=== PATIENT | female | born 1960 | race African-American/Black ===

== ENCOUNTER 2016-03-08 08:25 | Emergency (ER) | payer OTHER ==
[2016-03-08 09:23] VITALS: BP 126/85
--- NOTE | 2016-03-08 09:56 | ED ---
Throat Pain/Nasal Congestion - HPI Summary HPI Summary: Patient arrives with a 1 day history of swelling over the L upper and lower eye lid. She denies copious discharge, but awoke with some watering over the R eye. She states is is slightly red and is achy. She is able to open her lids fully. Denies visual changes, blurry vision, double vision. Denies transient vision loss. Denies floaters or flashing lights. Denies any temperature changes over the eye or STREET. Denies photophobia. Denies family or personal history of glaucoma. Patient is allergic to sulfa but denies recent exposure. Denies scalp tenderness. Denies recent illness or sick contacts. - History of Current Complaint Chief Complaint: EDEyeProblem Hx Obtained From: Patient Onset/Duration: Sudden Onset Severity: Mild - Epiglottits Risk Factors Epiglottis Risk Factors: Negative - Allergies/Home Medications Allergies/Adverse Reactions: Allergies Allergy/AdvReac Type Severity Reaction Status Date / Time Sulfa Drugs Allergy Mild Hives Verified 03/08/16 08:28 PMH/Surg Hx/FS Hx/Imm Hx Previously Healthy: Yes Endocrine/Hematology History: Reports: Hx Anticoagulant Therapy - She took one baby aspirin today., Hx Diabetes - Type 2 Denies: Hx Thyroid Disease Cardiovascular History: Reports: Hx Hypertension Denies: Hx Angina, Hx Pacemaker/ICD Respiratory History: Reports: Hx Asthma Denies: Hx Chronic Obstructive Pulmonary Disease (COPD), Hx Lung Cancer, Hx Pneumonia, Hx Pulmonary Embolism GI History: Denies: Hx Gall Bladder Disease, Hx Gastroesophageal Reflux Disease, Hx Gastrointestinal Bleed, Hx Ulcer, Hx Urosepsis History: Reports: Hx Kidney Stones Denies: Hx Renal Disease Musculoskeletal History: Reports: Hx Arthritis - Bilat knees, shoulders, Hx Tendonitis - L Wrist Sensory History: Denies: Hx Hearing Aid Comment Only: Hx Contacts or Glasses - USUALLY WEARS GLASSES Opthamlomology History: Comment Only: Hx Contacts or Glasses - USUALLY WEARS GLASSES Neurological History: Reports: Hx Migraine Denies: Hx Dementia, Hx Seizures, Hx Transient Ischemic Attacks (TIA) Psychiatric History: Denies: Hx Anxiety, Hx Depression, Hx Schizophrenia, Hx Bipolar Disorder - Cancer History Hx Chemotherapy: No Hx Radiation Therapy: No - Surgical History Surgery Procedure, Year, and Place: 1991 [facility] 2004 [facility]OMY [facility] BILATERAL CARPAL TUNNEL Hx Anesthesia Reactions: No Infectious Disease History: No Infectious Disease History: Denies: Traveled Outside the [place] in Last 30 Days - Family History Known Family History: Positive: Cardiac Disease, Hypertension, Diabetes Family History: NON-CONTRIBUTORY - Social History Alcohol Use: None Hx Substance Use: No Substance Use Type: Reports: None Hx Tobacco Use: Yes Smoking Status (MU): Former Smoker Type: Cigarettes Amount Used/How Often: LESS THEN 1PPD Length of Time of Smoking/Using Tobacco: 1.5 YRS Have You Smoked in the Last Year: No Review of Systems Constitutional: Negative Positive: Drainage - slight, Other - mild swelling over upper and lower eye lid ENT: Negative Cardiovascular: Negative Respiratory: Negative Musculoskeletal: Negative Positive: Other - edematous over R eye Psychological: Normal All Other Systems Reviewed And Are Negative: Yes Physical Exam Triage Information Reviewed: Yes Vital Signs On Initial Exam: Initial Vitals Temp Pulse Resp BP Pulse Ox 96.6 F 95 16 154/84 98 03/08/16 08:28 03/08/16 08:28 03/08/16 08:28 03/08/16 08:28 03/08/16 08:28 Appearance: Positive: Well-Appearing, No Pain Distress, Well-Nourished Skin: Positive: Warm Head/Face: Positive: Normal Head/Face Inspection, Other - DENIES temporal artery tenderness or TSREET Eyes: Positive: Normal, EOMI, CATRACHITA, Conjunctiva Inflammed - slightly erytehmatous, Discharge - slight watery discharge ENT: Positive: Normal ENT inspection, Pharynx normal Neck: Positive: Supple, Nontender, No Lymphadenopathy Respiratory/Lung Sounds: Positive: Clear to Auscultation, Breath Sounds Present Cardiovascular: Positive: Normal Musculoskeletal: Positive: Normal, Strength/ROM Intact Neurological: Positive: Normal, Sensory/Motor Intact, Facial Symmetry, Speech Normal Psychiatric: Positive: Normal AVPU Assessment: Alert - [place] Coma Scale Coma Scale Total: 15 Procedures - Eye Procedure Alcaine Drops Administered: Yes - ji lamp - no FB visualized Diagnostics - Vital Signs Vital Signs Temp Pulse Resp BP Pulse Ox 03/08/16 09:22 97.7 F 85 16 126/85 03/08/16 08:47 98.7 F 96 20 148/87 97 03/08/16 08:28 96.6 F 95 16 154/84 98 - Laboratory Lab Statement: Any lab studies that have been ordered have been reviewed, and results considered in the medical decision making process. EENT Course/Dx - Course Course Of Treatment: Visual acuity performed. Patient did not wear her glasses today. Tetracaine drops applied with dye - Patients eye visualized under ji lamp. No FB visualized. D/t swelling, slight erythematous conjunctiva and slight watery drainage from R eye - antibiotic drops prescribed to pt rx. Also 30 day supply Claritin DM. This is possibly allergic in origin. AACG less likely out based on EOMI, CATRACHITA. Tonometry not performed. Temporal arteritis effectively R/O based on no tenderness over artery or complaint of STREET. Patient encouraged to follow up with Optho for further testing if symptoms persist. Patient agrees with plan. Assessment/Plan: Follow up with optho. Antiobiotic drops given. Claritin Rx given. - Differential Diagnoses Differential Diagnoses: Conjunctivitis, Corneal Abrasion, Pain of Unknown Etiology - Diagnoses Provider Diagnoses: Eye pain Is Visit Related: No Discharge - Discharge Plan Condition: Stable Disposition: HOME Prescriptions: Loratadine & Pseudoephedrine [Claritin-D 24 Hour 10-240 mg] 1 tab PO DAILY #30 tab Polymyx/Trimethoprim OPTH* [Polytrim OPHTH*] 1 drop RIGHT EYE Q3H #1 btl Patient Education Materials: Conjunctivitis (ED) Referrals: Alana Jones MD [Primary Care Provider] - Additional Instructions: Follow up with Ophthalmology this week. If you develop worsening pain in the eye or visual changes, please come back to emergency room or call your table attendant.
== END 2016-03-08 09:22 | disposition home or self-care (01) ==
LOC: ED 08:25
DX: H57.11 Ocular pain, right eye (principal); Z88.2 Allergy status to sulfonamides; Z79.82 Long term (current) use of aspirin; E11.9 Type 2 diabetes mellitus without complications; I10 Essential (primary) hypertension
CPT/HCPCS: 99281

== ENCOUNTER 2016-03-14 20:46 | Emergency (ER) | payer OTHER ==
[2016-03-14 20:53] VITALS: BP 143/87
[2016-03-14] MEDS ORDERED: Tobramycin 0.3% OPHTH.SOL* 5 ML BOT (regular eye drops) BOTH EYES ONE (21:50)
--- NOTE | 2016-03-14 22:11 | UC ---
Eye Complaint HPI - HPI Summary HPI Summary: ONE WEEK OF BILATERAL EYE PAIN AND DISCHARGE. SEEN ONE WEEK AGO GIVEN POLYMXIN/ TRIMETHOPRIM DROPS FOR RIGHT EYE REDNESS. DOES NOT SEEM TO BE HELPING, NOW SPREADING TO BOTH EYES. NO CHANGES IN VISION, NO TRAUMA. NO PAIN WITH EYE MOVEMENT JUST IRRITATION AND DISCHARGE. NO FEVER, NO COLD SYMPTOMS. - History of Current Complaint Chief Complaint: EDEyeProblem Stated Complaint: BURNING AND PAIN IN BOTH EYES Time Seen by Provider: 03/14/16 20:59 Hx Obtained From: Patient, Family/Top Cutter Hx Last Menstrual Period: hysterectomy Onset/Duration: Gradual Onset, Lasting Weeks, Still Present, Worse Since - LAST THREE DAYS Severity Initially: Mild Severity Currently: Mild Pain Intensity: 8 Location of Injury: Conjunctiva Character: Dull Associated Signs And Symptoms: Positive: Drainage (Clear), Drainage (Purulent). Negative: Photophobia, Vision Impairment Bilateral, Vision Impairment Right, Vision Impairment Left, Fever, Swelling Related History: Similar Episode - ONE WEEK AGO - Risk Factors Penetrating Injury Risk Factor: Negative Globe Rupture Risk Factors: Negative Acute Glaucoma Risk Factors: Diabetes - Allergies/Home Medications Allergies/Adverse Reactions: Allergies Allergy/AdvReac Type Severity Reaction Status Date / Time Sulfa Drugs Allergy Mild Hives Verified 03/08/16 08:28 PMH/Surg Hx/FS Hx/Imm Hx Previously Healthy: Yes Endocrine History Of: Reports: Diabetes - Type 2, Dyslipidemia Denies: Thyroid Disease, Hyperthyroidism, Hypothyroidism Cardiovascular History Of: Reports: Hypertension Denies: Cardiac Disorders, Pacemaker/ICD, Atrial Fibrillation, Bleeding Disorders Respiratory History Of: Reports: Asthma Denies: COPD, Bronchitis, Pneumonia, Pulmonary Embolism GI/ History Of: Reports: Gastroesophageal Reflux, Kidney Stones Denies: Ulcer, Gastrointestinal Bleed, Gall Bladder Disease, Diverticulitis, Renal Disease, Urosepsis Neurological History Of: Reports: Migraine Denies: TIA, CVA, Dementia, Seizures Psychological History Of: Denies: Anxiety, Depression, Bipolar Disorder, Schizophrenia, Post Traumatic Stress Disorder Cancer History Of: Denies: Lung Cancer, Colorectal Cancer, Breast Cancer, Prostate Cancer, Cervical Cancer Other History Of: Anticoagulant Therapy - She took one baby aspirin today. Negative For: HIV, Hepatitis B, Hepatitis C - Surgical History Surgical History: Yes Surgery Procedure, Year, and Place: 1991 [facility] 2004 [facility] BILATERAL CARPAL TUNNEL - Family History Known Family History: Positive: Cardiac Disease, Hypertension, Diabetes Family History: NON-CONTRIBUTORY - Social History Occupation: Disabled Lives: With Family Alcohol Use: None Substance Use Type: None Smoking Status (MU): Former Smoker Type: Cigarettes Amount Used/How Often: LESS THEN 1PPD Length of Time of Smoking/Using Tobacco: 1.5 YRS Have You Smoked in the Last Year: No When Did the Patient Quit Smoking/Using Tobacco: 40 yrs ago - Immunization History Most Recent Influenza Vaccination: 10/2014 Most Recent Tetanus Shot: up to date Most Recent Pneumonia Vaccination: never had this Review of Systems Constitutional: Negative Skin: Negative Eyes: Drainage, Eye Redness ENT: Negative Respiratory: Negative Cardiovascular: Negative Gastrointestinal: Negative Genitourinary: Negative Motor: Negative Neurovascular: Negative Musculoskeletal: Negative Neurological: Negative Psychological: Negative All Other Systems Reviewed And Are Negative: Yes Physical Exam Triage Information Reviewed: Yes Appearance: Well-Appearing, No Pain Distress, Well-Nourished Vital Signs: Initial Vital Signs Temp 97.5 F 03/14/16 20:49 Pulse 103 03/14/16 20:49 Resp 16 03/14/16 20:49 BP 143/87 03/14/16 20:49 Pulse Ox 97 03/14/16 20:49 Vital Signs Reviewed: Yes Eyes: Positive: Conjunctiva Inflamed, Discharge ENT Exam: Normal ENT: Positive: Normal ENT inspection, Hearing grossly normal, Pharynx normal, TMs normal Dental Exam: Normal Neck exam: Normal Neck: Positive: Supple, Nontender, No Lymphadenopathy Respiratory Exam: Normal Respiratory: Positive: Chest non-tender, Lungs clear, Normal breath sounds, No respiratory distress, No accessory muscle use Cardiovascular Exam: Normal Cardiovascular: Positive: RRR, No Murmur, Pulses Normal Abdominal Exam: Normal Abdomen Description: Positive: Nontender, No Organomegaly Musculoskeletal Exam: Normal Musculoskeletal: Positive: Strength Intact, ROM Intact, No Edema Neurological Exam: Normal Psychological Exam: Normal Psychological: Positive: Normal Response To Family Skin Exam: Normal Eye Complaint Course/Dx - Differential Dx/Diagnosis Differential Diagnosis/HQI/PQRI: Conjunctivitis Provider Diagnoses: CONJUNCTIVITIS BILATERAL Discharge - Discharge Plan Condition: Stable Disposition: HOME Prescriptions: Tobramycin 0.3% OPHTH.YSABEL* 1 drop BOTH EYES Q4H #1 btl Patient Education Materials: Conjunctivitis (ED) Referrals: Alana Jones MD [Primary Care Provider] - Darron Calhoun MD [Medical Doctor] -
== END 2016-03-14 22:18 | disposition home or self-care (01) ==
LOC: ED 20:46
DX: H10.9 Unspecified conjunctivitis (principal); H57.13 Ocular pain, bilateral; Z87.891 Personal history of nicotine dependence
CPT/HCPCS: 99282; A9270-GY

== ENCOUNTER 2016-04-12 10:59 | Emergency (ER) | payer OTHER ==
[2016-04-12 11:17] VITALS: BP 137/89
--- NOTE | 2016-04-12 11:48 | UC ---
Respiratory Complaint HPI - HPI Summary HPI Summary: ONE WEEK OF COUGH, CHEST CONGESTION. NO FEVER - History of Current Complaint Chief Complaint: UCRespiratory Stated Complaint: COUGH, AND CHEST CONGESTION Time Seen by Provider: 04/12/16 11:24 Hx Obtained From: Patient Hx Last Menstrual Period: hysterectomy Onset/Duration: Gradual Onset, Lasting Weeks, Still Present Timing: Intermittent Episodes Severity Initially: Mild Severity Currently: Mild Character: Cough: Nonproductive Associated Signs And Symptoms: Positive: Wheezing, URI, Nasal Congestion. Negative: Fever, Calf Pain, Calf Swelling, Hoarseness, Sinus Discomfort - Risk Factors Pulmonary Embolism Risk Factors: Negative Cardiac Risk Factors: Negative Pseudomonas Risk Factors: Negative Tuberculosis Risk Factors: Negative - Allergies/Home Medications Allergies/Adverse Reactions: Allergies Allergy/AdvReac Type Severity Reaction Status Date / Time Sulfa Drugs Allergy Mild Hives Verified 03/08/16 08:28 PMH/Surg Hx/FS Hx/Imm Hx Previously Healthy: Yes Endocrine History Of: Reports: Diabetes - Type 2, Dyslipidemia Denies: Thyroid Disease, Hyperthyroidism, Hypothyroidism Cardiovascular History Of: Reports: Hypertension Denies: Cardiac Disorders, Pacemaker/ICD, Atrial Fibrillation, Bleeding Disorders Respiratory History Of: Reports: Asthma Denies: COPD, Bronchitis, Pneumonia, Pulmonary Embolism GI/ History Of: Reports: Gastroesophageal Reflux, Kidney Stones Denies: Ulcer, Gastrointestinal Bleed, Gall Bladder Disease, Diverticulitis, Renal Disease, Urosepsis Neurological History Of: Reports: Migraine Denies: TIA, CVA, Dementia, Seizures Psychological History Of: Denies: Anxiety, Depression, Bipolar Disorder, Schizophrenia, Post Traumatic Stress Disorder Cancer History Of: Denies: Lung Cancer, Colorectal Cancer, Breast Cancer, Prostate Cancer, Cervical Cancer Other History Of: Anticoagulant Therapy - She took one baby aspirin today. Negative For: HIV, Hepatitis B, Hepatitis C - Surgical History Surgical History: Yes Surgery Procedure, Year, and Place: 1991 [facility] 2004 [facility]OM[facility] BILATERAL CARPAL TUNNEL - Family History Known Family History: Positive: Cardiac Disease, Hypertension, Diabetes Family History: NON-CONTRIBUTORY - Social History Occupation: Unemployed Lives: With Family Alcohol Use: None Substance Use Type: None Smoking Status (MU): Former Smoker Type: Cigarettes Amount Used/How Often: LESS THEN 1PPD Length of Time of Smoking/Using Tobacco: 1.5 YRS Have You Smoked in the Last Year: No When Did the Patient Quit Smoking/Using Tobacco: 40 yrs ago - Immunization History Most Recent Influenza Vaccination: 10/2014 Most Recent Tetanus Shot: up to date Most Recent Pneumonia Vaccination: never had this Review of Systems Constitutional: Negative Skin: Negative Eyes: Negative ENT: Negative Respiratory: Cough Cardiovascular: Negative Gastrointestinal: Negative Genitourinary: Negative Motor: Negative Neurovascular: Negative Musculoskeletal: Negative Neurological: Negative Psychological: Negative All Other Systems Reviewed And Are Negative: Yes Physical Exam Triage Information Reviewed: Yes Appearance: Well-Appearing, No Pain Distress, Well-Nourished Vital Signs: Initial Vital Signs Temp 96.4 F 04/12/16 11:15 Pulse 84 04/12/16 11:15 Resp 18 04/12/16 11:15 BP 137/89 04/12/16 11:15 Pulse Ox 99 04/12/16 11:15 Vital Signs Reviewed: Yes Eye Exam: Normal Eyes: Positive: Conjunctiva Clear ENT Exam: Normal ENT: Positive: Normal ENT inspection, Hearing grossly normal, Pharynx normal, TMs normal Dental Exam: Normal Neck exam: Normal Neck: Positive: Supple, Nontender Respiratory Exam: Other - COUGH Respiratory: Positive: Chest non-tender, Lungs clear, Normal breath sounds, No respiratory distress, No accessory muscle use. Negative: Respiratory distress, Decreased breath sounds Cardiovascular Exam: Normal Cardiovascular: Positive: RRR, No Murmur, Pulses Normal, Brisk Capillary Refill Abdominal Exam: Normal Abdomen Description: Positive: Nontender, No Organomegaly Musculoskeletal Exam: Normal Musculoskeletal: Positive: Strength Intact, ROM Intact Neurological Exam: Normal Psychological Exam: Normal Psychological: Positive: Normal Response To Family Skin Exam: Normal UC Diagnostic Evaluation - Laboratory O2 Sat by Pulse Oximetry: 99 Respiratory Course/Dx - Differential Dx/Diagnosis Differential Diagnosis/HQI/PQRI: Sinusitis Provider Diagnoses: UPPER RESPIRATORY INFECTION Discharge - Discharge Plan Condition: Stable Disposition: HOME Prescriptions: Benzonatate CAP* [Tessalon CAP*] 100 mg PO TID PRN #15 cap PRN Reason: Cough Patient Education Materials: Upper Respiratory Infection (ED) Referrals: Alana Jones MD [Primary Care Provider] -
== END 2016-04-12 11:51 | disposition home or self-care (01) ==
LOC: UCEAST 10:59
DX: J06.9 Acute upper respiratory infection, unspecified (principal); Z88.2 Allergy status to sulfonamides; Z79.82 Long term (current) use of aspirin; Z87.891 Personal history of nicotine dependence
CPT/HCPCS: 99212; G0463

== ENCOUNTER 2016-05-10 13:12 | Emergency (ER) | payer OTHER ==
[2016-05-10 13:16] VITALS: BP 158/83
[2016-05-10] MEDS ORDERED: Cyclobenzaprine TAB* 10 MG PO ONE (14:33)
[2016-05-10] MEDS ORDERED: Ketorolac INJ* 60 MG/2 ML VIAL IM ONE (14:33)
--- NOTE | 2016-05-10 14:36 | ED ---
Upper Extremity Pain - HPI Summary HPI Summary: 56F presents with left side neck and shoulder pain since this morning. She denies any injury. She denies any weakness, numbness or tingling. The pain is not midline on her neck. She has used ibuprofen without relief. She denies any chest pain or shortness of breath. She is right handed. - History of Current Complaint Chief Complaint: EDNeckComplaint Stated Complaint: LT ARM/NECK PAIN Time Seen by Provider: 05/10/16 14:19 Hx Last Menstrual Period: hysterectomy - Allergies/Home Medications Allergies/Adverse Reactions: Allergies Allergy/AdvReac Type Severity Reaction Status Date / Time Sulfa Drugs Allergy Mild Hives Verified 05/10/16 13:12 PMH/Surg Hx/FS Hx/Imm Hx Endocrine/Hematology History: Reports: Hx Anticoagulant Therapy - She took one baby aspirin today., Hx Diabetes - Type 2 Denies: Hx Thyroid Disease Cardiovascular History: Reports: Hx Hypertension Denies: Hx Angina, Hx Pacemaker/ICD Respiratory History: Reports: Hx Asthma Denies: Hx Chronic Obstructive Pulmonary Disease (COPD), Hx Lung Cancer, Hx Pneumonia, Hx Pulmonary Embolism GI History: Denies: Hx Gall Bladder Disease, Hx Gastroesophageal Reflux Disease, Hx Gastrointestinal Bleed, Hx Ulcer, Hx Urosepsis History: Reports: Hx Kidney Stones Denies: Hx Renal Disease Musculoskeletal History: Reports: Hx Arthritis - Bilat knees, shoulders, Hx Tendonitis - L Wrist Sensory History: Denies: Hx Hearing Aid Comment Only: Hx Contacts or Glasses - USUALLY WEARS GLASSES Opthamlomology History: Comment Only: Hx Contacts or Glasses - USUALLY WEARS GLASSES Neurological History: Reports: Hx Migraine Denies: Hx Dementia, Hx Seizures, Hx Transient Ischemic Attacks (TIA) Psychiatric History: Denies: Hx Anxiety, Hx Depression, Hx Schizophrenia, Hx Bipolar Disorder - Cancer History Hx Chemotherapy: No Hx Radiation Therapy: No - Surgical History Surgery Procedure, Year, and Place: 1991 [facility] 2004 [facility] BILATERAL CARPAL TUNNEL Hx Anesthesia Reactions: No Infectious Disease History: No Infectious Disease History: Denies: Traveled Outside the [place] in Last 30 Days - Family History Known Family History: Positive: Cardiac Disease, Hypertension, Diabetes Family History: NON-CONTRIBUTORY - Social History Alcohol Use: None Hx Substance Use: No Substance Use Type: Reports: None Hx Tobacco Use: Yes Smoking Status (MU): Former Smoker Type: Cigarettes Amount Used/How Often: LESS THEN 1PPD Length of Time of Smoking/Using Tobacco: 1.5 YRS Have You Smoked in the Last Year: No Review of Systems Negative: Fever Negative: Chest Pain Negative: Shortness Of Breath Positive: Myalgia - left shoulder and neck pain All Other Systems Reviewed And Are Negative: Yes Physical Exam Triage Information Reviewed: Yes Vital Signs On Initial Exam: Initial Vitals Temp Pulse Resp BP Pulse Ox 96.7 F 84 16 158/83 99 05/10/16 13:13 05/10/16 13:13 05/10/16 13:13 05/10/16 13:13 05/10/16 13:13 Vital Signs Reviewed: Yes Appearance: Positive: Well-Appearing Skin: Positive: Warm, Dry Head/Face: Positive: Normal Head/Face Inspection Eyes: Positive: Normal, Conjunctiva Clear Respiratory/Lung Sounds: Positive: Clear to Auscultation, Breath Sounds Present Cardiovascular: Positive: Normal, RRR Musculoskeletal: Positive: Strength/ROM Intact - of left shoulder and neck, Other - neg arm drop, good pulses, no midline tenderness of neck, palpable muscle spasms of trapezius that is tender to palpation, sensation grossly intact Diagnostics - Vital Signs Vital Signs Temp Pulse Resp BP Pulse Ox 05/10/16 13:13 96.7 F 84 16 158/83 99 - Laboratory Lab Statement: Any lab studies that have been ordered have been reviewed, and results considered in the medical decision making process. Course/Dx - Course Course Of Treatment: 56F presents with left shoulder pain today. Denies any injury. no numbness or tingling. on exam tender over trapezius. do not suspect cardiac related due to palpable muscle spasms felt. will treat with flexeril. patient understands and agrees with plan - Diagnoses Differential Diagnosis/HQI/PQRI: Positive: Fracture (Closed), Strain, Sprain Provider Diagnoses: Left shoulder pain Discharge - Discharge Plan Condition: Good Disposition: HOME Prescriptions: Cyclobenzaprine TAB* [Flexeril 10 MG TAB*] 10 mg PO TID PRN #9 tab PRN Reason: Pain Referrals: Alana Jones MD [Primary Care Provider] - Additional Instructions: Take muscle relaxer three times a day for 3 days Take Tylenol and ibuprofen every 6 hours as needed for pain heat area and massage Do range of motion activities for shoulder Follow up with primary care physician if no improvement Return to ED if develop weakness, numbness or tingling or any new or worsening symptoms
== END 2016-05-10 15:03 | disposition home or self-care (01) ==
LOC: ED 13:12
DX: M25.512 Pain in left shoulder (principal); M54.2 Cervicalgia
CPT/HCPCS: 96372; 99281; A9270-GY; J1885

== ENCOUNTER 2016-05-17 12:28 | Emergency (ER) | payer OTHER ==
--- NOTE | 2016-05-17 16:44 | RAD ---
HISTORY: Abdominal pain, lack of bowel movements COMPARISONS: None relevant VIEWS: Frontal views of the abdomen. FINDINGS: BOWEL: There is a nonobstructive bowel gas pattern. There is a moderate amount of stool within the colon. CALCULI: There are no abnormal calculi. BONES AND SOFT TISSUES: Degenerative changes are noted OTHER FINDINGS: The lung bases are clear. There is no subphrenic gas. IMPRESSION: NONOBSTRUCTIVE BOWEL GAS PATTERN. MODERATE AMOUNT OF STOOL THROUGHOUT THE COLON.
[2016-05-17] MEDS ORDERED: Polyethylene Glycol 3350* 17 GM PACKET PO PRN (17:00)
[2016-05-17] MEDS ORDERED: Polyethylene Glycol 3350 BTL* 238 GM BTL PO ONE (17:05)
--- NOTE | 2016-05-17 17:12 | ED ---
Complex/Multi-Sys Presentation - HPI Summary HPI Summary: Patient presents with three days of constipation. She has taken metamucil without relief. She denies vomiting, fever, or diarrhea. She has been eating and drinking. She mild diffuse abdominal discomfort. She has not spoken with her PCP regarding this issue. - History Of Current Complaint Chief Complaint: EDAbdPain Time Seen by Provider: 05/17/16 16:25 Hx Obtained From: Patient Onset/Duration: Gradual Onset Timing: Constant Severity Currently: Moderate Severity Initially: Mild Character: Pressure Associated Signs And Symptoms: Positive: Abdominal Pain - mild diffuse. Negative: Nausea, Vomiting, Diarrhea, Melena, Decreased Oral Intake, Fever - Allergies/Home Medications Allergies/Adverse Reactions: Allergies Allergy/AdvReac Type Severity Reaction Status Date / Time Sulfa Drugs Allergy Mild Hives Verified 05/10/16 13:12 PMH/Surg Hx/FS Hx/Imm Hx Endocrine/Hematology History: Reports: Hx Anticoagulant Therapy - She took one baby aspirin today., Hx Diabetes - Type 2 Denies: Hx Thyroid Disease Cardiovascular History: Reports: Hx Hypertension Denies: Hx Angina, Hx Pacemaker/ICD Respiratory History: Reports: Hx Asthma Denies: Hx Chronic Obstructive Pulmonary Disease (COPD), Hx Lung Cancer, Hx Pneumonia, Hx Pulmonary Embolism GI History: Denies: Hx Gall Bladder Disease, Hx Gastroesophageal Reflux Disease, Hx Gastrointestinal Bleed, Hx Ulcer, Hx Urosepsis History: Reports: Hx Kidney Stones Denies: Hx Renal Disease Musculoskeletal History: Reports: Hx Arthritis - Bilat knees, shoulders, Hx Tendonitis - L Wrist Sensory History: Denies: Hx Hearing Aid Comment Only: Hx Contacts or Glasses - USUALLY WEARS GLASSES Opthamlomology History: Comment Only: Hx Contacts or Glasses - USUALLY WEARS GLASSES Neurological History: Reports: Hx Migraine Denies: Hx Dementia, Hx Seizures, Hx Transient Ischemic Attacks (TIA) Psychiatric History: Denies: Hx Anxiety, Hx Depression, Hx Schizophrenia, Hx Bipolar Disorder - Cancer History Hx Chemotherapy: No Hx Radiation Therapy: No - Surgical History Surgery Procedure, Year, and Place: 1991 [facility] 2004 [facility]OMY [facility] BILATERAL CARPAL TUNNEL Hx Anesthesia Reactions: No Infectious Disease History: No Infectious Disease History: Denies: Traveled Outside the [place] in Last 30 Days - Family History Known Family History: Positive: Cardiac Disease, Hypertension, Diabetes Family History: NON-CONTRIBUTORY - Social History Occupation: Unemployed Lives: With Family Alcohol Use: None Hx Substance Use: No Substance Use Type: Reports: None Hx Tobacco Use: Yes Smoking Status (MU): Former Smoker Type: Cigarettes Amount Used/How Often: LESS THEN 1PPD Length of Time of Smoking/Using Tobacco: 1.5 YRS Have You Smoked in the Last Year: No Review of Systems Negative: Fever, Chills Negative: Chest Pain Negative: Shortness Of Breath Positive: Abdominal Pain - mild diffuse. Negative: Vomiting, Diarrhea, Nausea Positive: no symptoms reported Negative: Headache, Weakness All Other Systems Reviewed And Are Negative: Yes Physical Exam Triage Information Reviewed: Yes Vital Signs On Initial Exam: Initial Vitals Temp Pulse Resp BP Pulse Ox 97.3 F 81 18 147/79 100 05/17/16 12:50 05/17/16 12:50 05/17/16 12:50 05/17/16 12:50 05/17/16 12:50 Vital Signs Reviewed: Yes Appearance: Positive: Well-Appearing, No Pain Distress, Obese Skin: Positive: Warm, Skin Color Reflects Adequate Perfusion, Dry, Soft Head/Face: Positive: Normal Head/Face Inspection Eyes: Positive: EOMI, CATRACHITA, Conjunctiva Clear ENT: Positive: Hearing grossly normal Neck: Positive: Supple, Nontender Respiratory/Lung Sounds: Positive: Clear to Auscultation, Breath Sounds Present Cardiovascular: Positive: RRR Abdomen Description: Positive: Soft. Negative: Nontender - mild diffuse discomfort with palpation, CVA Tenderness (R), CVA Tenderness (L), Distended, Guarding, Hepatomegaly, McBurney's Point Tenderness, Pulsatile Mass, Splenomegaly Bowel Sounds: Positive: Present Musculoskeletal: Positive: Strength/ROM Intact. Negative: Edema Left, Edema Right Neurological: Positive: Sensory/Motor Intact, Alert, Oriented to Person Place, Time, NV Bundle Intact Distally, Normal Gait Psychiatric: Positive: Affect/Mood Appropriate AVPU Assessment: Alert Diagnostics - Vital Signs Vital Signs Temp Pulse Resp BP Pulse Ox 05/17/16 15:30 97.5 F 77 18 131/80 99 05/17/16 13:50 98.7 F 78 18 127/75 98 05/17/16 12:50 97.3 F 81 18 147/79 100 - Laboratory Lab Statement: Any lab studies that have been ordered have been reviewed, and results considered in the medical decision making process. - Radiology No standard instances Xray Interpretation: Positive (See Comments) - moderate amount of stool without obstructive pattern Radiology Interpretation Completed By: Radiologist Complex Multi-Symp Course/Dx - Diagnoses Differential Diagnoses/HQI/PQRI: Sepsis, Urinary Tract Infection, Other Provider Diagnoses: Constipation Discharge - Discharge Plan Condition: Stable Disposition: HOME Patient Education Materials: Constipation (ED) Referrals: Alana Jones MD [Primary Care Provider] - Additional Instructions: Please use the medication provided at home and make sure to drink extra fluids. If your symptoms persist follow-up with your PCP in 1-2 days. If symptoms worsen , return to the emergency department.
[2016-05-17 17:39] LABS: Urine Bilirubin Negative (Negative); Urine Glucose Negative (Negative); Urine Nitrite Negative (Negative)
[2016-05-17 18:27] VITALS: BP 139/76
== END 2016-05-17 18:26 | disposition home or self-care (01) ==
LOC: ED 12:28
DX: K59.00 Constipation, unspecified (principal); R10.9 Unspecified abdominal pain; Z87.891 Personal history of nicotine dependence
CPT/HCPCS: 74020; 81003; 99282

== ENCOUNTER 2016-06-08 13:27 | Emergency (ER) | payer OTHER ==
[2016-06-08] MEDS: NS 0.9% 1000 ML* 2,000 ML IV ONE (14:19)
[2016-06-08 14:31] LABS: Hematocrit 39 % (35-47); Hemoglobin 12.8 g/dl (12.0-16.0); Mean Corpuscular HGB Conc 33 g/dl (31-36); Mean Corpuscular Hemoglobin 29 pg (27-31); Mean Corpuscular Volume 88 fL (80-97); Mean Platelet Volume 8 um3 (7.4-10.4); Red Blood Count 4.41 10^6/ul (4.0-5.4); Red Cell Distribution Width 14 % (10.5-15); White Blood Count 6.4 10^3/ul (3.5-10.8)
[2016-06-08 15:01] LABS: Albumin 4.1 g/dL (3.2-5.2); BUN/Creatinine Ratio 17.4 (8-20); C Reactive Protein 14.5 mg/L (< 5.00); Calcium 9.6 mg/dL (8.6-10.3); EGFR African American 113.2 (>60); Globulin 3.1 g/dL (2-4); Potassium 3.9 mmol/L (3.5-5.0); Total Bilirubin 0.3 mg/dL (0.2-1.0); Total Protein 7.2 g/dL (6.4-8.9)
[2016-06-08 15:13] LABS: TSH (Thyroid Stimulating Horm) 2.93 mcIU/mL (0.34-5.60)
[2016-06-08 16:16] LABS: Urine Bilirubin Negative (Negative); Urine Glucose Negative (Negative); Urine Nitrite Negative (Negative)
[2016-06-08] MEDS ORDERED: Acetaminophen TAB* 325 MG PO ONE (17:04)
[2016-06-08 17:39] VITALS: BP 145/89
--- NOTE | 2016-06-08 17:45 | RAD ---
INDICATION: Headache COMPARISON: Similar CT of the brain dated July 13, 2015 TECHNIQUE: Contiguous axial sections of the brain were obtained from the skull base to the vertex without contrast. FINDINGS: The ventricles, cisterns and sulci are within normal limits. The juarez-white matter differentiation is adequately maintained and there is no sulcal effacement. No significant focal abnormality or mass effect is present. There is no evidence for intracranial hemorrhage. Stable coarse calcification is noted at the falx cerebra I similar in appearance to the previous CT examination. This could possibly represent a calcified meningioma. No significant focal osseous abnormality is present. Incidental note is made of hyperostosis frontalis interna. The visualized portion of the paranasal sinuses and mastoid air cells appear clear. IMPRESSION: No acute intracranial abnormality with chronic findings unchanged since the July 13, 2015 CT of the brain.
--- NOTE | 2016-06-08 18:09 | ED ---
Cesilia Andino Claudia, scribed for Joe Daniels MD on 06/08/16 at 1405 . HPI Diabetic - HPI Summary HPI Summary: 56 year old female presents to the ED with hypergylcemia. Pt notes that she took her blood sugar this am before breakfast with nml reading. Pt then had some breakfast and about 2 hours later she began having bilateral blurred vision and STREET. Pt then took her blood sugar again with a reading of 384. Pt notes that this is an abnormal read for her so she decided to call her PCP whom recommended she come to the ED. Pt notes that these are similar Sx to when she has had hypergylcemia a year ago. Pt denies any fever, chills, nausea, abd pain. Pt denies any recent cold, runny nose, cough. Pt also denies any calf swelling or taking any water pills, as well as any change in her diet, exercise or medication dosage. - History Of Current Complaint Chief Complaint: EDGeneral Time Seen by Provider: 06/08/16 13:54 Hx Obtained From: Patient Onset/Duration: Sudden Onset, Lasting Hours Timing: Constant - Allergies/Home Medications Allergies/Adverse Reactions: Allergies Allergy/AdvReac Type Severity Reaction Status Date / Time Sulfa Drugs Allergy Mild Hives Verified 05/10/16 13:12 PMH/Surg Hx/FS Hx/Imm Hx Previously Healthy: Yes Endocrine/Hematology History: Reports: Hx Anticoagulant Therapy - She took one baby aspirin today., Hx Diabetes - Type 2 Denies: Hx Thyroid Disease Cardiovascular History: Reports: Hx Hypertension Denies: Hx Angina, Hx Pacemaker/ICD Respiratory History: Reports: Hx Asthma Denies: Hx Chronic Obstructive Pulmonary Disease (COPD), Hx Lung Cancer, Hx Pneumonia, Hx Pulmonary Embolism GI History: Denies: Hx Gall Bladder Disease, Hx Gastroesophageal Reflux Disease, Hx Gastrointestinal Bleed, Hx Ulcer, Hx Urosepsis History: Reports: Hx Kidney Stones Denies: Hx Renal Disease Musculoskeletal History: Reports: Hx Arthritis - Bilat knees, shoulders, Hx Tendonitis - L Wrist Sensory History: Comment Only: Hx Contacts or Glasses - USUALLY WEARS GLASSES Opthamlomology History: Comment Only: Hx Contacts or Glasses - USUALLY WEARS GLASSES Neurological History: Reports: Hx Migraine Denies: Hx Dementia, Hx Seizures, Hx Transient Ischemic Attacks (TIA) Psychiatric History: Denies: Hx Anxiety, Hx Depression, Hx Schizophrenia, Hx Bipolar Disorder - Cancer History Hx Chemotherapy: No Hx Radiation Therapy: No - Surgical History Surgery Procedure, Year, and Place: 1991 [facility] 2004 [facility]CTOMY [facility] BILATERAL CARPAL TUNNEL Hx Anesthesia Reactions: No Infectious Disease History: Denies: Traveled Outside the [place] in Last 30 Days - Family History Known Family History: Positive: Cardiac Disease, Hypertension, Diabetes Family History: NON-CONTRIBUTORY - Social History Occupation: Unemployed Lives: With Family Alcohol Use: None Hx Substance Use: No Substance Use Type: Reports: None Hx Tobacco Use: Yes Smoking Status (MU): Former Smoker Type: Cigarettes Amount Used/How Often: LESS THEN 1PPD Length of Time of Smoking/Using Tobacco: 1.5 YRS Have You Smoked in the Last Year: No Review of Systems Constitutional: Negative Negative: Fever, Chills Positive: Blurred Vision ENT: Negative Cardiovascular: Negative Respiratory: Negative Gastrointestinal: Negative Negative: Abdominal Pain, Vomiting, Diarrhea, Nausea Genitourinary: Negative Musculoskeletal: Negative Skin: Negative Positive: Headache Psychological: Normal All Other Systems Reviewed And Are Negative: Yes Physical Exam Triage Information Reviewed: Yes Vital Signs On Initial Exam: Initial Vitals Temp Pulse Resp BP Pulse Ox 97.6 F 82 16 160/91 100 06/08/16 13:29 06/08/16 13:29 06/08/16 13:29 06/08/16 13:29 06/08/16 13:29 Vital Signs Reviewed: Yes Appearance: Positive: Well-Appearing, No Pain Distress Skin: Positive: Warm, Skin Color Reflects Adequate Perfusion, Dry Head/Face: Positive: Normal Head/Face Inspection Eyes: Positive: EOMI, CATRACHITA ENT: Positive: Normal ENT inspection Neck: Positive: Supple, Nontender Respiratory/Lung Sounds: Positive: Clear to Auscultation, Breath Sounds Present Cardiovascular: Positive: RRR Abdomen Description: Positive: Nontender, Soft Musculoskeletal: Positive: Normal, Strength/ROM Intact Neurological: Positive: Normal, Sensory/Motor Intact, Alert, Oriented to Person Place, Time Psychiatric: Positive: Affect/Mood Appropriate Diagnostics - Vital Signs Vital Signs Temp Pulse Resp BP Pulse Ox 06/08/16 13:29 97.6 F 82 16 160/91 100 - Laboratory Lab Results: Lab Results 06/08/16 06/08/16 06/08/16 Range/Units 14:15 14:15 14:15 WBC 6.4 (3.5-10.8) 10^3/ul RBC 4.41 (4.0-5.4) 10^6/ul Hgb 12.8 (12.0-16.0) g/dl Hct 39 (35-47) % MCV 88 (80-97) fL MCH 29 (27-31) pg MCHC 33 (31-36) g/dl RDW 14 (10.5-15) % Plt Count 260 (150-450) 10^3/ul MPV 8 (7.4-10.4) um3 Neut % (Auto) 48.3 (38-83) % Lymph % (Auto) 40.0 (25-47) % [place] % (Auto) 9.7 H (1-9) % Eos % (Auto) 1.1 (0-6) % Baso % (Auto) 0.9 (0-2) % Absolute Neuts (auto) 3.1 (1.5-7.7) 10^3/ul Absolute Lymphs (auto) 2.6 (1.0-4.8) 10^3/ul Absolute Monos (auto) 0.6 (0-0.8) 10^3/ul Absolute Eos (auto) 0.1 (0-0.6) 10^3/ul Absolute Basos (auto) 0.1 (0-0.2) 10^3/ul Absolute Nucleated RBC 0.01 10^3/ul Nucleated RBC % 0.1 INR (Anticoag Therapy) 0.96 (0.89-1.11) APTT 32.8 (26.0-36.3) seconds Sodium 139 (133-145) mmol/L Potassium 3.9 (3.5-5.0) mmol/L Chloride 104 (101-111) mmol/L Carbon Dioxide 29 (22-32) mmol/L Anion Gap 6 (2-11) mmol/L BUN 12 (6-24) mg/dL Creatinine 0.69 (0.51-0.95) mg/dL Est GFR ( Amer) 113.2 (>60) Est GFR (Non-Af Amer) 88.0 (>60) BUN/Creatinine Ratio 17.4 (8-20) Glucose 105 H (70-100) mg/dL Lactic Acid (0.5-2.0) mmol/L Calcium 9.6 (8.6-10.3) mg/dL Total Bilirubin 0.30 (0.2-1.0) mg/dL AST 40 H (13-39) U/L ALT 72 H (7-52) U/L Alkaline Phosphatase 140 H (34-104) U/L Troponin I 0.00 (<0.04) ng/mL C-Reactive Protein 14.50 H (< 5.00) mg/L Total Protein 7.2 (6.4-8.9) g/dL Albumin 4.1 (3.2-5.2) g/dL Globulin 3.1 (2-4) g/dL Albumin/Globulin Ratio 1.3 (1-3) Lipase 54 (11.0-82.0) U/L TSH 2.93 (0.34-5.60) mcIU/mL Urine Color Urine Appearance Urine pH (5-9) Ur Specific [place] (1.010-1.030) Urine Protein (Negative) Urine Ketones (Negative) Urine Blood (Negative) Urine Nitrate (Negative) Urine Bilirubin (Negative) Urine Urobilinogen (Negative) Ur Leukocyte Esterase (Negative) Urine Glucose (Negative) 06/08/16 06/08/16 Range/Units 14:15 16:02 WBC (3.5-10.8) 10^3/ul RBC (4.0-5.4) 10^6/ul Hgb (12.0-16.0) g/dl Hct (35-47) % MCV (80-97) fL MCH (27-31) pg MCHC (31-36) g/dl RDW (10.5-15) % Plt Count (150-450) 10^3/ul MPV (7.4-10.4) um3 Neut % (Auto) (38-83) % Lymph % (Auto) (25-47) % [place] % (Auto) (1-9) % Eos % (Auto) (0-6) % Baso % (Auto) (0-2) % Absolute Neuts (auto) (1.5-7.7) 10^3/ul Absolute Lymphs (auto) (1.0-4.8) 10^3/ul Absolute Monos (auto) (0-0.8) 10^3/ul Absolute Eos (auto) (0-0.6) 10^3/ul Absolute Basos (auto) (0-0.2) 10^3/ul Absolute Nucleated RBC 10^3/ul Nucleated RBC % INR (Anticoag Therapy) (0.89-1.11) APTT (26.0-36.3) seconds Sodium (133-145) mmol/L Potassium (3.5-5.0) mmol/L Chloride (101-111) mmol/L Carbon Dioxide (22-32) mmol/L Anion Gap (2-11) mmol/L BUN (6-24) mg/dL Creatinine (0.51-0.95) mg/dL Est GFR ( Amer) (>60) Est GFR (Non-Af Amer) (>60) BUN/Creatinine Ratio (8-20) Glucose (70-100) mg/dL Lactic Acid 2.0 (0.5-2.0) mmol/L Calcium (8.6-10.3) mg/dL Total Bilirubin (0.2-1.0) mg/dL AST (13-39) U/L ALT (7-52) U/L Alkaline Phosphatase (34-104) U/L Troponin I (<0.04) ng/mL C-Reactive Protein (< 5.00) mg/L Total Protein (6.4-8.9) g/dL Albumin (3.2-5.2) g/dL Globulin (2-4) g/dL Albumin/Globulin Ratio (1-3) Lipase (11.0-82.0) U/L TSH (0.34-5.60) mcIU/mL Urine Color Colorless Urine Appearance Clear Urine pH 7.0 (5-9) Ur Specific [place] 1.004 L (1.010-1.030) Urine Protein Negative (Negative) Urine Ketones Negative (Negative) Urine Blood Negative (Negative) Urine Nitrate Negative (Negative) Urine Bilirubin Negative (Negative) Urine Urobilinogen Negative (Negative) Ur Leukocyte Esterase Negative (Negative) Urine Glucose Negative (Negative) Result Diagrams: 06/08/16 14:15 06/08/16 14:15 Lab Statement: Any lab studies that have been ordered have been reviewed, and results considered in the medical decision making process. - CT BRAIN CT CT Interpretation: No Acute Changes - No acute intracranial abnormality with chronic findings unchanged since the July 13, 2015 CT of the brain. CT Interpretation Completed By: Radiologist Re-Evaluation - Re-Evaluation 1 Re-Evaluation Time: 18:05 Change: Improved - PT IS IMPROVED AND IS READY TO BE D/C HOME Comment: Pt lab results and Brain CT are discussed with the pt. She is agreeable with the plan to be d/c home. Diabetic Course/Dx - Course Course Of Treatment: NO CRITICAL CARE TIME Assessment/Plan: IMPROVED IN ED ANFTER IVF AND TYLENOL. DISCUSSED RESULTS WITH PATIENT/FAMILY. DISCHARGE HOME STABLE. - Diagnoses Provider Diagnoses: Headache, Diabetes Discharge - Discharge Plan Condition: Stable Disposition: HOME Prescriptions: Ibuprofen TAB* [Motrin TAB* 600 MG] 600 mg PO Q6H PRN #30 tab PRN Reason: pain Patient Education Materials: General Headache (ED), Type 2 Diabetes in Adults ( ED) Referrals: Alana Jones MD [Primary Care Provider] - Additional Instructions: FOLLOW UP WITH YOUR DOCTOR. TAKE ACETAMINOPHEN OR IBUPROFEN NEEDED FOR YOUR HEADACHE. RETURN TO THE EMERGENCY DEPARTMENT FOR ANY WORSENING OF YOUR CONDITION OR QUESTIONS OR CONCERNS. The documentation as recorded by the Cesilia simpson Claudia accurately reflects the service I personally performed and the decisions made by me, Joe Daniels MD.
== END 2016-06-08 18:36 | disposition home or self-care (01) ==
LOC: ED 13:27
DX: R73.9 Hyperglycemia, unspecified (principal); E11.9 Type 2 diabetes mellitus without complications; R51 Headache; Z79.01 Long term (current) use of anticoagulants; I10 Essential (primary) hypertension; Z87.891 Personal history of nicotine dependence
CPT/HCPCS: 36415; 70450; 80053; 81003; 83605; 83690; 84443; 84484; 85025; 85610; 85730; 86140; 96360; 96361; 99284; A9270-GY

== ENCOUNTER 2016-06-28 12:41 | Emergency (ER) | payer OTHER ==
--- NOTE | 2016-06-28 16:49 | ED ---
Throat Pain/Nasal Congestion - HPI Summary HPI Summary: Patient presents with a complaint of "seeing spots" this morning, that have now resolved. She denies vision changes, STREET, fever, drainage, eye pain or nausea. - History of Current Complaint Chief Complaint: EDGeneral Time Seen by Provider: 06/28/16 15:10 Hx Obtained From: Patient Onset/Duration: Gradual Onset Severity: Mild Associated Signs And Symptoms: Positive: Negative Cough: None - Allergies/Home Medications Allergies/Adverse Reactions: Allergies Allergy/AdvReac Type Severity Reaction Status Date / Time Sulfa Drugs Allergy Mild Hives Verified 05/10/16 13:12 PMH/Surg Hx/FS Hx/Imm Hx Endocrine/Hematology History: Reports: Hx Anticoagulant Therapy - She took one baby aspirin today., Hx Diabetes - Type 2 Denies: Hx Thyroid Disease Cardiovascular History: Reports: Hx Hypertension Denies: Hx Angina, Hx Pacemaker/ICD Respiratory History: Reports: Hx Asthma Denies: Hx Chronic Obstructive Pulmonary Disease (COPD), Hx Lung Cancer, Hx Pneumonia, Hx Pulmonary Embolism GI History: Denies: Hx Gall Bladder Disease, Hx Gastroesophageal Reflux Disease, Hx Gastrointestinal Bleed, Hx Ulcer, Hx Urosepsis History: Reports: Hx Kidney Stones Denies: Hx Renal Disease Musculoskeletal History: Reports: Hx Arthritis - Bilat knees, shoulders, Hx Tendonitis - L Wrist Sensory History: Comment Only: Hx Contacts or Glasses - USUALLY WEARS GLASSES Opthamlomology History: Comment Only: Hx Contacts or Glasses - USUALLY WEARS GLASSES Neurological History: Reports: Hx Migraine Denies: Hx Dementia, Hx Seizures, Hx Transient Ischemic Attacks (TIA) Psychiatric History: Denies: Hx Anxiety, Hx Depression, Hx Schizophrenia, Hx Bipolar Disorder - Cancer History Hx Chemotherapy: No Hx Radiation Therapy: No - Surgical History Surgery Procedure, Year, and Place: 1991 [facility] 2004 [facility] BILATERAL CARPAL TUNNEL Hx Anesthesia Reactions: No Infectious Disease History: No Infectious Disease History: Denies: Traveled Outside the [place] in Last 30 Days - Family History Known Family History: Positive: Cardiac Disease, Hypertension, Diabetes Family History: NON-CONTRIBUTORY - Social History Occupation: Unemployed Lives: With Family Alcohol Use: None Hx Substance Use: No Substance Use Type: Reports: None Hx Tobacco Use: Yes Smoking Status (MU): Former Smoker Type: Cigarettes Amount Used/How Often: LESS THEN 1PPD Length of Time of Smoking/Using Tobacco: 1.5 YRS Have You Smoked in the Last Year: No Review of Systems Negative: Fever, Chills Negative: Photophobia, Blurred Vision, Diplopia, Drainage, Erythema Negative: Sore Throat, Ear Ache, Nasal Discharge Negative: Chest Pain Negative: Shortness Of Breath Negative: Nausea Negative: Bruising Negative: Headache, Weakness, Paresthesia, Numbness, Syncope All Other Systems Reviewed And Are Negative: Yes Physical Exam Triage Information Reviewed: Yes Vital Signs On Initial Exam: Initial Vitals Temp Pulse Resp BP Pulse Ox 97.5 F 73 20 153/89 99 06/28/16 12:44 06/28/16 12:44 06/28/16 12:44 06/28/16 12:44 06/28/16 12:44 Vital Signs Reviewed: Yes Appearance: Positive: Well-Appearing, No Pain Distress, Well-Nourished Skin: Positive: Warm, Skin Color Reflects Adequate Perfusion, Dry, Soft Head/Face: Positive: Normal Head/Face Inspection Eyes: Positive: EOMI, CATRACHITA, Conjunctiva Clear. Negative: Discharge ENT: Positive: Hearing grossly normal, Pharynx normal Neck: Positive: Supple, Nontender, No Lymphadenopathy Respiratory/Lung Sounds: Positive: Breath Sounds Present Cardiovascular: Positive: RRR Musculoskeletal: Negative: Edema Left, Edema Right Neurological: Positive: Sensory/Motor Intact, Alert, Oriented to Person Place, Time, CN Intact II-III, NV Bundle Intact Distally Psychiatric: Positive: Affect/Mood Appropriate AVPU Assessment: Alert Procedures - Eye Procedure Alcaine Drops Administered: Yes Diagnostics - Vital Signs Vital Signs Temp Pulse Resp BP Pulse Ox 06/28/16 15:17 140/89 06/28/16 14:50 97.4 F 71 16 137/88 98 06/28/16 12:46 97.9 F 77 20 153/89 98 06/28/16 12:44 97.5 F 73 20 153/89 99 - Laboratory Lab Statement: Any lab studies that have been ordered have been reviewed, and results considered in the medical decision making process. EENT Course/Dx - Differential Diagnoses Differential Diagnoses: Abrasion, Corneal Abrasion, Periorbital/Orbital Cellulitis, Retinal Artery Occlusion, Uveitis - Diagnoses Provider Diagnoses: Floaters in visual field Discharge - Discharge Plan Condition: Stable Disposition: HOME Patient Education Materials: Visual Floaters (ED) Referrals: Alana Jones MD [Primary Care Provider] - Additional Instructions: Please follow-up with your primary care provider. Return to the emergency department if symptoms worsen.
[2016-06-28 16:57] VITALS: BP 158/88
== END 2016-06-28 16:56 | disposition home or self-care (01) ==
LOC: ED 12:41
DX: H43.399 Other vitreous opacities, unspecified eye (principal)
CPT/HCPCS: 99282

== ENCOUNTER 2016-07-15 18:48 | Emergency (ER) | payer OTHER ==
[2016-07-15] MEDS ORDERED: NS 0.9% 1000 ML* 2,000 ML IV ONE (19:36)
[2016-07-15 19:45] LABS: Urine Bilirubin Negative (Negative); Urine Glucose Negative (Negative); Urine Nitrite Negative (Negative)
[2016-07-15] MEDS ORDERED: Ketorolac INJ* 30 MG/ML 1 ML VIAL IV PUSH ONE (20:02)
--- NOTE | 2016-07-15 20:50 | ED ---
Abdominal Pain/Female - HPI Summary HPI Summary: 56F presents with LLQ pain for 2 days. She has history of kidney stones. She states has occasionally flank pain. She denies any dysuria, hemautria but admits to frequency and urgency. She denies any n/v/d/c or fever. She states this pain feels most like when she has had UTI in past. She has never had history of diverticulitis. She has had her gallbladder removed. She has not taken anything for her pain. She states the pain is sharp in nature. - History of Current Complaint Chief Complaint: EDAbdPain Stated Complaint: LEFT SIDE ABD PAIN Time Seen by Provider: 07/15/16 19:35 Hx Last Menstrual Period: hysterectomy Pain Intensity: 8 Allergies/Adverse Reactions: Allergies Allergy/AdvReac Type Severity Reaction Status Date / Time Sulfa Drugs Allergy Mild Hives Verified 05/10/16 13:12 PMH/Surg Hx/FS Hx/Imm Hx Endocrine/Hematology History: Reports: Hx Anticoagulant Therapy - She took one baby aspirin today., Hx Diabetes - Type 2 Denies: Hx Thyroid Disease Cardiovascular History: Reports: Hx Hypertension Denies: Hx Angina, Hx Pacemaker/ICD Respiratory History: Reports: Hx Asthma Denies: Hx Chronic Obstructive Pulmonary Disease (COPD), Hx Lung Cancer, Hx Pneumonia, Hx Pulmonary Embolism GI History: Denies: Hx Gall Bladder Disease, Hx Gastroesophageal Reflux Disease, Hx Gastrointestinal Bleed, Hx Ulcer, Hx Urosepsis History: Reports: Hx Kidney Stones Denies: Hx Renal Disease Musculoskeletal History: Reports: Hx Arthritis - Bilat knees, shoulders, Hx Tendonitis - L Wrist Sensory History: Comment Only: Hx Contacts or Glasses - USUALLY WEARS GLASSES Opthamlomology History: Comment Only: Hx Contacts or Glasses - USUALLY WEARS GLASSES Neurological History: Reports: Hx Migraine Denies: Hx Dementia, Hx Seizures, Hx Transient Ischemic Attacks (TIA) Psychiatric History: Denies: Hx Anxiety, Hx Depression, Hx Schizophrenia, Hx Bipolar Disorder - Cancer History Hx Chemotherapy: No Hx Radiation Therapy: No - Surgical History Surgery Procedure, Year, and Place: 1991 [facility] 2004 [facility]OMY [facility] BILATERAL CARPAL TUNNEL Hx Anesthesia Reactions: No Infectious Disease History: No Infectious Disease History: Denies: Traveled Outside the [place] in Last 30 Days - Family History Known Family History: Positive: Cardiac Disease, Hypertension, Diabetes Family History: NON-CONTRIBUTORY - Social History Alcohol Use: None Hx Substance Use: No Substance Use Type: Reports: None Hx Tobacco Use: Yes Smoking Status (MU): Former Smoker Type: Cigarettes Amount Used/How Often: LESS THEN 1PPD Length of Time of Smoking/Using Tobacco: 1.5 YRS Have You Smoked in the Last Year: No Review of Systems Negative: Fever Negative: Chest Pain Negative: Shortness Of Breath Positive: Abdominal Pain - LLQ, Nausea. Negative: Vomiting, Diarrhea All Other Systems Reviewed And Are Negative: Yes Physical Exam Triage Information Reviewed: Yes Vital Signs On Initial Exam: Initial Vitals Temp Pulse Resp BP Pulse Ox 97.1 F 76 16 155/82 97 07/15/16 18:51 07/15/16 18:51 07/15/16 18:51 07/15/16 18:51 07/15/16 18:51 Vital Signs Reviewed: Yes Appearance: Positive: Well-Appearing Skin: Positive: Warm, Dry Head/Face: Positive: Normal Head/Face Inspection Eyes: Positive: Normal, Conjunctiva Clear ENT: Positive: Normal ENT inspection, Pharynx normal, TMs normal Respiratory/Lung Sounds: Positive: Clear to Auscultation, Breath Sounds Present Cardiovascular: Positive: Normal, RRR Abdomen Description: Positive: Soft, Other: - mild tenderness in LLQ. Negative : CVA Tenderness (L) Bowel Sounds: Positive: Present Diagnostics - Vital Signs Vital Signs Temp Pulse Resp BP Pulse Ox 07/15/16 18:51 97.1 F 76 16 155/82 97 - Laboratory Lab Results: Lab Results 07/15/16 Range/Units 19:33 Urine Color Straw Urine Appearance Clear Urine pH 6.0 (5-9) Ur Specific [place] 1.003 L (1.010-1.030) Urine Protein Negative (Negative) Urine Ketones Negative (Negative) Urine Blood Negative (Negative) Urine Nitrate Negative (Negative) Urine Bilirubin Negative (Negative) Urine Urobilinogen Negative (Negative) Ur Leukocyte Esterase Negative (Negative) Urine Glucose Negative (Negative) Result Diagrams: 07/15/16 20:45 07/15/16 20:45 Lab Statement: Any lab studies that have been ordered have been reviewed, and results considered in the medical decision making process. - CT abd CT Interpretation: No Acute Changes - FINDINGS: VISUALIZED LUNG BASES: The visualized lung bases are grossly clear. There is no pleural effusion. ABDOMEN AND PELVIS: Evaluation of the solid organs and vasculature is limited without intravenous contrast. The liver, spleen, pancreas and adrenal glands are grossly normal in appearance. The gallbladder is surgically absent with surgical material in the gallbladder fossa. The kidneys are normal in appearance without focal mass, calcification or signs of hydronephrosis. There is a stable cyst in the lower pole the left kidney. Evaluation of the gastrointestinal tract is limited without oral contrast. The small and large bowel are not distended.The patient's normal appendix is identified in the right lower quadrant with gas in the lumen (axial image 49). There is no gross retroperitoneal or mesenteric lymphadenopathy. The pelvic viscera is normal in appearance. The abdominal aorta and iliac arteries are normal in course and diameter. Degenerative changes include multilevel loss of intervertebral disc height involving the lower thoracic and lumbar spine.There are no sinister bone lesions. IMPRESSION: Chronic, degenerative and iatrogenic findings as described in body the report without noncontrast CT apparent acute abnormality. CT Interpretation Completed By: Radiologist Abdominal Pain Fem Course/Dx - Course Course Of Treatment: 56F w/ PMH of kidney stone presents with LLQ pain with occasionally flank pain. denies any dysuria or hematuria. denies any n/v/d or fever. on exam neg CVA tenderness. mild tenderness in LLQ. will get CT to make sure no kidney stone. labs normal. explained do not have cause for pain and patient states has no ovaries so did not do transvaginal u/s. patient understands and agrees with plan - Diagnoses Differential Diagnosis: Positive: Diverticulitis, Renal Colic, Urinary Tract Infection Provider Diagnoses: Abdominal pain Discharge - Discharge Plan Condition: Good Disposition: HOME Patient Education Materials: Abdominal Pain (ED) Referrals: Alana Jones MD [Primary Care Provider] - Additional Instructions: Your pain is not caused by any surgical emergency Drink small amounts of fluid as tolerated When able to eat follow BRAT diet: Bananas, rice, applesauce, toast Take ibuprofen or Tylenol for pain as needed every 6 hours Follow up with primary within 5 days Return to ED if develop any new or worsening symptoms
--- NOTE | 2016-07-15 20:55 | RAD ---
CLINICAL HISTORY: Left flank and left lower quadrant pain. Relevant surgical history includes hysterectomy and cholecystectomy. COMPARISON: Most recent CT of the abdomen and pelvis is dated March 12, 2015 TECHNIQUE: Noncontrast CT examination of the abdomen and pelvis from the lung bases through the initial tuberosities. FINDINGS: VISUALIZED LUNG BASES: The visualized lung bases are grossly clear. There is no pleural effusion. ABDOMEN AND PELVIS: Evaluation of the solid organs and vasculature is limited without intravenous contrast. The liver, spleen, pancreas and adrenal glands are grossly normal in appearance. The gallbladder is surgically absent with surgical material in the gallbladder fossa. The kidneys are normal in appearance without focal mass, calcification or signs of hydronephrosis. There is a stable cyst in the lower pole the left kidney. Evaluation of the gastrointestinal tract is limited without oral contrast. The small and large bowel are not distended.The patient's normal appendix is identified in the right lower quadrant with gas in the lumen (axial image 49). There is no gross retroperitoneal or mesenteric lymphadenopathy. The pelvic viscera is normal in appearance. The abdominal aorta and iliac arteries are normal in course and diameter. Degenerative changes include multilevel loss of intervertebral disc height involving the lower thoracic and lumbar spine.There are no sinister bone lesions. IMPRESSION: Chronic, degenerative and iatrogenic findings as described in body the report without noncontrast CT apparent acute abnormality.
[2016-07-15 21:02] LABS: Hematocrit 37 % (35-47); Hemoglobin 11.8 g/dl (12.0-16.0); Mean Corpuscular HGB Conc 32 g/dl (31-36); Mean Corpuscular Hemoglobin 28 pg (27-31); Mean Corpuscular Volume 88 fL (80-97); Mean Platelet Volume 8 um3 (7.4-10.4); Red Blood Count 4.19 10^6/ul (4.0-5.4); Red Cell Distribution Width 14 % (10.5-15); White Blood Count 8.2 10^3/ul (3.5-10.8)
[2016-07-15 21:04] LABS: Add Diff/Slide Review? Slide Review Added; Comments Flag Yes
[2016-07-15 21:20] LABS: ALT 50 U/L (7-52); Albumin 3.9 g/dL (3.2-5.2); Alkaline Phosphatase 120 U/L (34-104); BUN/Creatinine Ratio 9.9 (8-20); Blood Urea Nitrogen 11 mg/dL (6-24); CO2 Carbon Dioxide 27 mmol/L (22-32); Calcium 9.2 mg/dL (8.6-10.3); Chloride 104 mmol/L (101-111); EGFR African American 65.4 (>60); EGFR Non-African American 50.8 (>60); Globulin 3.1 g/dL (2-4); Glucose 118 mg/dL (70-100); Lipase 75 U/L (11.0-82.0); Sodium 139 mmol/L (133-145)
[2016-07-15] MEDS ORDERED: oxyCODONE/Acetamin 5/325 MG* TAB PO ONE (21:24)
[2016-07-15 21:57] VITALS: BP 133/68
== END 2016-07-15 21:58 | disposition home or self-care (01) ==
LOC: ED 18:48
DX: R10.32 Left lower quadrant pain (principal); Z87.891 Personal history of nicotine dependence; I10 Essential (primary) hypertension; Z88.2 Allergy status to sulfonamides; E11.9 Type 2 diabetes mellitus without complications; Z79.82 Long term (current) use of aspirin; Z87.442 Personal history of urinary calculi
CPT/HCPCS: 36415; 74176; 80053; 81003; 83690; 85025; 86141; 99282; A9270-GY

== ENCOUNTER 2016-07-21 17:50 | Emergency (ER) | payer OTHER ==
[2016-07-21 17:59] VITALS: BP 147/82
[2016-07-21] MEDS ORDERED: Ketorolac INJ* 60 MG/2 ML VIAL IM ONE (20:44)
--- NOTE | 2016-07-21 21:04 | ED ---
shruthi Andino Timothy, scribed for Jarrell Ferguson MD on 07/21/16 at 2046 . Back Pain - HPI Summary HPI Summary: Mandy Baum is a 56 yo female presenting to [facility] with 10/10 low back pain for the past week, radiating down her legs bilaterally. she has taken one baby ASA today, and has self-medicated with muscle relaxanats and tramadol without any relief. Her MHx includes HTN, migraine, asthma, cholecystectomy, kidney stones, arthritis, DM II, claustrophobia, tobacco use. - History of Current Complaint Chief Complaint: EDBackInjuryPain Stated Complaint: BACK PAIN Time Seen by Provider: 07/21/16 20:41 Hx Obtained From: Patient Hx Last Menstrual Period: hysterectomy Onset/Duration: Gradual Onset, Lasting Days, Still Present Onset/Duration: Started Days Ago Timing: Constant Back Pain Location: Is Discrete @ - low back Severity Initially: Moderate Severity Currently: Moderate Pain Intensity: 10 Pain Scale Used: 0-10 Numeric - Allergies/Home Medications Allergies/Adverse Reactions: Allergies Allergy/AdvReac Type Severity Reaction Status Date / Time Sulfa Drugs Allergy Mild Hives Verified 05/10/16 13:12 PMH/Surg Hx/FS Hx/Imm Hx Endocrine/Hematology History: Reports: Hx Anticoagulant Therapy - She took one baby aspirin today., Hx Diabetes - Type 2 Denies: Hx Thyroid Disease Cardiovascular History: Reports: Hx Hypertension Denies: Hx Angina, Hx Pacemaker/ICD Respiratory History: Reports: Hx Asthma Denies: Hx Chronic Obstructive Pulmonary Disease (COPD), Hx Lung Cancer, Hx Pneumonia, Hx Pulmonary Embolism GI History: Denies: Hx Gall Bladder Disease, Hx Gastroesophageal Reflux Disease, Hx Gastrointestinal Bleed, Hx Ulcer, Hx Urosepsis History: Reports: Hx Kidney Stones Denies: Hx Renal Disease Musculoskeletal History: Reports: Hx Arthritis - Bilat knees, shoulders, Hx Tendonitis - L Wrist Sensory History: Comment Only: Hx Contacts or Glasses - USUALLY WEARS GLASSES Opthamlomology History: Comment Only: Hx Contacts or Glasses - USUALLY WEARS GLASSES Neurological History: Reports: Hx Migraine Denies: Hx Dementia, Hx Seizures, Hx Transient Ischemic Attacks (TIA) Psychiatric History: Denies: Hx Anxiety, Hx Depression, Hx Schizophrenia, Hx Bipolar Disorder - Cancer History Hx Chemotherapy: No Hx Radiation Therapy: No - Surgical History Surgery Procedure, Year, and Place: 1991 [facility] 2004 [facility]STERECTOMY [facility] BILATERAL CARPAL TUNNEL Hx Anesthesia Reactions: No Infectious Disease History: Denies: Traveled Outside the [place] in Last 30 Days - Family History Known Family History: Positive: Cardiac Disease, Hypertension, Diabetes Family History: NON-CONTRIBUTORY - Social History Alcohol Use: None Hx Substance Use: No Substance Use Type: Reports: None Hx Tobacco Use: Yes Smoking Status (MU): Former Smoker Type: Cigarettes Amount Used/How Often: LESS THEN 1PPD Length of Time of Smoking/Using Tobacco: 1.5 YRS Have You Smoked in the Last Year: No Review of Systems Constitutional: Negative Eyes: Negative ENT: Negative Cardiovascular: Negative Respiratory: Negative Gastrointestinal: Negative Genitourinary: Negative Musculoskeletal: Other - low back pain radiating to legs bilaterally Skin: Negative Neurological: Negative Psychological: Normal All Other Systems Reviewed And Are Negative: Yes Physical Exam Triage Information Reviewed: Yes Vital Signs On Initial Exam: Initial Vitals Temp Pulse Resp BP Pulse Ox 98.5 F 73 18 147/82 99 07/21/16 17:56 07/21/16 17:56 07/21/16 17:56 07/21/16 17:56 07/21/16 17:56 Vital Signs Reviewed: Yes Appearance: Positive: Well-Appearing - mild discomfort Skin: Positive: Warm Head/Face: Positive: Normal Head/Face Inspection Eyes: Positive: [place] Neck: Positive: Supple Respiratory/Lung Sounds: Positive: Breath Sounds Present Cardiovascular: Positive: RRR Abdomen Description: Positive: Nontender, Soft Musculoskeletal: Positive: Other - mild paralumbar muscle spasm Neurological: Positive: Alert, Oriented to Person Place, Time Psychiatric: Positive: Affect/Mood Appropriate Diagnostics - Vital Signs Vital Signs Temp Pulse Resp BP Pulse Ox 07/21/16 17:56 98.5 F 73 18 147/82 99 - Laboratory Lab Statement: Any lab studies that have been ordered have been reviewed, and results considered in the medical decision making process. Re-Evaluation - Re-Evaluation First Eval Change: Improved Back Pain Course/Dx - Course Assessment/Plan: Mandy Baum is a 56 yo female presenting to [facility] with 10/10 low back pain radiaitng through her legs bilaterally for the past week. In the ED course she received toradol for pain management. After clinical examination and review of her lab studies, she will be discharged home with back pain with appropriate instructions. - Diagnoses Provider Diagnoses: Back pain Discharge - Discharge Plan Condition: Improved Disposition: HOME Patient Education Materials: Back Pain (ED) Referrals: Alana Jones MD [Primary Care Provider] - 2 Days Additional Instructions: Please follow up with your primary care physician regarding your visit to the emergency department today. Return to the emergency department with any new or recurring symptoms. The documentation as recorded by the shruthi simpson Timothy accurately reflects the service I personally performed and the decisions made by , Jarrell Ferguson MD.
== END 2016-07-21 22:17 | disposition home or self-care (01) ==
LOC: ED 17:50
DX: M54.5 Low back pain (principal); Z87.891 Personal history of nicotine dependence
CPT/HCPCS: 96372; 99281; J1885

== ENCOUNTER 2016-08-17 09:56 | Emergency (ER) | payer OTHER ==
[2016-08-17] MEDS ORDERED: HYDROcodone/ACETAMIN 5-325 MG* 1 TAB PO ONE (10:49)
--- NOTE | 2016-08-17 12:10 | RAD ---
INDICATION: Right foot injury. TECHNIQUE: 3 views of the right foot were obtained. FINDINGS: The bones are in normal alignment. No fracture is seen. Joint spaces appear maintained. IMPRESSION: NO EVIDENCE FOR FRACTURE.
--- NOTE | 2016-08-17 12:11 | RAD ---
INDICATION: Posterior left shoulder pain after a fall down the stairs COMPARISON: Similar radiograph dated January 24, 2015 TECHNIQUE: 4 views of the left shoulder were obtained. FINDINGS: Similar to the previous radiograph there is a small marginal osteophyte along the medial inferior margin of the left humerus. There is abrupt flattening along the superior lateral margin of the left humeral head. The bones are otherwise adequately corticated and properly aligned. IMPRESSION: DEGENERATIVE CHANGES DESCRIBED ABOVE WITH FLATTENING OF THE SUPERIOR LATERAL MARGIN OF THE HUMERAL HEAD. PLEASE CORRELATE TO HISTORY OF LEFT SHOULDER DISLOCATIONS. If the patient's symptoms persist, follow-up imaging is recommended.
[2016-08-17 13:18] VITALS: BP 134/81
--- NOTE | 2016-08-17 15:12 | ED ---
Radha Andino Thomas, scribed for Naif Hong MD on 08/17/16 at 1040 . Complex/Multi-Sys Presentation - HPI Summary HPI Summary: The pt is a 56 y/o F presenting to the ED s/p fall. She c/o L posterior shoulder pain and R foot pain. During the fall, her R foot slipped from under her and she fell 5 steps, landing on her shoulder. The pt rates the pain 10/10. She denies LOC. - History Of Current Complaint Chief Complaint: EDGeneral Time Seen by Provider: 08/17/16 10:30 Hx Obtained From: Patient Onset/Duration: Sudden Onset - s/p fall down 5 stairs, Still Present Timing: Constant Associated Signs And Symptoms: Positive: Other - NEG: LOC - Allergies/Home Medications Allergies/Adverse Reactions: Allergies Allergy/AdvReac Type Severity Reaction Status Date / Time Sulfa Drugs Allergy Mild Hives Verified 08/17/16 10:20 PMH/Surg Hx/FS Hx/Imm Hx Previously Healthy: No Endocrine/Hematology History: Reports: Hx Anticoagulant Therapy - She took one baby aspirin today., Hx Diabetes - Type 2 Denies: Hx Thyroid Disease Cardiovascular History: Reports: Hx Hypertension Denies: Hx Angina, Hx Pacemaker/ICD Respiratory History: Reports: Hx Asthma Denies: Hx Chronic Obstructive Pulmonary Disease (COPD), Hx Lung Cancer, Hx Pneumonia, Hx Pulmonary Embolism GI History: Denies: Hx Gall Bladder Disease, Hx Gastroesophageal Reflux Disease, Hx Gastrointestinal Bleed, Hx Ulcer, Hx Urosepsis History: Reports: Hx Kidney Stones Denies: Hx Renal Disease Musculoskeletal History: Reports: Hx Arthritis - Bilat knees, shoulders, Hx Tendonitis - L Wrist Sensory History: Comment Only: Hx Contacts or Glasses - USUALLY WEARS GLASSES Opthamlomology History: Comment Only: Hx Contacts or Glasses - USUALLY WEARS GLASSES Neurological History: Reports: Hx Migraine Denies: Hx Dementia, Hx Seizures, Hx Transient Ischemic Attacks (TIA) Psychiatric History: Denies: Hx Anxiety, Hx Depression, Hx Schizophrenia, Hx Bipolar Disorder - Cancer History Hx Chemotherapy: No Hx Radiation Therapy: No - Surgical History Surgery Procedure, Year, and Place: [facility] 2004 [facility]ERECTOMY [facility] BILATERAL CARPAL TUNNEL Hx Anesthesia Reactions: No Infectious Disease History: No Infectious Disease History: Denies: Traveled Outside the [place] in Last 30 Days - Family History Known Family History: Positive: Cardiac Disease, Hypertension, Diabetes Family History: NON-CONTRIBUTORY - Social History Alcohol Use: None Hx Substance Use: No Substance Use Type: Reports: None Hx Tobacco Use: Yes Smoking Status (MU): Former Smoker Type: Cigarettes Amount Used/How Often: LESS THEN 1PPD Length of Time of Smoking/Using Tobacco: 1.5 YRS Have You Smoked in the Last Year: No Review of Systems Constitutional: Negative Eyes: Negative ENT: Negative Cardiovascular: Negative Respiratory: Negative Gastrointestinal: Negative Genitourinary: Negative Positive: Other - POS: R posterior shoulder pain, L ankle pain Skin: Negative Neurological: Negative, Other - NEG: LOC Psychological: Normal All Other Systems Reviewed And Are Negative: Yes Physical Exam Triage Information Reviewed: Yes Vital Signs On Initial Exam: Initial Vitals Temp Pulse Resp BP Pulse Ox 97.1 F 76 20 138/81 97 08/17/16 09:59 08/17/16 09:59 08/17/16 09:59 08/17/16 09:59 08/17/16 09:59 Vital Signs Reviewed: Yes Appearance: Positive: Well-Appearing, No Pain Distress Skin: Positive: Warm, Skin Color Reflects Adequate Perfusion, Dry Head/Face: Positive: Normal Head/Face Inspection Eyes: Positive: Normal ENT: Positive: Normal ENT inspection Respiratory/Lung Sounds: Positive: Clear to Auscultation, Breath Sounds Present Cardiovascular: Positive: RRR Abdomen Description: Positive: Nontender, Soft Bowel Sounds: Positive: Present Musculoskeletal: Positive: Other - POS: tender to L posterior shoulder, dorsum of R foot Neurological: Positive: Normal, Sensory/Motor Intact, Alert, Oriented to Person Place, Time, CN Intact II-III Psychiatric: Positive: Normal, Affect/Mood Appropriate - [place] Coma Scale Coma Scale Total: 15 Diagnostics - Vital Signs Vital Signs Temp Pulse Resp BP Pulse Ox 08/17/16 10:01 97.1 F 78 20 138/81 97 08/17/16 09:59 97.1 F 76 20 138/81 97 - Laboratory Lab Statement: Any lab studies that have been ordered have been reviewed, and results considered in the medical decision making process. - Radiology XR Shoulder Xray Interpretation: No Acute Changes Radiology Interpretation Completed By: Radiologist - DEGENERATIVE CHANGES DESCRIBED ABOVE WITH FLATTENING OF THE SUPERIOR LATERAL MARGIN OF THE HUMERAL HEAD. PLEASE CORRELATE TO HISTORY OF LEFT SHOULDER DISLOCATIONS. XR Foot Xray Interpretation: No Acute Changes - No evidence for fracture Radiology Interpretation Completed By: Radiologist Re-Evaluation - Re-Evaluation First Eval Re-Evaluation Time: 13:00 Complex Multi-Symp Course/Dx Course Of Treatment: Ms. Baum had a mechanical fall on the stairs and presented C/O left posterior shoulder pain and right foot pain. She had some mild tenderness but no swelling or deformity and x-rays were normal. She will be treated symptomatically. - Diagnoses Provider Diagnoses: Shoulder contusion, Foot contusion Discharge - Discharge Plan Condition: Stable Disposition: HOME Prescriptions: HYDROcodone/ACETAMIN 5-325 MG* [[place] 5-325 TAB*] 1 tab PO Q6H PRN #20 tab MDD 4 PRN Reason: Pain Patient Education Materials: Foot Contusion (ED) Referrals: Alana oJnes MD [Primary Care Provider] - 3 Days The documentation as recorded by the Radha simpson Thomas accurately reflects the service I personally performed and the decisions made by , Naif Hong MD.
== END 2016-08-17 13:39 | disposition home or self-care (01) ==
LOC: ED 09:56
DX: S40.012A Contusion of left shoulder, initial encounter (principal); S90.31XA Contusion of right foot, initial encounter; W10.9XXA Fall (on) (from) unspecified stairs and steps, initial encounter; Y92.9 Unspecified place or not applicable; I10 Essential (primary) hypertension; Z88.2 Allergy status to sulfonamides; Z87.891 Personal history of nicotine dependence
CPT/HCPCS: 99284

== ENCOUNTER 2016-09-06 12:11 | Emergency (ER) | payer OTHER ==
[2016-09-06 14:42] VITALS: BP 133/81
--- NOTE | 2016-09-06 14:59 | UC ---
Sary Andino Alfonso, scribed for Marilyn Koenig MD on 09/06/16 at 1459 . Lower Extremity/Ankle HPI - HPI Summary HPI Summary: This patient is a 56 year old F presenting to [facility] with a chief complaint of left foot pain since yesterday. Pt reports the skin is tight at a blister/ scab at her left foot which has not drained or bled. Pt first noted blister on Tuesday. Is not sure how it occurred. Her pain is not worsening and described as an ache. Pt rates the pain 8/10 in severity. Symptoms aggravated by putting on shoes and walking, and alleviated by nothing. Sx not alleviated by ibuprofen and acetaminophen at 0730 today. No direct trauma. Pt denies toe pain, ankle pain. Pt denies recent injury or trauma. Pt denies fevers, chills, rash. Pt is a diabetic. Denies tobacco use disorder, ETOH use, and substance use. Pt is unemployed. PMHx of IDDM, HTN, and asthma. PSHx of hysterectomy. . Patients medication and allergies reviewed this visit. - History of Current Complaint Chief Complaint: UCLowerExtremity Stated Complaint: TOE INJURY Time Seen by Provider: 09/06/16 14:49 Hx Obtained From: Patient Hx Last Menstrual Period: hysterectomy Onset/Duration: Sudden Onset, Lasting Days - Yesterday, Still Present Severity Initially: Moderate Severity Currently: Moderate Pain Intensity: 8 Pain Scale Used: 0-10 Numeric Aggravating Factor(s): Other - Putting on shoes, walking Alleviating Factor(s): Nothing - Allergies/Home Medications Allergies/Adverse Reactions: Allergies Allergy/AdvReac Type Severity Reaction Status Date / Time Sulfa Drugs Allergy Mild Hives Verified 08/17/16 10:20 PMH/Surg Hx/FS Hx/Imm Hx Previously Healthy: Yes Endocrine History: Diabetes Cardiovascular History: Hypertension Respiratory History: Asthma Other History Of: Anticoagulant Therapy - She took one baby aspirin today. Negative For: HIV, Hepatitis B, Hepatitis C - Surgical History Surgical History: Yes Surgery Procedure, Year, and Place: 1991 [facility] 2004 HYSTERECTOMY [facility] BILATERAL CARPAL TUNNEL - Family History Known Family History: Positive: Cardiac Disease, Hypertension, Diabetes - Social History Occupation: Unemployed Lives: With Family Alcohol Use: None Substance Use Type: None Smoking Status (MU): Former Smoker Type: Cigarettes Amount Used/How Often: LESS THEN 1PPD Length of Time of Smoking/Using Tobacco: 1.5 YRS Have You Smoked in the Last Year: No When Did the Patient Quit Smoking/Using Tobacco: 40 yrs ago - Immunization History Most Recent Influenza Vaccination: 10/2014 Most Recent Tetanus Shot: up to date Most Recent Pneumonia Vaccination: never had this Review of Systems Constitutional: Negative Skin: Other - Positive the skin is tight at a blister/scab at her left foot which has not drained or bled. Eyes: Negative ENT: Negative Respiratory: Negative Cardiovascular: Negative Gastrointestinal: Negative Genitourinary: Negative Motor: Negative Neurovascular: Negative Musculoskeletal: Other: - Positive left foot pain; negative toe pain Neurological: Negative Psychological: Negative All Other Systems Reviewed And Are Negative: Yes Physical Exam Triage Information Reviewed: Yes Appearance: Well-Appearing, No Pain Distress, Well-Nourished Vital Signs: Initial Vital Signs Temp 97.6 F 09/06/16 12:32 Pulse 82 09/06/16 12:32 Resp 20 09/06/16 12:32 BP 132/84 09/06/16 12:32 Pulse Ox 99 09/06/16 12:32 Vital Signs Reviewed: Yes Eyes: Positive: Conjunctiva Clear ENT: Positive: Hearing grossly normal Dental Exam: Normal Neck exam: Normal Respiratory Exam: Normal Respiratory: Positive: Normal breath sounds, No respiratory distress, No accessory muscle use Cardiovascular Exam: Normal Cardiovascular: Positive: Other: - 2+ DP, PT CBT <2 sec Musculoskeletal: Positive: Other: - + SLE + flex/ext knee, ankle, great toe no crepitus tarsals, metatarsals No MCP joint pain Neurological: Positive: Other: - + sensation throughout foot Psychological Exam: Normal Skin: Positive: Other - Pt with scab dorsum of left foot - along middle metatarsal surrounding erythema, warmth no fluctuance no drainage no induration Lower Extremity Course/Dx - Course Course Of Treatment: 56 year old F presents to the [facility] with a CC of left foot pain since yesterday. Pt reports the skin is tight at a blister/scab at her left foot which has not drained or bled. Her pain is not worsening and described as an ache. Pt denies toe pain. PMHx of IDDM and asthma. Pt has crutches at home - declines set today. elevate. warm soaks. doxy. pcp recheck. return precautions discussed. Patient will be discharged with follow up from PCP. Pt is agreeable with this plan. - Differential Dx/Diagnosis Provider Diagnoses: cellulitis with scab left foot Discharge - Discharge Plan Condition: Stable Disposition: HOME Prescriptions: DOXYcycline CAP(*) [DOXYcycline 100MG CAP(*)] 100 mg PO BID #20 cap Patient Education Materials: Cellulitis (ED) Referrals: Alana Jones MD [Primary Care Provider] - Additional Instructions: - Keep area clean and dry - elevate your foot to help with swelling and pain - Okay to alternate ibuprofen (advil, motrin) and tylenol every 3hours for pain. Take with food. do NOT Take for more than 4-5 days. - Take antibiotics as prescribed until gone - do not wear shoe - recommended you wear sock only - use crutches until you can walk normally without a limp - contact your doctor to schedule a follow-up appointment this week. Contact your doctor or return with questions or concerns - if you develop increased reddness, red streaking, odor, pus or any other concerns- contact your doctor or return The documentation as recorded by the Sary simpson Alfonso accurately reflects the service I personally performed and the decisions made by me, Marilyn Koenig MD.
== END 2016-09-06 15:14 | disposition home or self-care (01) ==
LOC: UCEAST 12:11
DX: L03.116 Cellulitis of left lower limb (principal); E11.9 Type 2 diabetes mellitus without complications; I10 Essential (primary) hypertension; J45.909 Unspecified asthma, uncomplicated; Z79.82 Long term (current) use of aspirin
CPT/HCPCS: 99212; G0463

== ENCOUNTER 2016-09-27 10:12 | Emergency (ER) | payer OTHER ==
[2016-09-27 10:23] VITALS: BP 148/86
[2016-09-27] MEDS ORDERED: Ketorolac INJ* 60 MG/2 ML VIAL IM ONE (11:28)
--- NOTE | 2016-09-27 11:34 | UC ---
Upper Extremity HPI - HPI Summary HPI Summary: 56 y/o female w/ PMHX of DM, HTN, dyslipedimia presents to the urgent care c/o Rt shoulder pain since 09/25/2016 while she was at the [place]. Pt do not recall any injury or heavy lifting. Pain started mild, but now is 9/10 w/ movement and 6/10 at rest w/o any radiation. Pt states Hx of arthritis. Pt denies numbness and tingling over the upper extremities,fever, SOB, chest pain, N/V/D, abdominal pain. Pt has not other complains - History of Current Complaint Chief Complaint: UCUpperExtremity Stated Complaint: ARM INJURY Time Seen by Provider: 09/27/16 11:20 Hx Obtained From: Patient Hx Last Menstrual Period: hysterectomy Onset/Duration: Gradual Onset, Lasting Days, Still Present Severity Initially: Mild Severity Currently: Severe Pain Intensity: 9 Pain Scale Used: 0-10 Numeric Location Of Pain: Is Discrete @ - RT shoulder Character: Sharp, Stiffness Aggravating Factor(s): Movement, Lifting, Extension Alleviating Factor(s): Rest Associated Signs And Symptoms: Positive: Swelling. Negative: Redness, Fever, Weakness, Numbness/Tingling - Risk Factors Non-Orthopedic Risk Factor: Negative DVT Risk Factors: Negative Septic Arthritis Risk Factor: Negative - Allergies/Home Medications Allergies/Adverse Reactions: Allergies Allergy/AdvReac Type Severity Reaction Status Date / Time Sulfa Drugs Allergy Mild Hives Verified 08/17/16 10:20 PMH/Surg Hx/FS Hx/Imm Hx Previously Healthy: Yes Endocrine History: Diabetes, Dyslipidemia Cardiovascular History: Hypertension Other History Of: Anticoagulant Therapy - She took one baby aspirin today. Negative For: HIV, Hepatitis B, Hepatitis C - Surgical History Surgical History: Yes Surgery Procedure, Year, and Place: 1991 [facility] 2004 [facility]OMY [facility] BILATERAL CARPAL TUNNEL - Family History Known Family History: Positive: Cardiac Disease, Hypertension, Diabetes Family History: NON-CONTRIBUTORY - Social History Occupation: Employed Full-time Lives: With Family Alcohol Use: None Substance Use Type: None Smoking Status (MU): Former Smoker Type: Cigarettes Amount Used/How Often: LESS THEN 1PPD Length of Time of Smoking/Using Tobacco: 1.5 YRS Have You Smoked in the Last Year: No When Did the Patient Quit Smoking/Using Tobacco: 40 yrs ago - Immunization History Most Recent Influenza Vaccination: 10/2014 Most Recent Tetanus Shot: up to date Most Recent Pneumonia Vaccination: never had this Review of Systems Constitutional: Negative Skin: Negative Eyes: Negative ENT: Negative Respiratory: Negative Cardiovascular: Negative Gastrointestinal: Negative Genitourinary: Negative Motor: Negative Neurovascular: Negative Musculoskeletal: Other: - RT shoulder pain Neurological: Negative Psychological: Negative All Other Systems Reviewed And Are Negative: Yes Physical Exam Triage Information Reviewed: Yes Appearance: Well-Appearing, No Pain Distress, Well-Nourished, Obese Vital Signs: Initial Vital Signs Temp 96.9 F 09/27/16 10:19 Pulse 74 09/27/16 10:19 Resp 18 09/27/16 10:19 BP 148/86 09/27/16 10:19 Pulse Ox 100 09/27/16 10:19 Vital Signs Reviewed: Yes Eye Exam: Normal Eyes: Positive: Conjunctiva Clear - PERRLA, EOMI, fundi grossly normal ENT Exam: Normal ENT: Positive: Normal ENT inspection, Hearing grossly normal, Pharynx normal, TMs normal Dental Exam: Normal Neck exam: Normal Neck: Positive: Supple, Nontender, No Lymphadenopathy Respiratory Exam: Normal Respiratory: Positive: Chest non-tender, Lungs clear, Normal breath sounds, No respiratory distress Cardiovascular Exam: Normal Cardiovascular: Positive: RRR, No Murmur, Pulses Normal, Brisk Capillary Refill Abdominal Exam: Normal Abdomen Description: Positive: Nontender, No Organomegaly, Soft. Negative: CVA Tenderness (R), CVA Tenderness (L) Bowel Sounds: Positive: Present Musculoskeletal: Positive: ROM Limited @ - RT shoulder w/ limited ROM due to pain, tenderness over the acromoclavicular joint and glomerohumeral joint, no swelling or erythema observed. Positive sensation, pulses intact and brisk capillary refill. Reflexes WNL. Neurological Exam: Normal Psychological Exam: Normal Skin Exam: Normal Upper Extremity Course/Dx - Course Course Of Treatment: 56 y/o female w/ PMHX of DM, HTN, dyslipedimia presents to the urgent care c/o Rt shoulder pain since 09/25/2016 while she was at the [facility] [place]. Pt do not recall any injury or heavy lifting. Pain started mild, but now is 9/10 w/ movement and 6/10 at rest w/o any radiation. Pt states Hx of arthritis. Pt denies numbness and tingling over the upper extremities,fever, SOB, chest pain, N/V/D, abdominal pain. Hx obtained. Rt shoulder X-ray ordered. Impression: No fracture or joint abnormality. Pt given a Toradol IM inj to alleviate pain. Pt tolerated well IM inj given by nurse. Pain decrease to 4/10. Pt' shoulder immobilzed with a shoulder sling , Advise RICE and Rx Naproxen aftr meal to alleviate symptoms and advised to f/u w/ her PCP in 1 week if symptoms do not improve. Pt w/ PMHX of HTN. BP elevated today, advised to decrease [place] in her diet and f/u with PCP for further management. Pt understood and agreed. - Differential Dx/Diagnosis Differential Diagnosis/HQI/PQRI: Arthritis, Contusion, Strain, Sprain, Other Provider Diagnoses: 1-Acute RT shoulder pain. 2- Uncontrolled HTN Discharge - Discharge Plan Condition: Stable Disposition: HOME Prescriptions: Naproxen TAB* [Naprosyn 250 mg TAB*] 500 mg PO Q8H PRN #21 tab PRN Reason: Pain Patient Education Materials: Adhesive Capsulitis (ED), Low Sodium Diet (ED) Referrals: Alana Jones MD [Primary Care Provider] - 1 Week Additional Instructions: Please the medication as instructed after meals to alleviate pain and swelling. Keep shoulder immobilized w/ shoulder sling and apply ice and rest. If symptoms do not improve or worsen please f/u with your PCP in 1 week for further evaluation and treatment. Your BP today is elevated, decrease salt in your diet and f/u with your PCP for furhter management.
--- NOTE | 2016-09-27 11:59 | RAD ---
Indication: Right shoulder pain. 4 views of the right shoulder demonstrates no fracture. No other bone or joint abnormality is identified. IMPRESSION: No fracture of the right shoulder is identified.
== END 2016-09-27 12:17 | disposition home or self-care (01) ==
LOC: UCEAST 10:12
DX: M25.511 Pain in right shoulder (principal); I10 Essential (primary) hypertension; E11.9 Type 2 diabetes mellitus without complications; E78.5 Hyperlipidemia, unspecified; E66.9 Obesity, unspecified; Z79.82 Long term (current) use of aspirin; Z90.49 Acquired absence of other specified parts of digestive tract; Z90.710 Acquired absence of both cervix and uterus; Z88.2 Allergy status to sulfonamides; Z87.891 Personal history of nicotine dependence
CPT/HCPCS: 99213; G0463; J1885

== ENCOUNTER 2016-10-27 18:26 | Emergency (ER) | payer OTHER ==
[2016-10-27] MEDS ORDERED: traMADol TAB* 50 MG PO ONE (19:29)
[2016-10-27] MEDS ORDERED: Acetaminophen TAB* 325 MG PO ONE (19:29)
--- NOTE | 2016-10-27 19:30 | ED ---
Lower Extremity - HPI Summary HPI Summary: 56 female presents to ED with complaints of right foot pain that began around 3pm today after waking up from her nap. Patient states the pain is sharp and achey that radiates up into her knee at times. Denies known injury or trauma. 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 Tried taking ibuprofen 800mg at 3:30p without relief. Denies calf pain, recent travel , prolonged bed rest and use of cigarettes. Patient denies erythema, swelling or bruising. No rash. Is able to bear weight and walk, however it is painful. PMHx significant for diabetes and HTN. Denies shortness of breath, difficulty breathing, fever/chills, numbness/tingling and chest pain. does have some pain chronically, in past with same foot. - History of Current Complaint Chief Complaint: EDExtremityLower Stated Complaint: RT FOOT PAIN Time Seen by Provider: 10/27/16 18:40 Hx Obtained From: Patient Hx Last Menstrual Period: hysterectomy Mechanism Of Injury: Unknown Onset/Duration: Hours Severity Initially: Moderate Severity Currently: Moderate Pain Intensity: 9 Pain Scale Used: 0-10 Numeric Timing: Constant Location: Is Discrete @ - right anterior foot and lateral ankle Character Of Pain: Sharp, Aching Associated Signs And Symptoms: Positive: Negative, Swelling - some mild, chronic. Negative: Redness, Bruising Aggravating Factor(s): Standing, Ambulation Alleviating Factor(s): Rest, Nothing Able to Bear Weight: Yes - Allergies/Home Medications Allergies/Adverse Reactions: Allergies Allergy/AdvReac Type Severity Reaction Status Date / Time Sulfa Drugs Allergy Mild Hives Verified 09/28/16 12:37 PMH/Surg Hx/FS Hx/Imm Hx Endocrine/Hematology History: Reports: Hx Anticoagulant Therapy - She took one baby aspirin today., Hx Diabetes - Type 2 Denies: Hx Thyroid Disease Cardiovascular History: Reports: Hx Hypertension Denies: Hx Angina, Hx Pacemaker/ICD Respiratory History: Reports: Hx Asthma Denies: Hx Chronic Obstructive Pulmonary Disease (COPD), Hx Lung Cancer, Hx Pneumonia, Hx Pulmonary Embolism GI History: Denies: Hx Gall Bladder Disease, Hx Gastroesophageal Reflux Disease, Hx Gastrointestinal Bleed, Hx Ulcer, Hx Urosepsis History: Reports: Hx Kidney Stones Denies: Hx Renal Disease Musculoskeletal History: Reports: Hx Arthritis - Bilat knees, shoulders, Hx Tendonitis - L Wrist Sensory History: Denies: Hx Hearing Aid Comment Only: Hx Contacts or Glasses - USUALLY WEARS GLASSES Opthamlomology History: Comment Only: Hx Contacts or Glasses - USUALLY WEARS GLASSES Neurological History: Reports: Hx Migraine Denies: Hx Dementia, Hx Seizures, Hx Transient Ischemic Attacks (TIA) Psychiatric History: Denies: Hx Anxiety, Hx Depression, Hx Panic Disorder, Hx Schizophrenia, Hx Bipolar Disorder - Cancer History Hx Chemotherapy: No Hx Radiation Therapy: No - Surgical History Surgery Procedure, Year, and Place: 1991 [facility] 2004 [facility]CTOMY [facility] BILATERAL CARPAL TUNNEL Hx Anesthesia Reactions: No - Immunization History Immunizations Up to Date: Yes Infectious Disease History: No Infectious Disease History: Denies: Traveled Outside the [place] in Last 30 Days - Family History Known Family History: Positive: Cardiac Disease, Hypertension, Diabetes Family History: NON-CONTRIBUTORY - Social History Alcohol Use: None Hx Substance Use: No Substance Use Type: Reports: None Hx Tobacco Use: Yes Smoking Status (MU): Former Smoker Type: Cigarettes Amount Used/How Often: LESS THEN 1PPD Length of Time of Smoking/Using Tobacco: 1.5 YRS Have You Smoked in the Last Year: No Review of Systems Constitutional: Negative Cardiovascular: Negative Respiratory: Negative Gastrointestinal: Negative Positive: Arthralgia, Myalgia, Edema - right foot Skin: Negative Neurological: Negative Psychological: Normal All Other Systems Reviewed And Are Negative: Yes Physical Exam Triage Information Reviewed: Yes Vital Signs On Initial Exam: Initial Vitals Temp Pulse Resp BP Pulse Ox 97.5 F 79 20 154/76 98 10/27/16 18:28 10/27/16 18:28 10/27/16 18:28 10/27/16 18:28 10/27/16 18:28 Vital Signs Reviewed: Yes Appearance: Positive: Well-Appearing, No Pain Distress - laying comfortably in stretcher, Well-Nourished Skin: Positive: Warm, Skin Color Reflects Adequate Perfusion, Dry. Negative: Cold, Numb, Cyanosis @, Pale, Erythema @ Head/Face: Positive: Normal Head/Face Inspection Eyes: Positive: Conjunctiva Clear ENT: Positive: Hearing grossly normal Neck: Positive: Supple, Nontender Respiratory/Lung Sounds: Positive: Clear to Auscultation, Breath Sounds Present. Negative: Rales, Rhonchi, Wheezes Cardiovascular: Positive: Normal, RRR, Pulses are Symmetrical in both Upper and Lower Extremities - 2+ pedal b/l, Leg Edema Left, Leg Edema Right - appears to have minimal chronic LE edema. Negative: Murmur, Rub Bowel Sounds: Positive: Present Musculoskeletal: Positive: Strength/ROM Intact, Pain @ - on palpation of anterior right foot and lateral malleoulous area, no crepitus, step off, ecchymosis or obvious deformity noted, Edema Right - minimal soft tissue swelling noted. Negative: Limited @, Interruption @, Abnormal @, Hetal Sign Left, Hetal Sign Right Neurological: Positive: Normal, Sensory/Motor Intact - sensation intact, Alert, Oriented to Person Place, Time, CN Intact II-III, Reflexes Intact, NV Bundle Intact Distally, Normal Gait - some favoring of left LE Psychiatric: Positive: Affect/Mood Appropriate Diagnostics - Vital Signs Vital Signs Temp Pulse Resp BP Pulse Ox 10/27/16 19:14 97.6 F 72 18 149/92 98 10/27/16 18:28 97.5 F 79 20 154/76 98 - Laboratory Lab Statement: Any lab studies that have been ordered have been reviewed, and results considered in the medical decision making process. - Radiology r foot Xray Interpretation: Positive (See Comments) - Negative for fracture, radiographic stigmata of stress reaction, or articular malalignment. Minimal osteophytosis and mild joint space narrowing at the first metatarsal phalangeal joint. Os peroneum accessory ossicle noted. Mild nonfocal soft tissue edema. Radiology Interpretation Completed By: Radiologist Re-Evaluation - Re-Evaluation First Eval Re-Evaluation Time: 20:30 Change: Improved - patient felt better after medicaiton administered Lower Extremity Course/Dx - Course Course Of Treatment: x-ray obtained and showed some degenerative osteoarthritis changes. Given tylenol and tramadol for pain. Appears to be suffering from possible arthritis. No concern for infection, gout, injury or DVT at this time due to PE findings, and HPI. Aware of worsening signs and symptoms. Had relief after pain management. Follow up with PCP. No concern for any emergent etiology at this time. - Diagnoses Differential Diagnosis/HQI/PQRI: Positive: Arthritis, Contusion, Dislocation, Fracture (Closed), Sprain, Strain, Tendonitis Provider Diagnoses: Right foot pain, Arthritis Discharge - Discharge Plan Condition: Improved Disposition: HOME Patient Education Materials: Arthralgia (ED) Additional Instructions: Take prescribed medication for pain as needed. Do not drive on this medication. Take ibuprofen or tylenol in between. Rest, elevate and ice foot. If you develop worsening signs and symptoms as discussed (redness, swelling, increased pain, new pain or numbness) please seek medical attention promptly. Follow up with primary care provider.
--- NOTE | 2016-10-27 19:34 | RAD ---
Indication: Lateral RIGHT foot pain today without known injury. Comparison: September 30, 2016 MRI. September 21, 2016 radiographs. Technique: AP, lateral, and oblique views RIGHT foot. REPORT: Negative for fracture, radiographic stigmata of stress reaction, or articular malalignment. Minimal osteophytosis and mild joint space narrowing at the first metatarsal phalangeal joint. Os peroneum accessory ossicle noted. Mild nonfocal soft tissue edema. Report: Mild nonfocal soft tissue swelling. Mild first metatarsal phalangeal joint osteoarthritis.
[2016-10-27 21:06] VITALS: BP 143/84
== END 2016-10-27 21:05 | disposition home or self-care (01) ==
LOC: ED 18:26
DX: M79.671 Pain in right foot (principal); Z79.01 Long term (current) use of anticoagulants; Z86.79 Personal history of other diseases of the circulatory system; Z87.891 Personal history of nicotine dependence
CPT/HCPCS: 99282; A9270-GY

== ENCOUNTER 2016-11-10 20:07 | Emergency (ER) | payer OTHER ==
[2016-11-10] MEDS ORDERED: Ondansetron INJ* 2 MG/ML VIAL IV ONE (23:49)
[2016-11-10] MEDS ORDERED: Ketorolac INJ* 30 MG/ML 1 ML VIAL IV ONE (23:49)
[2016-11-10] MEDS ORDERED: NS 0.9% 1000 ML* 1,000 ML IV ONE (23:49)
[2016-11-10] MEDS ORDERED: HYDROmorphone INJ* 1 MG/ML CARPUJECT SYRINGE IV ONE (23:49)
[2016-11-11] MEDS ORDERED: HYDROmorphone INJ* 1 MG/ML CARPUJECT SYRINGE IM ONE (00:47)
[2016-11-11] MEDS ORDERED: Ketorolac INJ* 60 MG/2 ML VIAL IM ONE (00:48)
[2016-11-11 01:29] LABS: Hematocrit 38 % (35-47); Hemoglobin 12.5 g/dl (12.0-16.0); Mean Corpuscular HGB Conc 33 g/dl (31-36); Mean Corpuscular Hemoglobin 29 pg (27-31); Mean Corpuscular Volume 88 fL (80-97); Mean Platelet Volume 8 um3 (7.4-10.4); Red Blood Count 4.36 10^6/ul (4.0-5.4); Red Cell Distribution Width 14 % (10.5-15); White Blood Count 7.6 10^3/ul (3.5-10.8)
[2016-11-11 01:39] LABS: Urine Bacteria Absent (Absent)
[2016-11-11 01:40] LABS: Albumin 4.1 g/dL (3.2-5.2); BUN/Creatinine Ratio 20.3 (8-20); C Reactive Protein 12.28 mg/L (< 5.00); Calcium 9.5 mg/dL (8.6-10.3); EGFR African American 104.4 (>60); EGFR Non-African American 81.2 (>60); Globulin 3.2 g/dL (2-4); Potassium 4.3 mmol/L (3.5-5.0); Total Bilirubin 0.4 mg/dL (0.2-1.0); Total Protein 7.3 g/dL (6.4-8.9)
[2016-11-11 01:41] LABS: Urine Bilirubin Negative (Negative); Urine Glucose Negative (Negative); Urine Nitrite Negative (Negative)
[2016-11-11] MEDS ORDERED: oxyCODONE/Acetamin 5/325 MG* TAB PO ONE (04:37)
[2016-11-11 04:45] VITALS: BP 133/83
--- NOTE | 2016-11-11 07:54 | ED ---
Danay Andino Rebecca, scribed for Pritesh Lala MD on 11/10/16 at 2350 . Back Pain - HPI Summary HPI Summary: Pt is a 56 y/o F who presents to ED c/o R flank pain. Pain began this afternoon at 1700 while sitting and is currently severe, ranked 10/10. 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 States that she cannot get comfortable with the pain. Sx aggravated by deep breaths and walking, alleviated by nothing. Denies CP, SOB, vomiting. Prior similar episode years ago which was similar to when she experienced kidney stones. - History of Current Complaint Chief Complaint: EDFlankPain Stated Complaint: RT SIDE PAIN Time Seen by Provider: 11/10/16 23:40 Hx Obtained From: Patient Hx Last Menstrual Period: hysterectomy Onset/Duration: Lasting Hours, Still Present Onset/Duration: Still Present Back Pain Location: Is Discrete @ - R flank Severity Currently: Severe Pain Intensity: 10 Pain Scale Used: 0-10 Numeric Character: Sharp Aggravating Symptom(s): Walking Alleviating Symptom(s): Nothing Associated Signs And Symptoms: Positive: Flank Pain - Right Related History: Similar Episode Dx As - Kidney stones - Allergies/Home Medications Allergies/Adverse Reactions: Allergies Allergy/AdvReac Type Severity Reaction Status Date / Time Sulfa Drugs Allergy Mild Hives Verified 09/28/16 12:37 PMH/Surg Hx/FS Hx/Imm Hx Endocrine/Hematology History: Reports: Hx Anticoagulant Therapy - She took one baby aspirin today., Hx Diabetes - Type 2 Denies: Hx Thyroid Disease Cardiovascular History: Reports: Hx Hypertension Denies: Hx Angina, Hx Pacemaker/ICD Respiratory History: Reports: Hx Asthma Denies: Hx Chronic Obstructive Pulmonary Disease (COPD), Hx Lung Cancer, Hx Pneumonia, Hx Pulmonary Embolism GI History: Denies: Hx Gall Bladder Disease, Hx Gastroesophageal Reflux Disease, Hx Gastrointestinal Bleed, Hx Ulcer, Hx Urosepsis History: Reports: Hx Kidney Stones Denies: Hx Renal Disease Musculoskeletal History: Reports: Hx Arthritis - Bilat knees, shoulders, Hx Tendonitis - L Wrist Sensory History: Denies: Hx Hearing Aid Comment Only: Hx Contacts or Glasses - USUALLY WEARS GLASSES Opthamlomology History: Comment Only: Hx Contacts or Glasses - USUALLY WEARS GLASSES Neurological History: Reports: Hx Migraine Denies: Hx Dementia, Hx Seizures, Hx Transient Ischemic Attacks (TIA) Psychiatric History: Denies: Hx Anxiety, Hx Depression, Hx Panic Disorder, Hx Schizophrenia, Hx Bipolar Disorder - Cancer History Hx Chemotherapy: No Hx Radiation Therapy: No - Surgical History Surgery Procedure, Year, and Place: 1991 GB [facility] 2004 HYSTERECTOMY [facility] BILATERAL CARPAL TUNNEL Hx Anesthesia Reactions: No Infectious Disease History: No Infectious Disease History: Denies: Traveled Outside the [place] in Last 30 Days - Family History Known Family History: Positive: Cardiac Disease, Hypertension, Diabetes - Social History Alcohol Use: None Hx Substance Use: No Substance Use Type: Reports: None Hx Tobacco Use: Yes Smoking Status (MU): Former Smoker Type: Cigarettes Amount Used/How Often: LESS THEN 1PPD Length of Time of Smoking/Using Tobacco: 1.5 YRS Have You Smoked in the Last Year: No Review of Systems Negative: Chest Pain Negative: Shortness Of Breath Negative: Vomiting Negative: Arthralgia - R flank pain All Other Systems Reviewed And Are Negative: Yes Physical Exam - Summary Physical Exam Summary: The patient is well-nourished in no acute distress and in no acute pain. The skin is warm and dry and skin color reflects adequate perfusion. She has no rashes present. HEENT: The head is normocephalic and atraumatic. The pupils are equal and reactive. The conjunctivae are clear and without drainage. Nares are patent and without drainage. Mouth reveals moist mucous membranes and the throat is without erythema and exudate. The external ears are intact. The ear canals are patent and without drainage. The tympanic membranes are intact. Respiratory: Chest is non-tender. Lungs are clear to auscultation and breath sounds are symmetrical and equal. Cardiovascular: Hear is regular rate and rhythm. There is no murmur or rub auscultated. There is no peripheral edema and pulses are symmetrical and equal. Abdomen: The abdomen is soft and non-tender. There are normal bowel sounds heard in all four quadrants and there is no organomegaly palpated. Musculoskeletal: There is right CVA tenderness. Extremities are non-tender with full range of motion. There is good capillary refill. There is no peripheral edema or calf tenderness elicited. Neurological: Patient is alert and oriented to person, place and time. Psychiatric: The patient has an appropriate affect and does not exhibit any anxiety or depression. Triage Information Reviewed: Yes Vital Signs On Initial Exam: Initial Vitals Temp Pulse Resp BP Pulse Ox 98.1 F 95 20 130/82 98 11/10/16 20:35 11/10/16 20:35 11/10/16 20:35 11/10/16 20:35 11/10/16 20:35 Vital Signs Reviewed: Yes Diagnostics - Vital Signs Vital Signs Temp Pulse Resp BP Pulse Ox 11/10/16 22:18 97.4 F 85 28 140/85 100 11/10/16 20:35 98.1 F 95 20 130/82 98 - Laboratory Lab Results: Lab Results 11/10/16 11/11/16 11/11/16 Range/Units 23:54 00:30 00:30 WBC 7.6 (3.5-10.8) 10^3/ul RBC 4.36 (4.0-5.4) 10^6/ul Hgb 12.5 (12.0-16.0) g/dl Hct 38 (35-47) % MCV 88 (80-97) fL MCH 29 (27-31) pg MCHC 33 (31-36) g/dl RDW 14 (10.5-15) % Plt Count 321 (150-450) 10^3/ul MPV 8 (7.4-10.4) um3 Neut % (Auto) 54.0 (38-83) % Lymph % (Auto) 36.6 (25-47) % [place] % (Auto) 7.5 (1-9) % Eos % (Auto) 1.2 (0-6) % Baso % (Auto) 0.7 (0-2) % Absolute Neuts (auto) 4.1 (1.5-7.7) 10^3/ul Absolute Lymphs (auto) 2.8 (1.0-4.8) 10^3/ul Absolute Monos (auto) 0.6 (0-0.8) 10^3/ul Absolute Eos (auto) 0.1 (0-0.6) 10^3/ul Absolute Basos (auto) 0.1 (0-0.2) 10^3/ul Absolute Nucleated RBC 0.02 10^3/ul Nucleated RBC % 0.3 Sodium 138 (133-145) mmol/L Potassium 4.3 (3.5-5.0) mmol/L Chloride 104 (101-111) mmol/L Carbon Dioxide 28 (22-32) mmol/L Anion Gap 6 (2-11) mmol/L BUN 15 (6-24) mg/dL Creatinine 0.74 (0.51-0.95) mg/dL Est GFR ( Amer) 104.4 (>60) Est GFR (Non-Af Amer) 81.2 (>60) BUN/Creatinine Ratio 20.3 H (8-20) Glucose 127 H (70-100) mg/dL Lactic Acid (0.5-2.0) mmol/L Calcium 9.5 (8.6-10.3) mg/dL Total Bilirubin 0.40 (0.2-1.0) mg/dL AST 26 (13-39) U/L ALT 42 (7-52) U/L Alkaline Phosphatase 123 H (34-104) U/L C-Reactive Protein 12.28 H (< 5.00) mg/L Total Protein 7.3 (6.4-8.9) g/dL Albumin 4.1 (3.2-5.2) g/dL Globulin 3.2 (2-4) g/dL Albumin/Globulin Ratio 1.3 (1-3) Lipase 47 (11.0-82.0) U/L Urine Color Straw Urine Appearance Cloudy Urine pH 5.0 (5-9) Ur Specific [place] 1.020 (1.010-1.030) Urine Protein 1+(30 mg/dl) H (Negative) Urine Ketones Negative (Negative) Urine Blood Negative (Negative) Urine Nitrate Negative (Negative) Urine Bilirubin Negative (Negative) Urine Urobilinogen Negative (Negative) Ur Leukocyte Esterase Negative (Negative) Urine WBC (Auto) Absent (Absent) Urine RBC (Auto) Absent (Absent) Urine Bacteria Absent (Absent) Urine Glucose Negative (Negative) Urine Ascorbic Acid Not Reportable 11/11/16 Range/Units 00:30 WBC (3.5-10.8) 10^3/ul RBC (4.0-5.4) 10^6/ul Hgb (12.0-16.0) g/dl Hct (35-47) % MCV (80-97) fL MCH (27-31) pg MCHC (31-36) g/dl RDW (10.5-15) % Plt Count (150-450) 10^3/ul MPV (7.4-10.4) um3 Neut % (Auto) (38-83) % Lymph % (Auto) (25-47) % [place] % (Auto) (1-9) % Eos % (Auto) (0-6) % Baso % (Auto) (0-2) % Absolute Neuts (auto) (1.5-7.7) 10^3/ul Absolute Lymphs (auto) (1.0-4.8) 10^3/ul Absolute Monos (auto) (0-0.8) 10^3/ul Absolute Eos (auto) (0-0.6) 10^3/ul Absolute Basos (auto) (0-0.2) 10^3/ul Absolute Nucleated RBC 10^3/ul Nucleated RBC % Sodium (133-145) mmol/L Potassium (3.5-5.0) mmol/L Chloride (101-111) mmol/L Carbon Dioxide (22-32) mmol/L Anion Gap (2-11) mmol/L BUN (6-24) mg/dL Creatinine (0.51-0.95) mg/dL Est GFR ( Amer) (>60) Est GFR (Non-Af Amer) (>60) BUN/Creatinine Ratio (8-20) Glucose (70-100) mg/dL Lactic Acid 1.5 (0.5-2.0) mmol/L Calcium (8.6-10.3) mg/dL Total Bilirubin (0.2-1.0) mg/dL AST (13-39) U/L ALT (7-52) U/L Alkaline Phosphatase (34-104) U/L C-Reactive Protein (< 5.00) mg/L Total Protein (6.4-8.9) g/dL Albumin (3.2-5.2) g/dL Globulin (2-4) g/dL Albumin/Globulin Ratio (1-3) Lipase (11.0-82.0) U/L Urine Color Urine Appearance Urine pH (5-9) Ur Specific [place] (1.010-1.030) Urine Protein (Negative) Urine Ketones (Negative) Urine Blood (Negative) Urine Nitrate (Negative) Urine Bilirubin (Negative) Urine Urobilinogen (Negative) Ur Leukocyte Esterase (Negative) Urine WBC (Auto) (Absent) Urine RBC (Auto) (Absent) Urine Bacteria (Absent) Urine Glucose (Negative) Urine Ascorbic Acid Result Diagrams: 11/11/16 00:30 11/11/16 00:30 Lab Statement: Any lab studies that have been ordered have been reviewed, and results considered in the medical decision making process. - CT CT Abd/Pel CT Interpretation: Positive (See Comments) - Hepatomegaly and steatosis. No nephrolithiasis or hydronephrosis. Small hiatal hernia. ED physician reviewed radiology report and agrees. CT Interpretation Completed By: Radiologist Re-Evaluation - Re-Evaluation First Eval Re-Evaluation Time: 04:38 Change: Improved Comment: Pain is almost completely resolved. Discussed CT results and D/C plan. Back Pain Course/Dx - Course Assessment/Plan: Pt is a 56 y/o F who presents to ED c/o R flank pain. Pain began this afternoon at 1700 while sitting and is currently severe, ranked 10/ 10. 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 States that she cannot get comfortable with the pain. Sx aggravated by deep breaths and walking, alleviated by nothing. Denies CP, SOB, vomiting. Prior similar episode years ago which was similar to when she experienced kidney stones. CT Abd/Pel reveals hepatomegaly and steatosis with no nephrolithiasis or hydronephrosis and a small hiatal hernia. In the ED course , pt received Dilaudid, Zofran, Percocet 5/325, Toradol and fluids which improved sx. She will be D/C to home with Dx of R flank pain and a follow up with her PCP. She understands and agrees. Elevated BP noted and advised to f/u. - Diagnoses Differential Diagnosis/HQI/PQRI: Positive: Herniated Disc, Renal Colic, Strain, Sprain, Other - uti Provider Diagnoses: Right flank pain Discharge - Discharge Plan Condition: Stable Disposition: HOME Prescriptions: oxyCODONE/Acetamin 5/325 MG* [Percocet 5/325 TAB*] 1 tab PO Q6H PRN #20 tab MDD 4 PRN Reason: pain Patient Education Materials: Flank Pain (ED) Referrals: Alana Jones MD [Primary Care Provider] - 3 Days The documentation as recorded by the Danay simpson Rebecca accurately reflects the service I personally performed and the decisions made by me, Pritesh Lala MD.
--- NOTE | 2016-11-11 08:07 | RAD ---
INDICATION: Right flank pain COMPARISON: CT July 15, 2016; CT January 21, 2014 TECHNIQUE: Noncontrast axial source images were acquired from the level hemidiaphragms to the symphysis pubis as part of CT imaging for renal stone. Lung bases: The lung bases are clear. Liver: The liver is enlarged with findings of hepatic steatosis. Noncontrast imaging shows no evidence of a hepatic mass or ductal dilatation. Gallbladder: Cholecystectomy. Spleen: The spleen is normal in size. The noncontrast CT appearance is normal. Pancreas: Noncontrast imaging shows no pancreatic mass or ductal dilitation. Adrenal glands: No masses are identified. Kidneys/Bladder: There is no evidence of nephrolithiasis or CT evidence of hydronephrosis. Noncontrast imaging shows no evidence of a renal mass. There is a tiny calcific density in the left kidney but this may be arterial as it is unchanged relative to preceding examinations to include the 2014 examination. There is a probable small cyst in the inferior pole left kidney, unchanged. The bladder is unremarkable.. Adenopathy: There is no evidence of intraperitoneal or retroperitoneal adenopathy. Evaluation is limited without oral contrast. Fluid collections: There are no free or localized fluid collections. Vessels: The aorta and iliac vessels are normal in caliber. There are no significant atherosclerotic changes. The IVC appears normal Pelvic organs: There may be a partial hysterectomy. This is stated in the surgical history. GI tract: Evaluation of the bowel is limited without oral contrast. The stomach, small bowel, and lower GI tract appear grossly normal. There are no obstructive findings. The appendix is visualized and appears normal. Soft tissues: No soft tissue abnormalities of the extraperitoneal abdomen or pelvis are identified. Osseous structures: There are no acute osseous findings. IMPRESSION: NO CT EVIDENCE OF UROLITHIASIS. HEPATOMEGALY WITH HEPATIC STEATOSIS. NORMAL APPENDIX. CHOLECYSTECTOMY.
== END 2016-11-11 05:01 | disposition home or self-care (01) ==
LOC: ED 20:07
DX: R10.84 Generalized abdominal pain (principal); Z87.891 Personal history of nicotine dependence
CPT/HCPCS: 36415; 74176; 80053; 81003; 81015; 83605; 83690; 85025; 86140; 96372; 96374; 96375; 99283; A9270-GY; J1170; J1885; J2405

== ENCOUNTER 2016-11-22 06:55 | Day surgery (SDC) | payer OTHER ==
--- NOTE | 2016-11-18 16:44 | HP ---
Amended report to enter cosigning doctor. PREOPERATIVE HISTORY AND PHYSICAL: DATE OF ADMISSION: 11/22/16 PROVIDER: Andrew Galeas MD* (dictated by RONN Seals). CHIEF COMPLAINT: Right ankle pain. HISTORY OF PRESENT ILLNESS: Mandy is a 56-year-old female who has been followed by Dr. Galeas for chronic right lateral and dorsal ankle pain. She has had recurrent ankle sprains to the right ankle previously. She has had pain consistently along the SPN nerve and now has a positive Tinel's in this area. 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 She has failed conservative treatment with immobilization and splinting. She is interested in surgical intervention for correction of the problem at this point. PAST MEDICAL HISTORY: 1. Hypertension. 2. Type 2 diabetes. 3. Osteoarthritis. PAST SURGICAL HISTORY: 1. Cholecystectomy. 2. Hysterectomy. 3. Bilateral carpal tunnel release. 4. Bilateral ulnar nerve decompression. She reports no complications with anesthesia with those procedures. CURRENT MEDICATIONS: 1. Cyclobenzaprine 10 mg 1 p.o. t.i.d. p.r.n. spasm. 2. Naproxen 500 mg 1 p.o. b.i.d. p.r.n. pain. 3. Metoprolol succinate 50 mg 1 p.o. b.i.d. 4. Amlodipine besylate 10 mg 1 p.o. daily. 5. Metformin 1000 mg p.o. b.i.d. 6. Insulin 15 units daily. ALLERGIES: SULFA. SOCIAL HISTORY: The patient is unemployed. She lives with her . She denies tobacco use. She denies alcoholic beverages. She does not exercise regularly. REVIEW OF SYSTEMS: Constitutional: Negative for recent hospitalizations, fevers, chills, night sweats, or weight loss. Head: Negative for headache, lightheadedness, or balance problems. Cardiovascular: Negative for chest or arm pain with exertion, history of heart attack, heart murmur, heart palpitations. Positive for high blood pressure. Negative for embolism or deep vein thrombosis. Respiratory: Negative for chronic cough, shortness of breath with exertion, asthma, or COPD. Gastrointestinal: Negative for heartburn, nausea, vomiting, diarrhea, constipation, or GERD. Genitourinary: Positive for recent flank pain, which was thought to be kidney stones in the emergency room. No urinary tract infections, burning with urination, or urinary frequency. Musculoskeletal: Negative for chronic back pain or recent fractures. Skin: Negative for rashes, lesions, lumps, or sores. Neurologic: Negative for seizure, stroke, epilepsy, depression, or anxiety. Endocrine: Positive for diabetes. Negative for thyroid problems. Hematology: Negative for easy bleeding, bruising, or anemia. PHYSICAL EXAMINATION GENERAL: She is a well-developed, well-nourished female, in no acute distress at rest. She is alert and oriented x3. She has somewhat of a flat affect, appropriate mood. VITAL SIGNS: The patient is 5 feet 6 inches, 220 pounds. Blood pressure 122/70 , temperature 97.2, and pulse of 80. HEENT: Normocephalic, atraumatic. Hearing and vision grossly intact. Her oropharynx is clear. NECK: Trachea is midline. RESPIRATORY: Lungs are clear to auscultation bilaterally. No wheezes, rales, or rhonchi. CARDIOVASCULAR: Regular rate and rhythm. No murmurs, rubs, or gallops. Normal S1 and S2. ABDOMEN: Soft, nondistended, nontender. Normal bowel sounds. EXTREMITIES: Exam of the right lower extremity, skin is intact without abrasions or open wounds. There is no edema, ecchymosis, or gross deformities. She has a positive Tinel's along the SPN beginning at exit site. She has pain with passive dorsiflexion and inversion of the ankle. Her sensation to light touch is intact. She has a normal vascular exam. IMPRESSION: Right ankle superficial peroneal nerve entrapment. PLAN: The patient is to undergo right ankle decompression of the superficial peroneal nerve by Dr. Galeas on 11/22/16. The risks, benefits, and postoperative course were discussed with the patient at length and she would like to proceed. All of her questions were answered to her full satisfaction. She is understanding to call if she develops problems or concerns. RONN SEALS [id number]/[facility] #: [id number] BIN
[~2016-11-22 06:55] MED LIST: Buffered Lidocaine 0.9% SYRIN* 5 ML/SYR SYRINGE INTRADERM ONE
[2016-11-22] MEDS ORDERED: ceFAZolin 2 GM PREMIX (*) 50 ML IVPB ONE (07:23)
[2016-11-22] MEDS ORDERED: Buffered Lidocaine 0.9% SYRIN* 5 ML/SYR SYRINGE ONE (07:30)
[2016-11-22] MEDS ORDERED: Bupivacaine 0.5% SDV PF* 30 ML VIAL ONE (07:37)
[2016-11-22] MEDS ORDERED: Lidocaine 2% PF* 10 ML AMP ONE (07:37)
[2016-11-22] MEDS ORDERED: Midazolam* 1 MG/ML 2 ML VIAL (2 MG) ONE (08:18)
[2016-11-22] MEDS ORDERED: Mivacurium Chloride* 20 MG/10 ML VIAL IV ONE (08:57)
[2016-11-22] MEDS ORDERED: Famotidine IV* 10 MG/ML 2 ML (20 mg) ONE (08:57)
[2016-11-22] MEDS ORDERED: Propofol* 10 MG/ML 20 ML BTL IV PUSH ONE (08:57)
[2016-11-22] MEDS ORDERED: Dexamethasone IV* 4 MG/ML 1 ML (4 MG) ONE (08:57)
[2016-11-22] MEDS ORDERED: fentaNYL* 50 MCG/ML 2 ML VIAL (100 MCG VIAL) ONE ×2 (09:16→09:29)
[2016-11-22] MEDS ORDERED: HYDROmorphone INJ* 1 MG/ML CARPUJECT SYRINGE ONE (09:19)
[2016-11-22] MEDS ORDERED: HYDROmorphone INJ* 1 MG/ML CARPUJECT SYRINGE IV PRN (09:25)
[2016-11-22] MEDS ORDERED: Levalbuterol 0.63MG/3ML NEB* UNIT OF USE INH PRN (09:25)
[2016-11-22] MEDS ORDERED: HYDROcodone/ACETAMIN 5-325 MG* 1 TAB PO PRN (09:25)
[2016-11-22] MEDS ORDERED: fentaNYL* 50 MCG/ML 2 ML VIAL (100 MCG VIAL) IV PRN (09:25)
[2016-11-22] MEDS ORDERED: PROCHLORPERAZINE INJ 5 MG/ML 2 ML VIAL IV PRN (09:25)
[2016-11-22] MEDS ORDERED: DiMENhydriNATE IV* 50 MG/ML VIAL IV PUSH PRN (09:25)
[2016-11-22] MEDS ORDERED: Acetaminophen TAB* 325 MG PO PRN (09:25)
[2016-11-22] MEDS ORDERED: Labetalol IV* 5 MG/ML 20 ML VIAL ONE (09:28)
[2016-11-22 12:06] VITALS: BP 124/78
--- NOTE | 2016-11-23 03:19 | OP ---
DATE OF OPERATION: 11/22/16 - [facility] DATE OF : 60 SURGEON: Andrew Galeas MD. ANESTHESIOLOGIST: Dr. Bryant ANESTHESIA: General PRE-OP DIAGNOSIS: Traction neuroma, right superficial peroneal nerve. POST-OP DIAGNOSIS: Traction neuroma, right superficial peroneal nerve. OPERATIVE PROCEDURE: Decompression right superficial peroneal nerve and burial of 1 branch. DESCRIPTION OF PROCEDURE: The patient was taken to the operating room where a longitudinal incision was made a handbreadth above the tip of the fibula, exactly where the superficial peroneal nerve exits the crural fascia. We opened the crural fascia approximately 5 to 6 cm. There seemed to be some thickening in the nerve at this level. A small, perhaps maybe 25% diameter branch posteriorly was trapped in some fatty tissue at this level and appeared to be thickened. This portion of the nerve was transected. We ligated it with a 3-0 Ethibond, which we then buried posterior to the peroneals with a Judd needle. The remaining portion of the SPN nerve, which was the largest portion, was dissected, distally appeared to be intact and healthy and was now unencumbered. We irrigated the soft tissue, closing with Vicryl and some nylon and a compression dressing plaster splint. [id number]/[facility] #: [id number] [facility]
== END 2016-11-22 12:44 | disposition home or self-care (01) ==
LOC: OR 06:55
PROVIDERS: ATTEND Orthopaedic Surgery
DX: G57.31 Lesion of lateral popliteal nerve, right lower limb (principal); I10 Essential (primary) hypertension; E11.9 Type 2 diabetes mellitus without complications; Z79.4 Long term (current) use of insulin; M19.90 Unspecified osteoarthritis, unspecified site; Z88.2 Allergy status to sulfonamides; E66.01 Morbid (severe) obesity due to excess calories; Z68.37 Body mass index [BMI] 37.0-37.9, adult
CPT/HCPCS: J0690; J1100; J1170; J2001; J2250; J2704; J3010

== ENCOUNTER 2016-11-27 11:43 | Emergency (ER) | payer OTHER ==
[2016-11-27 16:33] VITALS: BP 138/75
[2016-11-27] MEDS ORDERED: oxyCODONE/Acetamin 5/325 MG* TAB PO ONE (18:00)
[2016-11-27 19:04] LABS: Hematocrit 42 % (35-47); Hemoglobin 13.8 g/dl (12.0-16.0); Mean Corpuscular HGB Conc 33 g/dl (31-36); Mean Corpuscular Hemoglobin 29 pg (27-31); Mean Corpuscular Volume 87 fL (80-97); Mean Platelet Volume 7 um3 (7.4-10.4); Red Blood Count 4.77 10^6/ul (4.0-5.4); Red Cell Distribution Width 14 % (10.5-15); White Blood Count 13.6 10^3/ul (3.5-10.8)
[2016-11-27 19:19] LABS: Albumin 4.5 g/dL (3.2-5.2); EGFR African American 102.8 (>60); EGFR Non-African American 79.9 (>60); Globulin 3.6 g/dL (2-4); Potassium 3.8 mmol/L (3.5-5.0); Total Bilirubin 0.5 mg/dL (0.2-1.0); Total Protein 8.1 g/dL (6.4-8.9)
--- NOTE | 2016-11-27 19:44 | RAD ---
HISTORY: Shortness of breath, status post right leg surgery COMPARISONS: None relevant TECHNIQUE: Multiple transverse and longitudinal ultrasound images were obtained of the right lower extremity from the level of the common femoral vein inferiorly through to the infrapopliteal veins using grayscale, color Doppler, and spectral Doppler imaging with and without compression and with augmentation. Comparison images were obtained of the contralateral common femoral vein. FINDINGS: VEINS: The venous system of the right lower extremity is compressible throughout its course, with normal flow on color Doppler imaging and normal response to augmentation on spectral Doppler imaging. SOFT TISSUES: Unremarkable. OTHER FINDINGS: None. IMPRESSION: NO RIGHT LOWER EXTREMITY DEEP VEIN THROMBOSIS
--- NOTE | 2016-11-28 00:22 | ED ---
Lower Extremity - HPI Summary HPI Summary: 56 y/o female s/p nerve resection Tuesday by Dr. melgar presents with increased pain over lateral R foot under surgical cast. No fever, chills, feels like heart may have been racing, called office, placed on gabapentin 100mg QHS, no relief. patient states pain is a burning sensation that goes from ankle up to calf, + calf pain. can move toes well, remains non-weight bearing. - History of Current Complaint Chief Complaint: EDExtremityLower Stated Complaint: DIZZY/RT LEG PAIN Time Seen by Provider: 11/27/16 17:47 Hx Obtained From: Patient, Family/Court Stenographer - Hx Last Menstrual Period: hysterectomy Onset of Pain: Days Onset/Duration: Days Severity Initially: Moderate Severity Currently: Severe Pain Intensity: 10 Pain Scale Used: 0-10 Numeric Location: Is Discrete @ - right lateral ankle/ calf Character Of Pain: Sharp, Aching Associated Signs And Symptoms: Positive: Weakness, Dizziness Aggravating Factor(s): Standing, Ambulation Alleviating Factor(s): Rest Able to Bear Weight: No - Allergies/Home Medications Allergies/Adverse Reactions: Allergies Allergy/AdvReac Type Severity Reaction Status Date / Time Sulfa Drugs Allergy Mild Hives Verified 11/22/16 07:14 PMH/Surg Hx/FS Hx/Imm Hx Previously Healthy: No Endocrine/Hematology History: Reports: Hx Anticoagulant Therapy - She took one baby aspirin today., Hx Diabetes - Type 2 Denies: Hx Thyroid Disease Cardiovascular History: Reports: Hx Hypertension - controlled with meds Denies: Hx Angina, Hx Pacemaker/ICD Respiratory History: Reports: Hx Asthma - on meds Denies: Hx Chronic Obstructive Pulmonary Disease (COPD), Hx Lung Cancer, Hx Pneumonia, Hx Pulmonary Embolism GI History: Reports: Hx Gastroesophageal Reflux Disease Denies: Hx Gall Bladder Disease, Hx Gastrointestinal Bleed, Hx Ulcer, Hx Urosepsis History: Reports: Hx Kidney Stones Denies: Hx Renal Disease Musculoskeletal History: Reports: Hx Arthritis - Bilat knees, shoulders, Hx Tendonitis - L Wrist Sensory History: Reports: Hx Contacts or Glasses - glasses Denies: Hx Hearing Aid Opthamlomology History: Reports: Hx Contacts or Glasses - glasses Neurological History: Reports: Hx Migraine Denies: Hx Dementia, Hx Seizures, Hx Transient Ischemic Attacks (TIA) Psychiatric History: Reports: Hx Anxiety - prn Denies: Hx Depression, Hx Panic Disorder, Hx Schizophrenia, Hx Bipolar Disorder - Cancer History Hx Chemotherapy: No Hx Radiation Therapy: No - Surgical History Surgery Procedure, Year, and Place: 1991 [facility] 2004 [facility]OMY [facility] BILATERAL CARPAL TUNNEL Hx Anesthesia Reactions: No Infectious Disease History: Yes Infectious Disease History: Denies: Traveled Outside the [place] in Last 30 Days - Family History Known Family History: Positive: Cardiac Disease, Hypertension, Diabetes Family History: NON-CONTRIBUTORY - Social History Alcohol Use: None Hx Substance Use: No Substance Use Type: Reports: None Hx Tobacco Use: Yes Smoking Status (MU): Former Smoker Type: Cigarettes Amount Used/How Often: LESS THEN 1PPD, only smoked 1/2 year Length of Time of Smoking/Using Tobacco: 1.5 YRS Have You Smoked in the Last Year: No Review of Systems Positive: Fatigue Positive: Arthralgia, Myalgia, Decreased ROM All Other Systems Reviewed And Are Negative: Yes Physical Exam Triage Information Reviewed: Yes Vital Signs On Initial Exam: Initial Vitals Temp Pulse Resp BP Pulse Ox 97.3 F 86 17 138/79 97 11/27/16 11:54 11/27/16 11:54 11/27/16 11:54 11/27/16 11:54 11/27/16 11:54 Vital Signs Reviewed: Yes Appearance: Positive: Well-Appearing, No Pain Distress - at rest, Well-Nourished Skin: Positive: Warm, Skin Color Reflects Adequate Perfusion, Other - cast removed from R leg, incision c/d/i, PT 1+, DP 2+., no edema, no redness. - homans sign. skin intact. Head/Face: Positive: Normal Head/Face Inspection Neck: Positive: Supple, Nontender, No Lymphadenopathy Respiratory/Lung Sounds: Positive: Clear to Auscultation, Breath Sounds Present Cardiovascular: Positive: Normal, RRR, Pulses are Symmetrical in both Upper and Lower Extremities, S1, S2. Negative: Murmur, Rub, Tachycardia, Leg Edema Left, Leg Edema Right Musculoskeletal: Positive: Other. Negative: Hetal Sign Left, Hetal Sign Right - no strength testing of R ankle due to recent surgery, full PROM of R ankle. full ROM R toes, knee without pain Neurological: Positive: Normal, Sensory/Motor Intact, Alert, Oriented to Person Place, Time, CN Intact II-III Psychiatric: Positive: Normal AVPU Assessment: Alert - [place] Coma Scale Coma Scale Total: 15 Diagnostics - Vital Signs Vital Signs Temp Pulse Resp BP Pulse Ox 11/27/16 18:24 16 11/27/16 16:05 98.2 F 88 16 138/75 98 11/27/16 13:50 98.1 F 81 20 136/73 96 11/27/16 11:54 97.3 F 86 17 138/79 97 - Laboratory Lab Results: Lab Results 11/27/16 11/27/16 11/27/16 Range/Units 18:55 18:55 18:55 WBC 13.6 H (3.5-10.8) 10^3/ul RBC 4.77 (4.0-5.4) 10^6/ul Hgb 13.8 (12.0-16.0) g/dl Hct 42 (35-47) % MCV 87 (80-97) fL MCH 29 (27-31) pg MCHC 33 (31-36) g/dl RDW 14 (10.5-15) % Plt Count 343 (150-450) 10^3/ul MPV 7 L (7.4-10.4) um3 Neut % (Auto) 75.5 (38-83) % Lymph % (Auto) 18.1 L (25-47) % [place] % (Auto) 5.5 (1-9) % Eos % (Auto) 0.5 (0-6) % Baso % (Auto) 0.4 (0-2) % Absolute Neuts (auto) 10.2 H (1.5-7.7) 10^3/ul Absolute Lymphs (auto) 2.5 (1.0-4.8) 10^3/ul Absolute Monos (auto) 0.7 (0-0.8) 10^3/ul Absolute Eos (auto) 0.1 (0-0.6) 10^3/ul Absolute Basos (auto) 0.1 (0-0.2) 10^3/ul Absolute Nucleated RBC 0.01 10^3/ul Nucleated RBC % 0.1 D-Dimer, Quantitative < 200 (Less Than 230) ng/mL Sodium 138 (133-145) mmol/L Potassium 3.8 (3.5-5.0) mmol/L Chloride 102 (101-111) mmol/L Carbon Dioxide 29 (22-32) mmol/L Anion Gap 7 (2-11) mmol/L BUN 12 (6-24) mg/dL Creatinine 0.75 (0.51-0.95) mg/dL Est GFR ( Amer) 102.8 (>60) Est GFR (Non-Af Amer) 79.9 (>60) BUN/Creatinine Ratio 16.0 (8-20) Glucose 97 (70-100) mg/dL Calcium 10.0 (8.6-10.3) mg/dL Total Bilirubin 0.50 (0.2-1.0) mg/dL AST 21 (13-39) U/L ALT 34 (7-52) U/L Alkaline Phosphatase 124 H (34-104) U/L CK-MB (CK-2) 1.0 (0.6-6.3) ng/mL Troponin I 0.00 (<0.04) ng/mL Total Protein 8.1 (6.4-8.9) g/dL Albumin 4.5 (3.2-5.2) g/dL Globulin 3.6 (2-4) g/dL Albumin/Globulin Ratio 1.3 (1-3) Result Diagrams: 11/27/16 18:55 11/27/16 18:55 Lab Statement: Any lab studies that have been ordered have been reviewed, and results considered in the medical decision making process. Lower Extremity Course/Dx - Course Course Of Treatment: DVT workup -d dimer, US negative for DVT, blood work WNL, increase lucia to 200mg QHS, pain controlled in house with percocet adequately, EKG WNL. follow up with Dr Melgar, new splint placed, patient denies symptoms currently - Diagnoses Differential Diagnosis/HQI/PQRI: Positive: Bursitis, Cellulitis, Gout, Infection , Strain Provider Diagnoses: Neuropathy Discharge - Discharge Plan Condition: Stable Disposition: HOME Referrals: Alana Jones MD [Primary Care Provider] -
== END 2016-11-27 20:45 | disposition home or self-care (01) ==
LOC: ED 11:43
DX: G62.9 Polyneuropathy, unspecified (principal); I10 Essential (primary) hypertension; J45.909 Unspecified asthma, uncomplicated; K21.9 Gastro-esophageal reflux disease without esophagitis; F41.9 Anxiety disorder, unspecified; F17.210 Nicotine dependence, cigarettes, uncomplicated
CPT/HCPCS: 36415; 80053; 82553; 84484; 85025; 85379; 93005; 99282; A9270-GY

== ENCOUNTER 2016-12-09 15:37 | Emergency (ER) | payer OTHER ==
[2016-12-09 16:06] VITALS: BP 125/82
--- NOTE | 2016-12-09 19:45 | UC ---
Sary Andino Alfonso, scribed for Alana Ivy DO on 12/09/16 at 1721 . Ear Complaint HPI - HPI Summary HPI Summary: This patient is a 56 year old F presenting to [facility] with a chief complaint of bilateral ear pain since 3 days ago. The patient rates the sharp pain 7/10 in severity. Symptoms aggravated by supine. Symptoms alleviated by upright. Patient reports sore throat, nonproductive coughing ( worse at night) interfering. Patient denies fever, chills, sinus congestion, SOB, N/V, abdominal pain, rash, headache, urinary symptoms, and myalgia. Medications reviewed this visit. She reports seasonal allergies. She reports h/o adult ear infections, last episode last year. - History of Current Complaint Chief Complaint: UCGeneralIllness Stated Complaint: EARS THROAT Time Seen by Provider: 12/09/16 17:10 Hx Obtained From: Patient Hx Last Menstrual Period: hysterectomy Onset/Duration: Gradual Onset, Lasting Days - 3, Still Present Severity Currently: Moderate Pain Intensity: 7 Pain Scale Used: 0-10 Numeric Aggravating Factors: Nothing Alleviating Factors: Nothing Associated Signs/Symptoms: Positive: URI Symptoms Related History: Seasonal Allergies - Allergies/Home Medications Allergies/Adverse Reactions: Allergies Allergy/AdvReac Type Severity Reaction Status Date / Time Sulfa Drugs Allergy Mild Hives Verified 12/09/16 16:06 PMH/Surg Hx/FS Hx/Imm Hx Endocrine History: Diabetes Cardiovascular History: Hypertension Other History Of: Anticoagulant Therapy - She took one baby aspirin today. Negative For: HIV, Hepatitis B, Hepatitis C - Surgical History Surgical History: Yes Surgery Procedure, Year, and Place: [place] [facility] [place] [facility] BILATERAL CARPAL TUNNEL - Family History Known Family History: Positive: Cardiac Disease, Hypertension, Diabetes - Social History Alcohol Use: None Substance Use Type: None Smoking Status (MU): Former Smoker Type: Cigarettes Amount Used/How Often: LESS THEN 1PPD, only smoked 1/2 year Length of Time of Smoking/Using Tobacco: 1.5 YRS Have You Smoked in the Last Year: No When Did the Patient Quit Smoking/Using Tobacco: 40 yrs ago - Immunization History Most Recent Influenza Vaccination: 10/2014 Most Recent Tetanus Shot: up to date Most Recent Pneumonia Vaccination: never had this Review of Systems ENT: Sore Throat, Ear Ache Respiratory: Cough Neurological: Other - insomnia All Other Systems Reviewed And Are Negative: Yes Physical Exam Triage Information Reviewed: Yes Appearance: Well-Appearing, No Pain Distress, Obese Vital Signs: Initial Vital Signs Temp 97.9 F 12/09/16 16:02 Pulse 95 12/09/16 16:02 Resp 18 12/09/16 16:02 BP 125/82 12/09/16 16:02 Pulse Ox 99 12/09/16 16:02 Vital Signs Reviewed: Yes Eyes: Positive: Conjunctiva Clear. Negative: Discharge ENT: Positive: Hearing grossly normal, Pharyngeal erythema, TM bulging, TM dull , TM red, Other: - Red bulging TM bilaterally worse at left.. Negative: Tonsillar swelling, Tonsillar exudate, Trismus, Muffled/hoarse voice Neck: Positive: Supple, Nontender Respiratory: Positive: Chest non-tender, Lungs clear, Normal breath sounds, No respiratory distress Cardiovascular: Positive: RRR, No Murmur Abdomen Description: Positive: Nontender, Soft Bowel Sounds: Positive: Present Musculoskeletal Exam: Normal Neurological Exam: Normal Neurological: Positive: Alert Psychological Exam: Normal Psychological: Positive: Age Appropriate Behavior Skin Exam: Normal Skin: Positive: Other - Normal, Warm, Dry, Normal color Ear Complaint Course/Dx - Course Course Of Treatment: This patient is a 56 year old F presenting to [facility] with a chief complaint of bilateral ear pain since 3 days ago. The patient rates the sharp pain 7/10 in severity. Symptoms aggravated by supine. Symptoms alleviated by upright. Patient reports sore throat, nonproductive coughing ( worse at night ) interfering. Patient denies fever, chills, sinus congestion, SOB, N/V, abdominal pain, rash, headache, urinary symptoms, and myalgia. Medications reviewed this visit. She reports seasonal allergies. She reports h/o adult ear infections, last episode last year. Patient will be discharged with follow up from Dr. Jones (PCP). The patient is agreeable with this plan. - Differential Dx/Diagnosis Differential Diagnosis/HQI/PQRI: Otitis Externa, Otitis Media, Pharyngitis, URI Provider Diagnoses: Sinusitis, otitis media. Discharge - Discharge Plan Condition: Stable Disposition: HOME Prescriptions: Amoxicillin/Clavulanate TAB* [Augmentin TAB 875*] 875 mg PO BID #20 tab guaiFENesin/CODIEN 100MG-10MG* [Robitussin AC 100Mg-10Mg*] 5 - 10 ml PO BEDTIME PRN #[id number] udc MDD 10ml PRN Reason: Cough Patient Education Materials: Sinusitis (ED), Otitis Media (ED), Allergies (ED) Referrals: Alana Jones MD [Primary Care Provider] - 3 Days Additional Instructions: TRY USING THE NETTI POT IN THE MORNINGS DISCUSSED. YOU MUST ALWAYS USE CLEAN WATER. REMEMBER, POSTURE IS AN IMPORTANT FACTOR IN SINUS DRAINAGE. MOVE YOUR NECK, BREATHE. COUGH-SUPPRESSANT & EXPECTORANT MEDICATION: You are to use a cough medication as needed for relief of symptoms. This medicine is a combination of an expectorant (to make the mucous thinner and more easily "coughed up") and a cough suppressant (to reduce the frequency of coughing). The cough-suppressant medicine is related to narcotics. You may experience mild nausea and sleepiness. Some patients who are very sensitive to narcotics may have stomach pain from this medicine. Taking the medicine with food reduces these side effects. Do not drive or work with machinery until you know how this medicine affects you. The expectorant should have no side effects. Iodine-containing expectorants (such as organidin) should not be taken by persons with active thyroid disease unless approved by your doctor. Call the doctor if you develop shortness of breath, hives, rash, itching, lightheadedness, or severe nausea and vomiting. EXPECTORANT MEDICATION: WE SENT IN A SCRIPT FOR MUCINEX SO THAT IT IS EASIER FOR YOU TO PICK THE RIGHT MED AT THE PHARMACY. HOWEVER, YOU CAN ALSO GO TO THE [employer] [facility]ORE AND BUY PLAIN GUAIFENESIN WITHOU BINDERS OR FILLERS. An expectorant medicine has been prescribed. This type of drug makes mucous thinner, helping the sinuses, nose, and bronchial tubes to remain free of pus and mucous. Expectorants make a cough less severe and more comfortable, and help infected sinuses drain. In general, antihistamines defeat the purpose of the expectorant by making mucous thicker. They should be avoided unless specifically recommended by your physician. ANTIBIOTICS ARE NOT CURRENTLY INDICATED FOR YOUR CONDITION. HOWEVER, IF YOUR SYMPTOMS WORSEN OR PERSIST FOR OVER THE NEXT 2-3 DAYS, YOU CAN TAKE THE FOLLOWING MEDICATION: AUGMENTIN: Augmentin is a mixture of amoxicillin and clavulanate. Amoxicillin is a member of the penicillin family. It covers the germs likely to cause ear, bronchial, and urinary infections better than plain penicillin. The addition of clavulanate allows it to cover staph infections of the skin, as well as resistant cases of ear and sinus infections. Your physician has chosen Augmentin for you because of the special nature of your situation. Augmentin is best taken with meals. Nausea after taking the medication is rare, but can occur. Diarrhea can occur, particularly in small children. Vaginal yeast infections, and oral thrush in infants are also common. Contact your physician if these problems occur. Allergy to penicillins is common. If you have had an allergic reaction to any drug of the penicillin family, you should never take any other penicillin. Notify your doctor at once if you develop hives, shortness of breath, swelling, or faintness. ANYTIME YOU TAKE AN ANTIBIOTIC, IT IS IMPORTANT TO REPLENISH THE BODY'S SUPPLY OF "GOOD BACTERIA." YOU CAN GET GOOD BACTERIA FROM HIGH QUALITY CULTURED FOODS SUCH LOCAL YOGURT, SOUR KRAUT, NIKKI SAFIA, NATURALLY FERMENTED PICKLES AND PROBIOTIC DRINKS. YOU CAN ALSO GET GOOD BACTERIA FROM A PROBIOTIC SUPPLEMENT. The documentation as recorded by the Sary simpson Alfonso accurately reflects the service I personally performed and the decisions made by me, Alana Ivy DO.
== END 2016-12-09 17:40 | disposition home or self-care (01) ==
LOC: UCEAST 15:37
DX: H66.90 Otitis media, unspecified, unspecified ear (principal); J32.9 Chronic sinusitis, unspecified; E11.9 Type 2 diabetes mellitus without complications; E66.9 Obesity, unspecified; I10 Essential (primary) hypertension; Z87.891 Personal history of nicotine dependence
CPT/HCPCS: 99212; G0463

== ENCOUNTER 2016-12-14 18:05 | Emergency (ER) | payer OTHER ==
[2016-12-14 18:16] VITALS: BP 125/77
[2016-12-14] MEDS ORDERED: Ibuprofen TAB* 800 MG PO ONE (21:07)
--- NOTE | 2016-12-14 21:35 | RAD ---
INDICATION: Right shoulder injury 2 weeks ago COMPARISON: Right shoulder September 27, 2016 TECHNIQUE: Routine frontal, Y and axial views were obtained. FINDINGS: There is mild a.c. and glenohumeral osteoarthritis. There is no acute bony change. The soft tissues are intact. IMPRESSION: MILD A.C. AND GLENOHUMERAL OSTEOARTHRITIS
--- NOTE | 2016-12-14 22:01 | ED ---
Upper Extremity Pain - HPI Summary HPI Summary: Pt here w/ Rt shoulder pain after injury 2 weeks ago. Was crawling up stairs as she had an ambulatory limiting nerve pathology in her foot and accidentally fell forward, hitting Rt shoulder into a metal pole in the wall. Had pain then and has had pain since - progressively worsening. Limited Rt shoulder ROM d/t pain. Denies numbness, tingling, weakness. Feels better propped up. Has also tried ice and norco w/o relief (NOTE: norco is for her foot pathology as mentioned above). Has not tried NSAID. No previous injury here and denies arthritis (chart indicates h/o shoulder arthritis), osteoporosis, smoking, recent steroids or anbx. Denies neck pain, back pain, other injuries as a result of injury. - History of Current Complaint Chief Complaint: EDExtremityUpper Stated Complaint: RT SHOULDER PAIN Time Seen by Provider: 12/14/16 20:32 Hx Obtained From: Patient Hx Last Menstrual Period: hysterectomy - Allergies/Home Medications Allergies/Adverse Reactions: Allergies Allergy/AdvReac Type Severity Reaction Status Date / Time Sulfa Drugs Allergy Mild Hives Verified 12/09/16 16:06 PMH/Surg Hx/FS Hx/Imm Hx Previously Healthy: Yes Endocrine/Hematology History: Reports: Hx Anticoagulant Therapy - She took one baby aspirin today., Hx Diabetes - Type 2 Denies: Hx Thyroid Disease Cardiovascular History: Reports: Hx Hypertension - controlled with meds Denies: Hx Angina, Hx Pacemaker/ICD Respiratory History: Reports: Hx Asthma - on meds Denies: Hx Chronic Obstructive Pulmonary Disease (COPD), Hx Lung Cancer, Hx Pneumonia, Hx Pulmonary Embolism GI History: Reports: Hx Gastroesophageal Reflux Disease Denies: Hx Gall Bladder Disease, Hx Gastrointestinal Bleed, Hx Ulcer, Hx Urosepsis History: Reports: Hx Kidney Stones Denies: Hx Renal Disease Musculoskeletal History: Reports: Hx Arthritis - Bilat knees, shoulders, Hx Tendonitis - L Wrist Sensory History: Reports: Hx Contacts or Glasses - glasses Denies: Hx Hearing Aid Opthamlomology History: Reports: Hx Contacts or Glasses - glasses Neurological History: Reports: Hx Migraine Denies: Hx Dementia, Hx Seizures, Hx Transient Ischemic Attacks (TIA) Psychiatric History: Reports: Hx Anxiety - prn Denies: Hx Depression, Hx Panic Disorder, Hx Schizophrenia, Hx Bipolar Disorder - Cancer History Hx Chemotherapy: No Hx Radiation Therapy: No - Surgical History Surgery Procedure, Year, and Place: 1991 [facility] 2004 [facility]STERECTOMY [facility] BILATERAL CARPAL TUNNEL Hx Anesthesia Reactions: No Infectious Disease History: No Infectious Disease History: Denies: Hx Clostridium Difficile, Hx Human Immunodeficiency Virus (HIV), Hx of Known/Suspected MRSA, Hx Shingles, Hx Tuberculosis, Hx Known/Suspected VRE, Hx Known/Suspected VRSA, History Other Infectious Disease, Traveled Outside the [place] in Last 30 Days - Family History Known Family History: Positive: Cardiac Disease, Hypertension, Diabetes - Social History Lives: With Family Alcohol Use: None Hx Substance Use: No Substance Use Type: Reports: None Hx Tobacco Use: Yes Smoking Status (MU): Former Smoker Type: Cigarettes Amount Used/How Often: LESS THEN 1PPD, only smoked 1/2 year Length of Time of Smoking/Using Tobacco: 1.5 YRS Have You Smoked in the Last Year: No Review of Systems Negative: Dental Pain Negative: Chest Pain Negative: Shortness Of Breath Negative: Vomiting, Nausea Positive: no symptoms reported Musculoskeletal: Other - see HPI Skin: Negative Neurological: Negative Psychological: Normal All Other Systems Reviewed And Are Negative: Yes Physical Exam Triage Information Reviewed: Yes Vital Signs On Initial Exam: Initial Vitals Temp Pulse Resp BP Pulse Ox 97.7 F 86 20 125/77 96 12/14/16 18:12 12/14/16 18:12 12/14/16 18:12 12/14/16 18:12 12/14/16 18:12 Vital Signs Reviewed: Yes Appearance: Positive: Well-Appearing, No Pain Distress - at rest - has pain w/ ROM which she doesn't truly attempt on her own for fear of pain, Well-Nourished Skin: Positive: Warm - no erythema, no ecchymosis, Dry Head/Face: Positive: Normal Head/Face Inspection Eyes: Positive: EOMI ENT: Positive: Hearing grossly normal Respiratory/Lung Sounds: Positive: Breath Sounds Present Cardiovascular: Positive: Pulses are Symmetrical in both Upper and Lower Extremities - no edema of UE's Musculoskeletal: Positive: Limited @ - Rt shoulder ROM limited with abduction and flexion - pt allows me to passively move shoulder and when she is able to relax, pain is not as bad, Pain @ - A/C joint, lateral deltoid and anterior pec region; scapula NTTP Neurological: Positive: Normal, Sensory/Motor Intact - sensory intact; motor limited as mentioned above; wrist, phalanges and elbow w/ adequate ROM, Alert, Oriented to Person Place, Time, CN Intact II-III Psychiatric: Positive: Normal - [place] Coma Scale Coma Scale Total: 15 Diagnostics - Vital Signs Vital Signs Temp Pulse Resp BP Pulse Ox 12/14/16 18:12 97.7 F 86 20 125/77 96 - Laboratory Lab Statement: Any lab studies that have been ordered have been reviewed, and results considered in the medical decision making process. Course/Dx - Diagnoses Provider Diagnoses: Strain of tendon of right rotator cuff Discharge - Discharge Plan Condition: Stable Disposition: HOME Patient Education Materials: Rotator Cuff Injury (ED) Referrals: Torri Gonzalez MD [Medical Doctor] - Additional Instructions: You appear to have a rotator cuff injury of your shoulder. Rest in sling, ice alternating with heat and gentle stretches daily to prevent adhesive capsulitis. Ibuprofen 600mg every 6 hours with food for pain - alternate with norco you have had home for leg pain. Follow-up with orthopedics this week. Call to schedule an appointment.
== END 2016-12-14 22:34 | disposition home or self-care (01) ==
LOC: ED 18:05
DX: S46.011A Strain of muscle(s) and tendon(s) of the rotator cuff of right shoulder, initial encounter (principal); Z79.01 Long term (current) use of anticoagulants; Z87.891 Personal history of nicotine dependence; E11.9 Type 2 diabetes mellitus without complications; W10.9XXA Fall (on) (from) unspecified stairs and steps, initial encounter; Y93.9 Activity, unspecified; Y92.9 Unspecified place or not applicable; Y99.9 Unspecified external cause status
CPT/HCPCS: 99282; A9270-GY

== ENCOUNTER 2017-01-30 14:12 | Emergency (ER) | payer OTHER ==
[2017-01-30 14:22] VITALS: BP 142/84
[2017-01-30] MEDS ORDERED: Ketorolac INJ* 60 MG/2 ML VIAL IM ONE (16:12)
--- NOTE | 2017-01-30 19:46 | ED ---
Upper Extremity Pain - HPI Summary HPI Summary: Patient presents to the ED with R shoulder pain which has been intermittent for over 1 year. She had an xray obtained 2 weeks ago with shows degenerative changes with no other significant findings. She states she has not been able to sleep d/t pain and she is unable to lift the shoulder. Pain is located anteriorly and posteriorly with radiation down the arm into the elbow. Denies numbness, tingling. Denies color or temperature changes. She has been otherwise healthy. No previous surgeries on the shoulder. - History of Current Complaint Chief Complaint: EDShoulderCrogeliovicCorey Stated Complaint: SHOULDER PAIN Time Seen by Provider: 01/30/17 15:53 Hx Obtained From: Patient Hx Last Menstrual Period: hysterectomy Mechanism Of Injury: Unknown Onset/Duration: Started Hours Ago Timing: Constant Severity Initially: Mild Severity Currently: Mild Character: Aching Aggravating Factor(s): Movement, Lifting, Flexion, Extension, Abduction, Adduction Alleviating Factor(s): Rest, Ice Associated Signs & Symptoms: Positive: Negative Related History: Dominant Hand Right - Risk Factors Non-Orthopedic Risk Factor: Negative Septic Arthritis Risk Factor: Negative Compartment Syndrome Risk Factors: Pain - Allergies/Home Medications Allergies/Adverse Reactions: Allergies Allergy/AdvReac Type Severity Reaction Status Date / Time Sulfa Drugs Allergy Mild Hives Verified 12/09/16 16:06 PMH/Surg Hx/FS Hx/Imm Hx Previously Healthy: Yes Endocrine/Hematology History: Reports: Hx Diabetes - Type 2 Denies: Hx Anticoagulant Therapy - She took one baby aspirin today., Hx Thyroid Disease Cardiovascular History: Reports: Hx Hypertension - controlled with meds Denies: Hx Angina, Hx Pacemaker/ICD Respiratory History: Reports: Hx Asthma - on meds Denies: Hx Chronic Obstructive Pulmonary Disease (COPD), Hx Lung Cancer, Hx Pneumonia, Hx Pulmonary Embolism GI History: Reports: Hx Gastroesophageal Reflux Disease Denies: Hx Gall Bladder Disease, Hx Gastrointestinal Bleed, Hx Ulcer, Hx Urosepsis History: Reports: Hx Kidney Stones Denies: Hx Renal Disease Musculoskeletal History: Reports: Hx Arthritis - Bilat knees, shoulders, Hx Tendonitis - L Wrist Sensory History: Reports: Hx Contacts or Glasses - glasses Denies: Hx Hearing Aid Opthamlomology History: Reports: Hx Contacts or Glasses - glasses Neurological History: Reports: Hx Migraine Denies: Hx Dementia, Hx Seizures, Hx Transient Ischemic Attacks (TIA) Psychiatric History: Reports: Hx Anxiety - prn Denies: Hx Depression, Hx Panic Disorder, Hx Schizophrenia, Hx Bipolar Disorder - Cancer History Hx Chemotherapy: No Hx Radiation Therapy: No - Surgical History Surgery Procedure, Year, and Place: 1991 [facility] 2004 [facility]ERECTOMY [facility] BILATERAL CARPAL TUNNEL Hx Anesthesia Reactions: No - Immunization History Hx Pertussis Vaccination: No Immunizations Up to Date: Unable to Obtain/Confirm Infectious Disease History: No Infectious Disease History: Denies: Hx Clostridium Difficile, Hx Human Immunodeficiency Virus (HIV), Hx of Known/Suspected MRSA, Hx Shingles, Hx Tuberculosis, Hx Known/Suspected VRE, Hx Known/Suspected VRSA, History Other Infectious Disease, Traveled Outside the [place] in Last 30 Days - Family History Known Family History: Positive: Cardiac Disease, Hypertension, Diabetes - Social History Occupation: Unemployed Lives: With Family Alcohol Use: None Hx Substance Use: No Substance Use Type: Reports: None Hx Tobacco Use: Yes Smoking Status (MU): Former Smoker Type: Cigarettes Amount Used/How Often: LESS THEN 1PPD, only smoked 1/2 year Length of Time of Smoking/Using Tobacco: 1.5 YRS Have You Smoked in the Last Year: No Review of Systems Constitutional: Negative Negative: Fever, Chills, Fatigue Eyes: Negative Cardiovascular: Negative Respiratory: Negative Genitourinary: Negative Positive: no symptoms reported, see HPI Positive: Myalgia Skin: Negative Neurological: Negative All Other Systems Reviewed And Are Negative: Yes Physical Exam Triage Information Reviewed: Yes Vital Signs On Initial Exam: Initial Vitals Temp Pulse Resp BP Pulse Ox 96.9 F 75 16 142/84 98 01/30/17 14:19 01/30/17 14:19 01/30/17 14:19 01/30/17 14:19 01/30/17 14:19 Vital Signs Reviewed: Yes Appearance: Positive: Well-Appearing, Well-Nourished Skin: Positive: Warm, Skin Color Reflects Adequate Perfusion Head/Face: Positive: Normal Head/Face Inspection Eyes: Positive: EOMI, CATRACHITA, Conjunctiva Clear Neck: Positive: Supple, No Lymphadenopathy Respiratory/Lung Sounds: Positive: Clear to Auscultation, Breath Sounds Present Cardiovascular: Positive: Normal, RRR, Pulses are Symmetrical in both Upper and Lower Extremities Musculoskeletal: Positive: Pain @ - right anterior and posterior shoulder with abduction. Neurological: Positive: Speech Normal Psychiatric: Positive: Normal - [place] Coma Scale Coma Scale Total: 15 Diagnostics - Vital Signs Vital Signs Temp Pulse Resp BP Pulse Ox 01/30/17 14:19 96.9 F 75 16 142/84 98 - Laboratory Lab Statement: Any lab studies that have been ordered have been reviewed, and results considered in the medical decision making process. Course/Dx - Course Course Of Treatment: Patient is evaluated for chronic shoulder pain. Denies injuring the shoulder. She denies overuse. Right anterior and posterior shoulder with abduction. Unable to sleep d/t pain. Abduction with pain and unable to perform neer test, lachmans. She is given prednisone and toradol. Treatment options explained to patient. Patient understands the plan, voices no concerns at this time and understands the return precatuions given to them if any symptoms become worse. They are OK for discharge at this time. VS stable on discharge. - Diagnoses Provider Diagnoses: Shoulder tendinitis Discharge - Discharge Plan Condition: Stable Disposition: HOME Prescriptions: Ketorolac TAB * [Toradol TAB *] 10 mg PO Q6H #16 tab predniSONE TAB* [Deltasone TAB*] 50 mg PO DAILY #5 tab MDD 1 Patient Education Materials: Tendinitis (ED) Referrals: Alana Jones MD [Primary Care Provider] - Additional Instructions: Please follow up with ortho as scheduled You have been prescribed Prednisone 50mg once daily for 5 days (take in the MORNING ONLY) Toradol 10mg four times daily for pain You may also take tylenol on the opposite schedule of toradol for maximum pain relief Shoulder sling if the shoulder begins to feel heavy or hurt However, you MUST continue shoulder exercises to prevent stiffness
== END 2017-01-30 16:34 | disposition home or self-care (01) ==
LOC: ED 14:12
DX: M75.91 Shoulder lesion, unspecified, right shoulder (principal); M25.511 Pain in right shoulder
CPT/HCPCS: 99282; J1885

== ENCOUNTER 2017-02-09 12:42 | Emergency (ER) | payer OTHER ==
[2017-02-09 13:13] VITALS: BP 154/73
--- NOTE | 2017-02-09 14:02 | UC ---
Ear Complaint HPI - HPI Summary HPI Summary: ONSET OF LEFT EAR PAIN AND TINNITIS LAST NIGHT. NO DRAINAGE. NO URI SX. NO FEVER. REPORTS SHE GETS EAR INFECTIONS A COUPLE OF TIMES A YEAR. FOLLOWS WITH DR. HYDE WITH ENT. - History of Current Complaint Chief Complaint: UCEar Stated Complaint: LEFT EAR PAIN Time Seen by Provider: 02/09/17 13:53 Hx Obtained From: Patient Hx Last Menstrual Period: hysterectomy Onset/Duration: Gradual Onset, Lasting Days, Still Present Severity Initially: Moderate Severity Currently: Moderate Pain Intensity: 8 Pain Scale Used: 0-10 Numeric Aggravating Factors: Nothing Alleviating Factors: Nothing Associated Signs/Symptoms: Negative: Discharge, Foreign Body Sensation, Trauma to Ear, Swelling @, URI Symptoms - Allergies/Home Medications Allergies/Adverse Reactions: Allergies Allergy/AdvReac Type Severity Reaction Status Date / Time Sulfa Drugs Allergy Mild Hives Verified 12/09/16 16:06 PMH/Surg Hx/FS Hx/Imm Hx Endocrine History: Diabetes Cardiovascular History: Hypertension Respiratory History: Asthma Other History Of: Negative For: HIV, Hepatitis B, Hepatitis C, Anticoagulant Therapy - She took one baby aspirin today. - Surgical History Surgical History: Yes Surgery Procedure, Year, and Place: 1991 [facility] 2004 [facility]CTOMY [facility] BILATERAL CARPAL TUNNEL - Family History Known Family History: Positive: Cardiac Disease, Hypertension, Diabetes - Social History Alcohol Use: None Substance Use Type: None Smoking Status (MU): Former Smoker Type: Cigarettes Amount Used/How Often: LESS THEN 1PPD, only smoked 1/2 year Length of Time of Smoking/Using Tobacco: 1.5 YRS Have You Smoked in the Last Year: No When Did the Patient Quit Smoking/Using Tobacco: 40 yrs ago - Immunization History Most Recent Influenza Vaccination: 10/2014 Most Recent Tetanus Shot: up to date Most Recent Pneumonia Vaccination: never had this Review of Systems Constitutional: Negative ENT: Ear Ache Respiratory: Negative Cardiovascular: Negative Gastrointestinal: Negative All Other Systems Reviewed And Are Negative: Yes Physical Exam Triage Information Reviewed: Yes Appearance: Well-Appearing, No Pain Distress, Well-Nourished Vital Signs: Initial Vital Signs Temp 97.4 F 02/09/17 13:08 Pulse 81 02/09/17 13:08 Resp 17 02/09/17 13:08 BP 154/73 02/09/17 13:08 Pulse Ox 98 02/09/17 13:08 Vital Signs Reviewed: Yes Eyes: Positive: Conjunctiva Clear ENT: Positive: Hearing grossly normal, Pharynx normal, TMs normal Dental Exam: Other - EDENTULOUS Neck: Positive: Supple, Nontender, No Lymphadenopathy Respiratory Exam: Normal Cardiovascular Exam: Normal Abdomen Description: Positive: Soft Musculoskeletal: Positive: No Edema Neurological: Positive: Alert Psychological: Positive: Age Appropriate Behavior Skin: Negative: rashes Ear Complaint Course/Dx - Course Course Of Treatment: NO OTITIS ON EXAM TODAY. GIVEN PT SX AND H/O RECURRENT EAR INFECTIONS WILL GIVE ABX EAR DROPS. IF NO IMPROVEMENT F/U WITH ENT. - Differential Dx/Diagnosis Provider Diagnoses: LEFT EAR PAIN, NOS Discharge - Discharge Plan Condition: Stable Disposition: HOME Prescriptions: Neomyc/Polym/HC 1% OTIC SUSP* [Cortisporin Otic Susp 1%*] 4 drop LEFT EAR TID # 1 btl Patient Education Materials: Earache (ED) Referrals: Bandar Hyde MD [Medical Doctor] - 3 Days Additional Instructions: EAR PAIN, NON-SPECIFIC There are many causes of ear pain in adults. Pain that's felt in the ear can actually be coming from somewhere nearby. This is called "referred pain." Problems in the teeth, throat, or jaw joint (TMJ) often cause ear pain. Sometimes the physical exam or medical history suggests a treatable cause. If not, we may wait for the pain to go away. New symptoms may offer a clue to the cause of the pain. Report any changes to your care provider. These are some conditions that can cause ear pain, but may not be obvious from physical examination: Eardrum injury Pressure changes (barotrauma) due to swimming or shock waves Mild trauma such as Q-tip injury or finger-picking the outer ear Mild outer ear infection (swimmer's ear) Low-grade or chronic middle ear infection Mastoiditis (infection in the bone behind the ear) TMJ syndrome or arthritis of the jaw Pressure from hard earwax Tooth infection Infected tonsil Sinus infection Nerve disease such as Benitez's Palsy Follow your care provider's treatment recommendations. Let the ear rest. Don't insert cotton swabs, dig at the ear with your finger, or force your ears to "pop." If you're not improving after a few days, or if new symptoms arise, see the doctor. Watch for: Decreased hearing Spreading pain or headache Drainage or bleeding from the ear Fever Weakness of the face muscles Other new symptoms FOLLOW-UP WITH ENT IF YOUR SYMPTOMS DO NOT IMPROVE OVER THE NEXT FEW DAYS.
--- NOTE | 2017-02-09 16:38 | UC ---
Progress - Progress Note Progress Note: [facility] CALLED AND ADVISED THAT PT REPORTS A CORTISPORIN OTIC ALLERGY THAT SHE DID NOT DISCLOSE TO US. HAVE CANCELED THIS RX AND SENT IN NEW ERX FOR CIPRO OTIC. - MONIQUE MCLEAN MD
== END 2017-02-09 14:38 | disposition home or self-care (01) ==
LOC: UCEAST 12:42
DX: H92.02 Otalgia, left ear (principal); E11.9 Type 2 diabetes mellitus without complications; I10 Essential (primary) hypertension; J45.909 Unspecified asthma, uncomplicated; Z87.891 Personal history of nicotine dependence; Z88.2 Allergy status to sulfonamides
CPT/HCPCS: 99211; G0463

== ENCOUNTER 2017-02-17 16:22 | Emergency (ER) | payer OTHER ==
--- OUTSIDE RECORDS SUMMARY | 2017-02-17 16:52 | XMS REPORT ---
:1960 External Reference #:[id number] Author Organization [facility] [employer] Address [address] [place] [address] Phone [phone] Care Team Providers Name Role Phone Alana Jones M.D. Primary Care Physician Unavailable Payers Type Date Identification Numbers Payment Provider Subscriber Commercial Policy Number: [id number] [employer] Medicaid Mandy Baum PayID: [id number] [place] [address] Problems Date Description Provider Status Onset: Essential hypertension Active Onset: Type 2 diabetes mellitus Active Onset: Hypercholesterolemia Active Onset: Arthritis Active Onset: 01/03/2015 Presbyopia Mandy Edwards O.D. Active Onset: 01/03/2015 Hypermetropia Mandy Edwards O.D. Active Onset: 01/03/2015 Regular astigmatism Mandy Edwards O.D. Active Onset: 03/11/2016 Internal hordeolum Mandy Edwards O.D. Active Onset: 03/16/2016 Epidemic hemorrhagic conjunctivitis Mandy Edwards O.D. 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 Work Status Full-Time Employment ETOH Use Denies alcohol use Smoking Patient has never smoked Recreational Drug Use Denies Drug Use Daily Caffeine Consumes on average 2 cups of regular coffee per day Allergies, Adverse Reactions, Alerts Date Description Reaction Status Severity Comments 01/03/2015 Sulfa Antibiotics active Medications Medication Date Status Form Strength Qnty SIG Indications Ordering Provider Omeprazole / Active Capsules DR 20mg Blegen, 0000 Alana Jeffery Hydrocodone-Aceta / Active Tablets 5-325mg [place], minophen 0000 [place]issett HEAD MACHINE FEEDER SM Motion / Active Tablets 25mg Unknown Sickness 0000 Metoprolol / Active Tablets 50mg Blegen, Tartrate 0000 Alana Jeffery Pravastatin / Active Tablets 10mg Blegen, Sodium 0000 Alana Jeffery Fluticasone / Active Suspension 50mcg/Act Blegen, Propionate 0000 Alana Jeffery Amlodipine / Active Tablets 10mg Blegen, Besylate 0000 Alana Jeffery Metformin HCL ER / Active Tablets ER 1000mg [place]-W (Osm) 0000 24HR atsonDenisse CREDIT CARD ANALYST-C Cyclobenzaprine / Active Tablets 5mg [place], HCL 0000 Fahad Jeffery Naproxen / Active Tablets 500mg Unknown 0000 Diazepam / Active Tablets 5mg Unknown 0000 Ciprodex / Active Suspension 0.3-0.1% Blegen, 0000 Alana Jeffery Albuterol Sulfate / Active Nebulizer (2.5mg/3M Unknown 0000 L) 0.083% Prednisone / Active Tablets 20mg Unknown 0000 Tramadol HCL / Active Tablets 50mg Unknown 0000 Guaiatussin ac / Active Syrup 100-10mg/ Blegen, 0000 5ML Alana Jeffery Robafen / Active Syrup 100mg/5ML Storm, 0000 Adrianowntpaul HEAD MACHINE FEEDER Qvar / Active Aerosol 80mcg/Act Blegen, 0000 Alana Jeffery Flunisolide / Active Solution 25mcg/Act [place], 0000 (0.025%) Nnamdi [place] Benzonatate / Active Capsules 100mg Blegen, 0000 Alana Jeffery Erythromycin 03/11/ Hx Ointment 5mg/GM 1Tube apply H00.024 Mandy Edwards, 02/02/ strip to O.D. 2017 right eyelids before bed for 1 week Levocetirizine / Hx Tablets 5mg Blegen, Dihydrochloride - Alana M.D. 2016 Montelukast / Hx Tablets 10mg Blegen, Sodium - Alana M.D. 2016 Losartan / Hx Tablets 25mg Blegen, Potassium - Alana M.D. 2017 Gabapentin / Hx Capsules 300mg Unknown - 2016 Onetouch / Hx Misc [place], Ultrasoft Lancets 0000 - Lissett [place] 2016 Chlorhexidine / Hx Solution 0.12% Unknown Gluconate 2016 Amoxicillin / Hx Tablets 875mg [place], - Fahad M.D. 2016 Ibuprofen / Hx Tablets 600mg [place], - Fahad M.D. 2016 Lantus Solostar / Hx Solution 100Unit/M [place]-W 0000 - Pen-Inject L atson, Denisse 2017 CREDIT CARD ANALYST-C Proair HFA Hx Aerosol 108(90Bas [place], 0000 - e) Lissett [place] 03/10/ mcg/Act 2017 Polymyxin B / Hx Solution 48442-1.1 Unknown Sulfate/Trimethop 0000 - Unit/ML-% rim Sulfate 2016 Cephalexin / Hx Capsules 500mg [place] 0000 - Lissett [place] 2016 Metoprolol / Hx Tablets ER 25mg Blegen, Succinate ER 0000 - 24HR Alana M.D. 2016 Metaxalone / Hx Tablets 800mg Blegen, 0000 - Alana M.D. 2016 Albuterol Sulfate Hx Nebulizer 1.25mg/3M Blegen, 0000 - L Alana M.D. 2016 Metformin HCL ER / Hx Tablets ER 750mg Blegen, 0000 - 24HR Alana M.D. 2016 Cyclobenzaprine / Hx Tablets 10mg Storm, HCL 0000 - Shawn[place] 03/10/ HEAD MACHINE FEEDER 2016 Alcohol Prep / Hx Pads 70% Blegen, 0000 - Alana M.D. 2016 Onetouch Ultra // Hx Strips Blegen, Blue 0000 - Alana M.D. 2016 Olopatadine HCL / Hx Solution 0.6% Blegen, 0000 - Alana M.D. 2016 Meloxicam / Hx Tablets 7.5mg [place], 0000 - Lissett HEAD MACHINE FEEDER 2016 Nitrofurantoin / Hx Capsules 100mg Unknown Monohydrate/Macro 0000 - crystals 2016 Phenazopyridine 00/ Hx Tablets 100mg Unknown HCL 0000 - 2016 Cefuroxime Axetil / Hx Tablets 500mg [place], 0000 - Lissett HEAD MACHINE FEEDER 2016 Ofloxacin / Hx Solution 0.3% [place] (Ophthalmic) 0000 - , 03/10/ Obed 2017 M.D. Oxycodone-Acetami / Hx Tablets 5-325mg Unknown nophen 0000 - 2016 Neomycin/Polymyxi / Hx Suspension 3.5-09519 Unknown n/Hydrocortisone 0000 - -1 (Otic) 2016 Epipen 2-Adriano / Hx Solution 0.3mg/0.3 Blegen, 0000 - Auto-Inject ML Alana M.D. 2016 Azithromycin 00/ Hx Tablets 250mg Storm, 0000 - Shawnti 02/02/ HEAD MACHINE FEEDER 2016 Ondansetron 00/ Hx Tablets 4mg Unknown 0000 - Dispers 2016 Polymyxin B / Hx Solution 67147-2.1 1unit 1 drop Mandy K. Sulfate/Trimethop 0000 - Unit/ML-% s right [place], rim Sulfate 02/02/ eye O.D. 2016 three times a day Results Description No Information Procedures Date CPT Code Description Status 01/29/2016 46283 Est Patient Comprehensive Exam Completed 01/03/2015 36427 Scanning Computerized Opthalmic Diagnostic Posterior Completed Seg Retina 01/03/2015 62612 Determination Of Refractive State Completed 01/03/2015 47075 Est Patient Comprehensive Exam Completed 12/27/2013 01489 Est Patient Comprehensive Exam Completed 07/24/2012 91583 New Patient Intermediate Exam Completed 12/01/2007 15446 Determination Of Refractive State Completed 12/01/2007 59612 Est Patient Comprehensive Exam Completed 08/18/2005 91097 Determination Of Refractive State Completed 08/18/2005 65803 New Patient Comprehensive Exam Completed 10/06/2004 42154 Patient No Show For Appt Completed Encounters Type Date Location Provider CPT E/M Dx Office Visit 03/23/2016 Darron Calhoun MD, Mandy Edwards O.D. 63382 B30.3 10:45a pc Office Visit 03/16/2016 Darron Calhoun MD, Mandy Edwards O.D. 91565 B30.3 10:15a pc Office Visit 03/11/2016 Darron Calhoun MD, Mandy Edwards O.D. 55499 H00.024 1:15p pc Office Visit 07/28/2012 Darron Calhoun MD, Donato Dupree O.D. 43558 372.30 10:15a pc Plan of Care 02/03/2017 - Mandy Edwards O.D.E11.9 Type 2 diabetes mellitus without complicationsComments:Smoking can increase the risk of developing or worsening any eye related disease, as well as affect your overall health. If you are a smoker, we strongly recommend that you quit.If you are not a smoker, we strongly recommend that you do not start. You have diabetes. I do not detect any changes in both of your retinas from diabetes at this time. Proper control of your diabetes is important for the health of your eyes. Changes in your eyes from diabetes can happen without symptoms, so it is important that you have your eyes examined.Follow up:1 year
--- OUTSIDE RECORDS SUMMARY | 2017-02-17 16:52 | XMS REPORT ---
:1960 External Reference #:[id number] Author Organization [facility] Address [address] [address] Phone [phone] Care Team Providers Name Role Phone Alana Jones MD Primary Care Physician Unavailable Payers Type Date Identification Numbers Payment Provider Subscriber Commercial Policy Number: [id number] Total Care/[facility] Mandy Gilliland PayID: [id number] [address] [address] [place] [address] Problems Date Description Provider Status Onset: 08/04/2015 Localized, primary osteoarthritis Torri Gonzalez M.D. Active Family History Date Family Member(s) Problem(s) Comments General Diabetes Father due to bone CA () Father due to GA () - age 54 yr Mother DM, CHF, hypertension ,thyroid disease , cateracts, hyperlipidema Number of Children 5 First Daughter age 18 yrs DM asthma , 1 son in car accident . all others alive and well Number of Siblings Siblings: many 14 siblings , 1 sister hypertension , #2 sister hypertension , 1 brother DM , #2 brother DM. 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 at bedtime as needed, may increase to 2 tabs at night if needed Knee Scooter Active G57.91 Andrew 017 Jose D Galeas M79.671 Oxycodone HCL 11/18/2016 Active Tablets 5mg 30tabs 1-2 tabs Andrew by melanie Galeas, every 4-6 M.D. hours as needed Cyclobenzaprine 11/07/2015 Active Tablets 10mg 60tabs one by M5 Andrew HCL mouth 4. Adal, three 31 M.D. times a day as needed spasm Naproxen 06/16/2015 Active Tablets 500mg 60tabs 1 tablet M1 Emily by mouth 7. Rosalina, [employer] with food 12 twice daily for pain Metoprolol Active Tablets ER 50mg 1 po bid Unknown Succinate 24HR Amlodipine Active Tablets 10mg 90tabs 1 po qd Unknown Besylate Naproxen 11/07/2015 - Hx Tablets 500mg 90tabs 1 by mouth M5 Andrew 10/14/2016 twice a 4. Adal, aramis as 31 M.D. needed Tramadol HCL 09/03/2015 - Hx Tablets 50mg 60tabs 1 tablet M2 Torri 10/28/2015 by mouth 5. Jose D Gonzalez every 6 56 hours as 2 needed pain Gabapentin 10/15/2014 - Hx Capsules 300mg 90caps take 1 Andrew 09/02/2015 capsule by melanie Galeas.DAmee every morning and take 1 capsules by mouth at bedtime -- maximum dose of 2 per day Diazepam 10/29/2013 - Hx Tablets 5mg 2tabs 1 tab 30 Andrew 10/14/2016 minutes Adal, before M.D. mri, may take a second tablet if needed Naproxen 04/25/2013 - Hx Tablets 500mg 40tabs 1 tablet Torri 03/18/2015 with suze Gonzalez M.D. po bid Romulus 04/18/2013 - Hx Tablets 5-325 30tabs 1-2 by Loren 10/14/2016 mg mouth Mario every 4 g, M.D. hours as needed Ibuprofen 01/05/2013 - Hx Tablets 600mg 120tabs tid with Loren 03/18/2015 food Mario manrique M.D. Romulus 11/20/2012 - Hx Tablets 5-325 60tabs take 1-2 Loren 03/06/2013 mg tab po Mario q4-6hours Jose D manrique prn pain Vital Signs Date Vital Result Comment 01/20/2017 Height 66 inches 5'6" Weight 220.00 lb Heart Rate 82 /min Respiratory Rate 15 /min Body Temperature 97.4 F Pain Level 8 BMI (Body Mass Index) 35.5 kg/m2 12/24/2016 Height 66 inches 5'6" Weight 220.00 lb BP Systolic 124 mmHg BP Diastolic 74 mmHg Respiratory Rate 16 /min Body Temperature 98.6 F Pain Level 0 BMI (Body Mass Index) 35.5 kg/m2 12/23/2016 Height 66 inches 5'6" Weight 220.00 lb Heart Rate 87 /min Respiratory Rate 16 /min Body Temperature 97.2 F Pain Level 8 BMI (Body Mass Index) 35.5 kg/m2 12/03/2016 Height 66 inches 5'6" Weight 220.00 lb Heart Rate 102 /min Respiratory Rate 14 /min Body Temperature 97.2 F Pain Level 7 BMI (Body Mass Index) 35.5 kg/m2 11/12/2016 Height 66 inches 5'6" Weight 220.00 lb BP Systolic 122 mmHg BP Diastolic 70 mmHg Respiratory Rate 20 /min Body Temperature 97.2 F Pain Level 7 BMI (Body Mass Index) 35.5 kg/m2 10/15/2016 Heart Rate 66 /min BP Systolic Sitting 125 mmHg BP Diastolic Sitting 95 mmHg Body Temperature 97.7 F Pain Level 7 09/21/2016 Height 65 inches 5'5" Weight 220.00 lb Respiratory Rate 18 /min Body Temperature 97.9 F Pain Level 7 BMI (Body Mass Index) 36.6 kg/m2 08/10/2016 Height 65 inches 5'5" Weight 220.00 lb BP Systolic 140 mmHg BP Diastolic 99 mmHg Body Temperature 98.9 F Pain Level 7 BMI (Body Mass Index) 36.6 kg/m2 11/07/2015 Height 65 inches 5'5" Weight 220.00 lb Pain Level 7 BMI (Body Mass Index) 36.6 kg/m2 09/19/2015 Height 65 inches 5'5" Weight 220.00 lb Pain Level 7 BMI (Body Mass Index) 36.6 kg/m2 09/03/2015 Height 65 inches 5'5" Weight 226.00 lb Pain Level 7 BMI (Body Mass Index) 37.6 kg/m2 08/04/2015 Height 65 inches 5'5" Weight 226.00 lb Heart Rate 73 /min BP Systolic 150 mmHg BP Diastolic 90 mmHg Pain Level 7 BMI (Body Mass Index) 37.6 kg/m2 06/16/2015 Height 65 inches 5'5" Weight 226.00 lb Heart Rate 71 /min BP Systolic 132 mmHg BP Diastolic 87 mmHg Pain Level 8 BMI (Body Mass Index) 37.6 kg/m2 04/16/2015 Height 65 inches 5'5" Weight 215.00 lb Pain Level 5 BMI (Body Mass Index) 35.8 kg/m2 03/19/2015 Height 65 inches 5'5" Weight 215.00 lb Heart Rate 65 /min BP Systolic Sitting 133 mmHg BP Diastolic Sitting 86 mmHg Respiratory Rate 16 /min Pain Level 8 BMI (Body Mass Index) 35.8 kg/m2 12/31/2014 Height 65 inches 5'5" Weight 218.00 lb Pain Level 2 BMI (Body Mass Index) 36.3 kg/m2 10/15/2014 Height 65 inches 5'5" Weight 218.00 lb Pain Level 8 BMI (Body Mass Index) 36.3 kg/m2 09/20/2014 Height 65 inches 5'5" Weight 218.00 lb Pain Level 8 every other day BMI (Body Mass Index) 36.3 kg/m2 08/30/2014 Height 65 inches 5'5" Weight 218.00 lb Heart Rate 71 /min BP Systolic 142 mmHg BP Diastolic 91 mmHg Respiratory Rate 18 /min Pain Level 8 BMI (Body Mass Index) 36.3 kg/m2 01/29/2014 Height 65 inches 5'5" Weight 218.00 lb Heart Rate 59 /min BP Systolic 129 mmHg BP Diastolic 88 mmHg BMI (Body Mass Index) 36.3 kg/m2 01/02/2014 Height 65 inches 5'5" Weight 218.00 lb Body Temperature 98.1 F BMI (Body Mass Index) 36.3 kg/m2 12/05/2013 Height 65 inches 5'5" Weight 218.00 lb Pain Level 9 BMI (Body Mass Index) 36.3 kg/m2 11/12/2013 Height 65 inches 5'5" Weight 218.00 lb Pain Level 9 BMI (Body Mass Index) 36.3 kg/m2 10/08/2013 Height 65 inches 5'5" Weight 218.00 lb Pain Level 9 BMI (Body Mass Index) 36.3 kg/m2 08/08/2013 Height 65 inches 5'5" Weight 218.00 lb Heart Rate 60 /min BMI (Body Mass Index) 36.3 kg/m2 07/20/2013 Height 65 inches 5'5" Weight 218.00 lb Heart Rate 59 /min BP Systolic 118 mmHg BP Diastolic 80 mmHg BMI (Body Mass Index) 36.3 kg/m2 06/12/2013 Height 65 inches 5'5" Weight 218.00 lb Heart Rate 68 /min BMI (Body Mass Index) 36.3 kg/m2 05/31/2013 Height 65 inches 5'5" Weight 218.00 lb Heart Rate 76 /min BMI (Body Mass Index) 36.3 kg/m2 05/15/2013 Height 65 inches 5'5" Heart Rate 59 /min BP Systolic 128 mmHg BP Diastolic 79 mmHg 04/25/2013 Height 65 inches 5'5" Weight 218.00 lb Heart Rate 72 /min BMI (Body Mass Index) 36.3 kg/m2 04/18/2013 Height 65 inches 5'5" Weight 210.00 lb Heart Rate 67 /min BP Systolic 135 mmHg BP Diastolic 88 mmHg BMI (Body Mass Index) 34.9 kg/m2 10/30/2008 Height 65 inches 5'5" Weight 231.00 lb Heart Rate 72 /min BP Systolic Sitting 130 mmHg BP Diastolic Sitting 90 mmHg BP Systolic Standing 132 mmHg BP Diastolic Standing 90 mmHg BP Systolic Lying Down 130 mmHg BP Diastolic Lying Down 92 mmHg Respiratory Rate 16 /min BMI (Body Mass Index) 38.4 kg/m2 Results Test Date Test Result H/L Range Note CKMB 11/27/2016 CKMB ng/mL 1.0 ng/mL 0.6-6.3 Laboratory test finding 11/27/2016 Troponin-I (TnI) 0.00 ng/mL <0.04 Comp Metabolic Panel 11/27/2016 Sodium 138 mmol/L 133-145 Potassium 3.8 mmol/L 3.5-5.0 Chloride 102 mmol/L 101-111 Co2 Carbon Dioxide 29 mmol/L 22-32 Anion Gap 7 mmol/L 2-11 Glucose 97 mg/dL 70-100 Blood Urea Nitrogen 12 mg/dL 6-24 Creatinine 0.75 mg/dL 0.51-0.95 BUN/Creatinine Ratio 16.0 8-20 Calcium 10.0 mg/dL 8.6-10.3 Total Protein 8.1 g/dL 6.4-8.9 Albumin 4.5 g/dL 3.2-5.2 Globulin 3.6 g/dL 2-4 Albumin/Globulin Ratio 1.3 1-3 Total Bilirubin 0.50 mg/dL 0.2-1.0 Alkaline Phosphatase 124 U/L High 34-104 Alt 34 U/L 7-52 Ast 21 U/L 13-39 Egfr Non- 79.9 >60 Egfr 102.8 >60 1 Laboratory test 11/27/2016 D Dimer Quantitative < 200 ng/mL Less Than 230 2 finding CBC Auto Diff 11/27/2016 White Blood Count 13.6 10^3/uL High 3.5-10.8 Red Blood Count 4.77 10^6/uL 4.0-5.4 Hemoglobin 13.8 g/dL 12.0-16.0 Hematocrit 42 % 35-47 Mean Corpuscular Volume 87 fL 80-97 Mean Corpuscular Hemoglobin 29 pg 27-31 Mean Corpuscular HGB Conc 33 g/dL 31-36 Red Cell Distribution Width 14 % 10.5-15 Platelet Count 343 10^3/uL 150-450 Mean Platelet Volume 7 um3 Low 7.4-10.4 Abs Neutrophils 10.2 10^3/uL High 1.5-7.7 Abs Lymphocytes 2.5 10^3/uL 1.0-4.8 Abs Monocytes 0.7 10^3/uL 0-0.8 Abs Eosinophils 0.1 10^3/uL 0-0.6 Abs Basophils 0.1 10^3/uL 0-0.2 Abs Nucleated RBC 0.01 10^3/uL Granulocyte % 75.5 % 38-83 Lymphocyte % 18.1 % Low 25-47 Monocyte % 5.5 % 1-9 Eosinophil % 0.5 % 0-6 Basophil % 0.4 % 0-2 Nucleated Red Blood Cells % 0.1 Laboratory test finding 11/22/2016 Point of Care 149 mg/dL High 70-100 3 Glucose Surgical Pathology 12/20/2013 S RUN DATE: <SEE NOTE> Surgical Pathology 08/18/2012 S RUN DATE: <SEE NOTE> 1 Because ethnic data is not always readily available, this report includes an eGFR for both -Americans and non- Americans. The National Kidney Disease Education Program (NKDEP) does not endorse the use of the MDRD equation for patients that are not between the ages of 18 and 70, are , have extremes of body size, muscle mass, or nutritional status, or are non- or non-. According to the National Kidney Foundation, irrespective of diagnosis, the stage of the disease is based on the level of kidney function: Stage Description GFR(mL/min/1.73 m(2)) 1 Kidney damage with normal or decreased GFR 90 2 Kidney damage with mild decrease in GFR 60-89 3 Moderate decrease in GFR 30-59 4 Severe decrease in GFR 15-29 5 Kidney failure <15 (or dialysis) 2 Please note: The following may produce a false positive D Dimer test: - Rheumatoid factor greater than 60 IU/ml - Plasma hemoglobin greater than 0.05 gm/dl - Bilirubin greater than 50 mg/dl - Lipids greater than 1000 mg/dl - FDP greater than 20 ug/ml 3 Consumer Advocate: [id number] RUN DATE: 12/24/13 [facility] LAB LIVE PAGE 1 RUN TIME: [address] [place] [address] Specimen Inquiry Name: TALATMANDY Cyndi : [address]: Loren Cadena Acct: [id number] Unit: [id number] AGE: 53 Location: [facility] Re12/20/13 SEX: F [place] [facility] [place]C: [id number] [place]: 12/20/13- SUBM DR: Loren Cadena MD REQ: [id number] RECD: 12/20/13 STATUS: SOUT _ ORDERED: LEVEL II FINAL DIAGNOSIS Intramuscular septum, right elbow: Fibroadipose and fibrovascular tissue with pronounced fibrosis and focal neovascularization. PRE-OPERATIVE DIAGNOSIS Lesion ulnar nerve right elbow GROSS DESCRIPTION The specimen is received in formalin labeled Mandy Gilliland, Inner Muscular Septum Right Elbow and consists of a 3.0 x 0.5 x 0.3 cm. portion of barone-white tissue. Submitted entirely, one cassette. Signed (signature on file) Jamel Guy MD 1347 END OF REPORT * ML=Testing performed at Main Lab DEPARTMENT OF PATHOLOGY, [facility] [employer] [place], [place] [address] Jamel Guy M.D. Director [facility] # [id number] 5 RUN DATE: 08/23/12 [facility] LAB LIVE PAGE 1 RUN TIME: 1317 [facility] [employer] [place], [place] [address] Specimen Inquiry Name: MANDY GILLILAND : [address]: Loren Cadena Acct: [id number] Unit: [id number] AGE: 52 Location: [facility] Re08/18/12 SEX: F Status[place] [facility] SPEC: [id number] [place]: 08/18/12- SUBM DR: Loren Cadena MD REQ: [id number] RECD: 08/18/12 STATUS: SOUT _ ORDERED: LEVEL III FINAL DIAGNOSIS Wrist, left, biopsy: Synovial cyst. PRE-OPERATIVE DIAGNOSIS Ganglion left wrist. GROSS DESCRIPTION The specimen is received in formalin labeled Mandy Gilliland, Ganglion Left Wrist, and consists of two fragments of tissue that in aggregate measure 1.0 x 1.2 x 0.5 cm. The specimen is submitted in its entirety for histologic examination in one cassette. Signed (signature on file) Jamel Guy MD 1316 END OF REPORT * ML=Testing performed at Main Lab DEPARTMENT OF PATHOLOGY, [address] [place] [address] Jamel Guy M.D. Director [facility] #[id number] Procedures Date CPT Code Description Status 12/03/2016 82706 Walking Cast Completed 11/22/2016 62204 Implant Nerve End Into Bone Or Muscle Completed 11/22/2016 79247 Excision Neuroma, Major Peripheral Nerve Completed 11/22/2016 88283 Excision Neuroma, Major Peripheral Nerve Completed 12/20/2013 25269 Neuroplasty &/Or Transposition; Ulnar Nerve At Completed Elbow 12/20/2013 84141 Neuroplasty &/Or Transposition; Ulnar Nerve At Completed Elbow 08/08/2013 76789 Xray Knee 3 Views Completed 05/04/2013 06954 Carpal Tunnel Release Completed 05/04/2013 00198 Carpal Tunnel Release Completed 05/04/2013 64150 Neuroplasty &/Or Transposition; Ulnar Nerve At Completed Elbow 05/04/2013 28164 Neuroplasty &/Or Transposition; Ulnar Nerve At Completed Elbow 11/30/2012 14498 Neuroplasty &/Or Transposition; Ulnar Nerve At Completed Elbow 11/30/2012 24190 Neuroplasty &/Or Transposition; Ulnar Nerve At Completed Elbow 11/30/2012 47529 Carpal Tunnel Release Completed 08/18/2012 57065 Excision Ganglion Wrist/ Dorsal Or Volar; Primary Completed 08/18/2012 74089 Excision Ganglion Wrist/ Dorsal Or Volar; Primary Completed 08/27/2011 27660 Rad Exam; Foot Comp Completed 08/04/2011 07520 Rad Exam; Foot Comp Completed 07/14/2011 23465 Rad Exam; Foot Comp Completed 02/27/2009 97701 ECHO Stress Test Incl Perf Contiuous ekg Monitoring Completed W/Phys Superv 12/23/2008 29371 ECHO Transthoracic, Real-Time 2D With Doppler And Color Completed Flow 10/30/2008 23599 EKG Tracing & Interpretation Completed 01/29/2007 73248 Stress ECHO Interpretation/Report Hospital Completed 01/29/2007 89179 Stress ECHO Interpretation/Report Hospital Completed 01/29/2007 41660 Treadmill Interp/Report Only Completed 01/29/2007 83895 Stress Test Supervsn W/Out I/R Completed 01/29/2007 43274 Stress Test Supervsn W/Out I/R Completed Encounters Type Date Location Provider CPT E/M Dx Office Visit 01/20/2017 [facility] Pete Ferrer, 60273 M75.41 1:15p Of Matt BECKWITH Office Visit 12/23/2016 [facility] Pete Ferrer, 42305 S43.421A 9:00a Of Matt BECKWITH Office Visit 10/15/2016 [facility] Andrew Galeas, 16222 G57.91 2:15p Of Matt Jeffery Office Visit 09/21/2016 [facility] Andrew Galeas, 12597 M79.671 11:30a Of Matt Jeffery G57.91 Office Visit 08/10/2016 9:30a [facility] Andrew Galeas, 52032 M54.31 Matt Jeffery M79.671 Office Visit 11/07/2015 2:40p [facility] Andrew Galeas, 66848 M54.31 C.MJulio Cesar Jeffery Office Visit 09/19/2015 3:00p [facility] Torri Gonzalez M.D. 76420 M17.12 [facility] M25.562 Office Visit 09/19/2015 3:20p [facility] Andrew Galeas, 81929 G57.91 C.MJulio Cesar Jeffery Office Visit 09/03/2015 11:30a [facility] Torri Gonzalez M.D. 23543 M25.562 [facility] M17.12 M25.462 Office Visit 08/04/2015 2:45p [facility] Torri Gonzalez M.D. 15021 M25.562 [facility] M17.12 M25.462 Office Visit 06/16/2015 10:30a [facility] Torri Gonzalez M.D. 60475 M17.12 [facility]. S83.412A Office Visit 04/16/2015 2:30p [facility] [place] [address] M75.02 [facility] Office Visit 03/19/2015 1:00p [facility] [place] [address] M75.02 [facility]. Office Visit 12/31/2014 4:10p [facility] Andrew Galeas 83908 G57.81 C.M.Francisco MAmeeD. Office Visit 10/15/2014 2:50p [facility] Andrew Galeas, 30714 355.79 C.M.AAmee M.D. Office Visit 09/20/2014 10:30a [facility] Andrew Galeas, 57898 719.47 C.M.A. M.D. Office Visit 08/30/2014 3:00p [facility] Andrew Galeas, 52146 825.25 C.M.Sari. MEmelia 715.17 Office Visit 12/05/2013 9:15a [facility] Loren Cadena, 87800 354.2 Of C.M.A. M.D. Office Visit 11/12/2013 9:00a [facility] Torri Gonzalez M.D. 23242 715.96 Of C.M.[facility]. Office Visit 10/08/2013 10:00a [facility] Torri Gonzalez M.D. 87137 715.96 Of C.M.A. 719.46 Office Visit 08/08/2013 2:30p [facility] Torri Gonzalez M.D. 49746 715.96 C.M.A. Office Visit 05/31/2013 11:15a [facility] Torri Gonzalez M.D. 41641 715.35 C.M.A. 715.96 Office Visit 04/25/2013 12:15p [facility] Torri Gonzalez M.D. 34719 715.35 C.M.A. 715.96 844.1 Office Visit 04/18/2013 10:45a [facility] Loren Cadena 26197 354.0 Of C.M.A. M.D. Office Visit 03/06/2013 10:30a [facility] PAGE Jose 01670 354.2 Of C.M.A. 354.0 727.43 Office Visit 10/18/2012 11:15a [facility] Loren Cadena 59515 354.2 Of C.M.A. M.D. Office Visit 07/19/2012 10:45a [facility] Loren Cadena 84935 727.43 Of C.M.A. M.D. Office Visit 12/27/2011 8:30a [facility] Loren Cadena, 77471 354.0 Of Matt Jeffery 354.2 727.43 727.04 Office Visit 08/27/2011 9:30a [facility] Andrew Galeas, 21608 727.09 Matt Jeffery Office Visit 08/04/2011 11:30a [facility] Andrew Galeas, 80574 719.47 Matt Jeffery 729.81 Office Visit 07/14/2011 1:30p [facility] Andrew Galeas, 52099 719.47 Matt Jeffery Office Visit 10/30/2008 10:20a [facility] S. 27268 786.50 Jose D Malcolm 401.1 278.00 794.31 Plan of Care Future Appointment(s):03/03/2017 1:30 pm - Pete Ferrer MD at [facility]02/24/2017 9:45 am - Andrew Galeas M.D. at [facility]01/20/2017 - Pete Ferrer, MDM75.41 Impingement syndrome of right shoulderFollow up:Follow up: 6 weeks
--- NOTE | 2017-02-17 19:02 | RAD ---
INDICATION: Right foot injury. TECHNIQUE: 3 views of the right foot were obtained. FINDINGS: There is diffuse soft tissue swelling. The bones are normal alignment. No fracture is seen. Joint spaces appear maintained. IMPRESSION: SOFT TISSUE SWELLING, NO FRACTURE IS SEEN. IF THE PATIENT'S SYMPTOMS PERSIST RECOMMEND FOLLOW-UP IMAGING.
[2017-02-17] MEDS ORDERED: Ketorolac INJ* 60 MG/2 ML VIAL IM ONE (19:21)
[2017-02-17 19:47] VITALS: BP 143/87
--- NOTE | 2017-02-17 23:51 | ED ---
Lower Extremity - HPI Summary HPI Summary: Patient presents to the ED with 2 days of worsening right foot pain after injury. She states she hit the foot on a piece of furniture. Denies any other complaints. Notes to slight swelling to the dorsum of the foot. Denies numbness, tingling. She has been taking ibuprofen without relief of pain. Patient is a diabetic, but denies neuropathy. - History of Current Complaint Chief Complaint: EDExtremityLower Stated Complaint: RT FOOT PAIN Time Seen by Provider: 02/17/17 17:59 Hx Obtained From: Patient Hx Last Menstrual Period: hysterectomy Mechanism Of Injury: Blunt Trauma Onset of Pain: Minutes Onset/Duration: Days Severity Initially: Moderate Severity Currently: Moderate Pain Intensity: 3 Pain Scale Used: 0-10 Numeric Timing: Constant Location: Is Discrete @ - right dorsum of the foot Associated Signs And Symptoms: Positive: Negative Aggravating Factor(s): Standing, Ambulation Alleviating Factor(s): Rest Able to Bear Weight: No - Risk Factors Gout Risk Factors: Negative DVT Risk Factors: Negative Septic Arthritis Risk Factor: Negative - Allergies/Home Medications Allergies/Adverse Reactions: Allergies Allergy/AdvReac Type Severity Reaction Status Date / Time Sulfa Drugs Allergy Mild Hives Verified 12/09/16 16:06 PMH/Surg Hx/FS Hx/Imm Hx Previously Healthy: Yes Endocrine/Hematology History: Reports: Hx Diabetes - Type 2 Denies: Hx Anticoagulant Therapy - She took one baby aspirin today., Hx Thyroid Disease Cardiovascular History: Reports: Hx Hypertension - controlled with meds Denies: Hx Angina, Hx Pacemaker/ICD Respiratory History: Reports: Hx Asthma - on meds Denies: Hx Chronic Obstructive Pulmonary Disease (COPD), Hx Lung Cancer, Hx Pneumonia, Hx Pulmonary Embolism GI History: Reports: Hx Gastroesophageal Reflux Disease Denies: Hx Gall Bladder Disease, Hx Gastrointestinal Bleed, Hx Ulcer, Hx Urosepsis History: Reports: Hx Kidney Stones Denies: Hx Renal Disease Musculoskeletal History: Reports: Hx Arthritis - Bilat knees, shoulders, Hx Tendonitis - L Wrist Sensory History: Reports: Hx Contacts or Glasses - glasses Denies: Hx Hearing Aid Opthamlomology History: Reports: Hx Contacts or Glasses - glasses Neurological History: Reports: Hx Migraine Denies: Hx Dementia, Hx Seizures, Hx Transient Ischemic Attacks (TIA) Psychiatric History: Reports: Hx Anxiety - prn Denies: Hx Depression, Hx Panic Disorder, Hx Schizophrenia, Hx Bipolar Disorder - Cancer History Hx Chemotherapy: No Hx Radiation Therapy: No - Surgical History Surgery Procedure, Year, and Place: 1991 [facility] 2004 [facility]OMY [facility] BILATERAL CARPAL TUNNEL Hx Anesthesia Reactions: No - Immunization History Date of Influenza Vaccine: Fall 2016 Infectious Disease History: No Infectious Disease History: Denies: Hx Clostridium Difficile, Hx Human Immunodeficiency Virus (HIV), Hx of Known/Suspected MRSA, Hx Shingles, Hx Tuberculosis, Hx Known/Suspected VRE, Hx Known/Suspected VRSA, History Other Infectious Disease, Traveled Outside the [place] in Last 30 Days - Family History Known Family History: Positive: Cardiac Disease, Hypertension, Diabetes - Social History Occupation: Unemployed Lives: With Family Alcohol Use: None Hx Substance Use: No Substance Use Type: Reports: None Hx Tobacco Use: Yes Smoking Status (MU): Former Smoker Type: Cigarettes Amount Used/How Often: LESS THEN 1PPD, only smoked 1/2 year Length of Time of Smoking/Using Tobacco: 1.5 YRS Have You Smoked in the Last Year: No Review of Systems Constitutional: Negative Negative: Fever, Chills, Fatigue ENT: Negative Cardiovascular: Negative Respiratory: Negative Positive: no symptoms reported, see HPI Positive: Arthralgia - left dorsum of the foot Neurological: Negative All Other Systems Reviewed And Are Negative: Yes Physical Exam Triage Information Reviewed: Yes Vital Signs On Initial Exam: Initial Vitals Temp Pulse Resp BP Pulse Ox 97.4 F 82 18 143/71 97 02/17/17 16:40 02/17/17 16:40 02/17/17 16:40 02/17/17 16:40 02/17/17 16:40 Vital Signs Reviewed: Yes Appearance: Positive: Well-Appearing, Well-Nourished Skin: Positive: Warm, Skin Color Reflects Adequate Perfusion, Other - swelling to the dorsum of the foot Head/Face: Positive: Normal Head/Face Inspection Eyes: Positive: EOMI, CATRACHITA, Conjunctiva Clear Neck: Positive: Supple, Nontender, No Lymphadenopathy Respiratory/Lung Sounds: Positive: Clear to Auscultation, Breath Sounds Present Cardiovascular: Positive: Normal, RRR, Pulses are Symmetrical in both Upper and Lower Extremities Musculoskeletal: Positive: Pain @ - dorsum of the R foot with mild amount of swelling Neurological: Positive: Speech Normal Psychiatric: Positive: Normal AVPU Assessment: Alert Diagnostics - Vital Signs Vital Signs Temp Pulse Resp BP Pulse Ox 02/17/17 19:46 97.6 F 71 18 143/87 98 02/17/17 16:40 97.4 F 82 18 143/71 97 - Laboratory Lab Statement: Any lab studies that have been ordered have been reviewed, and results considered in the medical decision making process. Lower Extremity Course/Dx - Course Course Of Treatment: Patient given toradol for pain. Ice pack given. Xray obtained which show: IMPRESSION: SOFT TISSUE SWELLING, NO FRACTURE IS SEEN. IF THE PATIENT'S SYMPTOMS PERSIST. RECOMMEND FOLLOW-UP IMAGING. Patient is encouraged ibuprofen and ice. She is OK with discharge. - Diagnoses Differential Diagnosis/HQI/PQRI: Positive: Contusion, Sprain, Strain Provider Diagnoses: Foot contusion Discharge - Discharge Plan Condition: Stable Disposition: HOME Patient Education Materials: Foot Contusion (ED) Referrals: Alana Jones MD [Primary Care Provider] - Additional Instructions: Ibuprofen 600mg three times daily ice Elevate Keep in george wrap x 3 days
== END 2017-02-17 19:46 | disposition home or self-care (01) ==
LOC: ED 16:22
DX: S90.32XA Contusion of left foot, initial encounter (principal); W22.8XXA Striking against or struck by other objects, initial encounter; Y93.9 Activity, unspecified; Z88.2 Allergy status to sulfonamides; Z87.891 Personal history of nicotine dependence
CPT/HCPCS: 96372; 99282; J1885

== ENCOUNTER 2017-02-22 16:53 | Emergency (ER) | payer OTHER ==
[2017-02-22 17:08] VITALS: BP 149/87
--- NOTE | 2017-02-22 19:46 | RAD ---
Indication: RIGHT shoulder pain anterosuperior for 3 months. Comparison: December 14, 2016 Technique: Internal rotation AP, external rotation Grashey, scapular Y, axillary views RIGHT shoulder Report: Normal acromioclavicular joint alignment. Mild acromioclavicular joint osteophytosis. Mild inferior subluxation of the humeral head relative to the glenoid similar to the prior exam. Mild glenohumeral joint osteophytosis. Negative for fracture. Negative for stigmata of calcific tendinopathy. IMPRESSION: Unchanged inferior subluxation of the humeral head relative to the glenoid; correlate for glenohumeral joint instability. 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
--- NOTE | 2017-02-22 20:42 | ED ---
Upper Extremity Pain - HPI Summary HPI Summary: 56F presents with right shoulder pain and numbness in her 4th and 5th today. She states that she has been using crutches to past couple weeks for leg injury so might have injured her rotator cuff. She states she started to develop numbness from elbow to 5th and 5th digit of right hand. She denies any new injury. She denies any previous injury to the area. She has not taken anything for pain. nothing makes it better or worst. she is right handed. She does not currently have a job. - History of Current Complaint Chief Complaint: EDExtremityUpper Stated Complaint: RT SIDE NUMBNESS Time Seen by Provider: 02/22/17 18:50 Hx Last Menstrual Period: hysterectomy - Allergies/Home Medications Allergies/Adverse Reactions: Allergies Allergy/AdvReac Type Severity Reaction Status Date / Time Sulfa Drugs Allergy Mild Hives Verified 12/09/16 16:06 PMH/Surg Hx/FS Hx/Imm Hx Endocrine/Hematology History: Reports: Hx Diabetes - Type 2 Denies: Hx Anticoagulant Therapy - She took one baby aspirin today., Hx Thyroid Disease Cardiovascular History: Reports: Hx Hypertension - controlled with meds Denies: Hx Angina, Hx Pacemaker/ICD Respiratory History: Reports: Hx Asthma - on meds Denies: Hx Chronic Obstructive Pulmonary Disease (COPD), Hx Lung Cancer, Hx Pneumonia, Hx Pulmonary Embolism GI History: Reports: Hx Gastroesophageal Reflux Disease Denies: Hx Gall Bladder Disease, Hx Gastrointestinal Bleed, Hx Ulcer, Hx Urosepsis History: Reports: Hx Kidney Stones Denies: Hx Renal Disease Musculoskeletal History: Reports: Hx Arthritis - Bilat knees, shoulders, Hx Tendonitis - L Wrist Sensory History: Reports: Hx Contacts or Glasses - glasses Denies: Hx Hearing Aid Opthamlomology History: Reports: Hx Contacts or Glasses - glasses Neurological History: Reports: Hx Migraine Denies: Hx Dementia, Hx Seizures, Hx Transient Ischemic Attacks (TIA) Psychiatric History: Reports: Hx Anxiety - prn Denies: Hx Depression, Hx Panic Disorder, Hx Schizophrenia, Hx Bipolar Disorder - Cancer History Hx Chemotherapy: No Hx Radiation Therapy: No - Surgical History Surgery Procedure, Year, and Place: 1991 [facility] 2004 [facility] BILATERAL CARPAL TUNNEL Hx Anesthesia Reactions: No - Immunization History Date of Influenza Vaccine: Fall 2016 Infectious Disease History: No Infectious Disease History: Denies: Hx Clostridium Difficile, Hx Human Immunodeficiency Virus (HIV), Hx of Known/Suspected MRSA, Hx Shingles, Hx Tuberculosis, Hx Known/Suspected VRE, Hx Known/Suspected VRSA, History Other Infectious Disease, Traveled Outside the [place] in Last 30 Days - Family History Known Family History: Positive: Cardiac Disease, Hypertension, Diabetes - Social History Alcohol Use: None Hx Substance Use: No Substance Use Type: Reports: None Hx Tobacco Use: Yes Smoking Status (MU): Former Smoker Type: Cigarettes Amount Used/How Often: LESS THEN 1PPD, only smoked 1/2 year Length of Time of Smoking/Using Tobacco: 1.5 YRS Have You Smoked in the Last Year: No Review of Systems Negative: Fever Negative: Chest Pain Negative: Shortness Of Breath Positive: Myalgia - right shoulder pain Positive: Numbness All Other Systems Reviewed And Are Negative: Yes Physical Exam Triage Information Reviewed: Yes Vital Signs On Initial Exam: Initial Vitals Temp Pulse Resp BP Pulse Ox 97.3 F 90 20 149/87 97 02/22/17 17:05 02/22/17 17:05 02/22/17 17:05 02/22/17 17:05 02/22/17 17:05 Vital Signs Reviewed: Yes Appearance: Positive: Well-Appearing Skin: Positive: Warm, Dry Head/Face: Positive: Normal Head/Face Inspection Eyes: Positive: Normal, Conjunctiva Clear Respiratory/Lung Sounds: Positive: Clear to Auscultation, Breath Sounds Present Cardiovascular: Positive: Normal, RRR Musculoskeletal: Positive: Strength/ROM Intact - right arm, Other - good pulses , capillary refill<2 secs, decreased sensation over 4th and 5th digit. pos hakwins, neg yearson Neurological: Positive: Normal Psychiatric: Positive: Normal - [place] Coma Scale Coma Scale Total: 15 Diagnostics - Vital Signs Vital Signs Temp Pulse Resp BP Pulse Ox 02/22/17 17:05 97.3 F 90 20 149/87 97 - Laboratory Lab Statement: Any lab studies that have been ordered have been reviewed, and results considered in the medical decision making process. Course/Dx - Course Course Of Treatment: 56F presents with right shoulder pain and numbness in her 4th and 5th today. She states that she has been using crutches to past couple weeks for leg injury so might have injured her rotator cuff. She states she started to develop numbness from elbow to 5th and 5th digit of right hand. She denies any new injury. She denies any previous injury to the area. She has not taken anything for pain. nothing makes it better or worst. on exam has tenderness over posterior right shoulder. 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 nontender neck. will have follow up with ortho as could be impingment at [place] and in shoulder of ulnar nerve. - Diagnoses Differential Diagnosis/HQI/PQRI: Positive: Strain, Sprain, Other - rotator cuff injury Provider Diagnoses: Right shoulder pain, Neuropathy Discharge - Discharge Plan Condition: Good Disposition: HOME Patient Education Materials: Shoulder Pain (ED) Referrals: Alana Jones MD [Primary Care Provider] - Taras Stark MD [Medical Doctor] - Additional Instructions: Take Tylenol for pain every 6 hours Apply ice, rest, elevate Follow up with ortho Return to ED if develop any new or worsening symptoms
== END 2017-02-22 21:04 | disposition home or self-care (01) ==
LOC: ED 16:53
DX: M25.511 Pain in right shoulder (principal); G62.9 Polyneuropathy, unspecified; Z87.891 Personal history of nicotine dependence
CPT/HCPCS: 99282

== ENCOUNTER 2017-03-24 14:21 | Emergency (ER) | payer OTHER ==
--- OUTSIDE RECORDS SUMMARY | 2017-03-24 14:34 | XMS REPORT ---
:1960 External Reference #:[id number] Author Organization [facility] Address [address] [address] Phone [phone] Care Team Providers Name Role Phone Aalna Jones MD Primary Care Physician Unavailable Payers Type Date Identification Numbers Payment Provider Subscriber Commercial Policy Number: [id number] [facility] Mandy Gilliland PayID: [id number] [address] [address] [place] [address] Problems Date Description Provider Status Onset: 08/04/2015 Localized, primary osteoarthritis Torri Gonzalez M.D. Active Family History Date Family Member(s) Problem(s) Comments General Diabetes Father due to bone CA () Father due to NC () - age 54 yr Mother DM, [...] Form Strength Qnty SIG Indications Ordering Provider Knee Scooter 11/23/2016 Active G57.91 Andrew Galeas M.D. M79.671 Cyclobenzaprine 11/07/2015 Active Tablets 10mg 60tabs one by M54.31 Andrew HCL mouth Adal, three M.D. times a day as needed spasm Metoprolol Active Tablets ER 50mg 1 po bid Unknown Succinate 24HR Amlodipine Active Tablets 10mg 90tabs 1 po qd Unknown Besylate Gabapentin 11/24/2016 - Hx Capsules 100mg 30caps 1 capsule Andrew 03/07/2017 by mouth Adal, every M.D. night at bedtime as needed, may increase to 2 tabs at night if needed Oxycodone HCL 11/18/2016 - Hx Tablets 5mg 30tabs 1-2 tabs Andrew 03/07/2017 by mouth Adal, every 4-6 M.D. hours as needed Naproxen 11/07/2015 - Hx Tablets 500mg 90tabs 1 by M54.31 Andrew 10/14/2016 melanie Galeas, twice a M.D. day as needed Tramadol HCL 09/03/2015 - Hx Tablets 50mg 60tabs 1 tablet M25.562 Torri 10/28/2015 by mouth Carlos, every 6 M.D. hours as needed pain Naproxen 06/16/2015 - Hx Tablets 500mg 60tabs 1 tablet M17.12 Emily 03/07/2017 by mouth Bordoni, with food ENGAGEMENT MGR twice daily for pain Gabapentin 10/15/2014 - Hx Capsules 300mg 90caps take 1 Andrew 09/02/2015 young Galeas, by mouth M.D. every morning and take 1 capsules by mouth at bedtime -- maximum dose of 2 per day Diazepam 10/29/2013 - Hx Tablets 5mg 2tabs 1 tab 30 Andrew 10/14/2016 minutes Adal, before M.D. mri, may take a second tablet if needed Naproxen 04/25/2013 - Hx Tablets 500mg 40tabs 1 tablet Torri 03/18/2015 with food Carlos, po bid M.D. [place] 04/18/2013 - Hx Tablets 5-325m 30tabs 1-2 by Loren 10/14/2016 g mouth Pankaj-Corky every 4 ng, M.D. hours as needed Ibuprofen 01/05/2013 - Hx Tablets 600mg 120tabs tid with Loren 03/18/2015 food Mackenzie candelaria M.D. [place] 11/20/2012 - Hx Tablets 5-325m 60tabs take 1-2 Loren 03/06/2013 g tab po Mackenzie q4-6hours Jose D candelaria prn pain Vital Signs Date Vital Result Comment 03/08/2017 Height 66 inches 5'6" Weight 222.00 lb Heart Rate 81 /min Respiratory Rate 18 /min Pain Level 6 BMI (Body Mass Index) 35.8 kg/m2 02/24/2017 Height 66 inches 5'6" Weight 220.00 lb BP Systolic 118 mmHg BP Diastolic 80 mmHg Respiratory Rate 14 /min Pain Level 0 BMI (Body Mass Index) 35.5 kg/m2 01/20/2017 Height 66 inches 5'6" Weight 220.00 [...] - FDP greater than 20 ug/ml 3 Leather Sponger: [id number] RUN DATE: 12/24/13 [facility] LAB LIVE PAGE 1 RUN TIME: [address] [place] [address] Specimen Inquiry Name: MANDY GILLILAND : [address]: Loren Cadena Acct: [id number] Unit: [id number] AGE: 53 Location: [facility] Re12/20/13 SEX: F [place] [facility] [place] [id number] [place]: 12/20/13- SUBM DR: Loren Cadena MD REQ: [id number] RECD: 12/20/13160 STATUS: SOUT _ ORDERED: LEVEL II FINAL [...] performed at Main Lab DEPARTMENT OF PATHOLOGY, [address] [place] [address] Jamel Guy M.D. Director [facility] # [id number] 5 RUN DATE: 08/23/12 [facility] LAB LIVE PAGE 1 RUN TIME: [address] [place] [id number] Specimen Inquiry Name: MANDY GILLILAND : [address]: Loren Cadena Acct: [id number] Unit: [id number] AGE: 52 Location: [facility] Re08/18/12 SEX: F [place] [facility] [place]C: [id number] [place]: 08/18/12- [facility] DR: Loren Cadena MD REQ: [id number] RECD: 08/18/12-1443 STATUS: SOUT _ ORDERED: LEVEL III FINAL [...] performed at Main Lab DEPARTMENT OF PATHOLOGY, [address] [place] [address] Jamel Guy M.D. Director [facility] Permit #[id number] Procedures Date CPT Code Description Status 12/03/2016 89056 Walking Cast Completed 11/22/2016 38354 Implant Nerve End Into Bone Or Muscle Completed 11/22/2016 71911 Excision Neuroma, Major Peripheral Nerve Completed 11/22/2016 77068 Excision Neuroma, Major Peripheral Nerve Completed 12/20/2013 58013 Neuroplasty &/Or Transposition; Ulnar Nerve At Completed Elbow 12/20/2013 02093 Neuroplasty &/Or Transposition; Ulnar Nerve At Completed Elbow 08/08/2013 49257 Xray Knee 3 Views Completed 05/04/2013 06638 Carpal Tunnel Release Completed 05/04/2013 19275 Carpal Tunnel Release Completed 05/04/2013 25420 Neuroplasty &/Or Transposition; Ulnar Nerve At Completed Elbow 05/04/2013 56693 Neuroplasty &/Or Transposition; Ulnar Nerve At Completed Elbow 11/30/2012 97463 Neuroplasty &/Or Transposition; Ulnar Nerve At Completed Elbow 11/30/2012 77476 Neuroplasty &/Or Transposition; Ulnar Nerve At Completed Elbow 11/30/2012 09806 Carpal Tunnel Release Completed 08/18/2012 12569 Excision Ganglion Wrist/ Dorsal Or Volar; Primary Completed 08/18/2012 57267 Excision Ganglion Wrist/ Dorsal Or Volar; Primary Completed 08/27/2011 21705 Rad Exam; Foot Comp Completed 08/04/2011 44581 Rad Exam; Foot Comp Completed 07/14/2011 35978 Rad Exam; Foot Comp Completed 02/27/2009 73142 ECHO Stress Test Incl Perf Contiuous ekg Monitoring Completed W/Phys Superv 12/23/2008 72642 ECHO Transthoracic, Real-Time 2D With Doppler And Color Completed Flow 10/30/2008 88214 EKG Tracing & Interpretation Completed 01/29/2007 10726 Stress ECHO Interpretation/Report Hospital Completed 01/29/2007 50130 Stress ECHO Interpretation/Report Hospital Completed 01/29/2007 73622 Treadmill Interp/Report Only Completed 01/29/2007 01351 Stress Test Supervsn W/Out I/R Completed 01/29/2007 60467 Stress Test Supervsn W/Out I/R Completed Encounters Type Date Location Provider CPT E/M Dx Office Visit 01/20/2017 [facility] [place], 77307 M75.41 1:15p Matt BECKWITH M75.51 Office Visit 12/23/2016 9:00a [facility] 24822 S43.421A Of Matt Ferrer MD Office Visit 10/15/2016 2:15p [facility] Andrew Galeas 72034 G57.91 Of Matt Jeffery Office Visit 09/21/2016 11:30a [facility] Galeas 67497 M79.671 Of Matt Jeffery G57.91 Office Visit 08/10/2016 9:30a [facility] 66236 M54.31 Matt Jeffery M79.671 Office Visit 11/07/2015 2:40p [facility]ale[facility] 95931 M54.31 Matt Jeffery Office Visit 09/19/2015 3:00p [facility] M.D. 44549 M17.12 Matt M25.562 Office Visit 09/19/2015 3:20p [facility] Gale[facility] 67282 G57.91 Matt Jeffery Office Visit 09/03/2015 11:30a [facility] Gonzalez M.D. 10878 M25.562 CFaith M17.12 M25.462 Office Visit 08/04/2015 2:45p [facility] Gonzalez M.D. 62013 M25.562 CFaith M17.12 M25.462 Office Visit 06/16/2015 10:30a [facility] Goznalez M.D. 27835 M17.12 [facility] S83.412A Office Visit 04/16/2015 2:30p [facility] [place] [address] M75.02 [facility] Office Visit 03/19/2015 1:00p [facility] [place] [address] M75.02 [facility] Office Visit 12/31/2014 4:10p [facility]ale[facility], 14022 G57.81 C.M.AAmee MAmeeD. Office Visit 10/15/2014 2:50p [facility]ale[facility], 22907 355.79 C.M.Francisco MAmeeDAmee Office Visit 09/20/2014 10:30a [facility] Gale[facility] 40574 719.47 C.MJulio Cesar MAmeeDAmee Office Visit 08/30/2014 3:00p [facility] Adal 17166 825.25 C.Sanjuanita Jeffery 715.17 Office Visit 12/05/2013 9:15a [facility] Loren Cadena 18862 354.2 Of C.Sanjuanita Jeffery Office Visit 11/12/2013 9:00a [facility] Gonzalez M.D. 96504 715.96 Of C.M.A. Office Visit 10/08/2013 10:00a [facility] Gonzalez M.D. 04986 715.96 Of C.M.AAmee 719.46 Office Visit 08/08/2013 2:30p [facility] Gonzalez M.D. 24698 715.96 C.M[facility]A. Office Visit 05/31/2013 11:15a [facility] Gonzalez M.D. 46803 715.35 C.M.AAmee 715.96 Office Visit 04/25/2013 12:15p [facility] Gonzalez M.D. 81381 715.35 C.M.AAmee 715.96 844.1 Office Visit 04/18/2013 10:45a [facility] Loren Cadena 88407 354.0 Of C.M.A. M.D. Office Visit 03/06/2013 10:30a [facility] Nevaeh VelásquezPAGE 28129 354.2 Of C.M.A. 354.0 727.43 Office Visit 10/18/2012 11:15a [facility] Loren Cadena 43457 354.2 Of [facility]. M.D. Office Visit 07/19/2012 10:45a [facility] Loren Cadena, 92096 727.43 Of C.[facility]. M.D. Office Visit 12/27/2011 8:30a [facility] Loren LiraRonnie, 61581 354.0 Of [facility]. M.D. 354.2 727.43 727.04 Office Visit 08/27/2011 9:30a [facility] Galeas 18559 727.09 C.M.A. M.D. Office Visit 08/04/2011 11:30a [facility]ale[facility], 35873 719.47 C.M.A. M.D. 729.81 Office Visit 07/14/2011 1:30p [facility], 55538 719.47 C.M.A. M.D. Office Visit 10/30/2008 10:20a [facility] S. 69997 786.50 Jose D Malcolm 401.1 278.00 794.31 Plan of Care Future Appointment(s):05/05/2017 10:30 am - Pete Ferrer MD at [facility]03/08/2017 - Pete Ferrer, MDS46.011D Strain of musc/tend the rotator cuff of right shoulder, subsFollow up:Follow up: 2 months prnM75.51 Bursitis of right shoulder
--- OUTSIDE RECORDS SUMMARY | 2017-03-24 14:34 | XMS REPORT ---
:1960 External Reference #:[id number] Author Organization [facility] [employer] Address [address] [address] Phone [phone] Care Team Providers Name Role Phone Alana Jones MD Primary Care Physician Unavailable Payers Type Date Identification Numbers Payment Provider Subscriber Commercial Policy Number: [id number] [facility] Mandy Gilliland PayID: [id number] [address] [address] [place] [address] Problems Date Description Provider Status Onset: 08/04/2015 Localized, primary osteoarthritis Torri Gonzalez M.D. Active Family History Date Family Member(s) Problem(s) Comments General Diabetes Father due to bone CA () Father due to OR () - age 54 yr Mother DM, [...] tablet M1 Emily by mouth 7. Rosalina, MEDICAL STAFF COORDINATOR with food 12 twice daily for pain [...] 03/18/2015 with suze Gonzalez M.D. po bid [place] 04/18/2013 - Hx Tablets 5-325 30tabs 1-2 by Loren 10/14/2016 mg mouth Mario every 4 g, M.D. hours as needed Ibuprofen 01/05/2013 - Hx Tablets 600mg 120tabs tid with Loren 03/18/2015 food Mario manrique M.D. [place] 11/20/2012 - Hx Tablets 5-325 60tabs take 1-2 Loren 03/06/2013 mg tab po Mario q4-6hours Jose D manrique prn pain Vital Signs Date Vital Result Comment 02/24/2017 Height 66 inches 5'6" Weight 220.00 [...] - FDP greater than 20 ug/ml 3 Mechanical Systems Designer: [id number] RUN DATE: 12/24/13 [facility] LAB LIVE PAGE 1 RUN TIME: [address] [place], [place] [address] Specimen Inquiry Name: MANDY GILLILAND : [address]: Loren Cadena Acct: [id number] Unit: [id number] AGE: 53 Location: [facility] Re12/20/13 SEX: F Status: REG SDC SPEC: [id number] [place]: 12/20/13- SUBM DR: Loren Cadena MD REQ: [id number] RECD: 12/20/13 STATUS: SOUT _ ORDERED: LEVEL II FINAL DIAGNOSIS Intramuscular septum, right elbow: Fibroadipose and fibrovascular tissue with pronounced fibrosis and focal neovascularization. PRE-OPERATIVE DIAGNOSIS Lesion ulnar nerve right elbow GROSS DESCRIPTION The specimen is received in formalin labeled Mandy HannaAmee Bautista, Inner Muscular Septum Right Elbow and consists of a 3.0 x 0.5 x 0.3 cm. portion of barone-white tissue. Submitted entirely, one cassette. Signed (signature on file) Jamel Guy MD [id number] END OF REPORT * ML=Testing performed at Main Lab DEPARTMENT OF PATHOLOGY, [facility] [employer] [place], [place] [address] Jamel Guy M.D. Director [facility] # [id number] 5 RUN DATE: 08/23/12 [facility] LAB LIVE PAGE 1 RUN TIME: [address] [facility] [employer] [place], [place] [address] Specimen Inquiry Name: MANDY GILLILAND : [address]: Loren Cadena Acct: [id number] Unit: [id number] AGE: 52 Location: [facility] Re08/18/12 SEX: F Status: REG [facility] SPEC: [id number] [place]: 08/18/12- [facility] DR: Loren Cadena MD REQ: [id number] RECD: 08/18/121443 STATUS: SOUT _ ORDERED: LEVEL III FINAL [...] performed at Main Lab DEPARTMENT OF PATHOLOGY, [address] [place] [address] Jamel Guy M.D. Director [facility] Permit #[id number] Procedures Date CPT Code Description Status 12/03/2016 82612 Walking Cast Completed 11/22/2016 27309 Implant Nerve End Into Bone Or Muscle Completed 11/22/2016 31618 Excision Neuroma, Major Peripheral Nerve Completed 11/22/2016 56643 Excision Neuroma, Major Peripheral Nerve Completed 12/20/2013 78456 Neuroplasty &/Or Transposition; Ulnar Nerve At Completed Elbow 12/20/2013 50908 Neuroplasty &/Or Transposition; Ulnar Nerve At Completed Elbow 08/08/2013 33746 Xray Knee 3 Views Completed 05/04/2013 94538 Carpal Tunnel Release Completed 05/04/2013 08364 Carpal Tunnel Release Completed 05/04/2013 18825 Neuroplasty &/Or Transposition; Ulnar Nerve At Completed Elbow 05/04/2013 14541 Neuroplasty &/Or Transposition; Ulnar Nerve At Completed Elbow 11/30/2012 95731 Neuroplasty &/Or Transposition; Ulnar Nerve At Completed Elbow 11/30/2012 62327 Neuroplasty &/Or Transposition; Ulnar Nerve At Completed Elbow 11/30/2012 30177 Carpal Tunnel Release Completed 08/18/2012 94386 Excision Ganglion Wrist/ Dorsal Or Volar; Primary Completed 08/18/2012 56199 Excision Ganglion Wrist/ Dorsal Or Volar; Primary Completed 08/27/2011 61377 Rad Exam; Foot Comp Completed 08/04/2011 18751 Rad Exam; Foot Comp Completed 07/14/2011 87549 Rad Exam; Foot Comp Completed 02/27/2009 89090 ECHO Stress Test Incl Perf Contiuous ekg Monitoring Completed W/Phys Superv 12/23/2008 02307 ECHO Transthoracic, Real-Time 2D With Doppler And Color Completed Flow 10/30/2008 58814 EKG Tracing & Interpretation Completed 01/29/2007 27889 Stress ECHO Interpretation/Report Hospital Completed 01/29/2007 40282 Stress ECHO Interpretation/Report Hospital Completed 01/29/2007 76539 Treadmill Interp/Report Only Completed 01/29/2007 61101 Stress Test Supervsn W/Out I/R Completed 01/29/2007 43110 Stress Test Supervsn W/Out I/R Completed Encounters Type Date Location Provider CPT E/M Dx Office Visit 01/20/2017 [facility], 42054 M75.41 1:15p Matt BECKWITH M75.51 Office Visit 12/23/2016 9:00a [facility] Duke 01388 S43.421A Of Matt Ferrer MD Office Visit 10/15/2016 2:15p [facility] Galeas 14467 G57.91 Of Matt Jeffery Office Visit 09/21/2016 11:30a [facility] 58002 M79.671 Of Matt Jeffery G57.91 Office Visit 08/10/2016 9:30a [facility] 61838 M54.31 Matt Jeffery M79.671 Office Visit 11/07/2015 2:40p [facility] 47143 M54.31 C.Sanjuanita Jeffery Office Visit 09/19/2015 3:00p [facility] Torri Gonzalez M.D. 01816 M17.12 C.M.AAmee M25.562 Office Visit 09/19/2015 3:20p [facility] 29701 G57.91 Matt Jeffery Office Visit 09/03/2015 11:30a [facility] Gonzalez M.D. 20645 M25.562 C.M.AAmee M17.12 M25.462 Office Visit 08/04/2015 2:45p [facility]ri Gonzalez M.D. 91230 M25.562 C.M.AAmee M17.12 M25.462 Office Visit 06/16/2015 10:30a [facility]ri Gonzalez M.D. 53843 M17.12 C.M.A. S83.412A Office Visit 04/16/2015 2:30p [facility] [place] [address] M75.02 C.M.AAmee Office Visit 03/19/2015 1:00p [facility] [place] [address] M75.02 C.M.A. Office Visit 12/31/2014 4:10p [facility] Galeas, 01054 G57.81 C.M.A. M.D. Office Visit 10/15/2014 2:50p [facility] Andrew Galeas, 29712 355.79 C.M.A. M.D. Office Visit 09/20/2014 10:30a [facility] Galeas, 69066 719.47 C.M.A. M.D. Office Visit 08/30/2014 3:00p [facility] Galeas, 28244 825.25 C.M.A. MEmelia 715.17 Office Visit 12/05/2013 9:15a [facility] Loren Cadena 56126 354.2 Of C.M.AAmee M.D. Office Visit 11/12/2013 9:00a [facility] Torri Gonzalez M.D. 35431 715.96 Of C.M.A. Office Visit 10/08/2013 10:00a [facility] Torri Gonzalez M.D. 36498 715.96 Of C.M.A. 719.46 Office Visit 08/08/2013 2:30p [facility] Torri Gonzalez M.D. 51902 715.96 C.M.A. Office Visit 05/31/2013 11:15a [facility] Gonzalez M.D. 72782 715.35 C.M.A. 715.96 Office Visit 04/25/2013 12:15p [facility] Gonzalez M.D. 11731 715.35 C.M.A. 715.96 844.1 Office Visit 04/18/2013 10:45a [facility] Loren Cadena 93381 354.0 Of C.MAmeeAAmee MAmeeDAmee Office Visit 03/06/2013 10:30a [facility] PAGE Jose 61372 354.2 Of C.MAmeeAAmee 354.0 727.43 Office Visit 10/18/2012 11:15a [facility] Loren Cadena, 70125 354.2 Of C.Sanjuanita Jeffery Office Visit 07/19/2012 10:45a [facility] Loren Cadena, 36294 727.43 Of C.Sanjuanita Jeffery Office Visit 12/27/2011 8:30a [facility] Loren Cadena, 60411 354.0 Of Matt Jeffery 354.2 727.43 727.04 Office Visit 08/27/2011 9:30a [facility] Andrew Galeas 48751 727.09 C.Sanjuanita Jeffery Office Visit 08/04/2011 11:30a [facility] Galeas 52808 719.47 C.Sanjuanita Jeffery 729.81 Office Visit 07/14/2011 1:30p [facility] Andrew Galeas, 68800 719.47 CFaith Jeffery Office Visit 10/30/2008 10:20a [facility] S. 39028 786.50 Jose D Malcolm 401.1 278.00 794.31 Plan of Care Future Appointment(s):03/03/2017 1:30 pm - Pete Ferrer MD at [facility]02/24/2017 - Andrew Galeas M.D.G57.91 Unspecified mononeuropathy of right lower limbFollow up:As needed
[2017-03-24 16:24] VITALS: BP 149/88
[2017-03-24] MEDS ORDERED: Ketorolac INJ* 60 MG/2 ML VIAL IM ONE (16:53)
--- NOTE | 2017-03-25 21:59 | UC ---
Arianna Andino Gabriel, scribed for Arben Saab MD on 03/24/17 at 1652 . Shoulder Pain HPI - HPI Summary HPI Summary: This patient is a 57 year old F presenting to [facility] [place] with a chief complaint of a headache for 5 days and right shoulder pain for 3 weeks. The patient rates the pain 9/10 in severity. Patient denies trauma. Patient has had chronic pain in this shoulder for several months and is seeing doctor art Ferrer who has her scheduled for an MRI. - History of Current Complaint Chief Complaint: UCUpperExtremity Stated Complaint: SHOULDER AND NECK PAIN Time Seen by Provider: 03/24/17 16:43 Hx Obtained From: Patient Hx Last Menstrual Period: hysterectomy Onset/Duration: Lasting Weeks - 3, Still Present Timing: Constant Severity Initially: Severe Severity Currently: Severe Pain Intensity: 9 Pain Scale Used: 0-10 Numeric Related History: Similar Episode/Dx As - Allergies/Home Medications Allergies/Adverse Reactions: Allergies Allergy/AdvReac Type Severity Reaction Status Date / Time MS Sulfa Drugs [Sulfa Drugs] Allergy Mild Hives Verified 03/24/17 16:26 PMH/Surg Hx/FS Hx/Imm Hx Other History Of: Negative For: HIV, Hepatitis B, Hepatitis C, Anticoagulant Therapy - She took one baby aspirin today. - Surgical History Surgical History: Yes Surgery Procedure, Year, and Place: 1991 GB [facility] 2004 HYSTERECTOMY [facility] BILATERAL CARPAL TUNNEL - Family History Known Family History: Positive: Cardiac Disease, Hypertension, Diabetes - Social History Alcohol Use: None Substance Use Type: None Smoking Status (MU): Former Smoker Type: Cigarettes Amount Used/How Often: LESS THEN 1PPD, only smoked 1/2 year Length of Time of Smoking/Using Tobacco: 1.5 YRS Have You Smoked in the Last Year: No When Did the Patient Quit Smoking/Using Tobacco: 40 yrs ago - Immunization History Most Recent Influenza Vaccination: 10/2014 Most Recent Tetanus Shot: up to date Most Recent Pneumonia Vaccination: never had this Review of Systems Musculoskeletal: Other: - right shoulder pain Neurological: Headache All Other Systems Reviewed And Are Negative: Yes Physical Exam Triage Information Reviewed: Yes Vital Signs: Initial Vital Signs Temp 98.6 F 03/24/17 16:22 Pulse 71 03/24/17 16:22 Resp 18 03/24/17 16:22 BP 149/88 03/24/17 16:22 Pulse Ox 98 02/01/18 16:22 Vital Signs Reviewed: Yes - Additional Comments Vital signs: reviewed General: Patient is comfortable lying in stretcher with no signs of distress HEENT: within normal limits Lungs: CTA B/L CVS: S1 & S2 present. No murmurs appreciated. ABDOMEN: Soft, non-tender. No signs of distention. No rebound no guarding, and no masses palpated. Bowel sounds are normal. EXTREMITIES: FROM in all major joints, no edema, no cyanosis or clubbing. Mild tenderness at palpation around the AC joint. NEURO: Alert and oriented x 3. No acute neurological deficits. Speech is normal and follows commands. SKIN: Dry and warm Shoulder Course/Dx - Course Assessment/Plan: This patient is a 57 year old F presenting to [facility] [place] with a chief complaint of a headache for 5 days and right shoulder pain for 3 weeks. The patient rates the pain 9/10 in severity. Patient denies trauma. Patient has had chronic pain in this shoulder for several months and is seeing doctor art Ferrer who has her scheduled for an MRI. In the UC she was given Toradol for the pain. She has chronic pain she was recommended to f/u with PCP for control of chronic pain. She understands and agrees. Pt was advised to wear shoulder immobilizer given to her at one of her previous visits. Pt was instructed to return to the urgent care or go to ER immediately if any of the symptoms return or worsens. Plan of care was discussed with the patient and pt understands and agrees. All questions were answered to patient satisfaction. There were no further complaints or concerns. . Patient will be discharged and follow up from PCP and ortho. The patient is agreeable with this plan. - Differential Dx/Diagnosis Differential Diagnosis/HQI/PQRI: Arthritis, Bursitis, Sprain, Strain, Tendonitis Provider Diagnoses: Chronic Shoulder pain Discharge - Discharge Plan Condition: Stable Disposition: HOME Prescriptions: Naproxen [Naproxen 500 mg] 500 mg PO Q8H PRN #20 tab PRN Reason: Pain Patient Education Materials: Arthralgia (ED) Referrals: Alana Jones MD [Primary Care Provider] - Additional Instructions: Take medications as instructed Increase your fluid intake Return to the UC if symptoms worsen The documentation as recorded by the Arianna simpson Gabriel accurately reflects the service I personally performed and the decisions made by me, Arben Saab MD.
== END 2017-03-24 18:15 | disposition home or self-care (01) ==
LOC: UCEAST 14:21
DX: M25.511 Pain in right shoulder (principal); M54.2 Cervicalgia; R51 Headache; Z90.710 Acquired absence of both cervix and uterus; Z88.2 Allergy status to sulfonamides; Z87.891 Personal history of nicotine dependence
CPT/HCPCS: 96372; 99212; G0463; J1885

== ENCOUNTER 2017-04-06 15:35 | Emergency (ER) | payer OTHER ==
[2017-04-06 16:02] VITALS: BP 142/85
--- NOTE | 2017-04-06 16:21 | UC ---
Complaint Female HPI - HPI Summary HPI Summary: Pt presents with urinary frequency and pressure since this morning. She says she hasn't had a UTI in many years and doesn't remember what they feel like. Denies burning with urination, hematuria, flank pain, abdominal pain, n/v/d/c, pelvic pain, vaginal pain or discharge. - History Of Current Complaint Hx Obtained From: Patient Hx Last Menstrual Period: hysterectomy Onset/Duration: Sudden Onset Timing: Constant Severity Initially: Moderate Severity Currently: Moderate Pain Intensity: 5 Pain Scale Used: 0-10 Numeric <Mark Hdez - Last Filed: 04/06/17 17:31> <Marilyn Koenig - Last Filed: 04/06/17 19:06> - History Of Current Complaint Chief Complaint: UCGU Stated Complaint: FREQUENT URINATION Time Seen by Provider: 04/06/17 16:20 - Allergies/Home Medications Allergies/Adverse Reactions: Allergies Allergy/AdvReac Type Severity Reaction Status Date / Time MS Sulfa Drugs [Sulfa Drugs] Allergy Mild Hives Verified 04/06/17 16:02 PMH/Surg Hx/FS Hx/Imm Hx Previously Healthy: Yes Endocrine History: Dyslipidemia Cardiovascular History: Hypertension Respiratory History: Asthma Other History Of: Negative For: HIV, Hepatitis B, Hepatitis C, Anticoagulant Therapy - She took one baby aspirin today. - Surgical History Surgical History: Yes Surgery Procedure, Year, and Place: 1991 GB [facility] 2004 HYSTERECTOMY [facility] BILATERAL CARPAL TUNNEL - Family History Known Family History: Positive: Cardiac Disease, Hypertension, Diabetes - Social History Lives: With Family Alcohol Use: None Substance Use Type: None Smoking Status (MU): Former Smoker Type: Cigarettes Amount Used/How Often: LESS THEN 1PPD, only smoked 1/2 year Length of Time of Smoking/Using Tobacco: 1.5 YRS Have You Smoked in the Last Year: No When Did the Patient Quit Smoking/Using Tobacco: 40 yrs ago - Immunization History Most Recent Influenza Vaccination: 10/2014 Most Recent Tetanus Shot: up to date Most Recent Pneumonia Vaccination: never had this <Mark Hdez - Last Filed: 04/06/17 17:31> Review of Systems Constitutional: Negative Skin: Negative Respiratory: Negative Cardiovascular: Negative Gastrointestinal: Negative Genitourinary: Frequency Motor: Negative Neurological: Negative Psychological: Negative All Other Systems Reviewed And Are Negative: Yes <Mark Hdez - Last Filed: 04/06/17 17:31> Physical Exam Triage Information Reviewed: Yes Appearance: Well-Appearing, No Pain Distress, Well-Nourished Vital Signs: Initial Vital Signs Temp 98.1 F 04/06/17 15:59 Pulse 72 04/06/17 15:59 Resp 16 04/06/17 15:59 BP 142/85 04/06/17 15:59 Pulse Ox 99 04/06/17 15:59 Vital Signs Reviewed: Yes Neck: Positive: Supple, Nontender, No Lymphadenopathy Respiratory: Positive: Lungs clear, Normal breath sounds, No respiratory distress, No accessory muscle use Cardiovascular: Positive: RRR, No Murmur, Pulses Normal Abdomen Description: Positive: Nontender, No Organomegaly, Soft. Negative: CVA Tenderness (R), CVA Tenderness (L), Distended, Guarding Bowel Sounds: Positive: Present Neurological: Positive: Alert Psychological: Positive: Age Appropriate Behavior Skin: Negative: rashes <Mark Hdez - Last Filed: 04/06/17 17:31> Vital Signs: Initial Vital Signs Temp 98.1 F 04/06/17 15:59 Pulse 72 04/06/17 15:59 Resp 16 04/06/17 15:59 BP 142/85 04/06/17 15:59 Pulse Ox 99 04/06/17 15:59 <Marilyn Koenig - Last Filed: 04/06/17 19:06> Complaint Female Dx - Course Course Of Treatment: POC UA with trace ketones and trace protein. Will send for culture and call with results. Advised to try cranberry juice and OTC AZO for relief. - Differential Dx/Diagnosis Provider Diagnoses: Urinary frequency <Mark Hdez - Last Filed: 04/06/17 17:31> Discharge <Mark Hdez - Last Filed: 04/06/17 17:31> <Marilyn Koenig - Last Filed: 04/06/17 19:06> - Discharge Plan Condition: Stable Disposition: HOME Patient Education Materials: Urinary Urgency and Frequency (DC) Referrals: Alana Jones MD [Primary Care Provider] - Additional Instructions: If you develop a fever, shortness of breath, chest pain, new or worsening symptoms - please call your PCP or go to the ED. 1) Try AZO over the counter for relief. We will call you with your urine culture results and start an antibiotic if needed. Attestation Statement User Type: Provider - I was available for consult. This patient was seen by the advanced practice provider. The patient was not presented to, seen by, or examined by me.-Aruna <Marilyn Koenig - Last Filed: 04/06/17 19:06>
== END 2017-04-06 17:01 | disposition home or self-care (01) ==
LOC: UCEAST 15:35
DX: R35.0 Frequency of micturition (principal); E78.5 Hyperlipidemia, unspecified; I10 Essential (primary) hypertension; J45.909 Unspecified asthma, uncomplicated; Z90.710 Acquired absence of both cervix and uterus; Z88.2 Allergy status to sulfonamides; Z87.891 Personal history of nicotine dependence
CPT/HCPCS: 81003; 87077; 87086; 99211; G0463

== ENCOUNTER 2017-04-20 10:33 | Emergency (ER) | payer OTHER ==
--- NOTE | 2017-04-20 11:00 | ED ---
Abdominal Pain/Female - HPI Summary HPI Summary: llq pain, no fevers, nausea vomiting or diarrhea was able to eat breakfast this morning FS BS was 248 this am and in the 190's yesterday no illness exposures - History of Current Complaint Chief Complaint: EDAbdPain Stated Complaint: HIGH BLOOD SUGAR ABD PAIN Time Seen by Provider: 04/20/17 10:40 Hx Obtained From: Patient Hx Last Menstrual Period: hysterectomy ?: No Onset/Duration: Sudden Onset, Lasting Hours - 3, Lasting Days, Still Present Timing: Constant Severity Initially: Moderate Severity Currently: Moderate Pain Intensity: 8 Pain Scale Used: 0-10 Numeric Location: Discrete At: LLQ Radiates: No Character: Cramping, Colicy Aggravating Factor(s): Nothing Alleviating Factor(s): Nothing Associated Signs and Symptoms: Positive: Negative Allergies/Adverse Reactions: Allergies Allergy/AdvReac Type Severity Reaction Status Date / Time Sulfa (Sulfonamide Allergy Hives Verified 04/20/17 10:45 Antibiotics) Home Medications: Home Medications Aspirin EC Low Dose* [Ecotrin EC Low Dose 81 MG*] 81 mg PO DAILY 04/20/17 [ History Confirmed 04/20/17] Fluticasone NASAL SPRAY 50MCG* [Flonase NASAL SPRAY 50MCG*] 2 spray BOTH NARES DAILY PRN 04/20/17 [History Confirmed 04/20/17] Insulin GLARGINE(*) [Lantus(*)] 15 units SUBCUT QPM 04/20/17 [History Confirmed 04/20/17] LevoCETirizine TAB (NF) [Xyzal TAB (NF)] 5 mg PO DAILY PRN 04/20/17 [History Confirmed 04/20/17] Metformin ER (NF) 500 mg PO BID 04/20/17 [History Confirmed 04/20/17] Metoprolol Succinate XL TAB* [Toprol XL TAB*] 25 mg PO DAILY 04/20/17 [History Confirmed 04/20/17] Omeprazole CAP* [Prilosec CAP* 20 MG] 20 mg PO DAILY 04/20/17 [History Confirmed 04/20/17] PMH/Surg Hx/FS Hx/Imm Hx Previously Healthy: No Endocrine/Hematology History: Reports: Hx Diabetes - Type 2 Denies: Hx Anticoagulant Therapy - She took one baby aspirin today., Hx Thyroid Disease Cardiovascular History: Reports: Hx Hypertension - controlled with meds Denies: Hx Angina, Hx Pacemaker/ICD Respiratory History: Reports: Hx Asthma - on meds Denies: Hx Chronic Obstructive Pulmonary Disease (COPD), Hx Lung Cancer, Hx Pneumonia, Hx Pulmonary Embolism GI History: Reports: Hx Gastroesophageal Reflux Disease Denies: Hx Gall Bladder Disease, Hx Gastrointestinal Bleed, Hx Ulcer, Hx Urosepsis History: Reports: Hx Kidney Stones Denies: Hx Renal Disease Musculoskeletal History: Reports: Hx Arthritis - Bilat knees, shoulders, Hx Tendonitis - L Wrist Sensory History: Reports: Hx Contacts or Glasses - glasses Denies: Hx Hearing Aid Opthamlomology History: Reports: Hx Contacts or Glasses - glasses Neurological History: Reports: Hx Migraine Denies: Hx Dementia, Hx Seizures, Hx Transient Ischemic Attacks (TIA) Psychiatric History: Reports: Hx Anxiety - prn Denies: Hx Depression, Hx Panic Disorder, Hx Schizophrenia, Hx Bipolar Disorder - Cancer History Hx Chemotherapy: No Hx Radiation Therapy: No - Surgical History Surgery Procedure, Year, and Place: 1991 GB [facility] 2004 HYSTERECTOMY [facility] BILATERAL CARPAL TUNNEL Hx Anesthesia Reactions: No - Immunization History Date of Influenza Vaccine: Fall 2016 Infectious Disease History: No Infectious Disease History: Denies: Hx Clostridium Difficile, Hx Human Immunodeficiency Virus (HIV), Hx of Known/Suspected MRSA, Hx Shingles, Hx Tuberculosis, Hx Known/Suspected VRE, Hx Known/Suspected VRSA, History Other Infectious Disease, Traveled Outside the in Last 30 Days - Family History Known Family History: Positive: Cardiac Disease, Hypertension, Diabetes - Social History Occupation: Unemployed Lives: With Family Alcohol Use: None Hx Substance Use: No Substance Use Type: Reports: None Hx Tobacco Use: Yes Smoking Status (MU): Former Smoker Type: Cigarettes Amount Used/How Often: LESS THEN 1PPD, only smoked 1/2 year Length of Time of Smoking/Using Tobacco: 1.5 YRS Have You Smoked in the Last Year: No Review of Systems Constitutional: Negative Eyes: Negative ENT: Negative Cardiovascular: Negative Respiratory: Negative Positive: Abdominal Pain Genitourinary: Negative Musculoskeletal: Negative Skin: Negative Neurological: Negative Psychological: Normal All Other Systems Reviewed And Are Negative: Yes Physical Exam Triage Information Reviewed: Yes Vital Signs On Initial Exam: Initial Vitals Temp Pulse Resp BP Pulse Ox 97.0 F 81 18 154/87 98 04/20/17 10:40 04/20/17 10:40 04/20/17 10:40 04/20/17 10:40 04/20/17 10:40 Vital Signs Reviewed: Yes Appearance: Positive: Well-Nourished, Ill-Appearing - mild, Pain Distress - mild Skin: Positive: Warm, Skin Color Reflects Adequate Perfusion, Dry Eyes: Positive: Normal, EOMI, CATRACHITA, Conjunctiva Clear ENT: Positive: Normal ENT inspection, Hearing grossly normal, Pharynx normal, TMs normal, Uvula midline. Negative: Nasal congestion, Trismus, Muffled voice, Hoarse voice, Dental tenderness, Sinus tenderness Neck: Positive: Supple, Nontender Respiratory/Lung Sounds: Positive: Clear to Auscultation, Breath Sounds Present. Negative: Unable to speak in full sentences Cardiovascular: Positive: Normal, RRR, Pulses are Symmetrical in both Upper and Lower Extremities, S1, S2 Abdomen Description: Positive: No Organomegaly, Soft, Other: - llq pain. Negative: CVA Tenderness (R), CVA Tenderness (L), Distended, Guarding, McBurney' s Point Tenderness, Peritoneal Signs Bowel Sounds: Positive: Present, Hyperactive Musculoskeletal: Positive: Normal, Strength/ROM Intact Neurological: Positive: Normal, Sensory/Motor Intact, Alert, Oriented to Person Place, Time Psychiatric: Positive: Normal AVPU Assessment: Alert - Paxton Coma Scale Best Eye Response: 4 - Spontaneous Best Motor Response: 6 - Obeys Commands Best Verbal Response: 5 - Oriented Coma Scale Total: 15 Diagnostics - Vital Signs Vital Signs Temp Pulse Resp BP Pulse Ox 04/20/17 10:40 97.0 F 81 18 154/87 98 - Laboratory Lab Statement: Any lab studies that have been ordered have been reviewed, and results considered in the medical decision making process. Abdominal Pain Fem Course/Dx - Course Course Of Treatment: patient signed out to Melissa BRODY at 12 15 - Diagnoses Provider Diagnoses: Abdominal pain Discharge - Discharge Plan Condition: Good Disposition: OTHER Discharge Disposition Comment: trasfered care to Estefania BRODY Referrals: Alana Jones MD [Primary Care Provider] -
[2017-04-20 12:54] LABS: ABS Basophils 0 10^3/ul (0-0.2); ABS Eosinophils 0.1 10^3/ul (0-0.6); ABS Lymphocytes 2.1 10^3/ul (1.0-4.8); ABS Monocytes 0.5 10^3/ul (0-0.8); ABS Neutrophils 3.3 10^3/ul (1.5-7.7); ABS Nucleated RBC 0 10^3/ul; Eosinophil % 0.9 % (0-6); Hematocrit 41 % (35-47); Hemoglobin 13.7 g/dl (12.0-16.0); Lymphocyte % 34.9 % (25-47); Mean Corpuscular HGB Conc 33 g/dl (31-36); Mean Corpuscular Hemoglobin 29 pg (27-31); Mean Corpuscular Volume 87 fL (80-97); Mean Platelet Volume 8 um3 (7.4-10.4); Nucleated Red Blood Cells % 0.2; Platelet Count 367 10^3/ul (150-450); Red Blood Count 4.76 10^6/ul (4.0-5.4); Red Cell Distribution Width 14 % (10.5-15); White Blood Count 6.1 10^3/ul (3.5-10.8)
[2017-04-20 12:56] LABS: EGFR Non-African American 79.6 (>60)
[2017-04-20] MEDS ORDERED: Ketorolac INJ* 30 MG/ML 1 ML VIAL IV PUSH ONE (13:01)
[2017-04-20 13:05] LABS: Urine Appearance Clear; Urine Blood Negative (Negative); Urine Color Yellow; Urine Ketones Negative (Negative); Urine Protein Negative (Negative); Urine Specific Gravity 1.015 (1.010-1.030); Urine Urobilinogen Negative (Negative)
--- NOTE | 2017-04-20 14:05 | RAD ---
HISTORY: Left lower quadrant pain COMPARISONS: May 17, 2016 VIEWS: Frontal supine and upright views of the abdomen. FINDINGS: BOWEL: There is a nonobstructive bowel gas pattern. There is a large amount of stool within the colon. CALCULI: There are no abnormal calculi. BONES AND SOFT TISSUES: There are no osseous abnormalities. OTHER FINDINGS: The lung bases are clear. There is no subphrenic gas. Surgical clips are noted in the upper abdomen IMPRESSION: NONOBSTRUCTIVE BOWEL GAS PATTERN. LARGE AMOUNT OF STOOL WITHIN THE COLON.
[2017-04-20] MEDS ORDERED: Magnesium CITRATE* 300 ML BTL PO ONE (14:14)
[2017-04-20 14:55] VITALS: BP 147/82
--- NOTE | 2017-04-20 15:21 | PN ---
Progress Note - Progress Note Date of Service: 04/20/17 Note: Patient signed out by Ailyn Bloom NP. Constitutional: The patient denies fever, STREET, sweats or chills. HEENT: Head: The patient denies headaches or dizziness. Eyes: The patient denies diplopia, blurry vision, eye pain, eye discharge, photophobia. Throat: The patient denies sore throats or hoarseness. Cardiovascular: The patient denies chest pain, palpitations, syncope, night cramps, or orthostasis. Respiratory: The patient denies cough, sputum production, hemoptysis, dyspnea, wheezing. Gastrointestinal: The patient denies odynophagia, dysphagia, hematemesis, melenemesis. Endorses left lower quadrant pain Denies nausea or vomiting. Denies constipation or diarrhea. Genitourinary: Patient denies dysuria, hematuria, or pyuria. Patient denies back pain. Denies vaginal discharge, vaginal bleeding. Denies other urinary symptoms. Endocrine: The patient denies polydipsia, polyuria, or polyphagia. Muscles: The patient denies myalgia, strain or weakness. Joints: The patient denies arthralgia and/or arthritis. Appearance: WDW, comfortable, pleasant, alert Skin: Soft dry skin, no lesions. Nailbeds pink with no cyanosis or clubbing. No petechia noted. Eyes: CATRACHITA, EOMI, Conjunctiva pink with no redness or exudates. Mouth: Dentition without lesions. Moist mucosa Neck: Full range of motion. Palpable thyroid. Trachea at midline. No lymphadenopathy. Pulm: Chest symmetrical expansion. No deformities on posterior chest wall. Lungs clear to auscultation and percussion, without adventitious sounds. CV: No JVD. No deformities on anterior chest wall. Heart sounds. RRR. Normal S1 and single S2. No S3, S4, rubs, or murmurs. Carotids 2+ bilaterally without bruits. . exam not performed GI: Bowel sounds WNL in all 4 quadrants. Pain to palpation at the left lower quadrant. Negative sher's, negative obturator. Psoas not performed. No pain over Mcburney's point. Musculoskeletal: Flexion and extension of neck without limitations. ROM WNL in all extremities. No deformities noted. Pulses +2 bilaterally. Neuro: Motor strength is 5/5 in upper and lower extremities bilaterally. A&OX3 Psych: Logical, coherent After examination of patient, she is continues to endorse left lower quadrant pain. She states she may be constipated but has been having normal bowel movements I have obtained 8 abdominal x-ray There is a large amount of stool in the colon She is given mag citrate 300 mg, 150 mg for here and another 150 mg for home She is okay with this plan and discharged. Condition: Stable Disposition: Home
== END 2017-04-20 14:49 | disposition home or self-care (01) ==
LOC: ED 10:33
DX: R10.32 Left lower quadrant pain (principal); Z87.891 Personal history of nicotine dependence; Z88.2 Allergy status to sulfonamides
CPT/HCPCS: 36415; 74019; 80053; 81003; 83605; 83690; 85025; 86140; 96374; 99284; A9270-GY; J1885

== ENCOUNTER 2017-05-05 15:49 | Emergency (ER) | payer OTHER ==
--- OUTSIDE RECORDS SUMMARY | 2017-05-05 16:06 | XMS REPORT ---
:1960 External Reference #:[id number] Author Organization [employer] Address [address] [address] Phone [phone] Care Team Providers Name Role Phone Alana Jones MD Primary Care Physician Unavailable Payers Type Date Identification Numbers Payment Provider Subscriber Commercial Policy Number: [id number] Ervin/[employer] Medicaid Mandy Gilliland PayID: [id number] [address] [address] [place] [address] Problems Date Description Provider Status Onset: 08/04/2015 Localized, primary osteoarthritis Torri Gonzalez M.D. 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 Calvin 04/18/2013 - Hx Tablets 5-325m 30tabs 1-2 by Loren 10/14/2016 g mouth Pankaj-Corky every 4 ng, M.D. hours as needed Ibuprofen 01/05/2013 - Hx Tablets 600mg 120tabs tid with Loren 03/18/2015 food Mackenzie candelaria M.D. Calvin 11/20/2012 - Hx Tablets 5-325m 60tabs take 1-2 Loren 03/06/2013 g tab po Mackenzie q4-6hours Jose D candelaria prn pain Vital Signs Date Vital Result Comment 05/05/2017 Height 66 inches 5'6" Weight 220.00 lb Heart Rate 81 /min Respiratory Rate 18 /min Pain Level 7 BMI (Body Mass Index) 35.5 kg/m2 03/08/2017 Height 66 inches 5'6" Weight 222.00 [...] CKMB 11/27/2016 CKMB ng/mL 1.0 ng/mL 0.6-6.3 CBC Auto Diff 11/27/2016 White Blood Count [...] Red Blood Cells % 0.1 Laboratory test 11/27/2016 D Dimer Quantitative < 200 ng/mL Less Than 230 1 finding Comp Metabolic Panel 11/27/2016 Sodium 138 mmol/L [...] Egfr Non- 79.9 >60 Egfr 102.8 >60 2 Laboratory test 11/27/2016 Troponin-I (TnI) 0.00 ng/mL <0.04 finding Laboratory test 11/22/2016 Point of Care Glucose 149 mg/dL High 70-100 3 finding Surgical Pathology 12/20/2013 S RUN DATE: <SEE NOTE> Surgical Pathology 08/18/2012 S RUN DATE: <SEE NOTE> 1 Please note: The following may produce a false positive D Dimer test: - Rheumatoid factor greater than 60 IU/ml - Plasma hemoglobin greater than 0.05 gm/dl - Bilirubin greater than 50 mg/dl - Lipids greater than 1000 mg/dl - FDP greater than 20 ug/ml 2 Because ethnic data is not always readily [...] 15-29 5 Kidney failure <15 (or dialysis) 3 [employer]: [id number] 4 RUN DATE: 12/24/13 [facility] LAB LIVE PAGE 1 RUN TIME: [address] [place], [place] [address] Specimen Inquiry Name: MANDY GILLILAND : [address]: Loren Cadena Acct: [id number] Unit: [id number] AGE: 53 Location: [facility] Re12/20/13 SEX: F Status: [place] [facility] [place] SPEC: [id number] [place]: 12/20/13- [facility] DR: Loren Cadena MD REQ: [id number] RECD: 12/20/13 STATUS: SOUT _ ORDERED: LEVEL [...] performed at Main Lab DEPARTMENT OF PATHOLOGY, [address] [place], [place] [id number] Jamel Guy M.D. Director [facility] # [id number] RUN DATE: 08/23/12 [facility] LAB LIVE PAGE 1 RUN TIME: [address] [place] [address] Specimen Inquiry Name: MANDY GILLILAND : [address]: Loren Cadena Acct: [id number] Unit: [id number] AGE: 52 Location: [facility] Re08/18/12 SEX: F Status: REG [facility] [place] SPEC: [id number] [place]: 08/18/12- [facility] DR: Loren Cadena MD REQ: [id number] RECD: 08/18/12-8493 STATUS: SOUT _ ORDERED: LEVEL III FINAL DIAGNOSIS Wrist, left, biopsy: Synovial cyst. PRE-OPERATIVE DIAGNOSIS Ganglion left wrist. GROSS DESCRIPTION The specimen is received in formalin labeled Mandy HannaAmee Bautista, Ganglion Left Wrist, and consists of two fragments of tissue that in aggregate measure 1.0 x 1.2 x 0.5 cm. The specimen is submitted in its entirety for histologic examination in one cassette. Signed (signature on file) Jamel Guy MD 1316 END OF REPORT * ML=Testing performed at Main Lab DEPARTMENT OF PATHOLOGY, [address] [place] [address] Jamel Guy M.D. Director [facility] Permit #[id number] Procedures Date CPT Code Description Status 12/03/2016 27064 Walking Cast Completed 11/22/2016 93123 Implant Nerve End Into Bone Or Muscle Completed 11/22/2016 61720 Excision Neuroma, Major Peripheral Nerve Completed 11/22/2016 21003 Excision Neuroma, Major Peripheral Nerve Completed 12/20/2013 27584 Neuroplasty &/Or Transposition; Ulnar Nerve At Completed Elbow 12/20/2013 84531 Neuroplasty &/Or Transposition; Ulnar Nerve At Completed Elbow 08/08/2013 04797 Xray Knee 3 Views Completed 05/04/2013 26939 Carpal Tunnel Release Completed 05/04/2013 60243 Carpal Tunnel Release Completed 05/04/2013 87245 Neuroplasty &/Or Transposition; Ulnar Nerve At Completed Elbow 05/04/2013 51007 Neuroplasty &/Or Transposition; Ulnar Nerve At Completed Elbow 11/30/2012 65751 Neuroplasty &/Or Transposition; Ulnar Nerve At Completed Elbow 11/30/2012 75139 Neuroplasty &/Or Transposition; Ulnar Nerve At Completed Elbow 11/30/2012 54885 Carpal Tunnel Release Completed 08/18/2012 86360 Excision Ganglion Wrist/ Dorsal Or Volar; Primary Completed 08/18/2012 03988 Excision Ganglion Wrist/ Dorsal Or Volar; Primary Completed 08/27/2011 63619 Rad Exam; Foot Comp Completed 08/04/2011 98862 Rad Exam; Foot Comp Completed 07/14/2011 28640 Rad Exam; Foot Comp Completed 02/27/2009 58802 ECHO Stress Test Incl Perf Contiuous ekg Monitoring Completed W/Phys Superv 12/23/2008 45752 ECHO Transthoracic, Real-Time 2D With Doppler And Color Completed Flow 10/30/2008 61960 EKG Tracing & Interpretation Completed 01/29/2007 42250 Stress ECHO Interpretation/Report Hospital Completed 01/29/2007 46157 Stress ECHO Interpretation/Report Hospital Completed 01/29/2007 38441 Treadmill Interp/Report Only Completed 01/29/2007 55754 Stress Test Supervsn W/Out I/R Completed 01/29/2007 71240 Stress Test Supervsn W/Out I/R Completed Encounters Type Date Location Provider CPT E/M Dx Office Visit 03/08/2017 [facility] Leilani Nabil 31835 S46.011D 3:00p Of Matt BECKWITH M75.51 Office Visit 02/24/2017 9:45a [facility] Galeas 91592 G57.91 Matt Jeffery Office Visit 01/20/2017 1:15p [facility] Pete Ferrer 42255 M75.41 Matt BECKWITH M75.51 Office Visit 12/23/2016 9:00a [facility] Duke 61068 S43.421A Of Matt Ferrer MD Office Visit 10/15/2016 2:15p [facility] 90345 G57.91 Of Matt Jeffery Office Visit 09/21/2016 11:30a [facility] 64951 M79.671 Of Matt Jeffery G57.91 Office Visit 08/10/2016 9:30a [facility] 26859 M54.31 Matt Jeffery M79.671 Office Visit 11/07/2015 2:40p [facility] 53461 M54.31 Matt Jeffery Office Visit 09/19/2015 3:20p [facility] 60506 G57.91 Matt Jeffery Office Visit 09/19/2015 3:00p [facility] Torri Gonzalez M.D. 43213 M17.12 Matt M25.562 Office Visit 09/03/2015 11:30a [facility] Torri Gonzalez M.D. 22209 M25.562 C.M.A. M17.12 M25.462 Office Visit 08/04/2015 2:45p [facility] Torri Gonzalez M.D. 29404 M25.562 C.M.A. M17.12 M25.462 Office Visit 06/16/2015 10:30a [facility] Torri Gonzalez M.D. 07486 M17.12 C.M.A. S83.412A Office Visit 04/16/2015 2:30p [facility] [place] [address] M75.02 C.M.A. Office Visit 03/19/2015 1:00p [facility] [place] [address] M75.02 C.M.A. Office Visit 12/31/2014 4:10p [facility] 62514 G57.81 C.MJulio Cesar Jeffery Office Visit 10/15/2014 2:50p [facility] 12601 355.79 C.MJulio Cesar Jeffery Office Visit 09/20/2014 10:30a [facility] 56741 719.47 C.MJulio Cesar Jeffery Office Visit 08/30/2014 3:00p [facility] 83430 825.25 C.MJulio Cesar Jeffery 715.17 Office Visit 12/05/2013 9:15a [facility] Loren Cadena 43354 354.2 Of C.M.Francisco MEmelia Office Visit 11/12/2013 9:00a [facility] Torri Gonzalez M.D. 58553 715.96 Of C.M.A. Office Visit 10/08/2013 10:00a [facility] Torri Gonzalez M.D. 85040 715.96 Of C.M.A. 719.46 Office Visit 08/08/2013 2:30p [facility] Torri Gonzalez M.D. 26529 715.96 C.M.A. Office Visit 05/31/2013 11:15a [facility] Torri Gonzalez M.D. 80037 715.35 C.M.A. 715.96 Office Visit 04/25/2013 12:15p [facility] Torri Gonzalez M.D. 25630 715.35 C.M.A. 715.96 844.1 Office Visit 04/18/2013 10:45a [facility] Loren Cadena 24795 354.0 Of C.M.A. M.DAmee Office Visit 03/06/2013 10:30a [facility] Nevaeh PAGE Velásquez 12072 354.2 Of C.M.A. 354.0 727.43 Office Visit 10/18/2012 11:15a [facility] Loren Cadena 64827 354.2 Of C.M.A. M.DAmee Office Visit 07/19/2012 10:45a [facility] Loren Cadena 15766 727.43 Of C.M.A. M.DAmee Office Visit 12/27/2011 8:30a [facility] Loren Cadena, 32114 354.0 Of C.M.A. MAmeeDAmee 354.2 727.43 727.04 Office Visit 08/27/2011 9:30a [facility] Galeas 54588 727.09 C.M.A. MAmeeDAmee Office Visit 08/04/2011 11:30a [facility]ale[facility] 40164 719.47 C.M.A. MEmelia 729.81 Office Visit 07/14/2011 1:30p [facility] Gale[facility] 33321 719.47 C.M.A. MAmeeDAmee Office Visit 10/30/2008 10:20a [facility] S. 99640 786.50 Jose D Malcolm 401.1 278.00 794.31 Plan of Care 05/05/2017 - Pete Ferrer, MDS46.011D Strain of musc/tend the rotator cuff of right shoulder, subsNew Xrays:MRI Shoulder Right W/OFollow up:Follow up : after MRIM75.41 Impingement syndrome of right shoulder
[2017-05-05] MEDS ORDERED: Meclizine TAB* 12.5 MG PO ONE (19:12)
--- NOTE | 2017-05-05 19:26 | RAD ---
INDICATION: Shortness of breath. COMPARISON: Comparison is made with a prior study from March 19, 2015. TECHNIQUE: Dual-energy PA and lateral views of the chest were obtained. FINDINGS: The heart is within normal limits in size. Mediastinal and hilar contours appear within normal limits. The lungs are clear. No pleural effusion is present. IMPRESSION: NO EVIDENCE FOR ACTIVE CARDIOPULMONARY DISEASE.
[2017-05-05 19:43] LABS: ABS Basophils 0 10^3/ul (0-0.2); ABS Eosinophils 0.1 10^3/ul (0-0.6); ABS Lymphocytes 2.6 10^3/ul (1.0-4.8); ABS Monocytes 0.6 10^3/ul (0-0.8); ABS Neutrophils 4.9 10^3/ul (1.5-7.7); ABS Nucleated RBC 0 10^3/ul; EGFR Non-African American 78.4 (>60); Eosinophil % 1.1 % (0-6); Hematocrit 40 % (35-47); Hemoglobin 13.4 g/dl (12.0-16.0); Lymphocyte % 31.9 % (25-47); Mean Corpuscular HGB Conc 33 g/dl (31-36); Mean Corpuscular Hemoglobin 29 pg (27-31); Mean Corpuscular Volume 86 fL (80-97); Mean Platelet Volume 8 um3 (7.4-10.4); Nucleated Red Blood Cells % 0.2; Platelet Count 352 10^3/ul (150-450); Red Blood Count 4.68 10^6/ul (4.0-5.4); Red Cell Distribution Width 14 % (10.5-15); White Blood Count 8.3 10^3/ul (3.5-10.8)
--- NOTE | 2017-05-05 20:05 | ED ---
Shortness of Breath - HPI Summary HPI Summary: 57-year-old female presents with dizziness and shortness breath for the past hour. States she was sitting her kitchen and turned her head felt the dizziness. She has had the dizziness before. States that meclizine normally makes it better. She states that head movement makes her dizziness worse. She has history asthma states this doesn't feel like her normal asthma. She denies any chest pain. She denies abdominal pain nausea or vomiting. She denies any change in vision. She denies any blurry vision. She denies any photophobia. She denies any headache. She denies any head injury. Denies any recent illness. She denies any fevers. She denies any sinus congestion. She denies any ear pain. - History of Current Complaint Chief Complaint: EDShortnessOfBreath Time Seen by Provider: 05/05/17 18:59 - Allergy/Home Medications Allergies/Adverse Reactions: Allergies Allergy/AdvReac Type Severity Reaction Status Date / Time Sulfa (Sulfonamide Allergy Hives Verified 05/05/17 18:47 Antibiotics) Home Medications: Home Medications Cholecalciferol TAB* [Vitamin D TAB*] 2,000 unit PO DAILY 05/05/17 [History Confirmed 05/05/17] Cyanocobalamin TAB* [Vitamin B12 TAB*] 1,000 mcg IM MONTHLY 05/05/17 [History Confirmed 05/05/17] Diclofenac 1% GEL (NF) [Voltaren 1% GEL (NF)] 4 grams TOPICAL QID PRN 05/05/17 [ History Confirmed 05/05/17] EPINEPHrine SYR* [EPINEPHphrine SYR*] 0.3 mg IM ONCE PRN 05/05/17 [History Confirmed 05/05/17] Insulin Glargine,Hum.rec.anlog [Basaglar Kwikpen] 15 unit SUBCUT QPM 05/05/17 [ History Confirmed 05/05/17] tiZANidine TAB* [Zanaflex TAB*] 4 mg PO TID PRN 05/05/17 [History Confirmed ] PMH/Surg Hx/FS Hx/Imm Hx Endocrine/Hematology History: Reports: Hx Diabetes - Type 2 Denies: Hx Anticoagulant Therapy - She took one baby aspirin today., Hx Thyroid Disease Cardiovascular History: Reports: Hx Hypertension - controlled with meds Denies: Hx Angina, Hx Pacemaker/ICD Respiratory History: Reports: Hx Asthma - on meds Denies: Hx Chronic Obstructive Pulmonary Disease (COPD), Hx Lung Cancer, Hx Pneumonia, Hx Pulmonary Embolism GI History: Reports: Hx Gastroesophageal Reflux Disease Denies: Hx Gall Bladder Disease, Hx Gastrointestinal Bleed, Hx Ulcer, Hx Urosepsis History: Reports: Hx Kidney Stones Denies: Hx Renal Disease Musculoskeletal History: Reports: Hx Arthritis - Bilat knees, shoulders, Hx Tendonitis - L Wrist Sensory History: Reports: Hx Contacts or Glasses - glasses Denies: Hx Hearing Aid Opthamlomology History: Reports: Hx Contacts or Glasses - glasses Neurological History: Reports: Hx Migraine Denies: Hx Dementia, Hx Seizures, Hx Transient Ischemic Attacks (TIA) Psychiatric History: Reports: Hx Anxiety - prn Denies: Hx Depression, Hx Panic Disorder, Hx Schizophrenia, Hx Bipolar Disorder - Cancer History Hx Chemotherapy: No Hx Radiation Therapy: No - Surgical History Surgery Procedure, Year, and Place: 1991 GB [facility] 2003 HYSTERECTOMY [facility] BILATERAL CARPAL TUNNEL Hx Anesthesia Reactions: No - Immunization History Date of Influenza Vaccine: Fall 2016 Infectious Disease History: No Infectious Disease History: Denies: Hx Clostridium Difficile, Hx Human Immunodeficiency Virus (HIV), Hx of Known/Suspected MRSA, Hx Shingles, Hx Tuberculosis, Hx Known/Suspected VRE, Hx Known/Suspected VRSA, History Other Infectious Disease, Traveled Outside the [place] in Last 30 Days - Family History Known Family History: Positive: Cardiac Disease, Hypertension, Diabetes - Social History Alcohol Use: None Hx Substance Use: No Substance Use Type: Reports: None Hx Tobacco Use: Yes Smoking Status (MU): Former Smoker Type: Cigarettes Amount Used/How Often: LESS THEN 1PPD, only smoked 1/2 year Length of Time of Smoking/Using Tobacco: 1.5 YRS Have You Smoked in the Last Year: No Review of Systems Negative: Fever Negative: Chest Pain Positive: Shortness Of Breath Neurological: Other - dizziness All Other Systems Reviewed And Are Negative: Yes Physical Exam Triage Information Reviewed: Yes Vital Signs On Initial Exam: Initial Vitals Temp Pulse Resp BP Pulse Ox 97.5 F 96 20 176/95 97 05/05/17 15:52 05/05/17 15:52 05/05/17 15:52 05/05/17 15:52 05/05/17 15:52 Vital Signs Reviewed: Yes Appearance: Positive: Well-Appearing Skin: Positive: Warm, Dry Head/Face: Positive: Normal Head/Face Inspection Eyes: Positive: Normal, EOMI, CATRACHITA, Conjunctiva Clear, Other: - Nystagmus present ENT: Positive: Normal ENT inspection, Pharynx normal, TMs normal. Negative: Sinus tenderness Respiratory/Lung Sounds: Positive: Clear to Auscultation, Breath Sounds Present Cardiovascular: Positive: Normal, RRR Abdomen Description: Positive: Nontender, Soft Bowel Sounds: Positive: Present Musculoskeletal: Positive: Normal Neurological: Positive: Sensory/Motor Intact, Alert, Oriented to Person Place, Time, CN Intact II-III Psychiatric: Positive: Normal Diagnostics - Vital Signs Vital Signs Temp Pulse Resp BP Pulse Ox 05/05/17 20:00 77 96 05/05/17 19:00 150/85 05/05/17 18:44 82 158/84 05/05/17 18:43 82 14 158/84 96 05/05/17 18:32 82 15 97 05/05/17 18:30 145/89 05/05/17 18:29 156/88 05/05/17 15:52 97.5 F 96 20 176/95 97 - Laboratory Lab Results: Lab Results 05/05/17 05/05/17 05/05/17 Range/Units 19:14 19:14 19:14 WBC 8.3 (3.5-10.8) 10^3/ul RBC 4.68 (4.0-5.4) 10^6/ul Hgb 13.4 (12.0-16.0) g/dl Hct 40 (35-47) % MCV 86 (80-97) fL MCH 29 (27-31) pg MCHC 33 (31-36) g/dl RDW 14 (10.5-15) % Plt Count 352 (150-450) 10^3/ul MPV 8 (7.4-10.4) um3 Neut % (Auto) 59.6 (38-83) % Lymph % (Auto) 31.9 (25-47) % [place] % (Auto) 6.8 (0-7) % Eos % (Auto) 1.1 (0-6) % Baso % (Auto) 0.6 (0-2) % Absolute Neuts (auto) 4.9 (1.5-7.7) 10^3/ul Absolute Lymphs (auto) 2.6 (1.0-4.8) 10^3/ul Absolute Monos (auto) 0.6 (0-0.8) 10^3/ul Absolute Eos (auto) 0.1 (0-0.6) 10^3/ul Absolute Basos (auto) 0 (0-0.2) 10^3/ul Absolute Nucleated RBC 0 10^3/ul Nucleated RBC % 0.2 D-Dimer, Quantitative < 200 (Less Than 230) ng/mL Sodium 139 (133-145) mmol/L Potassium 4.1 (3.5-5.0) mmol/L Chloride 102 (101-111) mmol/L Carbon Dioxide 30 (22-32) mmol/L Anion Gap 7 (2-11) mmol/L BUN 13 (6-24) mg/dL Creatinine 0.76 (0.51-0.95) mg/dL Est GFR ( Amer) 100.9 (>60) Est GFR (Non-Af Amer) 78.4 (>60) BUN/Creatinine Ratio 17.1 (8-20) Glucose 134 H (70-100) mg/dL Calcium 10.0 (8.6-10.3) mg/dL Total Bilirubin 0.20 (0.2-1.0) mg/dL AST 23 (13-39) U/L ALT 37 (7-52) U/L Alkaline Phosphatase 122 H (34-104) U/L Troponin I 0.01 (<0.04) ng/mL C-React Prot High Sens 15.50 mg/L Total Protein 7.7 (6.4-8.9) g/dL Albumin 4.4 (3.2-5.2) g/dL Globulin 3.3 (2-4) g/dL Albumin/Globulin Ratio 1.3 (1-3) Result Diagrams: 05/05/17 19:14 05/05/17 19:14 Lab Statement: Any lab studies that have been ordered have been reviewed, and results considered in the medical decision making process. - EKG No standard instances EKG Rhythm: Sinus Rhythm EKG Interpretation: sinus rhythmn Re-Evaluation - Re-Evaluation First Eval Change: Improved Comment: no longer dizzy Course/Dx - Course Course Of Treatment: 57-year-old female presents with dizziness and shortness breath for the past hour. States she was sitting her kitchen and turned her head felt the dizziness. She has had the dizziness before. States that meclizine normally makes it better. She states that head movement makes her dizziness worse. She has history asthma states this doesn't feel like her normal asthma. She denies any chest pain. She denies abdominal pain nausea or vomiting. She denies any change in vision. She denies any blurry vision. She denies any photophobia. She denies any headache. She denies any head injury. Denies any recent illness. She denies any fevers. She denies any sinus congestion. She denies any ear pain. On exam lungs clear to auscultation. Normal neuro exam. Heart regular rate and rhythm. EKG normal similar to previous. Labs without any abnormality. Gave meclizine and symptoms resolved. We'll give meclizine to go home with. Patient understands and agrees with plan - Diagnoses Differential Diagnosis/HQI/PQRI: Positive: Asthma, Pulmonary Embolism, Other - BPPV Provider Diagnoses: Dizziness, Shortness of breath Discharge - Discharge Plan Condition: Good Disposition: HOME Prescriptions: Meclizine TAB* [Antivert 12.5 TAB*] 25 mg PO TID #12 tab Patient Education Materials: Vertigo (ED) Referrals: Alana Jones MD [Primary Care Provider] - Additional Instructions: Take meclizine up to 3 tablets a day for vertigo Drink plenty of fluids Follow up with primary within 5 days Return to ED if develop any new or worsening symptoms
[2017-05-05 20:29] VITALS: BP 145/85
== END 2017-05-05 20:31 | disposition home or self-care (01) ==
LOC: ED 15:49
DX: R42 Dizziness and giddiness (principal); R06.02 Shortness of breath; E11.9 Type 2 diabetes mellitus without complications; I10 Essential (primary) hypertension; J45.909 Unspecified asthma, uncomplicated; K21.9 Gastro-esophageal reflux disease without esophagitis; F41.9 Anxiety disorder, unspecified; Z87.891 Personal history of nicotine dependence
CPT/HCPCS: 36415; 71046; 80053; 84484; 85025; 85379; 86141; 93005; 99283; A9270-GY

== ENCOUNTER 2017-05-26 11:31 | Emergency (ER) | payer OTHER ==
[2017-05-26] MEDS ORDERED: Ketorolac INJ* 60 MG/2 ML VIAL IM ONE (12:31)
--- NOTE | 2017-05-26 13:01 | ED ---
Upper Extremity Pain - HPI Summary HPI Summary: Pt. is a 57y.o female who presents to the ER for chronic right shoulder pain. Pt. states she fell 6mos. ago and since has been having right shoulder pain. She states she saw ortho. Carisa, after injury and had xrays performed. Xrays showed arthritic changes. Pt. denies any new injury or falls. She denies CP or SOB. Has been taking tylenol with no relief of pian. Symptoms are mild in severity. Movement makes symptoms worse. Nothing makes symptoms better. - History of Current Complaint Chief Complaint: EDShoulderClavicNicolej Stated Complaint: RT SHOULDER PAIN Time Seen by Provider: 05/26/17 12:12 Hx Obtained From: Patient Hx Last Menstrual Period: hysterectomy Mechanism Of Injury: Fall From A Standing Position Onset/Duration: Still Present Timing: Constant Severity Initially: Moderate Severity Currently: Moderate Pain Location: Shoulder Character: Sharp Aggravating Factor(s): Movement Alleviating Factor(s): Nothing Associated Signs & Symptoms: Positive: Negative - Risk Factors Non-Orthopedic Risk Factor: Negative DVT Risk Factors: Negative Septic Arthritis Risk Factor: Negative - Allergies/Home Medications Allergies/Adverse Reactions: Allergies Allergy/AdvReac Type Severity Reaction Status Date / Time Sulfa (Sulfonamide Allergy Hives Verified 05/24/17 15:11 Antibiotics) PMH/Surg Hx/FS Hx/Imm Hx Previously Healthy: No - Chronic medical problems Endocrine/Hematology History: Reports: Hx Diabetes - Type 2 Denies: Hx Anticoagulant Therapy - She took one baby aspirin today., Hx Thyroid Disease Cardiovascular History: Reports: Hx Hypertension - controlled with meds Denies: Hx Angina, Hx Pacemaker/ICD Respiratory History: Reports: Hx Asthma - on meds Denies: Hx Chronic Obstructive Pulmonary Disease (COPD), Hx Lung Cancer, Hx Pneumonia, Hx Pulmonary Embolism GI History: Reports: Hx Gastroesophageal Reflux Disease Denies: Hx Gall Bladder Disease, Hx Gastrointestinal Bleed, Hx Ulcer, Hx Urosepsis History: Reports: Hx Kidney Stones Denies: Hx Renal Disease Musculoskeletal History: Reports: Hx Arthritis - Bilat knees, shoulders, Hx Tendonitis - L Wrist Sensory History: Reports: Hx Contacts or Glasses - glasses Denies: Hx Hearing Aid Opthamlomology History: Reports: Hx Contacts or Glasses - glasses Neurological History: Reports: Hx Migraine Denies: Hx Dementia, Hx Seizures, Hx Transient Ischemic Attacks (TIA) Psychiatric History: Reports: Hx Anxiety - prn Denies: Hx Depression, Hx Panic Disorder, Hx Schizophrenia, Hx Bipolar Disorder - Cancer History Hx Chemotherapy: No Hx Radiation Therapy: No - Surgical History Surgery Procedure, Year, and Place: 1991 CHOLECYSTECTOMY. 2003 HYSTERECTOMY [facility]. BILATERAL CARPAL TUNNEL Hx Anesthesia Reactions: No - Immunization History Date of Influenza Vaccine: Fall 2016 Infectious Disease History: No Infectious Disease History: Denies: Hx Clostridium Difficile, Hx Human Immunodeficiency Virus (HIV), Hx of Known/Suspected MRSA, Hx Shingles, Hx Tuberculosis, Hx Known/Suspected VRE, Hx Known/Suspected VRSA, History Other Infectious Disease, Traveled Outside the [place] in Last 30 Days - Family History Known Family History: Positive: Cardiac Disease, Hypertension, Diabetes - Social History Occupation: Unemployed Lives: With Family Alcohol Use: None Hx Substance Use: No Substance Use Type: Reports: None Hx Tobacco Use: Yes Smoking Status (MU): Former Smoker Type: Cigarettes Amount Used/How Often: LESS THEN 1PPD, only smoked 1/2 year Length of Time of Smoking/Using Tobacco: 1.5 YRS Have You Smoked in the Last Year: No Review of Systems - ROS Summary Review of Systems Summary: Appearance: Pt. is awake and alert. Patient sitting up in bed, tearful. No acute distress. present. Skin: Warm, dry. Head/Face: No trauma. Normocephalic. Eyes: PERRLA. Neck: Full ROM. ENT: Nose without drainage. Oropharynx patent. MS/Extremity: 5 out of 5 strength in right upper extremity. Good palpable radial pulse. No edema, erythema or wounds to the arm. Limited range of motion secondary to pain. Diffuse pain on palpation over the clavicle and shoulder. Neuro: Awake, alert. Cranial nerves II through XII grossly intact. Pscyh: Normal affect. All Other Systems Reviewed And Are Negative: Yes Physical Exam Triage Information Reviewed: Yes Vital Signs On Initial Exam: Initial Vitals Temp Pulse Resp BP Pulse Ox 97.0 F 82 16 159/87 96 05/26/17 11:35 05/26/17 11:35 05/26/17 11:35 05/26/17 11:35 05/26/17 11:35 Vital Signs Reviewed: Yes Appearance: Positive: Pain Distress Skin: Positive: Warm, Dry Head/Face: Positive: Normal Head/Face Inspection Eyes: Positive: Normal Diagnostics - Vital Signs Vital Signs Temp Pulse Resp BP Pulse Ox 05/26/17 11:35 97.0 F 82 16 159/87 96 - Laboratory Lab Statement: Any lab studies that have been ordered have been reviewed, and results considered in the medical decision making process. Course/Dx - Course Course Of Treatment: Patient presenting for chronic right shoulder pain. Pain is reproducible. She denies chest pain or shortness of breath. She is afebrile. No evidence of a DVT to extremity. No recent injuries, no imaging was ordered. Patient was given a dose of Toradol for pain. Recommend patient return to her orthopedic doctor for reevaluation and possible MRI. Naproxen prescribed for pain. - Diagnoses Differential Diagnosis/HQI/PQRI: Positive: Arthritis, Strain, Sprain Provider Diagnoses: Shoulder pain Discharge - Sign-Out/Discharge Documenting (check all that apply): Discharge - Discharge Plan Condition: Good Disposition: HOME Prescriptions: Naproxen TAB* [Naprosyn 250 mg TAB*] 500 mg PO BID 10 Days #20 tab Patient Education Materials: Shoulder Pain (ED) Referrals: Pete Ferrer MD [Medical Doctor] - Alana Jones MD [Primary Care Provider] - Additional Instructions: Call Dr. Ferrer's office today to schedule an appointment Naproxen as directed for pain Ice shoulder intermittently Return to ER if symptoms change or worsen - Billing Disposition and Condition Condition: GOOD Disposition: HOME
[2017-05-26 13:52] VITALS: BP 159/97
== END 2017-05-26 13:49 | disposition home or self-care (01) ==
LOC: ED 11:31
DX: M25.511 Pain in right shoulder (principal); Z87.891 Personal history of nicotine dependence; E11.9 Type 2 diabetes mellitus without complications
CPT/HCPCS: 96372; 99281

== ENCOUNTER 2017-07-31 15:14 | Emergency (ER) | payer OTHER ==
--- OUTSIDE RECORDS SUMMARY | 2017-07-31 15:47 | XMS REPORT ---
:1960 External Reference #:[id number] Author Organization [employer] Address [address] [address] Phone [phone] Care Team Providers Name Role Phone Alana Jones MD Primary Care Physician Unavailable Payers Type Date Identification Numbers Payment Provider Subscriber Commercial Policy Number: [id number] [employer] Mandy Gilliland PayID: [id number] [address] [address] [place] [address] Problems Date Description Provider Status Onset: 08/04/2015 Localized, primary osteoarthritis Torri Gonzalez M.D. Active Family History Date Family Member(s) Problem(s) Comments General Diabetes Father due to bone CA () Father due to [place] () - age 54 yr Mother DM, [...] Form Strength Qnty SIG Indications Ordering Provider Diazepam 06/09/ Active Tablets 5mg 2tabs take 1-2 S46.011D Pete 2018 tabs prn F prior to Nabil, mri Cyclobenzaprine 11/06/ Active Tablets 10mg 60tabs one by M54.31 Andrew HCL 2015 mouth Adal three Sepideh.DAmee times a day as needed spasm Metoprolol / Active Tablets ER 50mg 1 po bid Unknown Succinate 0000 24HR Amlodipine / Active Tablets 10mg 90tabs 1 po qd Unknown Besylate 0000 Gabapentin 11/24/ Hx Capsules 100mg 30caps 1 capsule Andrew 2016 - by mouth Adal 03/07/ every M.D. 2017 night at bedtime as needed, may increase to 2 tabs at night if needed Knee Scooter 11/23/ Hx G57.91 Andrew 2016 - Adal 06/08/ M.D. 2018 M79.671 Oxycodone HCL 11/18/2016 - Hx Tablets 5mg 30tabs 1-2 tabs by Andrew 03/07/2017 mouth every Jose D Galeas 4-6 hours as needed Naproxen 11/07/2015 - Hx Tablets 500mg 90tabs 1 by mouth M54. Andrew 10/14/2016 twice a day 31 Jose D Galeas as needed Tramadol HCL 09/03/2015 - Hx Tablets 50mg 60tabs 1 tablet by M25. Torri Gonzalez, 10/28/2015 mouth every 562 M.D. 6 hours as needed pain Naproxen 06/16/2015 - Hx Tablets 500mg 60tabs 1 tablet by M17. Emily 03/07/2017 mouth with 12 Bordoni, [employer] food twice daily for pain Gabapentin 10/15/2014 - Hx Capsules 300mg 90caps take 1 Andrew 09/02/2015 capsule by Jose D Galeas mouth every morning and take 1 capsules by mouth at bedtime -- maximum dose of 2 per day Diazepam 10/29/2013 - Hx Tablets 5mg 2tabs 1 tab 30 Andrew 10/14/2016 minutes Jose D Galeas before mri, may take a second tablet if needed Naproxen 04/25/2013 - Hx Tablets 500mg 40tabs 1 tablet Torri Gonzalez, 03/18/2015 with food po M.D. bid [place] 04/18/2013 - Hx Tablets 5-325mg 30tabs 1-2 by mouth Loren 10/14/2016 every 4 Lira-Young, hours as M.D. needed Ibuprofen 01/05/2013 - Hx Tablets 600mg 120tabs tid with Loren 03/18/2015 food Jose D Cadena [place] 11/20/2012 - Hx Tablets 5-325mg 60tabs take 1-2 tab Loren 03/06/2013 po q4-6hours Tammi prn pain M.DAmee Vital Signs Date Vital Result Comment 07/04/2017 Height 66 inches 5'6" Weight 220.00 lb Heart Rate 74 /min Respiratory Rate 15 /min Pain Level 5 BMI (Body Mass Index) 35.5 kg/m2 06/09/2017 Height 66 inches 5'6" Weight 220.00 lb Heart Rate 76 /min Respiratory Rate 18 /min Pain Level 7 BMI (Body Mass Index) 35.5 kg/m2 05/05/2017 Height 66 inches 5'6" Weight 220.00 [...] 5 Kidney failure <15 (or dialysis) 3 District Medical Examiner: [id number] 4 RUN DATE: 12/24/13 [facility] LAB LIVE PAGE 1 RUN TIME: [address] [place] [id number] Specimen Inquiry Name: MANDY GILLILAND Cyndi : [address]: Loren Cadena Acct: [id number] Unit: [id number] AGE: 53 Location: [facility] Re12/20/13 SEX: F Status: REG [facility] SPEC: [id number] MILTON: 12/20/13- SUBM DR: Loren Cadena MD REQ: [id number] RECD: 12/20/13-160 STATUS: SOUT _ ORDERED: LEVEL II FINAL DIAGNOSIS Intramuscular septum, right elbow: Fibroadipose and fibrovascular tissue with pronounced fibrosis and focal neovascularization. PRE-OPERATIVE DIAGNOSIS Lesion ulnar nerve right elbow GROSS DESCRIPTION The specimen is received in formalin labeled Mandy Lauren Gilliland, Inner Muscular Septum Right Elbow and consists of a 3.0 x 0.5 x 0.3 cm. portion of barone-white tissue. Submitted entirely, one cassette. Signed (signature on file) Jamel Guy MD 1347 END OF REPORT * ML=Testing performed at Main Lab DEPARTMENT OF PATHOLOGY, [facility] [employer] [place], [place] [address] Jamel Guy M.D. Director [facility] # [id number] 5 RUN DATE: 08/23/12 [facility] LAB LIVE PAGE 1 RUN TIME: 1317 [facility] [address] [place], [place] [address] Specimen Inquiry Name: MANDY GILLILAND : [address]: Loren Cadena Acct: [id number] Unit: [id number] AGE: 52 Location: [facility] Re08/18/12 SEX: F Status: REG [facility] SPEC: [id number] MILTON: 08/18/12- SUBM DR: Loren Cadena MD REQ: [id number] RECD: 08/18/12 STATUS: SOUT _ ORDERED: LEVEL [...] performed at Main Lab DEPARTMENT OF PATHOLOGY, [address] [place] [address] Jamel Guy M.D. Director [facility] Permit #[id number] Procedures Date CPT Code Description Status 07/04/2017 70674 Inject/Drain Joint/Bursa Major Completed 12/03/2016 69437 Walking Cast Completed 11/22/2016 39443 Implant Nerve End Into Bone Or Muscle Completed 11/22/2016 38091 Excision Neuroma, Major Peripheral Nerve Completed 11/22/2016 24816 Excision Neuroma, Major Peripheral Nerve Completed 12/20/2013 94747 Neuroplasty &/Or Transposition; Ulnar Nerve AT Completed Elbow 12/20/2013 53080 Neuroplasty &/Or Transposition; Ulnar Nerve AT Completed Elbow 08/08/2013 63801 Xray Knee 3 Views Completed 05/04/2013 67816 Carpal Tunnel Release Completed 05/04/2013 14910 Carpal Tunnel Release Completed 05/04/2013 67759 Neuroplasty &/Or Transposition; Ulnar Nerve AT Completed Elbow 05/04/2013 95630 Neuroplasty &/Or Transposition; Ulnar Nerve AT Completed Elbow 11/30/2012 08893 Neuroplasty &/Or Transposition; Ulnar Nerve AT Completed Elbow 11/30/2012 44840 Neuroplasty &/Or Transposition; Ulnar Nerve AT Completed Elbow 11/30/2012 47554 Carpal Tunnel Release Completed 08/18/2012 01044 Excision Ganglion Wrist/ Dorsal Or Volar; Primary Completed 08/18/2012 87452 Excision Ganglion Wrist/ Dorsal Or Volar; Primary Completed 08/27/2011 10699 Rad Exam; Foot Comp Completed 08/04/2011 35858 Rad Exam; Foot Comp Completed 07/14/2011 67964 Rad Exam; Foot Comp Completed 02/27/2009 72101 ECHO Stress Test Incl Perf Contiuous ekg Monitoring Completed W/Phys Superv 12/23/2008 75902 ECHO Transthoracic, Real-Time 2D With Doppler And Color Completed Flow 10/30/2008 86875 EKG Tracing & Interpretation Completed 01/29/2007 30782 Stress ECHO Interpretation/Report Hospital Completed 01/29/2007 72068 Stress ECHO Interpretation/Report Hospital Completed 01/29/2007 22888 Treadmill Interp/Report Only Completed 01/29/2007 75072 Stress Test Supervsn W/Out I/R Completed 01/29/2007 38509 Stress Test Supervsn W/Out I/R Completed Encounters Type Date Location Provider CPT E/M Dx Office Visit 06/09/2017 [facility] Pete Ferrer 80412 S46.011D 1:00p Of Matt BECKWITH M75.41 M75.51 Office Visit 05/05/2017 10:30a [facility] Pete Duke 39238 S46.011D Of Matt Ferrer MD M75.41 Office Visit 03/08/2017 3:00p [facility] Pete Duke 56022 S46.011D Of Matt Ferrer MD M75.51 Office Visit 02/24/2017 9:45a [facility] Of Andrew Galeas 64486 G57.91 Matt Jeffery Office Visit 01/20/2017 1:15p [facility] Pete Ferrer 89360 M75.41 Matt BECKWITH M75.51 Office Visit 12/23/2016 9:00a [facility] Pete Duke 40281 S43.421A Of Matt Ferrer MD Office Visit 10/15/2016 2:15p [facility] Andrew Galeas 60855 G57.91 Of C.M.AAmee MAmeeDAmee Office Visit 09/21/2016 11:30a [facility] Andrew Galeas 55613 M79.671 Of C.M.Francisco Jeffery G57.91 Office Visit 08/10/2016 9:30a [facility] Andrew Galeas, 19247 M54.31 C.M.Francisco Jeffery M79.671 Office Visit 11/07/2015 2:40p [facility] Andrew Galeas, 25937 M54.31 C.M.A. MAmeeD. Office Visit 09/19/2015 3:00p [facility] Torri Gonzalez M.D. 67269 M17.12 C.M.A. M25.562 Office Visit 09/19/2015 3:20p [facility] Andrew Galeas, 83403 G57.91 C.M.AAmee MMilan. Office Visit 09/03/2015 11:30a [facility] Torri Gonzalez M.D. 01660 M25.562 C.M.A. M17.12 M25.462 Office Visit 08/04/2015 2:45p [facility] Torri Gonzalez M.D. 44474 M25.562 C.M.A. M17.12 M25.462 Office Visit 06/16/2015 10:30a [facility] Torri Gonzalez M.D. 74070 M17.12 C.M.A. S83.412A Office Visit 04/16/2015 2:30p [facility] [place] [address] M75.02 C.M.A. Office Visit 03/19/2015 1:00p [facility] [place] [address] M75.02 C.M.A. Office Visit 12/31/2014 4:10p [facility] Andrew Adal 96505 G57.81 C.M.A. M.D. Office Visit 10/15/2014 2:50p [facility] Andrew Galeas 06348 355.79 C.M.A. MAmeeD. Office Visit 09/20/2014 10:30a [facility] Andrew Galeas, 65639 719.47 C.M.Francisco MAmeeDAmee Office Visit 08/30/2014 3:00p [facility] Andrew Galeas, 16337 825.25 C.M.Sari. Jose D 715.17 Office Visit 12/05/2013 9:15a [facility] Loren Cadena, 24733 354.2 Of C.M.Francisco MAmeeD. Office Visit 11/12/2013 9:00a [facility] Torri Gonzalez M.D. 52106 715.96 Of C.M.A. Office Visit 10/08/2013 10:00a [facility] Torri Gonzalez M.D. 53380 715.96 Of C.M.A. 719.46 Office Visit 08/08/2013 2:30p [facility] Torri Gonzalez M.D. 58459 715.96 C.M.A. Office Visit 05/31/2013 11:15a [facility] Torri Gonzalez M.D. 88262 715.35 C.M.A. 715.96 Office Visit 04/25/2013 12:15p [facility] Torri Gonzalez M.D. 37462 715.35 C.M.A. 715.96 844.1 Office Visit 04/18/2013 10:45a [facility] Loren Cadena, 85385 354.0 Of C.M.Francisco MAmeeDAmee Office Visit 03/06/2013 10:30a [facility] PAGE Jose 58631 354.2 Of C.M.A. 354.0 727.43 Office Visit 10/18/2012 11:15a [facility] Loren Cadena 06023 354.2 Of C.M.A. M.DAmee Office Visit 07/19/2012 10:45a [facility] Loren Cadena 33943 727.43 Of C.M.A. M.D. Office Visit 12/27/2011 8:30a [facility] Loren Cadena, 11793 354.0 Of C.M.Francisco Jeffery 354.2 727.43 727.04 Office Visit 08/27/2011 9:30a [facility] Andrew Galeas, 35115 727.09 Matt Jeffery Office Visit 08/04/2011 11:30a [facility] [place]ale[facility], 15311 719.47 C.Sanjuanita Jeffery 729.81 Office Visit 07/14/2011 1:30p [facility] Andrew Galeas, 84197 719.47 CFaith Jeffery Office Visit 10/30/2008 10:20a [facility] S. 27375 786.50 Jose D Malcolm 401.1 278.00 794.31 Plan of Care Future Appointment(s):08/15/2017 3:00 pm - Pete Ferrer MD at [facility] C.M.A.07/04/2017 - Pete Ferrer, MDS46.011D Strain of musc/tend the rotator cuff of right shoulder, subsFollow up:Follow up: 6 lunznT33.41 Impingement syndrome of right gebbazgvJ25.51 Bursitis of right shoulder
[2017-07-31 16:19] LABS: ABS Basophils 0 10^3/ul (0-0.2); ABS Eosinophils 0 10^3/ul (0-0.6); ABS Lymphocytes 2.1 10^3/ul (1.0-4.8); ABS Monocytes 0.5 10^3/ul (0-0.8); ABS Neutrophils 2.7 10^3/ul (1.5-7.7); ABS Nucleated RBC 0 10^3/ul; Eosinophil % 0.6 % (0-6); Hematocrit 40 % (35-47); Hemoglobin 13.4 g/dl (12.0-16.0); Lymphocyte % 39.3 % (25-47); Mean Corpuscular HGB Conc 33 g/dl (31-36); Mean Corpuscular Hemoglobin 29 pg (27-31); Mean Corpuscular Volume 87 fL (80-97); Mean Platelet Volume 7.7 um3 (7.4-10.4); Nucleated Red Blood Cells % 0.2; Platelet Count 300 10^3/ul (150-450); Red Blood Count 4.65 10^6/ul (4.0-5.4); Red Cell Distribution Width 14 % (10.5-15); White Blood Count 5.4 10^3/ul (3.5-10.8)
[2017-07-31 16:30] LABS: EGFR Non-African American 70.9 (>60)
[2017-07-31] MEDS ORDERED: Ketorolac INJ* 30 MG/ML 1 ML VIAL IM ONE (18:08)
[2017-07-31 18:12] LABS: Urine Appearance Cloudy; Urine Blood Negative (Negative); Urine Color Yellow; Urine Ketones Trace (Negative); Urine Protein Negative (Negative); Urine Specific Gravity 1.024 (1.010-1.030); Urine Urobilinogen Negative (Negative)
--- NOTE | 2017-07-31 18:14 | ED ---
GI/ HPI - HPI Summary HPI Summary: 57-year-old female presents with flank pain for the past week. pain occasionally radiates to her right flank. She denies any pains urination no urgency or frequency. She has history kidney stones states this does not feel same. States that she gets muscle spasms with pain. No midline tenderness. No injury. No saddle anaesthesia or loss of bowel or bladder. Pain does not radiate into her legs. Never had this pain before. Denies any belly pain. No vaginal discharge. She denies any constipation. No blood in her stool. No nausea and no vomiting. No chest pain or shortness of breath. She states she took a muscle relaxer and Tylenol and ibuprofen without relief. - History of Current Complaint Chief Complaint: EDFlankPain Time Seen by Provider: 07/31/17 17:54 Stated Complaint: BACK PAIN Hx Last Menstrual Period: hysterectomy Pain Intensity: 9 - Allergy/Home Medications Allergies/Adverse Reactions: Allergies Allergy/AdvReac Type Severity Reaction Status Date / Time Sulfa (Sulfonamide Allergy Hives Verified 07/31/17 15:20 Antibiotics) PMH/Surg Hx/FS Hx/Imm Hx Endocrine/Hematology History: Reports: Hx Diabetes - Type 2 Denies: Hx Anticoagulant Therapy - She took one baby aspirin today., Hx Thyroid Disease Cardiovascular History: Reports: Hx Hypertension - controlled with meds Denies: Hx Angina, Hx Pacemaker/ICD Respiratory History: Reports: Hx Asthma - on meds Denies: Hx Chronic Obstructive Pulmonary Disease (COPD), Hx Lung Cancer, Hx Pneumonia, Hx Pulmonary Embolism GI History: Reports: Hx Gastroesophageal Reflux Disease Denies: Hx Gall Bladder Disease, Hx Gastrointestinal Bleed, Hx Ulcer, Hx Urosepsis History: Reports: Hx Kidney Stones Denies: Hx Renal Disease Musculoskeletal History: Reports: Hx Arthritis - Bilat knees, shoulders, Hx Tendonitis - L Wrist Sensory History: Reports: Hx Contacts or Glasses - glasses Denies: Hx Hearing Aid Opthamlomology History: Reports: Hx Contacts or Glasses - glasses Neurological History: Reports: Hx Migraine Denies: Hx Dementia, Hx Seizures, Hx Transient Ischemic Attacks (TIA), Other Neuro Impairments/Disorders Psychiatric History: Reports: Hx Anxiety - prn Denies: Hx Depression, Hx Panic Disorder, Hx Schizophrenia, Hx Bipolar Disorder - Cancer History Hx Chemotherapy: No Hx Radiation Therapy: No - Surgical History Surgery Procedure, Year, and Place: 1991 CHOLECYSTECTOMY. 2003 HYSTERECTOMY [facility]. BILATERAL CARPAL TUNNEL Hx Anesthesia Reactions: No - Immunization History Date of Influenza Vaccine: Fall 2016 Infectious Disease History: No Infectious Disease History: Denies: Hx Clostridium Difficile, Hx Human Immunodeficiency Virus (HIV), Hx of Known/Suspected MRSA, Hx Shingles, Hx Tuberculosis, Hx Known/Suspected VRE, Hx Known/Suspected VRSA, History Other Infectious Disease, Traveled Outside the [place] in Last 30 Days - Family History Known Family History: Positive: Cardiac Disease, Hypertension, Diabetes - Social History Alcohol Use: None Hx Substance Use: No Substance Use Type: Reports: None Hx Tobacco Use: Yes Smoking Status (MU): Former Smoker Type: Cigarettes Amount Used/How Often: LESS THEN 1PPD, only smoked 1/2 year Length of Time of Smoking/Using Tobacco: 1.5 YRS Have You Smoked in the Last Year: No Review of Systems Negative: Fever Negative: Chest Pain Negative: Shortness Of Breath Positive: Diarrhea. Negative: Abdominal Pain, Vomiting, Nausea Positive: flank pain All Other Systems Reviewed And Are Negative: Yes Physical Exam Triage Information Reviewed: Yes Vital Signs On Initial Exam: Initial Vitals Temp Pulse Resp BP Pulse Ox 97.4 F 89 17 136/90 96 07/31/17 15:15 07/31/17 15:15 07/31/17 15:15 07/31/17 15:15 07/31/17 15:15 Vital Signs Reviewed: Yes Appearance: Positive: Well-Appearing Skin: Positive: Warm, Dry Head/Face: Positive: Normal Head/Face Inspection Eyes: Positive: Normal, Conjunctiva Clear Respiratory/Lung Sounds: Positive: Clear to Auscultation, Breath Sounds Present Cardiovascular: Positive: Normal, RRR Abdomen Description: Positive: Nontender, Soft, CVA Tenderness (L) Bowel Sounds: Positive: Present Musculoskeletal: Positive: Normal Neurological: Positive: Normal Psychiatric: Positive: Normal Diagnostics - Vital Signs Vital Signs Temp Pulse Resp BP Pulse Ox 07/31/17 17:13 97.5 F 81 17 131/80 98 07/31/17 15:15 97.4 F 89 17 136/90 96 - Laboratory Lab Results: Lab Results 07/31/17 07/31/17 07/31/17 Range/Units 16:04 16:04 16:04 WBC 5.4 (3.5-10.8) 10^3/ul RBC 4.65 (4.0-5.4) 10^6/ul Hgb 13.4 (12.0-16.0) g/dl Hct 40 (35-47) % MCV 87 (80-97) fL MCH 29 (27-31) pg MCHC 33 (31-36) g/dl RDW 14 (10.5-15) % Plt Count 300 (150-450) 10^3/ul MPV 7.7 (7.4-10.4) um3 Neut % (Auto) 50.3 (38-83) % Lymph % (Auto) 39.3 (25-47) % [place] % (Auto) 9.4 H (0-7) % Eos % (Auto) 0.6 (0-6) % Baso % (Auto) 0.4 (0-2) % Absolute Neuts (auto) 2.7 (1.5-7.7) 10^3/ul Absolute Lymphs (auto) 2.1 (1.0-4.8) 10^3/ul Absolute Monos (auto) 0.5 (0-0.8) 10^3/ul Absolute Eos (auto) 0 (0-0.6) 10^3/ul Absolute Basos (auto) 0 (0-0.2) 10^3/ul Absolute Nucleated RBC 0 10^3/ul Nucleated RBC % 0.2 Sodium 138 L (139-145) mmol/L Potassium 3.8 (3.5-5.0) mmol/L Chloride 103 (101-111) mmol/L Carbon Dioxide 25 (22-32) mmol/L Anion Gap 10 (2-11) mmol/L BUN 14 (6-24) mg/dL Creatinine 0.83 (0.51-0.95) mg/dL Est GFR ( Amer) 91.1 (>60) Est GFR (Non-Af Amer) 70.9 (>60) BUN/Creatinine Ratio 16.9 (8-20) Glucose 107 H (70-100) mg/dL Lactic Acid 1.6 (0.5-2.0) mmol/L Calcium 9.6 (8.6-10.3) mg/dL Total Bilirubin 0.40 (0.2-1.0) mg/dL AST 22 (13-39) U/L ALT 35 (7-52) U/L Alkaline Phosphatase 126 H (34-104) U/L C-Reactive Protein 18.54 H (< 5.00) mg/L Total Protein 7.6 (6.4-8.9) g/dL Albumin 4.2 (3.2-5.2) g/dL Globulin 3.4 (2-4) g/dL Albumin/Globulin Ratio 1.2 (1-3) Lipase 52 (11.0-82.0) U/L Result Diagrams: 07/31/17 16:04 07/31/17 16:04 Lab Statement: Any lab studies that have been ordered have been reviewed, and results considered in the medical decision making process. - CT abd CT Interpretation: No Acute Changes - 1. Normal appendix. 2. No acute inflammatory change of the gastrointestinal tract within the limitations of a non-IV nonoral contrast CT examination. 3. Likely hepatic steatosis. 4. Chronic , degenerative and iatrogenic findings described in the body the report. CT Interpretation Completed By: Radiologist FELICIA Course/Dx - Course Course Of Treatment: 57-year-old female presents with flank pain for the past week. pain occasionally radiates to her right flank. She denies any pains urination no urgency or frequency. She has history kidney stones states this does not feel same. States that she gets muscle spasms with pain. No midline tenderness. No injury. No saddle anaesthesia or loss of bowel or bladder. Pain does not radiate into her legs. Never had this pain before. Denies any belly pain. No vaginal discharge. She denies any constipation. No blood in her stool. No nausea and no vomiting. No chest pain or shortness of breath. She states she took a muscle relaxer and Tylenol and ibuprofen without relief. Tenderness left CVA. Nontender abdomen. white Blood cell normal. urine normal. CT normal. Explained likely muscular. We'll try switching muscle relaxers to robaxin and add lidocaine patches. Told to follow with primary. Patient understands agrees with plan. - Diagnoses Differential Diagnoses - Female: Pyelonephritis, Urinary Tract Infection, Ureteral Calculi Provider Diagnoses: Left flank pain Discharge - Sign-Out/Discharge Documenting (check all that apply): Discharge/Admit/Transfer - Discharge Plan Condition: Good Disposition: HOME Prescriptions: Lidocaine PATCH 5%* [Lidoderm 5% Patch*] 1 patch TRANSDERM DAILY #5 patch Methocarbamol TAB* [Robaxin 500 MG TAB*] 500 mg PO TID PRN #9 tab PRN Reason: Pain Patient Education Materials: Flank Pain (ED) Referrals: Alana Jones MD [Primary Care Provider] - Additional Instructions: Take muscle relaxers three times a day Apply lidocaine patches to area for up to 12 hours in one 24 hour period Use ibuprofen or Tylenol for pain every 6 hours ice/heat area, move as much as possible Follow up with primary within 5 days Return to ED if develop any new or worsening symptoms - Billing Disposition and Condition Condition: GOOD Disposition: Home
--- NOTE | 2017-07-31 18:47 | RAD ---
CLINICAL HISTORY: Left flank pain x1 week and diarrhea x2 days. Relevant surgical history includes cholecystectomy and hysterectomy. COMPARISON: Multiple prior CTs, most recently dated November 11, 2016 TECHNIQUE: Noncontrast CT examination of the abdomen and pelvis from the lung bases through the initial tuberosities. FINDINGS: VISUALIZED LUNG BASES: The visualized lung bases are grossly clear. There is no pleural effusion. ABDOMEN AND PELVIS: Evaluation of the solid organs and vasculature is limited without intravenous contrast. The liver is homogenously hypodense relative to the spleen. There are no definite focal liver masses. The spleen, pancreas and adrenal glands are grossly normal in appearance. The gallbladder is surgically absent with numerous clips in the gallbladder fossa.. There is a stable fluid density cyst in the left kidney. Otherwise the kidneys are normal in appearance without focal mass, calcification or signs of hydronephrosis. Evaluation of the gastrointestinal tract is limited without oral contrast. The small and large bowel are not distended.The patient's gas-filled appendix is identified in the right abdomen. There is no gross retroperitoneal or mesenteric lymphadenopathy. The abdominal aorta and iliac arteries are normal in course and diameter. Hyperattenuating surgical device is seen at the low midline inner abdominal wall unchanged from the prior CT examination. Degenerative changes include multilevel loss of intervertebral disc height involving the lower thoracic and lumbar spine.There are no sinister bone lesions. IMPRESSION: 1. Normal appendix. 2. No acute inflammatory change of the gastrointestinal tract within the limitations of a non-IV nonoral contrast CT examination. 3. Likely hepatic steatosis. 4. Chronic, degenerative and iatrogenic findings described in the body the report.
[2017-07-31] MEDS ORDERED: Methocarbamol TAB* 500 MG PO ONE (19:19)
[2017-07-31 19:35] VITALS: BP 128/81
[2017-07-31] MEDS ORDERED: Lidocaine PATCH 5%* 1 PATCH TRANSDERM SCH (20:00)
[2017-08-01] MEDS ORDERED: Lidocaine Patch REMOVE* 1 NOTE MISC PATCH OFF SCH (08:00)
== END 2017-07-31 19:56 | disposition home or self-care (01) ==
LOC: ED 15:14
DX: R10.84 Generalized abdominal pain (principal); E11.9 Type 2 diabetes mellitus without complications; Z79.82 Long term (current) use of aspirin; I10 Essential (primary) hypertension; Z87.891 Personal history of nicotine dependence; R19.7 Diarrhea, unspecified
CPT/HCPCS: 36415; 74176; 80053; 81003; 83605; 83690; 85025; 86140; 96372; 99284; A9270-GY; J1885

== ENCOUNTER → 2017-09-30 08:19 | Day surgery (SDC) | payer SELFPAY ==
[~2017-09-30 08:19] MED LIST changes: +Atracurium* 10 MG/ML 10 ML VIAL ONE; +Bupivacaine 0.25% SDV PF* 10 ML VIAL INJ ONE; +Bupivacaine 0.25% W/EPI* 10 ML SDV ONE; +Dexamethasone IV* 4 MG/ML 1 ML (4 MG) ONE; +DiMENhydriNATE IV* 50 MG/ML VIAL IV PUSH PRN; +EPINEPHRINE 1 MG/ML 1 ML VIAL ONE; +HYDROmorphone INJ* 0.5 MG/0.5 ML SYRINGE IV PRN; +Ketorolac INJ* 30 MG/ML 1 ML VIAL ONE; +Midazolam* 1 MG/ML 5 ML VIAL (5 MG) ONE; +Naloxone* 0.4 MG/ML 1 ML VIAL IV PRN; +Ondansetron INJ* 2 MG/ML VIAL IV PRN; +Ondansetron INJ* 2 MG/ML VIAL ONE; +Propofol* 10 MG/ML 20 ML BTL IV PUSH ONE; +ceFAZolin 2 GM PREMIX (*) 2 GM/50 ML BAG IVPB ONE; +fentaNYL* 50 MCG/ML 2 ML VIAL (100 MCG VIAL) IV PRN; +fentaNYL* 50 MCG/ML 2 ML VIAL (100 MCG VIAL) ONE; +oxyCODONE/Acetamin 5/325 MG* TAB PO PRN
[2017-09-30 13:35] VITALS: BP 141/85
--- NOTE | 2017-10-02 23:11 | OP ---
OPERATIVE REPORT: DATE OF OPERATION: 09/30/17 - [facility] DATE OF : 60 SURGEON: Pete Ferrer MD CUSTOMER SERVICE SALES CONSULTANT: RONN Barry A physician recreational assistant was required for the length of the procedure for positioning, instrumentation, and closure. ANESTHESIOLOGIST: Aden Brown MD ANESTHESIA: General anesthesia, regional interscalene block anesthesia. PRE-OP DIAGNOSES: 1. Right shoulder biceps tendinosis. 2. Right shoulder subacromial impingement. 3. Right shoulder rotator cuff tendinitis versus possible partial thickness rotator cuff tendon tear. 4. Right shoulder AC joint arthritis. 5. Right shoulder mild glenohumeral joint arthritis. POST-OP DIAGNOSES: 1. Right shoulder biceps tendinosis. 2. Right shoulder subacromial impingement. 3. Right shoulder rotator cuff tendinitis without any significant rotator cuff tendon tear. 4. Right shoulder AC joint arthritis. 5. Right shoulder mild glenohumeral joint arthritis. OPERATIVE PROCEDURE: 1. Right shoulder extensive debridement including release of biceps tendon, debridement of rotator cuff interval, extensive bursectomy. 2. Right shoulder arthroscopic subacromial decompression. 3. Right shoulder arthroscopic distal clavicle resection. INDICATIONS FOR PROCEDURE: The patient is a 57-year-old woman, right-hand dominant, who does not work, who has had right shoulder pain for 10 months since November 2016 that started with a fall. The patient responded insufficiently to a full spectrum of nonoperative management. The patient's history and exam were very consistent with the biceps being the most symptomatic part of her shoulder exam, but she clearly had an element of symptomatic subacromial impingement, AC joint arthritis and rotator cuff pathology. CT arthrogram showed no clear rotator cuff tendon tear. There was an 8 mm loose body in the subcoracoid recess visualizable. The patient described no mechanical symptoms. ANTIBIOTICS: Ancef 2 g IV. IV FLUIDS: 1700 cc crystalloid. [id number] TIME: 43 minutes. ARTHROSCOPIC FLUID UTILIZED: 5 bags each with 3 L for a total of 15 L. SPECIMENS: None. IMPLANTS: None. COMPLICATIONS: None. ESTIMATED BLOOD LOSS: Minimal. DESCRIPTION OF PROCEDURE: In preoperative holding, the patient signed a written consent. Operative extremity was marked in preoperative holding. The patient underwent an interscalene block by Anesthesia in preoperative holding. The patient was taken back to the operating room and placed supine on the operating room table. The patient was sedated and intubated. Examination under anesthesia showed full range of motion. The patient was transferred in the lateral decubitus position with the right shoulder up. Fifteen pounds of traction, appropriate forward flexion and abduction. All bony prominences padded, beanbag insufflated, axillary roll placed. The right shoulder was prepped and draped. Surgical time-out performed. I infused 30 cc into the glenohumeral joint from posterior and then established posterior glenohumeral joint portal. I started diagnostic arthroscopy. There were some clear degenerative changes to the articular cartilage surface of the glenoid and the humeral head. These were mostly grade 1 with occasional grade 2. The biceps tendon appeared frayed and degenerated. No clear rotator cuff tear evident. Under direct visualization, anterior glenohumeral portal was established. From the appearance of the biceps and it being significantly symptomatic on exam, I decided to release the biceps tendon. I released it with an arthroscopic biter directly off its origin. I smoothed out the stump with an arthroscopic shaver. Next, I removed some inflamed tissue in the rotator cuff interval with an arthroscopic shaver all the way back to the coracoid. I lightly debrided some articular cartilage surfaces, but no significant action with that with the arthroscopic shaver. There were no focal deficits, significant. I looked at all rotator cuff tendons from the joint and there were no tears visible. I next removed all instruments from the glenohumeral joint and moved to the subacromial space. I entered the subacromial space from posterior and anterior. Using direct visualization, I established a lateral subacromial portal. I debrided significant bursa from this compartment with an arthroscopic shaver. I developed a posterolateral portal to improve my visualization. I visualized the entirety of the rotator cuff and palpated it with an arthroscopic probe. No significant tear appreciated or palpated. I next removed the anterior curve of the acromion with an arthroscopic clemente. I then moved to the AC joint. I debrided bursal tissue with a vapor and then I removed 8 mm at the end of the clavicle with an arthroscopic clemente. I removed all instruments and fluid. I closed the skin incisions with figure-of - eight and 12 stitches using nylon 3-0 suture. Xeroform, 4x4s, ABD, foam tape. The right shoulder was placed in a simple sling. The patient was awakened and extubated and transferred to the PACU. DISPOSITION: The patient will wean out of the sling as tolerated as soon as possible. She will start physical therapy immediately. She will take Percocet as needed for pain control and aspirin for 2 weeks for DVT prophylaxis. She will follow up in clinic 10 to 14 days postoperatively. [id number]/[facility] #: [id number] BIN
== END | disposition home or self-care (01) ==
LOC: OR 08:19
PROVIDERS: ATTEND Orthopaedic Surgery
DX: M75.41 Impingement syndrome of right shoulder (principal); M75.21 Bicipital tendinitis, right shoulder; M75.101 Unspecified rotator cuff tear or rupture of right shoulder, not specified as traumatic; M19.011 Primary osteoarthritis, right shoulder; G89.18 Other acute postprocedural pain; E11.9 Type 2 diabetes mellitus without complications; Z87.891 Personal history of nicotine dependence; I10 Essential (primary) hypertension; E78.00 Pure hypercholesterolemia, unspecified; J45.909 Unspecified asthma, uncomplicated
CPT/HCPCS: J0690; J1100; J1885; J2250; J2405; J2704; J3010; J3490

== ENCOUNTER 2017-10-22 12:46 | Emergency (ER) | payer MEDICAID ==
--- NOTE | 2017-10-22 13:30 | ED ---
Lower Extremity - HPI Summary HPI Summary: This patient is a 57 year old F presenting to [facility] with a chief complaint of bilateral feet swelling that is worse on the left for the past couple weeks. She visited her PCP two days ago who recommend coming to the ED if swelling worsens/persists. She reports mild recent weight gain. Denies SOB, calf pain, knee pain, fever, chills, and any changes in habit or environment. Denies hx of CHF. PMHx of DM and HTN. - History of Current Complaint Chief Complaint: EDExtremityLower Stated Complaint: LT FOOT SWELLING Time Seen by Provider: 10/22/17 13:10 Hx Obtained From: Patient Hx Last Menstrual Period: hysterectomy Onset of Pain: Days - weeks Onset/Duration: Weeks Severity Initially: Mild Severity Currently: Moderate Pain Intensity: 0 Pain Scale Used: 0-10 Numeric Timing: Constant Character Of Pain: Unable To Describe - swelling Associated Signs And Symptoms: Positive: Swelling. Negative: Fever, Knee Pain Alleviating Factor(s): Nothing Able to Bear Weight: Yes - Allergies/Home Medications Allergies/Adverse Reactions: Allergies Allergy/AdvReac Type Severity Reaction Status Date / Time Sulfa (Sulfonamide Allergy Severe Hives Verified 10/22/17 12:58 Antibiotics) PMH/Surg Hx/FS Hx/Imm Hx Endocrine/Hematology History: Reports: Hx Diabetes - Type 2 Denies: Hx Anticoagulant Therapy - She took one baby aspirin today., Hx Thyroid Disease Cardiovascular History: Reports: Hx Hypertension - controlled with meds Denies: Hx Angina, Hx Pacemaker/ICD Respiratory History: Reports: Hx Asthma - on meds Denies: Hx Chronic Obstructive Pulmonary Disease (COPD), Hx Lung Cancer, Hx Pneumonia, Hx Pulmonary Embolism GI History: Reports: Hx Gastroesophageal Reflux Disease Denies: Hx Gall Bladder Disease, Hx Gastrointestinal Bleed, Hx Ulcer, Hx Urosepsis History: Reports: Hx Kidney Stones Denies: Hx Renal Disease Musculoskeletal History: Reports: Hx Arthritis - Bilat knees, shoulders, Hx Tendonitis - L Wrist Sensory History: Reports: Hx Contacts or Glasses - glasses Denies: Hx Hearing Aid Opthamlomology History: Reports: Hx Contacts or Glasses - glasses Neurological History: Reports: Hx Migraine Denies: Hx Dementia, Hx Seizures, Hx Transient Ischemic Attacks (TIA), Other Neuro Impairments/Disorders Psychiatric History: Reports: Hx Anxiety - prn Denies: Hx Depression, Hx Panic Disorder, Hx Schizophrenia, Hx Bipolar Disorder - Cancer History Hx Chemotherapy: No Hx Radiation Therapy: No - Surgical History Surgery Procedure, Year, and Place: 1991 CHOLECYSTECTOMY. 2003 HYST[address]Y [facility]. BILATERAL CARPAL TUNNEL Hx Anesthesia Reactions: No - Immunization History Date of Influenza Vaccine: Fall 2016 Infectious Disease History: No Infectious Disease History: Denies: Hx Clostridium Difficile, Hx Human Immunodeficiency Virus (HIV), Hx of Known/Suspected MRSA, Hx Shingles, Hx Tuberculosis, Hx Known/Suspected VRE, Hx Known/Suspected VRSA, History Other Infectious Disease, Traveled Outside the [place] in Last 30 Days - Family History Known Family History: Positive: Cardiac Disease, Hypertension, Diabetes - Social History Alcohol Use: None Hx Substance Use: No Substance Use Type: Reports: None Hx Tobacco Use: Yes Smoking Status (MU): Former Smoker Type: Cigarettes Amount Used/How Often: LESS THEN 1PPD, only smoked 1/2 year Length of Time of Smoking/Using Tobacco: 1.5 YRS Have You Smoked in the Last Year: No Review of Systems Negative: Fever, Chills Negative: Shortness Of Breath Positive: Edema. Negative: Myalgia All Other Systems Reviewed And Are Negative: Yes Physical Exam - Summary Physical Exam Summary: General: well-appearing, no pain distress Skin: warm, color reflects adequate perfusion, dry Head: normal Eyes: EOMI, CATRACHITA ENT: normal Neck: supple, nontender Respiratory: CTA, breath sounds present Cardiovascular: RRR Abdomen: soft, nontender Bowel: present Musculoskeletal: strength/ROM intact, pedal edema worse on the left without pain /tenderness Neurological: sensory/motor intact, A&O x3 Psychological: affect/mood appropriate Triage Information Reviewed: Yes Vital Signs On Initial Exam: Initial Vitals Temp Pulse Resp BP Pulse Ox 96.8 F 76 17 144/84 97 10/22/17 12:55 10/22/17 12:55 10/22/17 12:55 10/22/17 12:55 10/22/17 12:55 Vital Signs Reviewed: Yes Diagnostics - Vital Signs Vital Signs Temp Pulse Resp BP Pulse Ox 10/22/17 12:55 96.8 F 76 17 144/84 97 - Laboratory Result Diagrams: 10/22/17 13:46 10/22/17 13:46 Lab Statement: Any lab studies that have been ordered have been reviewed, and results considered in the medical decision making process. - Radiology CXR Radiology Interpretation Completed By: Radiologist - No evidence for acute intrathoracic disease. ED Physician has reviewed this report. - EKG 1454 Cardiac Rate: NL - 71 BPM EKG Rhythm: Sinus Rhythm ST Segment: Normal Ectopy: None EKG Interpretation: prolonged [place] of 224 - Additional Comments Diagnostic Additional Comments: Venous US reveals, as per radiologist: No evidence for LEFT lower extremity deep venous thrombosis. ED Physician has reviewed this report. Lower Extremity Course/Dx - Course Course Of Treatment: DISCUSSED RESULTS WITH THE PATIENT AND . RX HCTZ 12.5MG PO QD AND F/U WITH PMD; RETURN TO [facility] IF WORSE. - Diagnoses Provider Diagnoses: Pedal edema Discharge - Sign-Out/Discharge Documenting (check all that apply): Patient Departure - Discharge Plan Condition: Stable Disposition: HOME Prescriptions: hydroCHLOROthiazide [Hydrochlorothiazide] 12.5 mg PO DAILY #15 tablet Patient Education Materials: Leg Edema (ED) Referrals: Alana Jones MD [Primary Care Provider] - Additional Instructions: FOLLOW UP WITH YOUR DOCTOR. RETURN TO THE EMERGENCY DEPARTMENT FOR ANY WORSENING OF YOUR CONDITION OR QUESTIONS OR CONCERNS. - Billing Disposition and Condition Condition: STABLE Disposition: Home - Attestation Statements Document Initiated by Scribe: Yes Documenting Scribe: Janene Rodriguez Provider For Whom Sarahiberica is Documenting (Include Credential): Joe Daniels MD Scribe Attestation: Janene Andino, scribed for Joe Daniels MD on 10/22/17 at 1852. Scribe Documentation Reviewed: Yes Provider Attestation: The documentation as recorded by the Janene simpson accurately reflects the service I personally performed and the decisions made by me, Joe Daniels MD
[2017-10-22 13:57] LABS: ABS Basophils 0 10^3/ul (0-0.2); ABS Eosinophils 0.1 10^3/ul (0-0.6); ABS Lymphocytes 1.8 10^3/ul (1.0-4.8); ABS Monocytes 0.5 10^3/ul (0-0.8); ABS Neutrophils 3.1 10^3/ul (1.5-7.7); ABS Nucleated RBC 0 10^3/ul; Eosinophil % 2.2 % (0-6); Hematocrit 39 % (35-47); Hemoglobin 12.8 g/dl (12.0-16.0); Lymphocyte % 32.9 % (25-47); Mean Corpuscular HGB Conc 33 g/dl (31-36); Mean Corpuscular Hemoglobin 28 pg (27-31); Mean Corpuscular Volume 87 fL (80-97); Mean Platelet Volume 7.5 um3 (7.4-10.4); Nucleated Red Blood Cells % 0.1; Platelet Count 324 10^3/ul (150-450); Red Blood Count 4.51 10^6/ul (4.00-5.40); Red Cell Distribution Width 14 % (10.5-15); White Blood Count 5.5 10^3/ul (3.5-10.8)
--- OUTSIDE RECORDS SUMMARY | 2017-10-22 13:58 | XMS REPORT ---
:1960 External Reference #:[id number] Author Organization [employer] Address [address] [place] [address] [place] [address] Phone [phone] Care Team Providers Name Role Phone Alana Jones MD Primary Care Physician Unavailable Payers Type Date Identification Numbers Payment Provider Subscriber Commercial Expires: Policy Number: [id number] Ervin[employer] Mandy Gilliland 2017 Medicaid PayID: [id number] [address] [place] [address] Problems Date Description Provider Status Onset: 08/04/2015 Localized, primary osteoarthritis Torri Gonzalez M.D. Active Family History Date Family Member(s) Problem(s) Comments General Diabetes Father due to bone CA () Father due to MD () - age 54 yr Mother DM, [...] Form Strength Qnty SIG Indications Ordering Provider Percocet 09/30/ Active Tablets 5-325mg 30tabs 1 tabs by 2017 mouth F every 4-6 Nabil, hours as MD needed pain Aspirin Ec 09/30/ Active Tablets DR 325mg 14tabs take 1 2017 tab by F mouth Nabil, once a MD day for 2 weeks post op Diazepam 06/09/ Active Tablets 5mg 2tabs take 1-2 S46.011D 2017 tabs prn F prior to Nabil, mri Cyclobenzaprine 11/06/ Active Tablets 10mg 60tabs one by M54.31 Andrew HCL 2015 mouth Adal, three M.DAmee times a day as needed spasm Metoprolol [...] Hx G57.91 Andrew 2016 - Adal 06/08/ M.DAmee 2018 M79.671 Oxycodone HCL 11/18/2016 - Hx [...] Hx Tablets 500mg 60tabs 1 tablet by M17Amee Emily 03/07/2017 mouth with 12 PujadonTWYLA miller food twice daily for pain Gabapentin 10/15/2014 - Hx Capsules 300mg 90caps take 1 Andrew 09/02/2015 capsule by Jose D Galeas mouth every morning and take 1 capsules by mouth at bedtime -- maximum dose of 2 per day Diazepam 10/29/2013 - Hx Tablets 5mg 2tabs 1 tab 30 Andrew 10/14/2016 minutes Adal, M.D. before mri, may take a second tablet if needed Naproxen 04/25/2013 - Hx Tablets 500mg 40tabs 1 tablet Torri Carlos, 03/18/2015 with food po M.D. bid [place] 04/18/2013 - Hx Tablets 5-325mg 30tabs 1-2 by mouth Loren 10/14/2016 every 4 Tammi hours as M.D. needed Ibuprofen 01/05/2013 - Hx Tablets 600mg 120tabs tid with Loren 03/18/2015 food Jose D Cadena [place] 11/20/2012 - Hx Tablets 5-325mg 60tabs take 1-2 tab Loren 03/06/2013 po q4-6hours annika Cadenan pain M.DAmee Medications Administered in Office Medication Date Status Form Strength Qnty SIG Indications Ordering Provider Depomedrol Administered Injection Pete F 40MG 018 MD Nabil Vital Signs Date Vital Result Comment 10/13/2017 Height 65 inches 5'5" Weight 227.00 lb Heart Rate 88 /min BP Systolic Sitting 130 mmHg BP Diastolic Sitting 70 mmHg Body Temperature 97.3 F Pain Level 4 BMI (Body Mass Index) 37.8 kg/m2 09/26/2017 Height 66 inches 5'6" Weight 220.00 lb BP Systolic 117 mmHg BP Diastolic 82 mmHg Respiratory Rate 18 /min Body Temperature 98.1 F Pain Level 6 BMI (Body Mass Index) 35.5 kg/m2 08/15/2017 Height 66 inches 5'6" Heart Rate 73 /min BP Systolic 126 mmHg BP Diastolic 84 mmHg Respiratory Rate 16 /min Body Temperature 97.3 F Pain Level 3 07/04/2017 Height 66 inches 5'6" Weight 220.00 [...] Test Date Test Result H/L Range Note Laboratory test finding 09/30/2017 Point of Care 200 mg/dL High 70-100 1 Glucose Laboratory test finding 09/30/2017 Point of Care 153 mg/dL High 70-100 2 Glucose CBC Auto Diff 11/27/2016 White Blood Count [...] Blood Cells % 0.1 Laboratory test finding 11/27/2016 D Dimer Quantitative < 200 ng/mL Less Than 230 3 CKMB 11/27/2016 CKMB ng/mL 1.0 ng/mL 0.6-6.3 [...] Egfr Non- 79.9 >60 Egfr 102.8 >60 4 Laboratory test finding 11/22/2016 Point of Care 149 mg/dL High 70-100 5 Glucose Surgical Pathology 12/20/2013 S RUN DATE: <SEE NOTE> Surgical Pathology 08/18/2012 S RUN DATE: <SEE NOTE> 1 Endoscopy Technican: [id number] 2 Endoscopy Technican: [id number] 3 Please note: The following may produce a false positive D Dimer test: - Rheumatoid factor greater than 60 IU/ml - Plasma hemoglobin greater than 0.05 gm/dl - Bilirubin greater than 50 mg/dl - Lipids greater than 1000 mg/dl - FDP greater than 20 ug/ml 4 Because ethnic data is not always readily [...] 15-29 5 Kidney failure <15 (or dialysis) 5 Endoscopy Technican: [id number] RUN DATE: 12/24/13 [facility] LAB LIVE PAGE 1 RUN TIME: [address] [place], [place] [address] Specimen Inquiry Name: MANDY GILLILAND : [address]: Loren Cadena Acct: [id number] Unit: [id number] AGE: 53 Location: [facility] Re12/20/13 SEX: F Status: REG [facility] SPEC: [id number] MILTON: 12/20/13- SUBM DR: Loren Cadena MD REQ: [id number] RECD: 12/20/13 STATUS: SOUT _ ORDERED: LEVEL [...] Signed (signature on file) Jamel Guy MD 5607 END OF REPORT * ML=Testing performed at Main Lab DEPARTMENT OF PATHOLOGY, [facility] [employer] [place], [place] [address] Jamel Guy M.D. Director CLIA # [id number] RUN DATE: 08/23/12 [facility] LAB LIVE PAGE 1 RUN TIME: [address] [place], [place] [address] Specimen Inquiry Name: MANDY GILLILAND : [address]: Loren Cadena Acct: [id number] Unit: [id number] AGE: 52 Location: [facility] Re08/18/12 SEX: F Status: REG [facility] SPEC: [id number] [place]: 08/18/12- [facility] DR: Loren Cadena MD REQ: [id number] RECD: 08/18/12 STATUS: SOUT _ ORDERED: LEVEL [...] performed at Main Lab DEPARTMENT OF PATHOLOGY, [address] [place] [address] Jamel Guy M.D. Director [facility] Permit #[id number] Procedures Date CPT Code Description Status 09/30/2017 05900 Arthroscopy,Shoulder Decompression Of Subacromial Space Completed W/Acromio 09/30/2017 13541 Arthroscopy,Shoulder Decompression Of Subacromial Space Completed W/Acromio 09/30/2017 17472 Arthroscopy,Shoulder,Distal Claviculectomy Incl Dist Completed Articular SR 09/30/2017 31901 Arthroscopy,Shoulder,Distal Claviculectomy Incl Dist Completed Articular SR 09/30/2017 61316 Arthroscopy Shoulder Debridement Extensive Completed 09/30/2017 83806 Arthroscopy Shoulder Debridement Extensive Completed 07/04/2017 70350 Inject/Drain Joint/Bursa Major W/O US Completed 12/03/2016 03859 Walking Cast Completed 11/22/2016 70652 Implant Nerve End Into Bone Or Muscle Completed 11/22/2016 84872 Excision Neuroma, Major Peripheral Nerve Completed 11/22/2016 16487 Excision Neuroma, Major Peripheral Nerve Completed 12/20/2013 39796 Neuroplasty &/Or Transposition; Ulnar Nerve AT Elbow Completed 12/20/2013 58333 Neuroplasty &/Or Transposition; Ulnar Nerve AT Elbow Completed 08/08/2013 09190 Xray Knee 3 Views Completed 05/04/2013 47180 Neuroplasty &/Or Transposition; Ulnar Nerve AT Elbow Completed 05/04/2013 09184 Neuroplasty &/Or Transposition; Ulnar Nerve AT Elbow Completed 05/04/2013 51823 Carpal Tunnel Release Completed 05/04/2013 67190 Carpal Tunnel Release Completed 11/30/2012 97137 Carpal Tunnel Release Completed 11/30/2012 99064 Neuroplasty &/Or Transposition; Ulnar Nerve AT Elbow Completed 11/30/2012 41150 Neuroplasty &/Or Transposition; Ulnar Nerve AT Elbow Completed 08/18/2012 11010 Excision Ganglion Wrist/ Dorsal Or Volar; Primary Completed 08/18/2012 87408 Excision Ganglion Wrist/ Dorsal Or Volar; Primary Completed 08/27/2011 52547 Rad Exam; Foot Comp Completed 08/04/2011 49575 Rad Exam; Foot Comp Completed 07/14/2011 11140 Rad Exam; Foot Comp Completed 02/27/2009 15003 ECHO Stress Test Incl Perf Contiuous ekg Monitoring Completed W/Phys Superv 12/23/2008 67462 ECHO Transthoracic, Real-Time 2D With Doppler And Color Completed Flow 10/30/2008 75531 EKG Tracing & Interpretation Completed 01/29/2007 41626 Stress ECHO Interpretation/Report Hospital Completed 01/29/2007 92818 Stress ECHO Interpretation/Report Hospital Completed 01/29/2007 78978 Treadmill Interp/Report Only Completed 01/29/2007 20880 Stress Test Supervsn W/Out I/R Completed 01/29/2007 28113 Stress Test Supervsn W/Out I/R Completed Encounters Type Date Location Provider CPT E/M Dx Office Visit 08/15/2017 [facility] Pete Ferrer 31653 S46.011D 3:00p Of Matt BECKWITH M75.41 M75.51 M75.21 M19.011 Office Visit 07/04/2017 2:00p [facility] Pete Duke 77205 S46.011D Of Matt Ferrer MD M75.41 M75.51 Office Visit 06/09/2017 1:00p [facility] Pete Duke 04645 S46.011D Of Matt Ferrer MD M75.41 M75.51 Office Visit 05/05/2017 10:30a [facility] Pete Duke 56770 S46.011D Of Matt Ferrer MD M75.41 Office Visit 03/08/2017 3:00p [facility] Pete Duke 65920 S46.011D Of Matt Ferrer MD M75.51 Office Visit 02/24/2017 9:45a [facility] Of Andrew Galeas 78179 G57.91 Matt Jeffery Office Visit 01/20/2017 1:15p [facility] Of Pete Ferrer 90164 M75.41 Matt BECKWITH M75.51 Office Visit 12/23/2016 9:00a [facility] Pete Duke 62411 S43.421A Of Matt Ferrer MD Office Visit 10/15/2016 2:15p [facility] Andrew Adal, 53817 G57.91 Of C.M.AAmee MAmeeD. Office Visit 09/21/2016 11:30a [facility] Andrew Galeas, 54648 M79.671 Of C.M.AAmee Jeffery G57.91 Office Visit 08/10/2016 9:30a [facility] Of Andrew Galeas, 88609 M54.31 C.M.Francisco Jeffery M79.671 Office Visit 11/07/2015 2:40p [facility] Of Andrew Galeas, 62949 M54.31 C.M.A. M.D. Office Visit 09/19/2015 3:00p [facility] Of Torri Gonzalez M.D. 58915 M17.12 C.M.A. M25.562 Office Visit 09/19/2015 3:20p [facility] Of Andrew Adal, 42422 G57.91 C.M.A. MAmeeD. Office Visit 09/03/2015 11:30a [facility] Of Torri Gonzalez M.D. 05118 M25.562 C.M.A. M17.12 M25.462 Office Visit 08/04/2015 2:45p [facility] Of Torri Gonzalez M.D. 87360 M25.562 C.M.A. M17.12 M25.462 Office Visit 06/16/2015 10:30a [facility] Torri Gonzalez M.D. 87368 M17.12 C.M.A. S83.412A Office Visit 04/16/2015 2:30p [facility] [place] [address] M75.02 C.M.A. Office Visit 03/19/2015 1:00p [facility] [place] [address] M75.02 C.M.A. Office Visit 12/31/2014 4:10p [facility] Andrew Galeas 57606 G57.81 C.M.A. M.D. Office Visit 10/15/2014 2:50p [facility] Andrew Galeas 25378 355.79 C.M.A. M.D. Office Visit 09/20/2014 10:30a [facility] Andrew Galeas 40547 719.47 C.M.Sari. M.D. Office Visit 08/30/2014 3:00p [facility] Andrew Galeas, 98736 825.25 C.M.A. Jose D 715.17 Office Visit 12/05/2013 9:15a [facility] Loren Cadena, 31703 354.2 Of C.M.AAmee M.D. Office Visit 11/12/2013 9:00a [facility] Torri Gonzalez M.D. 05102 715.96 Of C.M.A. Office Visit 10/08/2013 10:00a [facility] Torri Gonzalez M.D. 34294 715.96 Of C.M.A. 719.46 Office Visit 08/08/2013 2:30p [facility] Of Torri Gonzalez M.D. 73045 715.96 C.M.A. Office Visit 05/31/2013 11:15a [facility] Of Torri Gonzalez M.D. 00429 715.35 C.M.A. 715.96 Office Visit 04/25/2013 12:15p [facility] Of Torri Gonzalez M.D. 80372 715.35 C.M.A. 715.96 844.1 Office Visit 04/18/2013 10:45a [facility] Loren Cadena, 52503 354.0 Of C.M.A. M.DAmee Office Visit 03/06/2013 10:30a [facility] PAGE Jose 27614 354.2 Of C.M.A. 354.0 727.43 Office Visit 10/18/2012 11:15a [facility] Loren Cadena 56539 354.2 Of C.M.A. M.D. Office Visit 07/19/2012 10:45a [facility] Loren Cadena 44220 727.43 Of C.M.A. M.D. Office Visit 12/27/2011 8:30a [facility] Loren Cadena, 00847 354.0 Of C.M.AAmee MEmelia 354.2 727.43 727.04 Office Visit 08/27/2011 9:30a [facility] Andrew Galeas, 17176 727.09 Matt Jeffery Office Visit 08/04/2011 11:30a [facility] Andrew Galeas, 38741 719.47 C.Sanjuanita Jeffery 729.81 Office Visit 07/14/2011 1:30p [facility] Andrew Galeas, 27750 719.47 Matt Jeffery Office Visit 10/30/2008 10:20a [facility] S. 17259 786.50 Jose D Malcolm 401.1 278.00 794.31 Plan of Care Future Appointment(s):11/10/2017 10:00 am - Pete Ferrer MD at [facility].10/13/2017 - Pete Ferrer, MDM19.011 Primary osteoarthritis, right shoulderFollow up:Follow up: 4 dsqcaC57.21 Bicipital tendinitis, right qfuxsvesQ06.011D Strain of musc/tend the rotator cuff of right shoulder, subs
--- NOTE | 2017-10-22 13:59 | RAD ---
Indication: 2 weeks patella edema. Asthma. History of tobacco use. Comparison: No relevant prior exams available on the [facility] for comparison. Technique: Upright AP 1337 hours Report: Clear lungs and pleural spaces. Negative for pneumothorax. The heart, pulmonary vasculature, and mediastinal contours are unremarkable. Posttraumatic osteolysis or postsurgical defect at the distal RIGHT clavicle new compared with a CT from June 28, 2017. IMPRESSION: #. No evidence for acute intrathoracic disease.
--- OUTSIDE RECORDS SUMMARY | 2017-10-22 13:59 | XMS REPORT ---
:1960 External Reference #:[id number] Author Organization [employer] Address [address] [place] [address] [place] [address] Phone [phone] Care Team Providers Name Role Phone Alana Jones MD Primary Care Physician Unavailable Payers Type Date Identification Numbers Payment Provider Subscriber Commercial Expires: Policy Number: [id number] [employer]vin[employer] Mandy Gilliland 2017 Medicaid PayID: [id number] [address] [place] [address] Problems Date Description Provider Status Onset: 08/04/2015 [...] M54.31 Andrew HCL 2015 mouth Adal, three Sepideh.DAmee times a day as needed [...] M17. 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 bid [place] 04/18/2013 - Hx Tablets 5-325mg 30tabs 1-2 by mouth Loren 10/14/2016 every 4 prince Cadena M.D. needed Ibuprofen 01/05/2013 - Hx Tablets 600mg 120tabs tid with Loren 03/18/2015 food Jose D Cadena [place] 11/20/2012 - Hx Tablets 5-325mg 60tabs take 1-2 tab Loren 03/06/2013 po q4-6hours annika Cadenan pain M.DAmee Medications Administered in Office Medication Date Status Form Strength Qnty SIG Indications Ordering Provider Depomedrol Administered Injection Pete F 40MG 018 MD Nabil Vital Signs Date Vital Result Comment 09/26/2017 Height 66 inches 5'6" Weight 220.00 [...] < 200 ng/mL Less Than 230 1 Comp Metabolic Panel 11/27/2016 Sodium 138 mmol/L [...] 5 Kidney failure <15 (or dialysis) 3 Hearing Aid Assistant: [id number] 4 RUN DATE: 12/24/13 [facility] LAB LIVE PAGE 1 RUN TIME: [address] [place], [place] [address] Specimen Inquiry Name: MANDY GILLILAND : [address]: Loren Cadena Acct: [id number] Unit: [id number] AGE: 53 Location: [facility] Re12/20/13 SEX: F Status: REG [facility] SPEC: [id number] [place]: 12/20/13- SUBM DR: Loren Cadena MD REQ: [id number] RECD: 12/20/13 STATUS: SOUT _ ORDERED: LEVEL [...] performed at Main Lab DEPARTMENT OF PATHOLOGY, [facility] [employer] [place] [address] Jamel Guy M.D. Director [facility] # [id number] 5 RUN DATE: 08/23/12 [facility] LAB LIVE PAGE 1 RUN TIME: [address] [facility] [employer] [place] [address] Specimen Inquiry Name: TALATMANDY : [address]: Loren Cadena Acct: [id number] Unit: [id number] AGE: 52 Location: [facility] Re08/18/12 SEX: F Status: REG [facility] SPEC: [id number] MIL[place]: 08/18/12- SUBM DR: Loren Cadena MD REQ: [id number] RECD: 08/18/121443 STATUS: SOUT _ ORDERED: LEVEL [...] performed at Main Lab DEPARTMENT OF PATHOLOGY, [address] [place] [address] Jamel Guy M.D. Director [facility] Permit #[id number] Procedures Date CPT Code Description Status 07/04/2017 26766 Inject/Drain Joint/Bursa Major W/O US Completed 12/03/2016 40038 Walking Cast Completed 11/22/2016 33707 Implant Nerve End Into Bone Or Muscle Completed 11/22/2016 92009 Excision Neuroma, Major Peripheral Nerve Completed 11/22/2016 32800 Excision Neuroma, Major Peripheral Nerve Completed 12/20/2013 00727 Neuroplasty &/Or Transposition; Ulnar Nerve AT Elbow Completed 12/20/2013 99179 Neuroplasty &/Or Transposition; Ulnar Nerve AT Elbow Completed 08/08/2013 51962 Xray Knee 3 Views Completed 05/04/2013 41780 Carpal Tunnel Release Completed 05/04/2013 65330 Carpal Tunnel Release Completed 05/04/2013 40679 Neuroplasty &/Or Transposition; Ulnar Nerve AT Elbow Completed 05/04/2013 85847 Neuroplasty &/Or Transposition; Ulnar Nerve AT Elbow Completed 11/30/2012 46399 Neuroplasty &/Or Transposition; Ulnar Nerve AT Elbow Completed 11/30/2012 50899 Neuroplasty &/Or Transposition; Ulnar Nerve AT Elbow Completed 11/30/2012 91579 Carpal Tunnel Release Completed 08/18/2012 70045 Excision Ganglion Wrist/ Dorsal Or Volar; Primary Completed 08/18/2012 88452 Excision Ganglion Wrist/ Dorsal Or Volar; Primary Completed 08/27/2011 14879 Rad Exam; Foot Comp Completed 08/04/2011 73994 Rad Exam; Foot Comp Completed 07/14/2011 44807 Rad Exam; Foot Comp Completed 02/27/2009 49305 ECHO Stress Test Incl Perf Contiuous ekg Monitoring Completed W/Phys Superv 12/23/2008 85053 ECHO Transthoracic, Real-Time 2D With Doppler And Color Completed Flow 10/30/2008 21619 EKG Tracing & Interpretation Completed 01/29/2007 44995 Stress ECHO Interpretation/Report Hospital Completed 01/29/2007 07754 Stress ECHO Interpretation/Report Hospital Completed 01/29/2007 03443 Treadmill Interp/Report Only Completed 01/29/2007 82978 Stress Test Supervsn W/Out I/R Completed 01/29/2007 77221 Stress Test Supervsn W/Out I/R Completed Encounters Type Date Location Provider CPT E/M Dx Office Visit 08/15/2017 [facility] Pete Ferrer, 94139 S46.011D 3:00p Of Matt BECKWITH M75.41 M75.51 M75.21 M19.011 Office Visit 07/04/2017 2:00p [facility] Pete Duke 01587 S46.011D Of Matt Ferrer MD M75.41 M75.51 Office Visit 06/09/2017 1:00p [facility] Pete Duke 22292 S46.011D Of Matt Ferrer MD M75.41 M75.51 Office Visit 05/05/2017 10:30a [facility] Pete Duke 10348 S46.011D Of Matt Ferrer MD M75.41 Office Visit 03/08/2017 3:00p [facility] Pete Duke 70698 S46.011D Of Matt Ferrer MD M75.51 Office Visit 02/24/2017 9:45a [facility] Andrew Galeas 51989 G57.91 Matt Jeffery Office Visit 01/20/2017 1:15p [facility] Pete Duke Nabil 88716 M75.41 Matt BECKWITH M75.51 Office Visit 12/23/2016 9:00a [facility] Pete Duke 67477 S43.421A Of Matt Ferrer MD Office Visit 10/15/2016 2:15p [facility] Andrew Galeas 16076 G57.91 Of Matt Jeffery Office Visit 09/21/2016 11:30a [facility] Andrew Galeas 14509 M79.671 Of Matt Jeffery G57.91 Office Visit 08/10/2016 9:30a [facility] Andrew Galeas 67764 M54.31 Matt Jeffery M79.671 Office Visit 11/07/2015 2:40p [facility] Andrew Galeas 31533 M54.31 Matt Jeffery Office Visit 09/19/2015 3:00p [facility] Torri Gonzalez M.D. 98294 M17.12 Matt M25.562 Office Visit 09/19/2015 3:20p [facility] Andrew Galeas 42031 G57.91 Matt Jeffery Office Visit 09/03/2015 11:30a [facility] Torri Gonzalez M.D. 01022 M25.562 Matt M17.12 M25.462 Office Visit 08/04/2015 2:45p [facility] Torri Gonzalez M.D. 19140 M25.562 C.M.A. M17.12 M25.462 Office Visit 06/16/2015 10:30a [facility] Torri Gonzalez M.D. 81693 M17.12 C.M.A. S83.412A Office Visit 04/16/2015 2:30p [facility] [place] [address] M75.02 C.M.A. Office Visit 03/19/2015 1:00p [facility] [place] [address] M75.02 C.M.A. Office Visit 12/31/2014 4:10p [facility] Andrew Adal 29222 G57.81 C.M.AAmee MAmeeDAmee Office Visit 10/15/2014 2:50p [facility] Andrew Adal 01957 355.79 C.M.AAmee MAmeeDAmee Office Visit 09/20/2014 10:30a [facility] Andrew Adal 34540 719.47 C.M.Francisco Jeffery Office Visit 08/30/2014 3:00p [facility] Andrew Adal 61064 825.25 C.M.A. Jose D 715.17 Office Visit 12/05/2013 9:15a [facility] Loren Cadena 10960 354.2 Of C.MJulio Cesar Jeffery Office Visit 11/12/2013 9:00a [facility] Torri Gonzalez M.D. 92540 715.96 Of C.M.A. Office Visit 10/08/2013 10:00a [facility] Torri Gonzalez M.D. 91834 715.96 Of C.M.A. 719.46 Office Visit 08/08/2013 2:30p [facility] Torri Gonzalez M.D. 19855 715.96 C.M.A. Office Visit 05/31/2013 11:15a [facility] Torri Gonzalez M.D. 97539 715.35 C.M.A. 715.96 Office Visit 04/25/2013 12:15p [facility] Torri Gonzalez M.D. 77964 715.35 C.M.A. 715.96 844.1 Office Visit 04/18/2013 10:45a [facility] Loren Cadena, 57889 354.0 Of C.M.A. M.D. Office Visit 03/06/2013 10:30a [facility] Nevaeh PAGE Velásquez 04385 354.2 Of C.M.A. 354.0 727.43 Office Visit 10/18/2012 11:15a [facility] Loren Cadena 02722 354.2 Of C.M.A. M.D. Office Visit 07/19/2012 10:45a [facility] Loren Cadena 14215 727.43 Of C.M.A. M.D. Office Visit 12/27/2011 8:30a [facility] Loren Cadena, 69259 354.0 Of C.M.A. M.D. 354.2 727.43 727.04 Office Visit 08/27/2011 9:30a [facility] Andrew Galeas 93712 727.09 C.M.A. M.D. Office Visit 08/04/2011 11:30a [facility] Andrew Galeas, 26312 719.47 C.M.A. M.D. 729.81 Office Visit 07/14/2011 1:30p [facility] Andrew Galeas, 30136 719.47 C.M.A. M.D. Office Visit 10/30/2008 10:20a [facility] S. 71565 786.50 Jose D Malcolm 401.1 278.00 794.31 Plan of Care Future Appointment(s):10/12/2017 1:45 pm - Pete Ferrer MD at [facility]09/30/2017 10:30 am - Leonora De La Cruz PA-C at [facility]09/30/2017 10:30 am - Pete Ferrer MD at [facility]09/26/2017 - Pete Ferrer, MDM75.21 Bicipital tendinitis, right shoulderFollow up:Follow up: to ORS46.011D Strain of musc/tend the rotator cuff of right shoulder, subsM75.51 Bursitis of right liucxoqlE86.41 Impingement syndrome of right shoulder
--- OUTSIDE RECORDS SUMMARY | 2017-10-22 13:59 | XMS REPORT ---
:1960 External Reference #:[id number] Author Organization [facility] Address [address] [place] [address] [place] [address] Phone [phone] Care Team Providers Name Role Phone Alana Jones MD Primary Care Physician Unavailable Payers Type Date Identification Numbers Payment Provider Subscriber Commercial Expires: Policy Number: [id number] Er[employer] Mandy Gilliland 2017 Medicaid PayID: [id number] [address] [id number] Problems Date Description Provider Status Onset: 08/04/2015 Localized, primary osteoarthritis Torri Gonzalez M.D. Active Family History Date Family Member(s) Problem(s) Comments General Diabetes Father due to bone CA () Father due to [place] () - age 54 yr Mother DM, [...] Carlos, 03/18/2015 with food po M.D. bid [place] 04/18/2013 - Hx Tablets 5-325mg 30tabs 1-2 by mouth Loren 10/14/2016 every 4 Tammi hours as M.D. needed Ibuprofen 01/05/2013 - Hx Tablets 600mg 120tabs tid with Loren 03/18/2015 food Jose D Cadena [place] 11/20/2012 - Hx Tablets 5-325mg 60tabs take [...] 08/18/2012 S RUN DATE: <SEE NOTE> 1 Social Studies Department Chair: [id number] 2 Social Studies Department Chair: [id number] 3 Please note: The following may produce [...] 5 Kidney failure <15 (or dialysis) 5 Social Studies Department Chair: [id number] RUN DATE: 12/24/13 [facility] LAB LIVE PAGE 1 RUN TIME: [address] [place], [place] [address] Specimen Inquiry Name: MANDY GILLILAND : [address]: Loren Cadena Acct: [id number] Unit: [id number] AGE: 53 Location: [facility] Re12/20/13 SEX: F Status: REG [facility] SPEC: [id number] [place]: 12/20/13- SUBM DR: Loren Cadena MD REQ: [id number] RECD: 12/20/13 STATUS: SOUT _ ORDERED: LEVEL [...] Signed (signature on file) Jamel Guy MD [id number] END OF REPORT * ML=Testing performed at Main Lab DEPARTMENT OF PATHOLOGY, [facility] [employer] [place], [place] [address] Jamel Guy M.D. Director CLIA # [id number] RUN DATE: 08/23/12 [facility] LAB LIVE PAGE 1 RUN TIME: [address] [facility] [place], [place] [address] Specimen Inquiry Name: MANDY GILLILAND : [address]: Loren Cadena Acct: [id number] Unit: [id number] AGE: 52 Location: [facility] Re08/18/12 SEX: F Status: REG [facility] SPEC: [id number] [place]: 08/18/12- [facility] DR: Loren Cadena MD REQ: [id number] RECD: 08/18/12 STATUS: SOUT _ ORDERED: LEVEL [...] performed at Main Lab DEPARTMENT OF PATHOLOGY, [address] [place] [address] Jamel Guy M.D. Director [facility] Permit #[id number] Procedures Date CPT Code Description Status 09/30/2017 40115 Arthroscopy,Shoulder Decompression Of Subacromial Space Completed W/Acromio 09/30/2017 36056 Arthroscopy,Shoulder Decompression Of Subacromial Space Completed W/Acromio 09/30/2017 85019 Arthroscopy,Shoulder,Distal Claviculectomy Incl Dist Completed Articular SR 09/30/2017 48192 Arthroscopy,Shoulder,Distal Claviculectomy Incl Dist Completed Articular SR 09/30/2017 06595 Arthroscopy Shoulder Debridement Extensive Completed 09/30/2017 27233 Arthroscopy Shoulder Debridement Extensive Completed 07/04/2017 68925 Inject/Drain Joint/Bursa Major W/O US Completed 12/03/2016 58651 Walking Cast Completed 11/22/2016 48604 Implant Nerve End Into Bone Or Muscle Completed 11/22/2016 93651 Excision Neuroma, Major Peripheral Nerve Completed 11/22/2016 04369 Excision Neuroma, Major Peripheral Nerve Completed 12/20/2013 05093 Neuroplasty &/Or Transposition; Ulnar Nerve AT Elbow Completed 12/20/2013 91240 Neuroplasty &/Or Transposition; Ulnar Nerve AT Elbow Completed 08/08/2013 19431 Xray Knee 3 Views Completed 05/04/2013 13944 Neuroplasty &/Or Transposition; Ulnar Nerve AT Elbow Completed 05/04/2013 43266 Neuroplasty &/Or Transposition; Ulnar Nerve AT Elbow Completed 05/04/2013 59769 Carpal Tunnel Release Completed 05/04/2013 88761 Carpal Tunnel Release Completed 11/30/2012 55016 Carpal Tunnel Release Completed 11/30/2012 52810 Neuroplasty &/Or Transposition; Ulnar Nerve AT Elbow Completed 11/30/2012 08942 Neuroplasty &/Or Transposition; Ulnar Nerve AT Elbow Completed 08/18/2012 17480 Excision Ganglion Wrist/ Dorsal Or Volar; Primary Completed 08/18/2012 77116 Excision Ganglion Wrist/ Dorsal Or Volar; Primary Completed 08/27/2011 09334 Rad Exam; Foot Comp Completed 08/04/2011 18088 Rad Exam; Foot Comp Completed 07/14/2011 63903 Rad Exam; Foot Comp Completed 02/27/2009 70881 ECHO Stress Test Incl Perf Contiuous ekg Monitoring Completed W/Phys Superv 12/23/2008 96479 ECHO Transthoracic, Real-Time 2D With Doppler And Color Completed Flow 10/30/2008 53971 EKG Tracing & Interpretation Completed 01/29/2007 33313 Stress ECHO Interpretation/Report Hospital Completed 01/29/2007 38549 Stress ECHO Interpretation/Report Hospital Completed 01/29/2007 47575 Treadmill Interp/Report Only Completed 01/29/2007 13467 Stress Test Supervsn W/Out I/R Completed 01/29/2007 75371 Stress Test Supervsn W/Out I/R Completed Encounters Type Date Location Provider CPT E/M Dx Office Visit 08/15/2017 [facility] 34899 S46.011D 3:00p Of Matt BECKWITH M75.41 M75.51 M75.21 M19.011 Office Visit 07/04/2017 2:00p [facility] Duke 43930 S46.011D Of Matt Ferrer MD M75.41 M75.51 Office Visit 06/09/2017 1:00p [facility] Duke 64545 S46.011D Of Matt Ferrer MD M75.41 M75.51 Office Visit 05/05/2017 10:30a [facility] Duke 24889 S46.011D Of Matt Ferrer MD M75.41 Office Visit 03/08/2017 3:00p [facility] Duke 52047 S46.011D Of Matt Ferrer MD M75.51 Office Visit 02/24/2017 9:45a [facility] Galeas 26344 G57.91 Matt Jeffery Office Visit 01/20/2017 1:15p [facility] Pete Ferrer 63965 M75.41 Matt BECKWITH M75.51 Office Visit 12/23/2016 9:00a [facility] Duke 30837 S43.421A Of Matt Ferrer MD Office Visit 10/15/2016 2:15p [facility] Adal, 74323 G57.91 Of C.M.AAmee MAmeeD. Office Visit 09/21/2016 11:30a [facility]ale[facility], 49517 M79.671 Of C.M.AAmee Jeffery G57.91 Office Visit 08/10/2016 9:30a [facility], 26104 M54.31 C.M.Francisco Jeffery M79.671 Office Visit 11/07/2015 2:40p [facility], 78272 M54.31 C.M.A. M.D. Office Visit 09/19/2015 3:00p [facility] Torri Gonzalez M.D. 59584 M17.12 C.M.A. M25.562 Office Visit 09/19/2015 3:20p [facility] Adal, 23634 G57.91 C.M.A. MAmeeD. Office Visit 09/03/2015 11:30a [facility] Torri Gonzalez M.D. 47018 M25.562 C.M.A. M17.12 M25.462 Office Visit 08/04/2015 2:45p [facility] Torri Gonzalez M.D. 01118 M25.562 C.M.A. M17.12 M25.462 Office Visit 06/16/2015 10:30a [facility] Torri Gonzalez M.D. 71902 M17.12 C.M.A. S83.412A Office Visit 04/16/2015 2:30p [facility] [place] [address] M75.02 C.M.A. Office Visit 03/19/2015 1:00p [facility] [place] [address] M75.02 C.M.A. Office Visit 12/31/2014 4:10p [facility] Gale[facility] 79395 G57.81 C.M.A. M.D. Office Visit 10/15/2014 2:50p [facility] 99399 355.79 C.M.A. M.D. Office Visit 09/20/2014 10:30a [facility]ale[facility] 91372 719.47 C.M.Sari. M.D. Office Visit 08/30/2014 3:00p [facility], 00775 825.25 C.M.A. Jose D 715.17 Office Visit 12/05/2013 9:15a [facility] Loren Cadena, 51030 354.2 Of C.M.AAmee M.D. Office Visit 11/12/2013 9:00a [facility] Torri Gonzalez M.D. 83652 715.96 Of C.M.A. Office Visit 10/08/2013 10:00a [facility] Torri Gonzalez M.D. 62968 715.96 Of C.M.A. 719.46 Office Visit 08/08/2013 2:30p [facility] Torri Gonzalez M.D. 32767 715.96 C.M.A. Office Visit 05/31/2013 11:15a [facility] Torri Gonzalez M.D. 32860 715.35 C.M.A. 715.96 Office Visit 04/25/2013 12:15p [facility] Torri Gonzalez M.D. 45425 715.35 C.M.A. 715.96 844.1 Office Visit 04/18/2013 10:45a [facility] Loren Cadena, 58876 354.0 Of C.M.A. M.DAmee Office Visit 03/06/2013 10:30a [facility] PAGE Jose 26028 354.2 Of C.M.A. 354.0 727.43 Office Visit 10/18/2012 11:15a [facility] Loren Cadena 75956 354.2 Of C.M.A. M.D. Office Visit 07/19/2012 10:45a [facility] Loren Cadena 57488 727.43 Of C.M.A. M.D. Office Visit 12/27/2011 8:30a [facility] Loren Cadena, 74151 354.0 Of C.M.AAmee MEmelia 354.2 727.43 727.04 Office Visit 08/27/2011 9:30a [facility], 16368 727.09 Matt Jeffery Office Visit 08/04/2011 11:30a [facility], 76489 719.47 C.Sanjuanita Jeffery 729.81 Office Visit 07/14/2011 1:30p [facility], 98056 719.47 Matt Jeffery Office Visit 10/30/2008 10:20a [facility] S. 00442 786.50 Jose D Malcolm 401.1 278.00 794.31 Plan of Care Future Appointment(s):11/10/2017 10:00 am - Pete Ferrer MD at [facility]10/13/2017 - Pete Ferrer, MDM19.011 Primary osteoarthritis, right shoulderFollow up:Follow up: 4 sguuyA54.21 Bicipital tendinitis, right xtllqhckI71.011D Strain of musc/tend the rotator cuff of right shoulder, subs
[2017-10-22 14:05] LABS: INR 0.93 (0.77-1.02)
[2017-10-22 14:13] LABS: EGFR Non-African American 79.6 (>60)
--- NOTE | 2017-10-22 14:24 | RAD ---
INDICATION: LEFT lower extremity edema. COMPARISON: December 29, 2016 ultrasound. TECHNIQUE: Truong scale, color Doppler, and spectral analysis of the deep veins of the LEFT lower extremity. Vessel compression, phasicity, and augmentation assessed. REPORT: The LEFT common femoral, great saphenous, profunda femoral, femoral, popliteal, peroneal, and posterior tibial veins are patent. Patency of the RIGHT common femoral vein documented. IMPRESSION: No evidence for LEFT lower extremity deep venous thrombosis.
[2017-10-22 16:24] VITALS: BP 138/79
== END 2017-10-22 16:23 | disposition home or self-care (01) ==
LOC: ED 12:46
DX: R60.0 Localized edema (principal); R63.5 Abnormal weight gain; I10 Essential (primary) hypertension; Z88.2 Allergy status to sulfonamides; Z82.49 Family history of ischemic heart disease and other diseases of the circulatory system; Z83.3 Family history of diabetes mellitus; Z87.891 Personal history of nicotine dependence
CPT/HCPCS: 36415; 71045; 80053; 83880; 85025; 85610; 85730; 86140; 93005; 99281

== ENCOUNTER 2017-10-27 13:02 | Emergency (ER) | payer MEDICAID ==
[2017-10-27 13:08] VITALS: BP 153/90
[2017-10-27] MEDS ORDERED: NS 0.9% 1000 ML* 1,000 ML IV ONE (13:20)
[2017-10-27] MEDS ORDERED: Ketorolac INJ* 30 MG/ML 1 ML VIAL IV PUSH ONE (13:20)
--- NOTE | 2017-10-27 13:26 | UC ---
Back Pain HPI - HPI Summary HPI Summary: This patient is a 57 year old F presenting to [facility] with a chief complaint of right flank pain since this morning. The patient rates the pain 10/10 in severity. Patient denies dysuria, vomiting, and nausea. She has a PMHx of kidney stones and reports that this pain feels like a kidney stone. - History of Current Complaint Chief Complaint: UCAbdominalPain Stated Complaint: RIGHT SIDE PAIN Time Seen by Provider: 10/27/17 13:09 Hx Obtained From: Patient Hx Last Menstrual Period: hysterectomy Onset/Duration: Sudden Onset, Lasting Hours - This morning, Still Present Timing: Constant Severity Initially: Severe Severity Currently: Severe Pain Intensity: 10 Pain Scale Used: 0-10 Numeric Associated Signs And Symptoms: Positive: Other - Denies dysuria, vomiting, and nausea - Allergies/Home Medications Allergies/Adverse Reactions: Allergies Allergy/AdvReac Type Severity Reaction Status Date / Time Sulfa (Sulfonamide Allergy Severe Hives Verified 10/27/17 13:09 Antibiotics) PMH/Surg Hx/FS Hx/Imm Hx Endocrine History: Diabetes Cardiovascular History: Hypertension GI/ History: Kidney Stones Other History Of: Negative For: HIV, Hepatitis B, Hepatitis C, Anticoagulant Therapy - She took one baby aspirin today. - Surgical History Surgical History: Yes Surgery Procedure, Year, and Place: 1991 CHOLECYSTECTOMY. 2003 HYSTERECTOMY [facility]. BILATERAL CARPAL TUNNEL - Family History Known Family History: Positive: Cardiac Disease, Hypertension, Diabetes - Social History Lives: With Family Alcohol Use: None Substance Use Type: None Smoking Status (MU): Former Smoker Type: Cigarettes Amount Used/How Often: LESS THEN 1PPD, only smoked 1/2 year Length of Time of Smoking/Using Tobacco: 1.5 YRS Have You Smoked in the Last Year: No When Did the Patient Quit Smoking/Using Tobacco: 40 yrs ago - Immunization History Most Recent Influenza Vaccination: 10/2014 Most Recent Tetanus Shot: up to date Most Recent Pneumonia Vaccination: never had this Review of Systems Gastrointestinal: Vomiting - Denies, Nausea - Denies Genitourinary: Dysuria - Denies Musculoskeletal: Other: - Right flank pain All Other Systems Reviewed And Are Negative: Yes Physical Exam - Summary Physical Exam Summary: VITAL SIGNS: Reviewed. GENERAL: Patient is a well-developed and nourished FEMALE who is lying comfortable in the stretcher. Patient is not in any acute respiratory distress. HEAD AND FACE: Normocephalic EYES: PERRLA, EOMI x 2. EARS: Hearing grossly intact. MOUTH: Oropharynx within normal limits. NECK: Supple, trachea is midline, no adenopathy, no JVD, no carotid bruit. CHEST: Symmetric, no tenderness at palpation LUNGS: Clear to auscultation bilaterally. No wheezing or crackles. CVS: Regular rate and rhythm, S1 and S2 present, no murmurs or gallops appreciated. ABDOMEN: Soft, non-tender. Bowel sounds are normal. No abdominal abnormal pulsations. EXTREMITIES: Full ROM in all major joints, no edema, no cyanosis or clubbing. NEURO: Alert and oriented x 3. No acute neurological deficits. Speech is normal and follows commands. MUSCULOSKELETAL: Right flank tenderness and right costovertebral angle tenderness SKIN: Dry and warm Triage Information Reviewed: Yes Vital Signs: Initial Vital Signs Temp 97.8 F 10/27/17 13:05 Pulse 88 10/27/17 13:05 Resp 20 10/27/17 13:05 BP 153/90 10/27/17 13:05 Pulse Ox 99 10/27/17 13:05 Vital Signs Reviewed: Yes Diagnostics - Radiology Abd/Pelvis CT Radiology Interpretation Completed By: Radiologist - 14:03. 1. NO HYDRONEPHROSIS OR NEPHROLITHIASIS. 2. NORMAL APPENDIX. 3. HEPATOMEGALY. ED Physician has reviewed this imaging report. Back Pain Course/Dx - Course Course Of Treatment: Patient is a 57-year-old female who presents to the urgent care with a chief complaint of having right flank pain with radiation to the right lower quadrant. Abdominal and pelvic CT shows no kidney stones. The patient was given Toradol for the pain and she continues to have pain. Therefore the patient will be discharged to the emergency department for further workup and management. The patient will go via ambulance. Discused case with Dr. Hong. He is aware of patient going to the ED. - Differential Dx/Diagnosis Provider Diagnoses: Abdominal pain. Flank pain Discharge - Sign-Out/Discharge Documenting (check all that apply): Patient Departure All imaging exams completed and their final reports reviewed: Yes - Discharge Plan Condition: Stable Disposition: TRANS [facility] Patient Education Materials: Abdominal Pain (ED) Referrals: Alana Jones MD [Primary Care Provider] - Additional Instructions: Patient will be discharged to the emergency department for further workup and management. Patient declined the ambulance transport. - Billing Disposition and Condition Condition: STABLE Disposition: Trans Higher Lvl of Care Fac - Attestation Statements Document Initiated by Muriel: Yes Documenting Scribe: Edin Juárez Provider For Whom Muriel is Documenting (Include Credential): Arben Saab MD Scribe Attestation: Edin Andino, scribed for Arben Saab MD on 10/28/17 at 2143. Scribe Documentation Reviewed: Yes Provider Attestation: The documentation as recorded by the Edin simpson accurately reflects the service I personally performed and the decisions made by me, Arben Saab MD
--- NOTE | 2017-10-27 14:06 | RAD ---
CLINICAL HISTORY: right flank pain COMPARISON: None TECHNIQUE: Multiple contiguous axial CT scans were obtained of the abdomen and pelvis, without intravenous contrast enhancement. Coronal and sagittal multiplanar reformations are submitted for review. FINDINGS: Evaluation is limited due to the lack of intravenous contrast. This limits evaluation of the solid organs and vasculature. LUNG BASES: The lung bases are clear. LIVER: The liver is homogeneously enlarged measuring 20 cm in long axis. BILE DUCTS: There is no intrahepatic or extrahepatic biliary dilatation. GALLBLADDER: The gallbladder is not visualized. Surgical clips are noted in the gallbladder fossa. PANCREAS: The pancreas is normal, without mass or ductal dilatation. SPLEEN: Normal in size and appearance. UPPER GI TRACT: Evaluation of the gastrointestinal tract is limited by incomplete gastric distention. The upper GI tract is unremarkable. SMALL BOWEL AND MESENTERY: The small bowel is normal in contour, course, and caliber. There is no obstruction or dilatation. COLON: The colon is normal in contour, course, caliber. There is no pericolonic inflammatory change. There is a tubular, vermiform, hollow viscus that is blind ending, and originates from the cecum, consistent with a normal appendix. There is no periappendiceal inflammatory change. This is best seen on coronal images 54 through 71. ADRENALS: Normal bilaterally. KIDNEYS: Vascular calcifications are noted within the left. There is a stable simple cyst of the left kidney. There is no appreciable hydronephrosis or nephrolithiasis. BLADDER: The bladder is smooth in contour. PELVIC ORGANS: The uterus and adnexa are grossly normal for technique. AORTA: The aorta is normal. IVC: Unremarkable LYMPH NODES: There is no lymphadenopathy by size criteria. ABDOMINAL WALL: There is no evidence for abdominal wall hernia. BONES AND SOFT TISSUES: There are mild diffuse degenerative changes. OTHER: None IMPRESSION: 1. NO HYDRONEPHROSIS OR NEPHROLITHIASIS. 2. NORMAL APPENDIX. 3. HEPATOMEGALY.
== END 2017-10-27 14:46 | disposition short-term general hospital (02) ==
LOC: UCEAST 13:02
DX: R10.31 Right lower quadrant pain (principal); M54.9 Dorsalgia, unspecified; R16.0 Hepatomegaly, not elsewhere classified; Z87.442 Personal history of urinary calculi; Z90.49 Acquired absence of other specified parts of digestive tract; Z90.710 Acquired absence of both cervix and uterus; Z88.2 Allergy status to sulfonamides; Z87.891 Personal history of nicotine dependence
CPT/HCPCS: 74176; 81003; 96374; 99213; G0463; J1885

== ENCOUNTER 2017-11-12 12:49 | Emergency (ER) | payer MEDICAID ==
--- OUTSIDE RECORDS SUMMARY | 2017-11-12 13:06 | XMS REPORT ---
:1960 External Reference #:[id number] Author Organization [facility] Address [address] [place] [address] [place] [address] Phone [phone] Care Team Providers Name Role Phone Alana Jones MD Primary Care Physician Unavailable Payers Type Date Identification Numbers Payment Provider Subscriber Medicaid Policy Number: [id number] Medicaid Mandy Gill[employer] Name: [id number] PayID: [id number] [place] [address] Problems Date Description Provider Status Onset: 08/04/2015 Localized, primary osteoarthritis Torri Gonzalez M.D. Active Family History Date Family Member(s) Problem(s) Comments General Diabetes Father due to bone CA () Father due to [place] () - age 54 yr Mother DM, [...] Active Tablets 5-325mg 30tabs 1 tabs by Pete Brown mouth F every 4-6 Nabil, hours as [...] G57.91 Andrew 2016 - Adal 06/08/ M.DAmee 2017 M79.671 Oxycodone HCL 11/18/2016 - Hx Tablets [...] M17. 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 bid [place] 04/18/2013 - Hx Tablets 5-325mg 30tabs 1-2 by mouth Loren 10/14/2016 every 4 Tammi hours as M.D. needed Ibuprofen 01/05/2013 - Hx Tablets 600mg 120tabs tid with Loren 03/18/2015 food Jose D Cadena [place] 11/20/2012 - Hx Tablets 5-325mg 60tabs take 1-2 tab Loren 03/06/2013 po q4-6hours martha Cadena pain M.DAmee Medications Administered in Office Medication Date Status Form Strength Qnty SIG Indications Ordering Provider Depomedrol Administered Injection Pete F 40MG 018 MD Nabil Vital Signs Date Vital Result Comment 11/10/2017 Height 65 inches 5'5" Weight 218.00 lb Heart Rate 80 /min Respiratory Rate 14 /min Body Temperature 96.4 F Pain Level 0 BMI (Body Mass Index) 36.3 kg/m2 10/13/2017 Height 65 inches 5'5" Weight 227.00 [...] 08/18/2012 S RUN DATE: <SEE NOTE> 1 Blender Operator: [id number] 2 Blender Operator: [id number] 3 Please note: The following may produce [...] 5 Kidney failure <15 (or dialysis) 5 Blender Operator: [id number] 6 RUN DATE: 12/24/13 [facility] LAB LIVE PAGE 1 RUN TIME: [address] [place] [id number] Specimen Inquiry Name: MANDY GILLILAND : [address]: Loren Cadena Acct: [id number] Unit: [id number] AGE: 53 Location: [facility] Re12/20/13 SEX: F Status: REG SD SPEC: [id number] [place]: 12/20/13- SUBM DR: Loren Cadena MD REQ: [id number] RECD: 12/20/13 STATUS: SOUT _ ORDERED: LEVEL [...] performed at Main Lab DEPARTMENT OF PATHOLOGY, [address] [place] [address] Jamel Guy M.D. Director [facility] # [id number] RUN DATE: 08/23/12 [facility] LAB LIVE PAGE 1 RUN TIME: [address] [place] [address] Specimen Inquiry Name: MANDY GILLILAND : [address]: Loren Cadena Acct: [id number] Unit: [id number] AGE: 52 Location: [facility] Re08/18/12 SEX: F Status: REG [facility] SPEC: [id number] [place]: 08/18/12- [facility] DR: Loren Cadena MD REQ: [id number] RECD: 08/18/12-1443 STATUS: SOUT _ ORDERED: LEVEL [...] performed at Main Lab DEPARTMENT OF PATHOLOGY, [address] [place] [address] Jamel Guy M.D. Director [facility] Permit #[id number] Procedures Date CPT Code Description Status 09/30/2017 49051 Arthroscopy,Shoulder Decompression Of Subacromial Space Completed W/Acromio 09/30/2017 70961 Arthroscopy,Shoulder Decompression Of Subacromial Space Completed W/Acromio 09/30/2017 61342 Arthroscopy,Shoulder,Distal Claviculectomy Incl Dist Completed Articular SR 09/30/2017 44697 Arthroscopy,Shoulder,Distal Claviculectomy Incl Dist Completed Articular SR 09/30/2017 18654 Arthroscopy Shoulder Debridement Extensive Completed 09/30/2017 50493 Arthroscopy Shoulder Debridement Extensive Completed 07/04/2017 49767 Inject/Drain Joint/Bursa Major W/O US Completed 12/03/2016 23747 Walking Cast Completed 11/22/2016 31969 Implant Nerve End Into Bone Or Muscle Completed 11/22/2016 04415 Excision Neuroma, Major Peripheral Nerve Completed 11/22/2016 11949 Excision Neuroma, Major Peripheral Nerve Completed 12/20/2013 75070 Neuroplasty &/Or Transposition; Ulnar Nerve AT Elbow Completed 12/20/2013 15056 Neuroplasty &/Or Transposition; Ulnar Nerve AT Elbow Completed 08/08/2013 14914 Xray Knee 3 Views Completed 05/04/2013 58144 Neuroplasty &/Or Transposition; Ulnar Nerve AT Elbow Completed 05/04/2013 68752 Neuroplasty &/Or Transposition; Ulnar Nerve AT Elbow Completed 05/04/2013 63868 Carpal Tunnel Release Completed 05/04/2013 63928 Carpal Tunnel Release Completed 11/30/2012 50031 Carpal Tunnel Release Completed 11/30/2012 24774 Neuroplasty &/Or Transposition; Ulnar Nerve AT Elbow Completed 11/30/2012 35786 Neuroplasty &/Or Transposition; Ulnar Nerve AT Elbow Completed 08/18/2012 60692 Excision Ganglion Wrist/ Dorsal Or Volar; Primary Completed 08/18/2012 79281 Excision Ganglion Wrist/ Dorsal Or Volar; Primary Completed 08/27/2011 74190 Rad Exam; Foot Comp Completed 08/04/2011 88406 Rad Exam; Foot Comp Completed 07/14/2011 46269 Rad Exam; Foot Comp Completed 02/27/2009 28338 ECHO Stress Test Incl Perf Contiuous ekg Monitoring Completed W/Phys Superv 12/23/2008 95585 ECHO Transthoracic, Real-Time 2D With Doppler And Color Completed Flow 10/30/2008 49636 EKG Tracing & Interpretation Completed 01/29/2007 54068 Stress ECHO Interpretation/Report Hospital Completed 01/29/2007 77970 Stress ECHO Interpretation/Report Hospital Completed 01/29/2007 60570 Treadmill Interp/Report Only Completed 01/29/2007 57454 Stress Test Supervsn W/Out I/R Completed 01/29/2007 69954 Stress Test Supervsn W/Out I/R Completed Encounters Type Date Location Provider CPT E/M Dx Office Visit 08/15/2017 [facility] Ferrer 54610 S46.011D 3:00p Of Matt BECKWITH M75.41 M75.51 M75.21 M19.011 Office Visit 07/04/2017 2:00p [facility] Pete Duke 09242 S46.011D Of Matt Ferrer MD M75.41 M75.51 Office Visit 06/09/2017 1:00p [facility] Pete Duke 74599 S46.011D Of Matt Ferrer MD M75.41 M75.51 Office Visit 05/05/2017 10:30a [facility] Pete Duke 62774 S46.011D Of Matt Ferrer MD M75.41 Office Visit 03/08/2017 3:00p [facility] Pete Duke 35972 S46.011D Of Matt Ferrer MD M75.51 Office Visit 02/24/2017 9:45a [facility] Andrew Galeas 71474 G57.91 Matt Jeffery Office Visit 01/20/2017 1:15p [facility] Pete Ferrer 42291 M75.41 Matt BECKWITH M75.51 Office Visit 12/23/2016 9:00a [facility] Pete Duke 45630 S43.421A Of Matt Ferrer MD Office Visit 10/15/2016 2:15p [facility] Andrew Galeas 96300 G57.91 Of Matt Jeffery Office Visit 09/21/2016 11:30a [facility] Andrew Galeas 96313 M79.671 Of Matt Jeffery G57.91 Office Visit 08/10/2016 9:30a [facility], 81871 M54.31 C.M.Francisco Jeffery M79.671 Office Visit 11/07/2015 2:40p [facility] [place]ale[place], 94524 M54.31 C.M.Francisco Jeffery Office Visit 09/19/2015 3:00p [facility] Torri Gonzalez M.D. 77511 M17.12 C.[facility].A. M25.562 Office Visit 09/19/2015 3:20p [facility] Andrew Galeas 39342 G57.91 C.M.Francisco MEmelia Office Visit 09/03/2015 11:30a [facility] Torri Gonzalez M.D. 74340 M25.562 C.M.A. M17.12 M25.462 Office Visit 08/04/2015 2:45p [facility] Torri Gonzalez M.D. 46888 M25.562 C.M.A. M17.12 M25.462 Office Visit 06/16/2015 10:30a [facility] Torri Gonzalez M.D. 17430 M17.12 C.M.A. S83.412A Office Visit 04/16/2015 2:30p [facility] [place] [address] M75.02 C.M.A. Office Visit 03/19/2015 1:00p [facility] [place] [address] M75.02 C.M.A. Office Visit 12/31/2014 4:10p [facility] Andrew Galeas 78292 G57.81 C.M.AAmee MAmeeD. Office Visit 10/15/2014 2:50p [facility] Andrew Galeas, 34945 355.79 C.M.Francisco M.D. Office Visit 09/20/2014 10:30a [facility]ale[facility], 94003 719.47 C.M.A. M.D. Office Visit 08/30/2014 3:00p [facility], 88768 825.25 C.M.Sari. Jose D 715.17 Office Visit 12/05/2013 9:15a [facility] Loren Cadena, 09492 354.2 Of C.M.A. M.D. Office Visit 11/12/2013 9:00a [facility] Torri Gonzalez M.D. 89105 715.96 Of C.M.A. Office Visit 10/08/2013 10:00a [facility] Torri Gonzalez M.D. 67697 715.96 Of C.M.A. 719.46 Office Visit 08/08/2013 2:30p [facility] Torri Gonzalez M.D. 36789 715.96 C.M.A. Office Visit 05/31/2013 11:15a [facility] Torri Gonzalez M.D. 07785 715.35 C.M.A. 715.96 Office Visit 04/25/2013 12:15p [facility] Torri Gonzalez M.D. 39737 715.35 C.M.A. 715.96 844.1 Office Visit 04/18/2013 10:45a [facility] Loren Cadena 90010 354.0 Of C.M.A. M.D. Office Visit 03/06/2013 10:30a [facility] PAGE Jose 01309 354.2 Of C.M.A. 354.0 727.43 Office Visit 10/18/2012 11:15a [facility] Loren Cadena 92177 354.2 Of C.M.A. M.D. Office Visit 07/19/2012 10:45a [facility] Loren Cadena 31687 727.43 Of C.M.A. M.D. Office Visit 12/27/2011 8:30a [facility] Loren Cadena, 08226 354.0 Of Matt Jeffery 354.2 727.43 727.04 Office Visit 08/27/2011 9:30a [facility]aleas, 15475 727.09 Matt Jeffery Office Visit 08/04/2011 11:30a [facility] [place], 26360 719.47 C.Sanjuanita Jeffery 729.81 Office Visit 07/14/2011 1:30p [facility] [place]ale[facility], 93764 719.47 CFaith Jeffery Office Visit 10/30/2008 10:20a [facility] Patrick SAmee 25766 786.50 Jose D Malcolm 401.1 278.00 794.31 Plan of Care Future Appointment(s):01/10/2018 10:00 am - Pete Ferrer MD at [facility].A.11/10/2017 - Pete Ferrer, MDM75.81 Other shoulder lesions, right shoulderFollow up:Follow up: 2 bxkrlmW56.21 Bicipital tendinitis, right bbhnsbofM10.89 Encounter for other orthopedic zzvfvskwiZ87.011D Strain of musc/tend the rotator cuff of right shoulder, subsM75.41 Impingement syndrome of right shoulder
--- NOTE | 2017-11-12 13:37 | ED ---
Lower Extremity - HPI Summary HPI Summary: 57 year old F [place] [facility] complains of left calf pain since 3 days ago. The patient rates the pain 9/10 in severity. Symptoms aggravated by nothing. Symptoms alleviated by nothing. Patient reports left calf edema. She denies recent long-distance travel, trauma, and heavy lifting. - History of Current Complaint Chief Complaint: EDExtremityLower Stated Complaint: LT LEG SWELLING Time Seen by Provider: 11/12/17 13:25 Hx Obtained From: Patient Hx Last Menstrual Period: hysterectomy Onset/Duration: Days - 3 Severity Currently: Severe Pain Intensity: 9 Pain Scale Used: 0-10 Numeric Timing: Constant Associated Signs And Symptoms: Positive: Other - left calf edema Aggravating Factor(s): Nothing Alleviating Factor(s): Nothing - Allergies/Home Medications Allergies/Adverse Reactions: Allergies Allergy/AdvReac Type Severity Reaction Status Date / Time Sulfa (Sulfonamide Allergy Severe Hives Verified 11/12/17 13:00 Antibiotics) PMH/Surg Hx/FS Hx/Imm Hx Previously Healthy: No Endocrine/Hematology History: Reports: Hx Diabetes - Type 2 Denies: Hx Anticoagulant Therapy - She took one baby aspirin today., Hx Thyroid Disease Cardiovascular History: Reports: Hx Hypertension - controlled with meds Denies: Hx Angina, Hx Pacemaker/ICD Respiratory History: Reports: Hx Asthma - on meds Denies: Hx Chronic Obstructive Pulmonary Disease (COPD), Hx Lung Cancer, Hx Pneumonia, Hx Pulmonary Embolism GI History: Reports: Hx Gastroesophageal Reflux Disease Denies: Hx Gall Bladder Disease, Hx Gastrointestinal Bleed, Hx Ulcer, Hx Urosepsis History: Reports: Hx Kidney Stones Denies: Hx Renal Disease Musculoskeletal History: Reports: Hx Arthritis - Bilat knees, shoulders, Hx Tendonitis - L Wrist Sensory History: Reports: Hx Contacts or Glasses - glasses Denies: Hx Hearing Aid Opthamlomology History: Reports: Hx Contacts or Glasses - glasses Neurological History: Reports: Hx Migraine Denies: Hx Dementia, Hx Seizures, Hx Transient Ischemic Attacks (TIA), Other Neuro Impairments/Disorders Psychiatric History: Reports: Hx Anxiety - prn Denies: Hx Depression, Hx Panic Disorder, Hx Schizophrenia, Hx Bipolar Disorder - Cancer History Hx Chemotherapy: No Hx Radiation Therapy: No - Surgical History Surgery Procedure, Year, and Place: 1991 CHOLECYSTECTOMY. 2003 HYSTERECTOMY [facility] BILATERAL CARPAL TUNNEL Hx Anesthesia Reactions: No - Immunization History Date of Influenza Vaccine: Fall 2016 Infectious Disease History: No Infectious Disease History: Denies: Hx Clostridium Difficile, Hx Human Immunodeficiency Virus (HIV), Hx of Known/Suspected MRSA, Hx Shingles, Hx Tuberculosis, Hx Known/Suspected VRE, Hx Known/Suspected VRSA, History Other Infectious Disease, Traveled Outside the [place] in Last 30 Days - Family History Known Family History: Positive: Cardiac Disease, Hypertension, Diabetes - Social History Alcohol Use: None Hx Substance Use: No Substance Use Type: Reports: None Hx Tobacco Use: Yes Smoking Status (MU): Former Smoker Type: Cigarettes Amount Used/How Often: LESS THEN 1PPD, only smoked 1/2 year Length of Time of Smoking/Using Tobacco: 1.5 YRS Have You Smoked in the Last Year: No Review of Systems Negative: Fever Positive: Edema - left calf, Other - left calf pain All Other Systems Reviewed And Are Negative: Yes Physical Exam - Summary Physical Exam Summary: VITAL SIGNS: Reviewed. GENERAL: Patient is a well-developed and nourished female who is lying comfortable in the stretcher. Patient is not in any acute respiratory distress. HEAD AND FACE: No signs of trauma. No ecchymosis, hematomas or skull depressions. No sinus tenderness. EYES: PERRLA, EOMI x 2, No injected conjunctiva, no nystagmus. EARS: Hearing grossly intact. Ear canals and tympanic membranes are within normal limits. MOUTH: Oropharynx within normal limits. NECK: Supple, trachea is midline, no adenopathy, no JVD, no carotid bruit, no c- spine tenderness, neck with full ROM. CHEST: Symmetric, no tenderness at palpation LUNGS: Clear to auscultation bilaterally. No wheezing or crackles. CVS: Regular rate and rhythm, S1 and S2 present, no murmurs or gallops appreciated. ABDOMEN: Soft, non-tender. No signs of distention. No rebound no guarding, and no masses palpated. Bowel sounds are normal. EXTREMITIES: left calf pain and tenderness, common size test is negative NEURO: Alert and oriented x 3. No acute neurological deficits. Speech is normal and follows commands. SKIN: Dry and warm Triage Information Reviewed: Yes Vital Signs On Initial Exam: Initial Vitals Temp Pulse Resp BP Pulse Ox 97.0 F 86 14 166/86 97 11/12/17 12:56 11/12/17 12:56 11/12/17 12:56 11/12/17 12:56 11/12/17 12:56 Vital Signs Reviewed: Yes Diagnostics - Vital Signs Vital Signs Temp Pulse Resp BP Pulse Ox 11/12/17 12:56 97.0 F 86 14 166/86 97 - Laboratory Result Diagrams: 11/12/17 13:54 11/12/17 13:54 Lab Statement: Any lab studies that have been ordered have been reviewed, and results considered in the medical decision making process. - Ultrasound No standard instances Ultrasound Interpretation Completed By: Radiologist - Venous Doppler Study: No sonographic evidence of deep vein thrombosis. ED physician has reviewed this report. Re-Evaluation - Re-Evaluation First Eval Re-Evaluation Time: 15:57 Comment: patient feels better and is ready to go home Lower Extremity Course/Dx - Course Assessment/Plan: This patient is a 57-year-old female who presents to the emergency department with chief complaint of left lower extremity pain and Pain. The pain started approximately 2 days ago. Does not history of heavy lifting or trauma. She doesn't have a history of flying or long trips. Past medical history significant for hypertension, dyslipidemia, asthma, diabetes and GERD. Blood work without any significant abnormality. Left posterior malleolar ultrasound impression: Left lower sternal ultrasound shows negative for a DVT. The patient will be given Toradol for pain. The patient will be discharged home with follow-up with primary care physician. Patient is hemodynamically stable alert and oriented 3. Patient was ambulatory from the emergency department. - Diagnoses Provider Diagnoses: Musculoskeletal pain of extremity Discharge - Sign-Out/Discharge Documenting (check all that apply): Patient Departure - Dishcarge - Discharge Plan Condition: Stable Disposition: HOME Patient Education Materials: Musculoskeletal Pain (ED) Referrals: Alana Jones MD [Primary Care Provider] - 2 Days Additional Instructions: Follow up with your primary care provider in 2 days. RETURN TO THE EMERGENCY DEPARTMENT FOR NEW OR WORSENING SYMPTOMS. - Billing Disposition and Condition Condition: STABLE Disposition: Home - Attestation Statements Document Initiated by Scribe: Yes Documenting Scribe: Halie Baker Provider For Whom Scribe is Documenting (Include Credential): Arben Saab MD Scribe Attestation: Halie Andino, scribed for Arben Saab MD on 11/13/17 at 1129. Scribe Documentation Reviewed: Yes Provider Attestation: The documentation as recorded by the scribe, Halie Baker accurately reflects the service I personally performed and the decisions made by me, Arben Saab MD
[2017-11-12 14:00] LABS: ABS Basophils 0 10^3/ul (0-0.2); ABS Eosinophils 0.1 10^3/ul (0-0.6); ABS Lymphocytes 1.9 10^3/ul (1.0-4.8); ABS Monocytes 0.6 10^3/ul (0-0.8); ABS Neutrophils 3.5 10^3/ul (1.5-7.7); ABS Nucleated RBC 0 10^3/ul; Eosinophil % 1.5 % (0-6); Hematocrit 37 % (35-47); Hemoglobin 12.3 g/dl (12.0-16.0); Mean Corpuscular HGB Conc 33 g/dl (31-36); Mean Corpuscular Hemoglobin 29 pg (27-31); Mean Corpuscular Volume 86 fL (80-97); Mean Platelet Volume 7.6 um3 (7.4-10.4); Nucleated Red Blood Cells % 0.1; Platelet Count 320 10^3/ul (150-450); Red Blood Count 4.34 10^6/ul (4.00-5.40); Red Cell Distribution Width 14 % (10.5-15); White Blood Count 6.1 10^3/ul (3.5-10.8)
[2017-11-12 14:58] LABS: EGFR Non-African American 83.5 (>60); Uric Acid 4.1 mg/dL (2.3-6.6)
--- NOTE | 2017-11-12 15:42 | RAD ---
HISTORY: Left lower extremity pain and edema TECHNIQUE: Multiple transverse and longitudinal ultrasound images were obtained of the veins of the left lower extremity using grayscale, color Doppler, and spectral Doppler imaging with and without compression and with augmentation. FINDINGS: VEINS: The common femoral vein, deep femoral vein, femoral vein and popliteal vein are compressible throughout their course, with normal flow on color Doppler imaging and normal response to augmentation on spectral Doppler imaging. SOFT TISSUES: Grossly normal. No large popliteal fossa cyst was identified. IMPRESSION: No sonographic evidence of deep vein thrombosis.
[2017-11-12] MEDS ORDERED: Ketorolac INJ* 60 MG/2 ML VIAL IM ONE (15:50)
[2017-11-12 16:52] VITALS: BP 134/79
== END 2017-11-12 16:25 | disposition home or self-care (01) ==
LOC: ED 12:49
DX: M79.662 Pain in left lower leg (principal); K21.9 Gastro-esophageal reflux disease without esophagitis; J45.909 Unspecified asthma, uncomplicated; Z87.891 Personal history of nicotine dependence
CPT/HCPCS: 36415; 80053; 84550; 85025; 86140; 96372; 99282; J1885

== ENCOUNTER 2017-12-27 15:23 | Emergency (ER) | payer MEDICAID ==
[2017-12-27 15:28] VITALS: BP 184/85
[2017-12-27] MEDS ORDERED: Ketorolac INJ* 30 MG/ML 1 ML VIAL IM ONE (17:16)
--- NOTE | 2017-12-27 17:27 | ED ---
Upper Extremity Pain - HPI Summary HPI Summary: 57-year-old female presents with right shoulder pain since last night. She states she had a previously surgery on the shoulder 5 months ago. she states last night she felt a pop in her shoulder. She is having pain over the anterior aspect of her shoulder. She admits some numbness and tingling in her pinky and ring finger. She denies any weakness. She states she believes her surgery was for rotator cuff injury. She is right-handed. Has been taking Tylenol for pain. she denies any chest pain or SOB. no neck pain. no palpitations. She has history of DM and HTN. - History of Current Complaint Chief Complaint: EDShoulderCAlejandra Stated Complaint: RT SHOULDER PAIN Time Seen by Provider: 12/27/17 15:35 Hx Last Menstrual Period: hysterectomy - Allergies/Home Medications Allergies/Adverse Reactions: Allergies Allergy/AdvReac Type Severity Reaction Status Date / Time Sulfa (Sulfonamide Allergy Severe Hives Verified 12/27/17 15:29 Antibiotics) PMH/Surg Hx/FS Hx/Imm Hx Endocrine/Hematology History: Reports: Hx Diabetes - Type 2 Denies: Hx Anticoagulant Therapy - She took one baby aspirin today., Hx Thyroid Disease Cardiovascular History: Reports: Hx Hypertension - controlled with meds Denies: Hx Angina, Hx Pacemaker/ICD Respiratory History: Reports: Hx Asthma - on meds Denies: Hx Chronic Obstructive Pulmonary Disease (COPD), Hx Lung Cancer, Hx Pneumonia, Hx Pulmonary Embolism GI History: Reports: Hx Gastroesophageal Reflux Disease Denies: Hx Gall Bladder Disease, Hx Gastrointestinal Bleed, Hx Ulcer, Hx Urosepsis History: Reports: Hx Kidney Stones Denies: Hx Renal Disease Musculoskeletal History: Reports: Hx Arthritis - Bilat knees, shoulders, Hx Tendonitis - L Wrist Sensory History: Reports: Hx Contacts or Glasses - glasses Denies: Hx Hearing Aid Opthamlomology History: Reports: Hx Contacts or Glasses - glasses Neurological History: Reports: Hx Migraine Denies: Hx Dementia, Hx Seizures, Hx Transient Ischemic Attacks (TIA), Other Neuro Impairments/Disorders Psychiatric History: Reports: Hx Anxiety - prn Denies: Hx Depression, Hx Panic Disorder, Hx Schizophrenia, Hx Bipolar Disorder - Cancer History Hx Chemotherapy: No Hx Radiation Therapy: No - Surgical History Surgery Procedure, Year, and Place: 1991 CHOLECYSTECTOMY. 2003 HYSTERECTOMY [facility]. BILATERAL CARPAL TUNNEL Hx Anesthesia Reactions: No - Immunization History Date of Influenza Vaccine: Fall 2016 Infectious Disease History: No Infectious Disease History: Denies: Hx Clostridium Difficile, Hx Human Immunodeficiency Virus (HIV), Hx of Known/Suspected MRSA, Hx Shingles, Hx Tuberculosis, Hx Known/Suspected VRE, Hx Known/Suspected VRSA, History Other Infectious Disease, Traveled Outside the [place] in Last 30 Days - Family History Known Family History: Positive: Cardiac Disease, Hypertension, Diabetes - Social History Alcohol Use: None Hx Substance Use: No Substance Use Type: Reports: None Hx Tobacco Use: Yes Smoking Status (MU): Former Smoker Type: Cigarettes Amount Used/How Often: LESS THEN 1PPD, only smoked 1/2 year Length of Time of Smoking/Using Tobacco: 1.5 YRS Have You Smoked in the Last Year: No Review of Systems Negative: Fever Negative: Chest Pain Negative: Shortness Of Breath Positive: Myalgia - right shoulder All Other Systems Reviewed And Are Negative: Yes Physical Exam Triage Information Reviewed: Yes Vital Signs On Initial Exam: Initial Vitals Temp Pulse Resp BP Pulse Ox 97.5 F 81 17 184/85 96 12/27/17 15:24 12/27/17 15:24 12/27/17 15:24 12/27/17 15:24 12/27/17 15:24 Vital Signs Reviewed: Yes Appearance: Positive: Well-Appearing Skin: Positive: Warm, Dry Head/Face: Positive: Normal Head/Face Inspection Eyes: Positive: Normal, EOMI, CATRACHITA, Conjunctiva Clear ENT: Positive: Normal ENT inspection, Pharynx normal, TMs normal Respiratory/Lung Sounds: Positive: Clear to Auscultation, Breath Sounds Present Cardiovascular: Positive: Normal, RRR Musculoskeletal: Positive: Limited @ - right shoulder, Other - good pulses, tenderness over right anterior shoulder, sensation grossly intact. good cable lacer strength, limited flexion and extension of shoulder, normal internal and external roation Neurological: Positive: Normal Psychiatric: Positive: Normal Diagnostics - Vital Signs Vital Signs Temp Pulse Resp BP Pulse Ox 12/27/17 15:24 97.5 F 81 17 184/85 96 - Laboratory Lab Statement: Any lab studies that have been ordered have been reviewed, and results considered in the medical decision making process. - Radiology shoulder Radiology Interpretation Completed By: Radiologist Summary of Radiographic Findings: IMPRESSION: 1. NO EVIDENCE FOR FRACTURE. 2. WIDENING OF THE ACROMIOCLAVICULAR JOINT NONSPECIFIC ALTHOUGH LIKELY SECONDARY TO. POSTSURGICAL CHANGE. Course/Dx - Course Course Of Treatment: 57-year-old female presents with right shoulder pain since last night. She states she had a previously surgery on the shoulder 5 months ago. she states last night she felt a pop in her shoulder. She is having pain over the anterior aspect of her shoulder. She admits some numbness and tingling in her pinky and ring finger. She denies any weakness. She states she believes her surgery was for rotator cuff injury. She is right-handed. Has been taking Tylenol for pain. On exam tenderness of right anterior shoulder. Limited flexion and extension. Neurovascularly intact. X-ray shows no fracture. is widing of AC joint. will discharge with flexeril. blood pressure is elevated at this visit. discussed with patient that is asx at this time and will have follow up with primary about such. patient understand and agrees with plan. - Diagnoses Differential Diagnosis/HQI/PQRI: Positive: Fracture (Closed), Strain, Sprain Provider Diagnoses: Right shoulder pain, Hypertension Discharge - Sign-Out/Discharge Documenting (check all that apply): Patient Departure - Discharge Plan Condition: Good Disposition: HOME Prescriptions: Cyclobenzaprine TAB* [Flexeril 10 MG TAB*] 10 mg PO TID PRN #9 tab PRN Reason: Pain Patient Education Materials: Shoulder Pain (ED) Referrals: Alana Jones MD [Primary Care Provider] - Owen Zavala MD [Medical Doctor] - Additional Instructions: Take muscle relaxers three times a day Use ibuprofen or Tylenol for pain every 6 hours ice/heat area, move as much as possible Follow up with ortho if no improvement Follow up with primary within 5 days about blood pressure as is elevated at this visit Return to ED if develop any new or worsening symptoms - Billing Disposition and Condition Condition: GOOD Disposition: Home
== END 2017-12-27 17:48 | disposition home or self-care (01) ==
LOC: ED 15:23
DX: M25.511 Pain in right shoulder (principal); I10 Essential (primary) hypertension; J45.909 Unspecified asthma, uncomplicated; Z88.2 Allergy status to sulfonamides; Z87.891 Personal history of nicotine dependence
CPT/HCPCS: 96372; 99282; J1885

== ENCOUNTER 2018-01-29 15:22 | Emergency (ER) | payer OTHER ==
[2018-01-29] MEDS ORDERED: Meclizine TAB* 12.5 MG PO ONE ×2 (15:31→16:38)
[2018-01-29 15:35] VITALS: BP 161/89
--- NOTE | 2018-01-29 15:36 | UC ---
Dizzy HPI HPI Summary: 57-year-old woman comes to clinic today with a chief complaint of dizziness. Started several hours ago. Feels like things are spinning. It is worse with movement of the head. She is nauseous with it. She is a diabetic he checked her blood sugar and it was somewhere around 300. Discussed slight headache for 10 frontal. Denies any focal weakness or numbness does complain of generalized weakness. - History Of Current Complaint Stated Complaint: DIZZY Time Seen by Provider: 01/29/18 15:25 Hx Last Menstrual Period: hysterectomy - Allergies/Home Medications Allergies/Adverse Reactions: Allergies Allergy/AdvReac Type Severity Reaction Status Date / Time Sulfa (Sulfonamide Allergy Severe Hives Verified 01/29/18 15:30 Antibiotics) Home Medications: Home Medications Docusate CAP* [Colace Cap*] 100 mg PO DAILY 01/29/18 [History Confirmed 01/29/18 ] PMH/Surg Hx/FS Hx/Imm Hx Endocrine History: Diabetes, Dyslipidemia Cardiovascular History: Hypertension Respiratory History: Asthma GI/ History: Gastroesophageal Reflux Other History Of: Negative For: HIV, Hepatitis B, Hepatitis C, Anticoagulant Therapy - She took one baby aspirin today. - Surgical History Surgical History: Yes Surgery Procedure, Year, and Place: 1991 CHOLECYSTECTOMY. 2003 HYSTERECTOMY [facility]. BILATERAL CARPAL TUNNEL - Family History Known Family History: Positive: Cardiac Disease, Hypertension, Diabetes - Social History Alcohol Use: None Substance Use Type: None Smoking Status (MU): Former Smoker Type: Cigarettes Amount Used/How Often: LESS THEN 1PPD, only smoked 1/2 year Length of Time of Smoking/Using Tobacco: 1.5 YRS Have You Smoked in the Last Year: No When Did the Patient Quit Smoking/Using Tobacco: 40 yrs ago - Immunization History Most Recent Influenza Vaccination: 10/2014 Most Recent Tetanus Shot: up to date Most Recent Pneumonia Vaccination: never had this Review of Systems All Other Systems Reviewed And Are Negative: Yes Constitutional: Positive: Other - DIZZINESS, GENERALIZED WEAKNESS Skin: Positive: Negative Eyes: Positive: Negative ENT: Positive: Negative Respiratory: Positive: Negative Cardiovascular: Positive: Negative Gastrointestinal: Positive: Nausea Genitourinary: Positive: Negative Motor: Positive: Weakness Neurovascular: Positive: Negative Musculoskeletal: Positive: Negative Neurological: Positive: Headache, Weakness Psychological: Positive: Negative Is Patient Immunocompromised?: No Physical Exam Triage Information Reviewed: Yes Appearance: No Pain Distress, Well-Nourished, Ill-Appearing - MILD Vital Signs Reviewed: Yes Eye Exam: Normal Eyes: Positive: Conjunctiva Clear ENT: Positive: Pharynx normal, TMs normal Neck exam: Normal Neck: Positive: Supple Respiratory: Positive: Lungs clear, Normal breath sounds, No respiratory distress Cardiovascular: Positive: RRR Musculoskeletal Exam: Normal Musculoskeletal: Positive: Strength Intact, ROM Intact Neurological Exam: Normal Neurological: Positive: Alert, Muscle Tone Normal Psychological Exam: Normal Psychological: Positive: Age Appropriate Behavior Skin Exam: Normal Dizzy Course/Dx - Course Course Of Treatment: In the clinic. Blood sugar was 112. Vital signs are stable. Patient had no focal neurologic deficit. The dizziness was spinning in nature and worse with head movement. She was given meclizine 25 mg by mouth in clinic and after one-hour observation the dizziness is improved another still is no neurologic deficit. The plan is to continue treatment at home with meclizine. I discussed with him if there is any weakness numbness or the dizziness was not getting better because any other concerns the patient needs to get rechecked in the emergency department. - Differential Dx/Diagnosis Provider Diagnosis: Vertigo, Dizziness Discharge - Sign-Out/Discharge Documenting (check all that apply): Patient Departure All imaging exams completed and their final reports reviewed: No Studies - Discharge Plan Condition: Stable Disposition: HOME Prescriptions: Meclizine HCl [Motion Sickness Relief] 25 mg PO Q6H PRN #20 tablet PRN Reason: Dizziness Patient Education Materials: Vertigo (ED), Dizziness (ED) Referrals: Alana Jones MD [Primary Care Provider] - Additional Instructions: FOLLOW UP WITH YOUR DOCTOR IF NOT COMPLETELY IMPROVED. TAKE MECLIZINE 25MG EVERY 6 HORS NEEDED. GO TO THE EMERGENCY DEPARTMENT FOR ANY WORSENING OF YOUR CONDITION; WEAKNESS, NUMBNESS, DIFFICULTY WITH VISION OR SPEECH, YOU FEEL ILL, YOU FEEL LIKE PASSING OUT OR QUESTIONS OR CONCERNS. - Billing Disposition and Condition Condition: STABLE Disposition: Home
== END 2018-01-29 16:59 | disposition home or self-care (01) ==
LOC: UCEAST 15:22
DX: R42 Dizziness and giddiness (principal); Z88.2 Allergy status to sulfonamides; Z87.891 Personal history of nicotine dependence
CPT/HCPCS: 99212; A9270-GY; G0463

== ENCOUNTER 2018-02-24 09:51 | Emergency (ER) | payer OTHER ==
[2018-02-24] MEDS ORDERED: Ibuprofen TAB* 600 MG PO ONE (10:16)
[2018-02-24] MEDS ORDERED: Acetaminophen TAB* 325 MG PO ONE (10:16)
--- NOTE | 2018-02-24 10:30 | ED ---
Back Pain - HPI Summary HPI Summary: A 57 y/o female presents to the ED c/o back pain. Currently, the patient is still experiencing back pain reaching 5/10 in severity. As per triage, "Low back pain after cooking for the holidays, pain for the last week". According to the patient, she has been experiencing lower back pain for the past week. She stated that she has not been doing anything out of the ordinary to trigger the back pain. She denies any chest pain, SOB, neck pain, sore throat, chills, fever , burning with urination, leaking stool or urine, anxiety, depression, rash, bruising, numbness/tingling, N/V/D, however, she does have abdominal pain that started this morning. Additionally she noted that she saw some streaks of blood when she urinated. Patient has taken nothing for pain. Patient saw her PCP on Tuesday (02/18/2018). PMHx of renal calculi. Allergic to Sulfa. - History of Current Complaint Chief Complaint: EDBackInjuryPain Stated Complaint: BACK PAIN Hx Obtained From: Patient Hx Last Menstrual Period: hysterectomy Onset/Duration: Sudden Onset, Lasting Weeks - 1 WEEK, Still Present Onset/Duration: Started Weeks Ago - 1 WEEK, Still Present Timing: Constant, Lasting Weeks - 1 WEEK Back Pain Location: Is Diffuse Severity Initially: Moderate Severity Currently: Moderate Pain Intensity: 5 Pain Scale Used: 0-10 Numeric Aggravating Symptom(s): Nothing Alleviating Symptom(s): Nothing Associated Signs And Symptoms: Positive: Abdominal Pain - STARTED THIS MORNING. , Other - SAW BLOOD STREAKS IN URINE. - Allergies/Home Medications Allergies/Adverse Reactions: Allergies Allergy/AdvReac Type Severity Reaction Status Date / Time Sulfa (Sulfonamide Allergy Severe Hives Verified 02/24/18 10:03 Antibiotics) PMH/Surg Hx/FS Hx/Imm Hx Endocrine/Hematology History: Reports: Hx Diabetes - Type 2 Denies: Hx Anticoagulant Therapy - She took one baby aspirin today., Hx Thyroid Disease Cardiovascular History: Reports: Hx Hypertension - controlled with meds Denies: Hx Angina, Hx Pacemaker/ICD Respiratory History: Reports: Hx Asthma - on meds Denies: Hx Chronic Obstructive Pulmonary Disease (COPD), Hx Lung Cancer, Hx Pneumonia, Hx Pulmonary Embolism GI History: Reports: Hx Gastroesophageal Reflux Disease Denies: Hx Gall Bladder Disease, Hx Gastrointestinal Bleed, Hx Ulcer, Hx Urosepsis History: Reports: Hx Kidney Stones Denies: Hx Renal Disease Musculoskeletal History: Reports: Hx Arthritis - Bilat knees, shoulders, Hx Tendonitis - L Wrist Sensory History: Reports: Hx Contacts or Glasses - glasses Denies: Hx Hearing Aid Opthamlomology History: Reports: Hx Contacts or Glasses - glasses Neurological History: Reports: Hx Migraine Denies: Hx Dementia, Hx Seizures, Hx Transient Ischemic Attacks (TIA), Other Neuro Impairments/Disorders Psychiatric History: Reports: Hx Anxiety - prn Denies: Hx Depression, Hx Panic Disorder, Hx Schizophrenia, Hx Bipolar Disorder - Cancer History Hx Chemotherapy: No Hx Radiation Therapy: No - Surgical History Surgery Procedure, Year, and Place: 1991 CHOLECYSTECTOMY. 2003 [address]ST[address]Y [facility]. BILATERAL CARPAL TUNNEL Hx Anesthesia Reactions: No - Immunization History Date of Influenza Vaccine: Fall 2016 Infectious Disease History: No Infectious Disease History: Denies: Hx Clostridium Difficile, Hx Human Immunodeficiency Virus (HIV), Hx of Known/Suspected MRSA, Hx Shingles, Hx Tuberculosis, Hx Known/Suspected VRE, Hx Known/Suspected VRSA, History Other Infectious Disease, Traveled Outside the [place] in Last 30 Days - Family History Known Family History: Positive: Cardiac Disease, Hypertension, Diabetes - Social History Alcohol Use: None Hx Substance Use: No Substance Use Type: Reports: None Hx Tobacco Use: Yes Smoking Status (MU): Former Smoker Type: Cigarettes Amount Used/How Often: LESS THEN 1PPD, only smoked 1/2 year Length of Time of Smoking/Using Tobacco: 1.5 YRS Have You Smoked in the Last Year: No Review of Systems Negative: Fever, Chills Negative: Blurred Vision Negative: Sore Throat, Ear Ache Negative: Chest Pain Negative: Shortness Of Breath Positive: Abdominal Pain, Other - NEGATIVE: CONSTIPATION. Negative: Vomiting, Diarrhea, Nausea Positive: hematuria. Negative: dysuria Positive: Other - POSITIVE: BACK PAIN; NEGATIVE: NECK PAIN. Negative: Edema Negative: Rash, Bruising Negative: Headache, Numbness Negative: Anxious, Depressed All Other Systems Reviewed And Are Negative: No Physical Exam - Summary Physical Exam Summary: Appearance: Alert, conversive, nontoxic appearing Skin: Warm, dry, no mottling, no rashes, no contusions HEENT: EOMI, PERRL, moist mucous membranes Neck: No masses on the neck, supple Respiratory: Clear to auscultation, breath sounds present, no rales, no rhonchi , no wheezes Cardiovascular: RRR, pulses are symmetrical in both lower and upper extremities Abdomen: Soft, non-tender Bowel Sounds: Present Back: Very mild diffuse back pain Musculoskeletal: No CVA tenderness, no obvious deformity, moving all extremities in a grossly normal manner Neurological: A&Ox3, CN II-XII Intact, moving all extremities symmetrically Psychiatric: Normal affect and mood Triage Information Reviewed: Yes Vital Signs On Initial Exam: Initial Vitals Temp Pulse Resp BP Pulse Ox 97.4 F 79 15 154/79 100 02/24/18 10:01 02/24/18 10:02/24/18 10:02/24/18 10:02/24/18 10:01 Vital Signs Reviewed: Yes Diagnostics - Vital Signs Vital Signs Temp Pulse Resp BP Pulse Ox 02/24/18 10:01 97.4 F 79 15 154/79 100 - Laboratory Lab Statement: Any lab studies that have been ordered have been reviewed, and results considered in the medical decision making process. Back Pain Course/Dx - Course Course Of Treatment: A 57 y/o female presents to the ED c/o back pain. Currently , the patient is still experiencing back pain reaching 5/10 in severity. According to the patient, she has been experiencing lower back pain for the past week. Physical examination findings significant for very mild diffuse back pain. No laboratory scans were done. Urinalysis screen was done, however, no significant laboratory abnormalities were found. In the ED course, the patient received Tylenol and Ibuprofen. Patient will be discharged with a diagnosis of back spasm and muscle strain. Patient is agreeable with this plan. - Diagnoses Provider Diagnoses: Back spasm, Muscle strain Discharge - Sign-Out/Discharge Documenting (check all that apply): Patient Departure - DISCHARGE - Discharge Plan Condition: Stable Disposition: HOME Patient Education Materials: Low Back Strain (ED), Thoracic Back Strain (ED) Referrals: Alana Jones MD [Primary Care Provider] - Additional Instructions: Take tylenol and motrin for pain. return if worse or any new symptoms. It is important to follow up with your primary care physician. Do stretching exercises as we discussed. Use a heating pad as discussed but not longer than 20 minutes at a time to avoid burning your back. - Billing Disposition and Condition Condition: STABLE Disposition: Home - Attestation Statements Document Initiated by Muriel: Yes Documenting Scribe: Rodolfo Schuster Provider For Whom Muriel is Documenting (Include Credential): Maricruz Parks MD Scribe Attestation: Rodolfo Andino, scribed for Maricruz Parks MD on 02/24/18 at 1145. Scribe Documentation Reviewed: Yes Provider Attestation: The documentation as recorded by the Rodolfo simpson accurately reflects the service I personally performed and the decisions made by me, Maricruz Parks MD Status of Scribe Document: Viewed
[2018-02-24 10:55] LABS: Urine Appearance Cloudy; Urine Bacteria 1+ (Absent); Urine Bilirubin Negative (Negative); Urine Blood Negative (Negative); Urine Color Yellow; Urine Glucose 1+(50 mg/dL) (Negative); Urine Ketones Negative (Negative); Urine Nitrite Negative (Negative); Urine Protein Negative (Negative); Urine Red Blood Cell Trace(0-2/hpf) (Absent); Urine Specific Gravity 1.025 (1.010-1.030); Urine Urobilinogen Negative (Negative); Urine White Blood Cell Trace(0-5/hpf) (Absent)
[2018-02-24 11:53] VITALS: BP 167/95
== END 2018-02-24 11:52 | disposition home or self-care (01) ==
LOC: ED 09:51
DX: S39.012A Strain of muscle, fascia and tendon of lower back, initial encounter (principal); M54.9 Dorsalgia, unspecified; R10.9 Unspecified abdominal pain; Z87.891 Personal history of nicotine dependence; R31.9 Hematuria, unspecified; M62.830 Muscle spasm of back; X58.XXXA Exposure to other specified factors, initial encounter; Y92.9 Unspecified place or not applicable
CPT/HCPCS: 81003; 81015; 87086; 99282; A9270-GY

== ENCOUNTER 2018-05-08 13:00 | Emergency (ER) | payer MEDICAID, OTHER ==
[2018-05-08] MEDS ORDERED: oxyCODONE/Acetamin 5/325 MG* TAB PO ONE (13:19)
[2018-05-08] MEDS ORDERED: Ketorolac INJ* 30 MG/ML 1 ML VIAL IM ONE (13:19)
[2018-05-08] MEDS ORDERED: Cyclobenzaprine TAB* 10 MG PO ONE (13:19)
--- NOTE | 2018-05-08 13:21 | ED ---
Back Pain - HPI Summary HPI Summary: This patient is a 58 year old F presenting to ED with a chief complaint of diffuse, non-radiating back pain since 1200 yesterday. She was walking down some stairs and stepped on the last step when she had shooting pain up her back. Prior treatment includes ibuprofen at 0730 this morning. The patient rates the pain 10/10 in severity. Symptoms aggravated by movement. Symptoms alleviated by nothing. Patient denies CP, abdominal pain, edema, fever, and chills. She reports similar episode of pain and was given pain meds. - History of Current Complaint Chief Complaint: EDBackInjuryPain Stated Complaint: BACK PAIN PER PT Time Seen by Provider: 05/08/18 13:13 Hx Obtained From: Patient Hx Last Menstrual Period: hysterectomy Onset/Duration: Sudden Onset, Lasting Days - since 1200 yesterday, Still Present Onset/Duration: Started Days Ago, Still Present Timing: Constant, Lasting Days Back Pain Location: Is Diffuse - back Severity Initially: Severe Severity Currently: Severe Pain Intensity: 10 Pain Scale Used: 0-10 Numeric Aggravating Symptom(s): Movement Alleviating Symptom(s): Nothing Associated Signs And Symptoms: Negative: Fever, Abdominal Pain - Allergies/Home Medications Allergies/Adverse Reactions: Allergies Allergy/AdvReac Type Severity Reaction Status Date / Time Sulfa (Sulfonamide Allergy Severe Hives Verified 05/08/18 13:06 Antibiotics) PMH/Surg Hx/FS Hx/Imm Hx Endocrine/Hematology History: Reports: Hx Diabetes - Type 2 Denies: Hx Anticoagulant Therapy - She took one baby aspirin today., Hx Thyroid Disease Cardiovascular History: Reports: Hx Hypertension - controlled with meds Denies: Hx Angina, Hx Pacemaker/ICD Respiratory History: Reports: Hx Asthma - on meds Denies: Hx Chronic Obstructive Pulmonary Disease (COPD), Hx Lung Cancer, Hx Pneumonia, Hx Pulmonary Embolism GI History: Reports: Hx Gastroesophageal Reflux Disease Denies: Hx Gall Bladder Disease, Hx Gastrointestinal Bleed, Hx Ulcer, Hx Urosepsis History: Reports: Hx Kidney Stones Denies: Hx Renal Disease Musculoskeletal History: Reports: Hx Arthritis - Bilat knees, shoulders, Hx Tendonitis - L Wrist Sensory History: Reports: Hx Contacts or Glasses - glasses Denies: Hx Hearing Aid Opthamlomology History: Reports: Hx Contacts or Glasses - glasses Neurological History: Reports: Hx Migraine Denies: Hx Dementia, Hx Seizures, Hx Transient Ischemic Attacks (TIA), Other Neuro Impairments/Disorders Psychiatric History: Reports: Hx Anxiety - prn Denies: Hx Depression, Hx Panic Disorder, Hx Schizophrenia, Hx Bipolar Disorder - Cancer History Hx Chemotherapy: No Hx Radiation Therapy: No - Surgical History Surgery Procedure, Year, and Place: 1991 CHOLECYSTECTOMY. 2003 HYSTERECTOMY [facility]. BILATERAL CARPAL TUNNEL Hx Anesthesia Reactions: No - Immunization History Date of Influenza Vaccine: Fall 2016 Infectious Disease History: No Infectious Disease History: Denies: Hx Clostridium Difficile, Hx Human Immunodeficiency Virus (HIV), Hx of Known/Suspected MRSA, Hx Shingles, Hx Tuberculosis, Hx Known/Suspected VRE, Hx Known/Suspected VRSA, History Other Infectious Disease, Traveled Outside the [place] in Last 30 Days - Family History Known Family History: Positive: Cardiac Disease, Hypertension, Diabetes - Social History Alcohol Use: None Hx Substance Use: No Substance Use Type: Reports: None Hx Tobacco Use: Yes Smoking Status (MU): Former Smoker Type: Cigarettes Amount Used/How Often: LESS THEN 1PPD, only smoked 1/2 year Length of Time of Smoking/Using Tobacco: 1.5 YRS Have You Smoked in the Last Year: No Review of Systems Negative: Fever, Chills Negative: Chest Pain Negative: Abdominal Pain Positive: Other - diffuse, non-radiating back pain. Negative: Edema All Other Systems Reviewed And Are Negative: Yes Physical Exam - Summary Physical Exam Summary: Constitutional: Well-developed, Well-nourished, Alert. (-) Distressed Skin: Warm, Dry HENT: Normocephalic; Atraumatic Eyes: Conjunctiva normal Neck: Musculoskeletal ROM normal neck. (-) JVD, (-) Stridor, (-) Tracheal deviation Cardio: Rhythm regular, rate normal, Heart sounds normal; Intact distal pulses; The pedal pulses are 2+ and symmetric. Radial pulses are 2+ and symmetric. (-) Murmur Pulmonary/Chest wall: Effort normal. (-) Respiratory distress, (-) Wheezes, (-) Rales Abd: Soft, (-) tenderness, (-) Distension, (-) Guarding, (-) Rebound Musculoskeletal: (-) Edema, Tenderness to palpation of T4-T8 and bilateral diffuse paraspinal muscle tenderness to palpation, worse in the left lower back. Lymph: (-) Cervical adenopathy Neuro: Alert, Oriented x3, no focal neurological deficit Psych: Mood and affect Normal Triage Information Reviewed: Yes Vital Signs On Initial Exam: Initial Vitals Temp Pulse Resp BP Pulse Ox 97.6 F 95 16 184/98 95 05/08/18 13:02 05/08/18 13:02 05/08/18 13:02 05/08/18 13:02 05/08/18 13:02 Vital Signs Reviewed: Yes Diagnostics - Vital Signs Vital Signs Temp Pulse Resp BP Pulse Ox 05/08/18 13:02 97.6 F 95 16 184/98 95 - Laboratory Lab Statement: Any lab studies that have been ordered have been reviewed, and results considered in the medical decision making process. 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 Dr. Sims has reviewed this radiology report. Re-Evaluation - Re-Evaluation First Eval Re-Evaluation Time: 15:30 Change: Improved Comment: Discussed results with the patient and plan for discharge. Patient understands and agrees with this plan. Back Pain Course/Dx - Course Assessment/Plan: This patient is a 58 year old F presenting to ED with a chief complaint of diffuse, non-radiating back pain since 1200 yesterday. On exam, the patient has tenderness to palpation of T4-T8 and bilateral diffuse paraspinal muscle tenderness to palpation, worse in the left lower back. T- spine XR reveals degenerative disc disease at multiple levels in the thoracic spine. In the ED course, the patient was given Flexeril, Toradol, and Percocet. This patient will be discharged with dx of muscle strain. Patient understands and agrees with this plan. - Diagnoses Differential Diagnosis/HQI/PQRI: Positive: Other - muscle strain Provider Diagnoses: Muscle strain Discharge - Sign-Out/Discharge Documenting (check all that apply): Patient Departure - discharge Patient Received Moderate/Deep Sedation with Procedure: No - Discharge Plan Condition: Good Disposition: HOME Prescriptions: Cyclobenzaprine TAB* [Flexeril 10 MG TAB*] 10 mg PO TID PRN #10 tab PRN Reason: Pain oxyCODONE/Acetam5/325MG PREPAK [Percocet 5/325 TAB*] 0 tab PO Q6HR #10 tab MDD 4 tabs Patient Education Materials: Muscle Spasm (ED), Back Pain (ED) Print Language: HEBREW Referrals: Alana Jones MD [Primary Care Provider] - - Billing Disposition and Condition Condition: GOOD Disposition: Home - Attestation Statements Document Initiated by Scribe: Yes Documenting Scribe: Arnulfo Rangel Provider For Whom Scribe is Documenting (Include Credential): Tracy Duff Scribe Attestation: I, Arnulfo Rangel, scribed for Tracy Contreras on 05/08/18 at 2137. Scribe Documentation Reviewed: Yes Provider Attestation: The documentation as recorded by the scribe, Arnulfo Rangel accurately reflects the service I personally performed and the decisions made by me, Tracy Duff Status of Scribe Document: Viewed
[2018-05-08 15:52] VITALS: BP 125/76
== END 2018-05-08 15:50 | disposition home or self-care (01) ==
LOC: ED 13:00
DX: S29.012A Strain of muscle and tendon of back wall of thorax, initial encounter (principal); X58.XXXA Exposure to other specified factors, initial encounter; Y93.01 Activity, walking, marching and hiking; Y92.9 Unspecified place or not applicable; M51.34 Other intervertebral disc degeneration, thoracic region; I10 Essential (primary) hypertension; J45.909 Unspecified asthma, uncomplicated; Z79.82 Long term (current) use of aspirin; Z88.2 Allergy status to sulfonamides; Z87.891 Personal history of nicotine dependence
CPT/HCPCS: 72070; 96372; 99282; A9270-GY; J1885

== ENCOUNTER 2018-05-30 15:39 | Emergency (ER) | payer OTHER ==
--- OUTSIDE RECORDS SUMMARY | 2018-05-30 15:45 | XMS REPORT | Continuity of Care Document ---
:1960 External Reference #:[id number] Author Name Janeen Ayoub Care Team Providers Name Role Phone Alana Jones MD Primary Care Physician Unavailable Payers Date Identification Numbers Payment Provider Subscriber Effective: 2017 Policy Number: [id number] [employer] Medicaid Mandy Gilliland PayID: [id number] [address] [address] [place] [address] Expires: 2017 Policy Number: [id number] Medicaid Mandy Gilliland Group Name: 1 1 [address] PayID: [id number] [place] [address] Advance Directives Description No Information Available Problems Date Description Provider Status Onset: 08/04/2015 Localized, primary osteoarthritis Torri Gonzalez M.D. Active Family History Date Family Member(s) Observation Comments General Diabetes Father due to bone CA () Father due to HI () - age 54 yr Mother DM, [...] DM. 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 Percocet 09/30/ Active Tablets 5-325mg 30tabs 1 tabs by Pete 2017 mouth F every 4-6 Nabil, hours as MD needed pain Aspirin Ec 09/30/ Active Tablets DR 325mg 14tabs take 1 2017 tab by F mouth Naibl, once a MD day for 2 weeks [...] 1 capsule Andrew 2016 - by mouth Adal, 03/07/ every M.D. 2017 night at bedtime as needed, may increase to 2 tabs at night if needed Knee Scooter 11/23/ Hx G57.91 Andrew 2016 - Adal 06/08/ Sepideh.DAmee 2018 M79.671 Oxycodone HCL 11/18/2016 - Hx Tablets 5mg 30tabs 1-2 tabs by Andrew 03/07/2017 mouth every Jose D Galeas 4-6 hours as needed Naproxen 11/07/2015 - Hx Tablets 500mg 90tabs 1 by mouth Papito4. Andrew 10/14/2016 twice a day 31 Jose D Galeas as needed Tramadol HCL 09/03/2015 - Hx Tablets 50mg 60tabs 1 tablet by M25. Torri Gonzalez, 10/28/2015 mouth every 562 M.D. 6 hours as needed pain Naproxen 06/16/2015 - Hx Tablets 500mg 60tabs 1 tablet by M17Amee Diaz 03/07/2017 mouth with 12 PujadonTWYLA miller food [...] - Hx Tablets 500mg 40tabs 1 tablet Torrieugenio Gonzalez, 03/18/2015 with food po M.D. bid [place] 04/18/2013 - Hx Tablets 5-325mg 30tabs 1-2 by mouth Loren 10/14/2016 every 4 prince Cadena as M.DAmee needed Ibuprofen 01/05/2013 - Hx Tablets 600mg 120tabs tid with Loren 03/18/2015 food Jose D Cadena [place] 11/20/2012 - Hx Tablets 5-325mg 60tabs take 1-2 tab Lorne 03/06/2013 po q4-6hours martha Cadena pain M.DAmee Medications Administered in Office Medication Date Status Form Strength Qnty SIG Indications Ordering Provider Depomedrol Administered Injection Pete F 40MG 018 MD Nabil Immunizations Description No Information Available Vital Signs Date Vital Result Comment 05/25/2018 11:15am Height 65 inches 5'5" Heart Rate 83 /min BP Systolic 132 mmHg BP Diastolic 86 mmHg Respiratory Rate 18 /min Body Temperature 98.1 F Pain Level 2 02/23/2018 11:52am Height 65 inches 5'5" Heart Rate 88 /min Respiratory Rate 18 /min Pain Level 5 01/10/2018 10:45am Height 65 inches 5'5" Weight 218.00 lb Heart Rate 78 /min BP Systolic 146 mmHg BP Diastolic 70 mmHg Respiratory Rate 14 /min Pain Level 10 BMI (Body Mass Index) 36.3 kg/m2 11/10/2017 10:07am Height 65 inches 5'5" Weight 218.00 lb Heart Rate 80 /min Respiratory Rate 14 /min Body Temperature 96.4 F Pain Level 0 BMI (Body Mass Index) 36.3 kg/m2 10/13/2017 2:11pm Height 65 inches 5'5" Weight 227.00 lb Heart Rate 88 /min BP Systolic Sitting 130 mmHg BP Diastolic Sitting 70 mmHg Body Temperature 97.3 F Pain Level 4 BMI (Body Mass Index) 37.8 kg/m2 09/26/2017 12:54pm Height 66 inches 5'6" Weight 220.00 lb BP Systolic 117 mmHg BP Diastolic 82 mmHg Respiratory Rate 18 /min Body Temperature 98.1 F Pain Level 6 BMI (Body Mass Index) 35.5 kg/m2 08/15/2017 3:43pm Height 66 inches 5'6" Heart Rate 73 /min BP Systolic 126 mmHg BP Diastolic 84 mmHg Respiratory Rate 16 /min Body Temperature 97.3 F Pain Level 3 07/04/2017 1:59pm Height 66 inches 5'6" Weight 220.00 lb Heart Rate 74 /min Respiratory Rate 15 /min Pain Level 5 BMI (Body Mass Index) 35.5 kg/m2 06/09/2017 1:28pm Height 66 inches 5'6" Weight 220.00 lb Heart Rate 76 /min Respiratory Rate 18 /min Pain Level 7 BMI (Body Mass Index) 35.5 kg/m2 05/05/2017 10:23am Height 66 inches 5'6" Weight 220.00 lb Heart Rate 81 /min Respiratory Rate 18 /min Pain Level 7 BMI (Body Mass Index) 35.5 kg/m2 03/08/2017 2:47pm Height 66 inches 5'6" Weight 222.00 lb Heart Rate 81 /min Respiratory Rate 18 /min Pain Level 6 BMI (Body Mass Index) 35.8 kg/m2 02/24/2017 9:25am Height 66 inches 5'6" Weight 220.00 lb BP Systolic 118 mmHg BP Diastolic 80 mmHg Respiratory Rate 14 /min Pain Level 0 BMI (Body Mass Index) 35.5 kg/m2 01/20/2017 1:37pm Height 66 inches 5'6" Weight 220.00 lb Heart Rate 82 /min Respiratory Rate 15 /min Body Temperature 97.4 F Pain Level 8 BMI (Body Mass Index) 35.5 kg/m2 12/24/2016 10:29am Height 66 inches 5'6" Weight 220.00 lb BP Systolic 124 mmHg BP Diastolic 74 mmHg Respiratory Rate 16 /min Body Temperature 98.6 F Pain Level 0 BMI (Body Mass Index) 35.5 kg/m2 12/23/2016 9:14am Height 66 inches 5'6" Weight 220.00 lb Heart Rate 87 /min Respiratory Rate 16 /min Body Temperature 97.2 F Pain Level 8 BMI (Body Mass Index) 35.5 kg/m2 12/03/2016 10:06am Height 66 inches 5'6" Weight 220.00 lb Heart Rate 102 /min Respiratory Rate 14 /min Body Temperature 97.2 F Pain Level 7 BMI (Body Mass Index) 35.5 kg/m2 11/12/2016 12:54pm Height 66 inches 5'6" Weight 220.00 lb BP Systolic 122 mmHg BP Diastolic 70 mmHg Respiratory Rate 20 /min Body Temperature 97.2 F Pain Level 7 BMI (Body Mass Index) 35.5 kg/m2 10/15/2016 2:45pm Heart Rate 66 /min BP Systolic Sitting 125 mmHg BP Diastolic Sitting 95 mmHg Body Temperature 97.7 F Pain Level 7 09/21/2016 11:53am Height 65 inches 5'5" Weight 220.00 lb Respiratory Rate 18 /min Body Temperature 97.9 F Pain Level 7 BMI (Body Mass Index) 36.6 kg/m2 08/10/2016 9:18am Height 65 inches 5'5" Weight 220.00 lb BP Systolic 140 mmHg BP Diastolic 99 mmHg Body Temperature 98.9 F Pain Level 7 BMI (Body Mass Index) 36.6 kg/m2 11/07/2015 3:17pm Height 65 inches 5'5" Weight 220.00 lb Pain Level 7 BMI (Body Mass Index) 36.6 kg/m2 09/19/2015 2:57pm Height 65 inches 5'5" Weight 220.00 lb Pain Level 7 BMI (Body Mass Index) 36.6 kg/m2 09/03/2015 11:26am Height 65 inches 5'5" Weight 226.00 lb Pain Level 7 BMI (Body Mass Index) 37.6 kg/m2 08/04/2015 10:55am Height 65 inches 5'5" Weight 226.00 lb Heart Rate 73 /min BP Systolic 150 mmHg BP Diastolic 90 mmHg Pain Level 7 BMI (Body Mass Index) 37.6 kg/m2 06/16/2015 10:10am Height 65 inches 5'5" Weight 226.00 lb Heart Rate 71 /min BP Systolic 132 mmHg BP Diastolic 87 mmHg Pain Level 8 BMI (Body Mass Index) 37.6 kg/m2 04/16/2015 2:40pm Height 65 inches 5'5" Weight 215.00 lb Pain Level 5 BMI (Body Mass Index) 35.8 kg/m2 03/19/2015 12:57pm Height 65 inches 5'5" Weight 215.00 lb Heart Rate 65 /min BP Systolic Sitting 133 mmHg BP Diastolic Sitting 86 mmHg Respiratory Rate 16 /min Pain Level 8 BMI (Body Mass Index) 35.8 kg/m2 12/31/2014 3:47pm Height 65 inches 5'5" Weight 218.00 lb Pain Level 2 BMI (Body Mass Index) 36.3 kg/m2 10/15/2014 3:02pm Height 65 inches 5'5" Weight 218.00 lb Pain Level 8 BMI (Body Mass Index) 36.3 kg/m2 09/20/2014 10:18am Height 65 inches 5'5" Weight 218.00 lb Pain Level 8 every other day BMI (Body Mass Index) 36.3 kg/m2 08/30/2014 2:52pm Height 65 inches 5'5" Weight 218.00 lb Heart Rate 71 /min BP Systolic 142 mmHg BP Diastolic 91 mmHg Respiratory Rate 18 /min Pain Level 8 BMI (Body Mass Index) 36.3 kg/m2 01/29/2014 9:57am Height 65 inches 5'5" Weight 218.00 lb Heart Rate 59 /min BP Systolic 129 mmHg BP Diastolic 88 mmHg BMI (Body Mass Index) 36.3 kg/m2 01/02/2014 9:50am Height 65 inches 5'5" Weight 218.00 lb Body Temperature 98.1 F BMI (Body Mass Index) 36.3 kg/m2 12/05/2013 8:56am Height 65 inches 5'5" Weight 218.00 lb Pain Level 9 BMI (Body Mass Index) 36.3 kg/m2 11/12/2013 8:57am Height 65 inches 5'5" Weight 218.00 lb Pain Level 9 BMI (Body Mass Index) 36.3 kg/m2 10/08/2013 10:07am Height 65 inches 5'5" Weight 218.00 lb Pain Level 9 BMI (Body Mass Index) 36.3 kg/m2 08/08/2013 2:54pm Height 65 inches 5'5" Weight 218.00 lb Heart Rate 60 /min BMI (Body Mass Index) 36.3 kg/m2 07/20/2013 11:09am Height 65 inches 5'5" Weight 218.00 lb Heart Rate 59 /min BP Systolic 118 mmHg BP Diastolic 80 mmHg BMI (Body Mass Index) 36.3 kg/m2 06/12/2013 10:41am Height 65 inches 5'5" Weight 218.00 lb Heart Rate 68 /min BMI (Body Mass Index) 36.3 kg/m2 05/31/2013 11:24am Height 65 inches 5'5" Weight 218.00 lb Heart Rate 76 /min BMI (Body Mass Index) 36.3 kg/m2 05/15/2013 9:29am Height 65 inches 5'5" Heart Rate 59 /min BP Systolic 128 mmHg BP Diastolic 79 mmHg 04/25/2013 12:18pm Height 65 inches 5'5" Weight 218.00 lb Heart Rate 72 /min BMI (Body Mass Index) 36.3 kg/m2 04/18/2013 10:35am Height 65 inches 5'5" Weight 210.00 lb Heart Rate 67 /min BP Systolic 135 mmHg BP Diastolic 88 mmHg BMI (Body Mass Index) 34.9 kg/m2 10/30/2008 10:21am Height 65 inches 5'5" Weight 231.00 lb Heart Rate 72 /min BP Systolic Sitting 130 mmHg BP Diastolic Sitting 90 mmHg BP Systolic Standing 132 mmHg BP Diastolic Standing 90 mmHg BP Systolic Lying Down 130 mmHg BP Diastolic Lying Down 92 mmHg Respiratory Rate 16 /min BMI (Body Mass Index) 38.4 kg/m2 Results Test Date Facility Test Result H/L Range Note Laboratory test 09/30/2017 [facility] Point of Care 200 mg/dL High 70-100 [address] [place] [address] [phone] Laboratory test 09/30/2017 [facility] Point of Care 153 mg/dL High 70-100 [address] [place] [address] [phone] CBC Auto Diff 11/27/2016 [facility] White Blood 13.6 10^3/uL High 3.5-10.[address] [place] [address] [phone] Red Blood Count 4.77 10^6/uL N 4.0-5.4 Hemoglobin 13.8 g/dL N 12.0-16.0 Hematocrit 42 % N 35-47 Mean Corpuscular Volume 87 fL N 80-97 Mean Corpuscular Hemoglobin 29 pg N 27-31 Mean Corpuscular HGB Conc 33 g/dL N 31-36 Red Cell Distribution Width 14 % N 10.5-15 Platelet Count 343 10^3/uL N 150-450 Mean Platelet Volume 7 um3 Low 7.4-10.4 Abs Neutrophils 10.2 10^3/uL High 1.5-7.7 Abs Lymphocytes 2.5 10^3/uL N 1.0-4.8 Abs Monocytes 0.7 10^3/uL N 0-0.8 Abs Eosinophils 0.1 10^3/uL N 0-0.6 Abs Basophils 0.1 10^3/uL N 0-0.2 Abs Nucleated RBC 0.01 10^3/uL N Granulocyte % 75.5 % N 38-83 Lymphocyte % 18.1 % Low 25-47 Monocyte % 5.5 % N 1-9 Eosinophil % 0.5 % N 0-6 Basophil % 0.4 % N 0-2 Nucleated Red Blood Cells % 0.1 N Laboratory test 11/27/2016 [facility] D Dimer < 200 N Less Than 3 finding 101 [facility] Quantitative ng/mL [address] [place] [address] [phone] CKMB 11/27/2016 [facility] CKMB ng/mL 1.0 ng/mL N 0.6-6.3 [address] [place] [address] [phone] Laboratory test 11/27/2016 [facility] Troponin-I (TnI) 0.00 ng/ mL N <0.04 finding [address] [place] [address] [phone] Comp Metabolic 11/27/2016 [facility] Sodium 138 mmol/L N 133- 145 Panel [address] [place] [address] [phone] Potassium 3.8 mmol/L N 3.5-5.0 Chloride 102 mmol/L N 101-111 Co2 Carbon Dioxide 29 mmol/L N 22-32 Anion Gap 7 mmol/L N 2-11 Glucose 97 mg/dL N 70-100 Blood Urea Nitrogen 12 mg/dL N 6-24 Creatinine 0.75 mg/dL N 0.51-0.95 BUN/Creatinine Ratio 16.0 N 8-20 Calcium 10.0 mg/dL N 8.6-10.3 Total Protein 8.1 g/dL N 6.4-8.9 Albumin 4.5 g/dL N 3.2-5.2 Globulin 3.6 g/dL N 2-4 Albumin/Globulin Ratio 1.3 N 1-3 Total Bilirubin 0.50 mg/dL N 0.2-1.0 Alkaline Phosphatase 124 U/L High 34-104 Alt 34 U/L N 7-52 Ast 21 U/L N 13-39 Egfr Non- 79.9 N >60 Egfr 102.8 N >60 4 Laboratory test 11/22/2016 [facility] Point of Care 149 mg/dL High 70-100 [address] [place] [address] [phone] Surgical 12/20/2013 [facility] S RUN DATE: [address] 12/24/ <[place] [address] NOTE> [phone] Surgical 08/18/2012 [facility] S RUN DATE: [address] 08/23/ <[place] [address] NOTE> [phone] 1 Office Services Specialist: [id number] 2 Office Services Specialist: [id number] 3 Please note: The following may produce [...] 5 Kidney failure <15 (or dialysis) 5 Office Services Specialist: [id number] 6 RUN DATE: 12/24/13 [facility] LAB LIVE PAGE 1 RUN TIME: [address] [place] [address], [place], [place] [address] Specimen Inquiry Name: MANDY GILLILAND : [address]: Loren Cadena Acct: [id number] Unit: [id number] AGE: 53 Location: [facility] Re12/20/13 SEX: F Status: REG [facility] SPEC: [id number] MIL[place]: 12/20/13- SUBM DR: Loren Cadena MD REQ: [id number] RECD: 12/20/13 STATUS: SOUT _ ORDERED: LEVEL [...] performed at Main Lab DEPARTMENT OF PATHOLOGY, [employer] [place], [place] [address] Jamel Guy M.D. Director [facility] # [id number] RUN DATE: 08/23/12 [facility] LAB LIVE PAGE 1 RUN TIME: 1317 [facility] [employer] [place], [place] [address] Specimen Inquiry Name: MANDY GILLILAND : [address]: Loren Cadena Acct: [id number] Unit: [id number] AGE: 52 Location: [facility] Re08/18/12 SEX: F Status: REG [facility] SPEC: [id number] [place]: 08/18/12- [facility] DR: Loren Cadena MD REQ: [id number] RECD: 08/18/121443 STATUS: SOUT _ ORDERED: LEVEL [...] at Main Lab DEPARTMENT OF PATHOLOGY, [address] [place] [address] Jamel Guy M.D. Director [facility] Permit #[id number] Procedures Date Code Description Status 09/30/2017 31775 Arthroscopy,Shoulder Decompression Of Subacromial Space Completed W/Acromio 09/30/2017 97643 Arthroscopy,Shoulder Decompression Of Subacromial Space Completed W/Acromio 09/30/2017 60565 Arthroscopy,Shoulder,Distal Claviculectomy Incl Dist Completed Articular SR 09/30/2017 94588 Arthroscopy,Shoulder,Distal Claviculectomy Incl Dist Completed Articular SR 09/30/2017 02866 Arthroscopy Shoulder Debridement Extensive Completed 09/30/2017 72696 Arthroscopy Shoulder Debridement Extensive Completed 07/04/2017 72079 Inject/Drain Joint/Bursa Major W/O US Completed 12/03/2016 92346 Walking Cast Completed 11/22/2016 07560 Implant Nerve End Into Bone Or Muscle Completed 11/22/2016 88752 Excision Neuroma, Major Peripheral Nerve Completed 11/22/2016 22577 Excision Neuroma, Major Peripheral Nerve Completed 12/20/2013 39916 Neuroplasty &/Or Transposition; Ulnar Nerve AT Elbow Completed 12/20/2013 79109 Neuroplasty &/Or Transposition; Ulnar Nerve AT Elbow Completed 08/08/2013 66404 Xray Knee 3 Views Completed 05/04/2013 42264 Neuroplasty &/Or Transposition; Ulnar Nerve AT Elbow Completed 05/04/2013 99948 Neuroplasty &/Or Transposition; Ulnar Nerve AT Elbow Completed 05/04/2013 25421 Carpal Tunnel Release Completed 05/04/2013 77784 Carpal Tunnel Release Completed 11/30/2012 09420 Carpal Tunnel Release Completed 11/30/2012 52241 Neuroplasty &/Or Transposition; Ulnar Nerve AT Elbow Completed 11/30/2012 87927 Neuroplasty &/Or Transposition; Ulnar Nerve AT Elbow Completed 08/18/2012 60716 Excision Ganglion Wrist/ Dorsal Or Volar; Primary Completed 08/18/2012 35965 Excision Ganglion Wrist/ Dorsal Or Volar; Primary Completed 08/27/2011 08016 Rad Exam; Foot Comp Completed 08/04/2011 47078 Rad Exam; Foot Comp Completed 07/14/2011 29226 Rad Exam; Foot Comp Completed 02/27/2009 27591 ECHO Stress Test Incl Perf Contiuous ekg Monitoring W/Phys Completed Superv 12/23/2008 80216 ECHO Transthoracic, Real-Time 2D With Doppler And Color Completed Flow 10/30/2008 97102 EKG Tracing & Interpretation Completed 01/29/2007 77837 Stress ECHO Interpretation/Report Hospital Completed 01/29/2007 50121 Stress ECHO Interpretation/Report Hospital Completed 01/29/2007 48951 Treadmill Interp/Report Only Completed 01/29/2007 98555 Stress Test Supervsn W/Out I/R Completed 01/29/2007 42651 Stress Test Supervsn W/Out I/R Completed Encounters Type Date Location Provider Dx Diagnosis Office Visit 02/23/2018 Jing Duke S43.401D Unspecified sprain 10:45a Services Of Matt Ferrer MD of right shoulder joint, subs encntr M25.511 Pain in right shoulder M75.81 Other shoulder lesions, right shoulder M75.21 Bicipital tendinitis, right shoulder S46.011D Strain of musc/tend the rotator cuff of right shoulder, subs Office Visit 01/10/2018 Jing Duke S43.401A Unspecified 10:00a Services Of MD Nabil sprain of right C.M.A. shoulder joint, init encntr M25.511 Pain in right shoulder Office Visit 08/15/2017 3:00p Orthopedic Pete Duke S46.011D Strain of Services Of MD leandro Ferrer/tend the C.M.A. rotator cuff of right shoulder, subs M75.41 Impingement syndrome of right shoulder M75.51 Bursitis of right shoulder M75.21 Bicipital tendinitis, right shoulder M19.011 Primary osteoarthritis, right shoulder Office Visit 07/04/2017 2:00p Orthopedic Pete Duke S46.011D Strain of Services Of MD leandro Ferrer/tend the C.M.A. rotator cuff of right shoulder, subs M75.41 Impingement syndrome of right shoulder M75.51 Bursitis of right shoulder Office Visit 06/09/2017 1:00p Orthopedic Pete Duke S46.011D Strain of Services Of MD leandro Ferrer/tend the C.M.A. rotator cuff of right shoulder, subs M75.41 Impingement syndrome of right shoulder M75.51 Bursitis of right shoulder Office Visit 05/05/2017 10:30a Orthopedic Pete Duke S46.011D Strain of Services Of MD Nabil musc/tend the C.M.A. rotator cuff of right shoulder, subs M75.41 Impingement syndrome of right shoulder Office Visit 03/08/2017 3:00p Orthopedic Pete Duke S46.011D Strain of Services Of MD leandro Ferrer/tend the C.M.A. rotator cuff of right shoulder, subs M75.51 Bursitis of right shoulder Office Visit 02/24/2017 Orthopedic Andrew G57.91 Unspecified 9:45a Services Of Jose D Galeas mononeuropathy of C.M.A. right lower limb Office Visit 01/20/2017 Orthopedic Pete Duke M75.41 Impingement syndrome 1:15p Services Of MD Nabil of right shoulder C.M.A. M75.51 Bursitis of right shoulder Office Visit 12/23/2016 Orthopedic Pete Duke S43.421A Sprain of right 9:00a Services Of MD Nabil rotator cuff C.M.A. capsule, initial encounter Office Visit 10/15/2016 Orthopedic Andrew G57.91 Unspecified 2:15p Services Of Jose D Galeas mononeuropathy of C.M.A. right lower limb Office Visit 09/21/2016 Orthopedic Andrew M79.671 Pain in right foot 11:30a Services Of Jose D Galeas C.M.AAmee G57.91 Unspecified mononeuropathy of right lower limb Office Visit 08/10/2016 9:30a Orthopedic Andrew M54.31 Sciatica, right Services Of Jose D Galeas side C.M.A. M79.671 Pain in right foot Office Visit 11/07/2015 2:40p Orthopedic Andrew M54.31 Sciatica, right Services Of Jose D Galeas side C.M.A. Office Visit 09/19/2015 3:00p Orthopedic Terry Palacios7.12 Unilateral Services Of Jose D primary C.M.A. osteoarthritis, left knee M25.562 Pain in left knee Office Visit 09/19/2015 Orthopedic Andrew G57.91 Unspecified 3:20p Services Of Jose D Galeas mononeuropathy of C.M.A. right lower limb Office Visit 09/03/2015 Orthopedic Torri Gonzalez, M25.562 Pain in left knee 11:30a Services Of Jose D C.M.AAmee M17.12 Unilateral primary osteoarthritis, left knee M25.462 Effusion, left knee Office Visit 08/04/2015 2:45p Orthopedic Services Torri Gonzalez, M25.562 Pain in left Of C.M.A. Sepideh.D. knee M17.12 Unilateral primary osteoarthritis, left knee M25.462 Effusion, left knee Office Visit 06/16/2015 Orthopedic Torri M17.12 Unilateral primary 10:30a Services Of Jose D Gonzalez osteoarthritis, left C.M.A. knee S83.412A Sprain of medial collateral ligament of left knee, init Office Visit 04/16/2015 Orthopedic Taras Stark M75.02 Adhesive capsulitis 2:30p Services Of of left shoulder C.M.A. Office Visit 03/19/2015 Sepideh Olivera75.02 Adhesive capsulitis 1:00p Services Of of left shoulder C.M.A. Office Visit 12/31/2014 Jing Morales G57.81 Other specified 4:10p Services Of Jose D Galeas mononeuropathies of C.M.A. right lower limb Office Visit 10/15/2014 Orthopedic Andrew 355.79 Mononeuritis Lower 2:50p Services Of Jose D Galeas Limb Other C.M.A. Office Visit 09/20/2014 Orthopedic Andrew 719.47 Pain Joint Ankle & 10:30a Services Of Jose D Galeas Foot C.M.A. Office Visit 08/30/2014 Orthopedic Andrew 825.25 FX Other Bones 3:00p Services Of Jose D Galeas Metatarsal Bone(S) C.M.A. Closed 715.17 Osteoarthrosis Localized Prim Ankle & Foot Office 12/05/2013 Orthopedic Loren 354.2 Lesion Ulnar Nerve Visit 9:15a Services Of Jose D Cadena C.M.A. Office 11/12/2013 Orthopedic Torri Gonzalez M.D. 715.96 Osteoarthrosis Visit 9:00a Services Of Unspec Genlzd Or C.M.A. Localized Lower Leg Office 10/08/2013 Orthopedic Torri Gonzalez M.D. 715.96 Osteoarthrosis Visit 10:00a Services Of Unspec Genlzd Or C.M.A. Localized Lower Leg 719.46 Pain Joint Lower Leg Office Visit 08/08/2013 2:30p Orthopedic Torri 715.96 Osteoarthrosis Services Of Jose D Gonzalez Unspec Genlzd Or C.M.A. Localized Lower Leg Office Visit 05/31/2013 11:15a Orthopedic Torri 715.35 Osteoarthrosis Services Of Jose D Gonzalez Localalicia Not Spec C.M.A. Prime Or 2Ndy Pelvic & Thigh 715.96 Osteoarthrosis Unspec Genlzd Or Localized Lower Leg Office Visit 04/25/2013 12:15p Orthopedic Torri 715.35 Osteoarthrosis Services Of Jose D Gonzalez Localerastod Not Spec C.M.A. Prime Or 2Ndy Pelvic & Thigh 715.96 Osteoarthrosis Unspec Genlzd Or Localized Lower Leg 844.1 Sprains & Strains Knee Medial Collateral Ligament Office Visit 04/18/2013 10:45a Orthopedic Loren 354.0 Carpal Tunnel Services Of Jose D Cadena Syndrome C.M.A. Office Visit 03/06/2013 10:30a Orthopedic Nevaeh Didier, 354.2 Lesion Ulnar Services Of [facility] Nerve C.M.A. 354.0 Carpal Tunnel Syndrome 727.43 Ganglion Unspec Office Visit 10/18/2012 Orthopedic Loren 354.2 Lesion Ulnar 11:15a Services Of Jose D Cadena Nerve C.M.A. Office Visit 07/19/2012 Orthopedic Loren 727.43 Ganglion 10:45a Services Of Jose D Cadena Unspec C.M.A. Office Visit 12/27/2011 Orthopedic Loren 354.0 Carpal Tunnel 8:30a Services Of Jose D Cadena Syndrome C.M.A. 354.2 Lesion Ulnar Nerve 727.43 Ganglion Unspec 727.04 Tenosynovitis Radial Styloid Office Visit 08/27/2011 9:30a Orthopedic Andrew 727.09 Synovitis & Services Of Jose D Galeas Tenosynovitis Other C.M.A. Office Visit 08/04/2011 11:30a Orthopedic Andrew 719.47 Pain Joint Ankle & Services Of Jose D Galeas Foot C.MAmeeAAmee 729.81 Swelling Of Limb Office Visit 07/14/2011 1:30p Orthopedic Andrew Galeas 719.[place] Pain Joint Services Of Matt Jeffery Ankle & Foot Office Visit 10/30/2008 10:20a [facility] S. 786.50 Pain Chest Jose D Malcolm Unspec 401.1 Hypertension Benign 278.00 Obesity Unspec 794.31 Electrocardiogram (ECG) (EKG) Abnormal Plan of Treatment 02/23/2018 - Pete Ferrer, MDS43.401D Unspecified sprain of right shoulder joint, subsequent encouFollow up:Follow up: 3 ajjwvbP58.511 Pain in right touxhkkdG07.81 Other shoulder lesions, right ajpuvvtpD31.21 Bicipital tendinitis, right avvexkcwA34.011D Strain of muscle(s) and tendon(s) of the rotator cuff of rig
[2018-05-30 15:47] VITALS: BP 166/99
[2018-05-30] MEDS ORDERED: Ondansetron ODT TAB* 4 MG PO ONE (16:49)
--- NOTE | 2018-05-30 16:54 | UC ---
Nausea/Vomiting/Diarrhea HPI - HPI Summary HPI Summary: 58-year-old woman comes in with a chief complaint of nausea and vomiting. Patient woke up at 12:30 this morning with nausea and vomiting. She did not have any abdominal pain at that time. She vomited several times and was able to back to sleep. After waking up for the day she again had an episode of vomiting. This time she had crampy upper abdominal pain prior to vomiting. This continued throughout the day. She is a diabetic she checked her fingerstick blood sugar was 140 at home. She is a cramping abdominal pain. She 's had her gallbladder out. She reports one normal bowel movement that was just slightly loose but not diarrhea today. - History of Current Complaint Chief Complaint: UCGI Stated Complaint: VOMITING, AND HEADACHE Time Seen by Provider: 05/30/18 16:41 Hx Last Menstrual Period: hysterectomy Pain Intensity: 8 - Allergies/Home Medications Allergies/Adverse Reactions: Allergies Allergy/AdvReac Type Severity Reaction Status Date / Time Sulfa (Sulfonamide Allergy Severe Hives Verified 05/30/18 15:48 Antibiotics) PMH/Surg Hx/FS Hx/Imm Hx Previously Healthy: Yes Endocrine History: Diabetes Cardiovascular History: Hypertension Respiratory History: Asthma GI/ History: Gastroesophageal Reflux Other History Of: Negative For: HIV, Hepatitis B, Hepatitis C, Anticoagulant Therapy - She took one baby aspirin today. - Surgical History Surgical History: Yes Surgery Procedure, Year, and Place: 1991 CHOLECYSTECTOMY. 2003 HYSTERECTOMY [facility]. BILATERAL CARPAL TUNNEL - Family History Known Family History: Positive: Cardiac Disease, Hypertension, Diabetes - Social History Alcohol Use: None Substance Use Type: None Smoking Status (MU): Former Smoker Type: Cigarettes Amount Used/How Often: LESS THEN 1PPD, only smoked 1/2 year Length of Time of Smoking/Using Tobacco: 1.5 YRS Have You Smoked in the Last Year: No When Did the Patient Quit Smoking/Using Tobacco: 40 yrs ago - Immunization History Most Recent Influenza Vaccination: 10/2014 Most Recent Tetanus Shot: up to date Most Recent Pneumonia Vaccination: never had this Review of Systems All Other Systems Reviewed And Are Negative: Yes Constitutional: Positive: Negative Skin: Positive: Negative Eyes: Positive: Negative ENT: Positive: Negative Respiratory: Positive: Negative Cardiovascular: Positive: Negative Gastrointestinal: Positive: Abdominal Pain, Vomiting, Nausea Genitourinary: Positive: Negative. Negative: Dysuria Motor: Positive: Negative Neurovascular: Positive: Negative Musculoskeletal: Positive: Negative Neurological: Positive: Negative Psychological: Positive: Negative Is Patient Immunocompromised?: No Physical Exam Triage Information Reviewed: Yes Appearance: No Pain Distress, Well-Nourished, Ill-Appearing - MILD Vital Signs: Initial Vital Signs Temp 99.1 F 05/30/18 15:43 Pulse 115 05/30/18 15:43 Resp 16 05/30/18 15:43 BP 166/99 05/30/18 15:43 Pulse Ox 97 05/30/18 15:43 Vital Signs Reviewed: Yes Eye Exam: Normal Eyes: Positive: Conjunctiva Clear Neck: Positive: Supple Respiratory: Positive: Lungs clear, Normal breath sounds, No respiratory distress Cardiovascular: Positive: Tachycardia Abdomen Description: Positive: Soft, Other: - MILD EPIGASTRIC TENDERNESS TO PALPATION. NO LOWER ABD TENDERNESS.. Negative: CVA Tenderness (R), CVA Tenderness (L), Distended, Guarding Bowel Sounds: Positive: Present Musculoskeletal Exam: Normal Musculoskeletal: Positive: Strength Intact, ROM Intact Neurological Exam: Normal Neurological: Positive: Alert, Muscle Tone Normal Psychological Exam: Normal Psychological: Positive: Age Appropriate Behavior Skin Exam: Normal Naus/Vom/Diarrhea Course/Dx - Course Course Of Treatment: Patient's nausea was improved in clinic after Zofran .pATIENT'S NAUSEA WAS IMPROVED. Patient then complained of a headache which we gave her acetaminophen for. The bowel pain is cramping and intermittent. No evidence of obstruction at this time in clinic. The overall plan is to prescribe Zofran which can be used as needed and if her condition worsens she is to go the emergency department. - Differential Dx/Diagnosis Provider Diagnosis: Nausea & vomiting, Abdominal pain Condition At Discharge: Stable Discharge - Sign-Out/Discharge Documenting (check all that apply): Patient Departure All imaging exams completed and their final reports reviewed: No Studies - Discharge Plan Condition: Stable Disposition: HOME Prescriptions: Ondansetron ODT TAB* [Zofran 4 MG Odt TAB*] 4 mg PO Q6H PRN #10 tab.odt PRN Reason: Nausea Patient Education Materials: Acute Nausea and Vomiting (ED), Abdominal Pain (ED ) Referrals: Alana Jones MD [Primary Care Provider] - Additional Instructions: FOLLOW UP WITH YOUR DOCTOR IF NOT COMPLETELY IMPROVED. GET REEVALUATED SOONER FOR ANY WORSENING OF YOUR CONDITION OR ANY QUESTIONS OR CONCERNS. - Billing Disposition and Condition Condition: STABLE Disposition: Home
[2018-05-30] MEDS ORDERED: Acetaminophen TAB* 325 MG PO ONE (17:32)
== END 2018-05-30 18:10 | disposition home or self-care (01) ==
LOC: UCEAST 15:39
DX: R11.2 Nausea with vomiting, unspecified (principal); R10.10 Upper abdominal pain, unspecified; E11.9 Type 2 diabetes mellitus without complications; I10 Essential (primary) hypertension; Z87.891 Personal history of nicotine dependence; Z88.2 Allergy status to sulfonamides
CPT/HCPCS: 99212; A9270-GY; G0463

== ENCOUNTER 2018-08-09 10:35 | Emergency (ER) | payer OTHER ==
--- NOTE | 2018-08-09 12:32 | ED ---
Back Pain - HPI Summary HPI Summary: Pt is a 58 y/o F presenting to [facility] with her and a chief complaint of low back pain starting this morning when she woke up from sleep. She states that the pain started around 0330 today and extended down into her LE. The pain is worse on her L side and is rated a 10/10. She reports that she had no injuries recently. She denies any CP, N/V/D, fever, rashes, blood in her urine, and incontinence. She has had chronic low back pain since she broke her tailbone. She reports that sitting for a lengthy time aggravates the pain. She also reports that Oxycodone alleviates her pain and is usually prescribed by her PCP. This is the same pain she normally feels, but has lasted longer. She normally takes hydrocodone for the pain but does not have any at this time. - History of Current Complaint Chief Complaint: EDBackInjCharlotte Stated Complaint: PAIN GOING DOWN LEGS PER PT Time Seen by Provider: 08/09/18 11:54 Hx Obtained From: Patient Hx Last Menstrual Period: hysterectomy Onset/Duration: Sudden Onset - 329 today, Still Present Onset/Duration: Started Hours Ago, Still Present Timing: Constant Back Pain Location: Is Discrete @ - low back, Radiates To - both legs Severity Initially: Severe Severity Currently: Severe Pain Intensity: 10 Pain Scale Used: 0-10 Numeric Aggravating Symptom(s): Movement, Other - sitting Alleviating Symptom(s): Other - oxycodone Associated Signs And Symptoms: Positive: Negative - CP, N/V/D, fever, rashes, blood in her urine, incontinence, tingling, and weakness., Other - low back pain that radiates into her lower extremities bilaterally - Allergies/Home Medications Allergies/Adverse Reactions: Allergies Allergy/AdvReac Type Severity Reaction Status Date / Time Sulfa (Sulfonamide Allergy Severe Hives Verified 08/09/18 10:40 Antibiotics) PMH/Surg Hx/FS Hx/Imm Hx Previously Healthy: No Endocrine/Hematology History: Reports: Hx Diabetes - Type 2 Denies: Hx Anticoagulant Therapy - She took one baby aspirin today., Hx Thyroid Disease Cardiovascular History: Reports: Hx Hypertension - controlled with meds Denies: Hx Angina, Hx Pacemaker/ICD Respiratory History: Reports: Hx Asthma - on meds Denies: Hx Chronic Obstructive Pulmonary Disease (COPD), Hx Lung Cancer, Hx Pneumonia, Hx Pulmonary Embolism GI History: Reports: Hx Gastroesophageal Reflux Disease Denies: Hx Gall Bladder Disease, Hx Gastrointestinal Bleed, Hx Ulcer, Hx Urosepsis History: Reports: Hx Kidney Stones Denies: Hx Renal Disease Musculoskeletal History: Reports: Hx Arthritis - Bilat knees, shoulders, Hx Tendonitis - L Wrist Sensory History: Reports: Hx Contacts or Glasses - glasses Denies: Hx Hearing Aid Opthamlomology History: Reports: Hx Contacts or Glasses - glasses Neurological History: Reports: Hx Migraine Denies: Hx Dementia, Hx Seizures, Hx Transient Ischemic Attacks (TIA), Other Neuro Impairments/Disorders Psychiatric History: Reports: Hx Anxiety - prn Denies: Hx Depression, Hx Panic Disorder, Hx Schizophrenia, Hx Bipolar Disorder - Cancer History Hx Chemotherapy: No Hx Radiation Therapy: No - Surgical History Surgery Procedure, Year, and Place: 1991 CHOLECYSTECTOMY. 2003 HYSTERECTOMY [facility]. BILATERAL CARPAL TUNNEL Hx Anesthesia Reactions: No - Immunization History Date of Influenza Vaccine: Fall 2016 Infectious Disease History: No Infectious Disease History: Denies: Hx Clostridium Difficile, Hx Human Immunodeficiency Virus (HIV), Hx of Known/Suspected MRSA, Hx Shingles, Hx Tuberculosis, Hx Known/Suspected VRE, Hx Known/Suspected VRSA, History Other Infectious Disease, Traveled Outside the [place] in Last 30 Days - Family History Known Family History: Positive: Cardiac Disease, Hypertension, Diabetes - Social History Alcohol Use: None Hx Substance Use: No Substance Use Type: Reports: None Hx Tobacco Use: Yes Smoking Status (MU): Former Smoker Type: Cigarettes Amount Used/How Often: LESS THEN 1PPD, only smoked 1/2 year Length of Time of Smoking/Using Tobacco: 1.5 YRS Have You Smoked in the Last Year: No Review of Systems Negative: Fever Negative: Chest Pain Negative: Vomiting, Diarrhea, Nausea Genitourinary: Negative Negative: incontinence Positive: Other - Low back pain that radiates into her Lower extremities bilaterally Negative: Rash Neurological: Negative - Tingling Negative: Weakness All Other Systems Reviewed And Are Negative: Yes Physical Exam - Summary Physical Exam Summary: Constitutional: Well-developed, Well-nourished, Alert. (-) Distressed Skin: Warm, Dry HENT: Normocephalic; Atraumatic Eyes: Conjunctiva normal Neck: Musculoskeletal ROM normal neck. (-) JVD, (-) Stridor, (-) Tracheal deviation Cardio: Rhythm regular, rate normal, Heart sounds normal; Intact distal pulses; The pedal pulses are 2+ and symmetric. Radial pulses are 2+ and symmetric. (-) Murmur Pulmonary/Chest wall: Effort normal. (-) Respiratory distress, (-) Wheezes, (-) Rales Abd: Soft, (-) tenderness, (-) Distension, (-) Guarding, (-) Rebound Musculoskeletal: (-) Edema, Tenderness to palpation to L2-4 and L lateral low back musculature, Positive straight leg raise in her R, not left Lymph: (-) Cervical adenopathy Neuro: Alert, Oriented x3, Neurovascular sensations are intact and are equal bilaterally. Psych: Mood and affect Normal Triage Information Reviewed: Yes Vital Signs On Initial Exam: Initial Vitals Temp Pulse Resp BP Pulse Ox 97.7 F 83 16 166/88 96 08/09/18 10:37 08/09/18 10:37 08/09/18 10:37 08/09/18 10:37 08/09/18 10:37 Vital Signs Reviewed: Yes Diagnostics - Vital Signs Vital Signs Temp Pulse Resp BP Pulse Ox 08/09/18 10:37 97.7 F 83 16 166/88 96 - Laboratory Lab Statement: Any lab studies that have been ordered have been reviewed, and results considered in the medical decision making process. Re-Evaluation - Re-Evaluation First Eval Re-Evaluation Time: 12:31 Change: Improved Comment: Pt was informed of her discharge plan and is agreeable. Back Pain Course/Dx - Course Course Of Treatment: Pt is a 58 y/o F presenting to [facility] with her and a chief complaint of LBP starting this morning when she woke up from sleep. She states that the pain started around 0330 today and extended down into her LE. The pain is worse on her L side and is rated a 10/10. She reports that she had no injuries recently. She stated that she has chronic LBP and that she is usually prescribed oxycodone from her PCP. Upon PE she is found to have Tenderness to palpation to L2-4 and L lateral low back musculature, Positive straight leg raise in her R not L, and her neurovascular sensations are intact and are equal bilaterally. She will be discharged with a Dx of chronic low back pain and informed to follow up with her PCP and return to the ED with any new or worsening symptoms. She will be given predisone. - Diagnoses Provider Diagnoses: Chronic back pain Discharge - Sign-Out/Discharge Documenting (check all that apply): Patient Departure - discharge Patient Received Moderate/Deep Sedation with Procedure: No - Discharge Plan Condition: Stable Disposition: HOME Prescriptions: Cyclobenzaprine TAB* [Flexeril 10 MG TAB*] 10 mg PO TID PRN #20 tab PRN Reason: Pain - Back methylPREDNISolone [Medrol] 4 mg PO .SEE [employer]NA [employer]RISTINA INSTRUCTION #21 tab.[id number] Patient Education Materials: Sciatica (ED), Back Pain (ED) Print Language: NIGERIAN Referrals: Taras Stark MD [Medical Doctor] - Alana Jones MD [Primary Care Provider] - 2 Days Additional Instructions: Please follow up with your primary care provider in 2-3 days and return to the emergency department for any new or worsening symptoms. - Billing Disposition and Condition Condition: STABLE Disposition: Home - Attestation Statements Document Initiated by Muriel: Yes Documenting Scribe: Nam Zaldivar Provider For Whom Muriel is Documenting (Include Credential): Tracy Duff MD Scribe Attestation: INam, scribed for Tracy Cnotreras MD on 08/09/18 at 2243. Scribe Documentation Reviewed: Yes Provider Attestation: The documentation as recorded by the Nam simpson accurately reflects the service I personally performed and the decisions made by me, Tracy Contreras MD Status of Scribe Document: Viewed
[2018-08-09] MEDS: HYDROcodone/ACETAMIN 5-325 MG* 1 TAB PO ONE (12:50)
[2018-08-09] MEDS: predniSONE TAB* 20 MG PO ONE (12:51)
[2018-08-09] MEDS: Cyclobenzaprine TAB* 10 MG PO ONE (12:51)
[2018-08-09 13:07] VITALS: BP 158/92
== END 2018-08-09 13:06 | disposition home or self-care (01) ==
LOC: ED 10:35
DX: M54.9 Dorsalgia, unspecified (principal); G89.29 Other chronic pain; E11.9 Type 2 diabetes mellitus without complications; I10 Essential (primary) hypertension; Z79.899 Other long term (current) drug therapy; Z87.891 Personal history of nicotine dependence
CPT/HCPCS: 99281; A9270-GY; J7512

== ENCOUNTER 2018-09-16 15:08 | Emergency (ER) | payer OTHER ==
[2018-09-16 15:15] VITALS: BP 155/82
--- OUTSIDE RECORDS SUMMARY | 2018-09-16 15:15 | XMS REPORT | Continuity of Care Document ---
:1960 External Reference #:[id number] Author Name Rebekah Owens Care Team Providers Name Role Phone Alana Jones MD Primary Care Physician Unavailable Payers Date Identification Numbers Payment Provider Subscriber Effective: 2017 Policy Number: [id number] [employer] Medicaid Mandy Gilliland PayID: [id number] [address] [address] [place] [address] Expires: 2017 Policy Number: [id number] Medicaid Mandy Gilliland Group Name: 1 1 [address] PayID: [id number] [place] [address] Problems Active Problems Provider Date Localized, primary osteoarthritis Torri Gonzalez M.D. Onset: 08/04/2015 Shoulder joint pain Pete Ferrer MD Onset: 05/25/2018 Complete tear of shoulder joint Pete Ferrer MD Onset: 05/25/2018 Family History Date Family Member(s) Observation Comments General Diabetes Father due to bone CA () Father due to [place] () - age 54 yr Mother DM, [...] Unknown Never Smoked Cigarettes Smoking Status Reviewed: 09/07/18 Never Smoked Cigarettes ETOH Use Denies alcohol use Tobacco Use Start: Unknown Former Smoker Quit About 30 Yrs Ago Enjoy Exercising Pt walks 1/2 mile intermitently Exercise Type/Frequency Does not exercise Allergies, Adverse Reactions, Alerts Active Allergies Reaction Severity Comments Date Sulfa rash 10/30/2008 Medications Active Medications SIG Qnty Indications Ordering Date Provider Naproxen 1 po bid with 60tabs Torri Gonzalez, 01/10/2018 500mg Tablets food prn M.D. Percocet 1 tabs by mouth 30tabs Pete Duke 09/30/2017 5-325mg Tablets every 4-6 hours MD Nabil as needed pain Aspirin Ec take 1 tab by 14tabs Pete Duke 09/30/[address] mouth once a MD Nabil day for 2 weeks post op Diazepam take 1-2 tabs 2tabs S46.011D Pete 06/09/2017 5mg Tablets prn prior to MD Nabil mri Cyclobenzaprine HCL one by mouth 60tabs M54.31 Andrew Galeas, 11/07/2015 10mg three times a M.D. Tablets day as needed spasm Metoprolol Succinate 1 po bid Unknown 50mg Tablets ER 24HR Amlodipine Besylate 1 po qd 90tabs Unknown 10mg Tablets History Medications Gabapentin 1 capsule by 30caps Andrew Galeas, 11/24/2016 - 100mg mouth every night M.D. 03/07/2017 Capsules at bedtime as needed, may increase to 2 tabs at night if needed Knee Scooter G57.91 Andrew Galeas, 11/23/2016 - M.D. 06/08/2017 M79.671 Oxycodone HCL 1-2 tabs by 30tabs Andrew Galeas, 11/18/2016 - 5mg mouth every 4-6 M.D. 03/07/2017 Tablets hours as needed Naproxen 1 by mouth twice 90tabs M54.31 Andrew Galeas, 11/07/2015 - 500mg a day as needed M.D. 10/14/2016 Tablets Tramadol HCL 1 tablet by 60tabs M25.562 Torri Gonzalez, 09/03/2015 - 50mg mouth every 6 M.D. 10/28/2015 Tablets hours as needed pain Naproxen 1 tablet by 60tabs M17.12 Emily 06/16/2015 - 500mg mouth with food TWYLA Romano 03/07/2017 Tablets twice daily for pain Gabapentin take 1 capsule 90caps Andrew Galeas 10/15/2014 - 300mg by mouth every M.D. 09/02/2015 Capsules morning and take 1 capsules by mouth at bedtime -- maximum dose of 2 per day Diazepam 1 tab 30 minutes 2tabs Andrew Adal, 10/29/2013 - 5mg before mri, june M.D. 10/14/2016 Tablets take a second tablet if needed Naproxen 1 tablet with 40tabs Torri Carlos, 04/25/2013 - 500mg food po bid M.D. 03/18/2015 Tablets [place] 1-2 by mouth 30tabs Loren 04/18/2013 - 5-325mg every 4 hours as Tammi, 10/14/2016 Tablets needed M.D. Ibuprofen tid with food 120tabs Loren 01/05/2013 - 600mg Tammi, 03/18/2015 Tablets M.D. [place] take 1-2 tab po 60tabs Loren 11/20/2012 - 5-325mg q4-6hours prn Tammi, 03/06/2013 Tablets pain M.D. Medications Administered in Office Medication SIG Qnty Indications Ordering Provider Date Depomedrol 40MG Pete Ferrer MD 07/04/2017 Injection Vital Signs Date Vital Result Comment 09/07/2018 2:49pm Height 65 inches 5'5" Weight 218.00 lb Heart Rate 78 /min BP Systolic 138 mmHg BP Diastolic 82 mmHg Respiratory Rate 14 /min Pain Level 8 BMI (Body Mass Index) 36.3 kg/m2 05/25/2018 11:15am Height 65 inches 5'5" Heart [...] Result H/L Range Note Laboratory test 09/30/2017 [facility] Point of Care 200 mg/dL High 70-100 [address] [place] [address] [phone] Laboratory test 09/30/2017 [facility] Point of Care 153 mg/dL High 70-100 [address] [place] [address] [phone] CBC Auto Diff 11/27/2016 [facility] White Blood 13.6 10^3/uL High 3.5-10.[address] [place] [address] [phone] Red Blood Count 4.77 10^6/uL N 4.0-5.4 [...] Cells % 0.1 N Laboratory test 11/27/2016 [facility] D Dimer < 200 N Less Than 3 finding 101 [facility] Quantitative ng/mL [address] [place] [address] [phone] CKMB 11/27/2016 [facility] CKMB ng/mL 1.0 ng/mL N 0.6-6.3 [address] [place] [address] [phone] Laboratory test 11/27/2016 [facility] Troponin-I (TnI) 0.00 ng/ mL N <0.04 finding [address] [place] [address] [phone] Comp Metabolic 11/27/2016 [facility] Sodium 138 mmol/L N 133- 145 Panel [address] [place] [address] [phone] Potassium 3.8 mmol/L N 3.5-5.0 Chloride 102 [...] 102.8 N >60 4 Laboratory test 11/22/2016 [facility] Point of Care 149 mg/dL High 70-100 [address] [place] [address] [phone] Surgical 12/20/2013 [facility] S RUN DATE: [address] 12/24/ <[place] [address] NOTE> [phone] Surgical 08/18/2012 [facility] S RUN DATE: [address] 08/23/ <[place] [address] NOTE> [phone] 1 Spanisher: [id number] Spanisher: [id number] Please note: The following may produce [...] 5 Kidney failure <15 (or dialysis) 5 Spanisher: [id number] RUN DATE: 12/24/13 [facility] LAB LIVE PAGE 1 RUN TIME: [address] [place] [address] Specimen Inquiry Name: MANDY GILLILAND : [address]: Loren Cadena Acct: [id number] Unit: [id number] AGE: 53 Location: [facility] Re12/20/13 SEX: F Status: REG [facility] SPEC: [id number] [place]: 12/20/13- [facility] DR: Loren Cadena MD REQ: [id number] RECD: 12/20/13 STATUS: SOUT _ ORDERED: LEVEL [...] at Main Lab DEPARTMENT OF PATHOLOGY, [facility] [address] [place] [address] Jamel Guy M.D. Director IA # [id number] RUN DATE: 08/23/12 [facility] LAB LIVE PAGE 1 RUN TIME: 1317 [facility] [place], [place] [address] Specimen Inquiry Name: MANDY GILLILAND : [address]: Loren Cadena Acct: [id number] Unit: [id number] AGE: 52 Location: [facility] Re08/18/12 SEX: F Status: REG [facility] [place] SPEC: [id number] [place]: 08/18/12- [facility] DR: Loren Cadena MD REQ: [id number] RECD: 08/18/12-1443 STATUS: SOUT _ ORDERED: LEVEL [...] performed at Main Lab DEPARTMENT OF PATHOLOGY, [address] [place] [address] Jamel Guy M.D. Director [facility] Permit #[id number] Procedures Date Code Description Status 09/07/201890324 Inject/Drain Joint/Bursa Major W/O US Completed 09/30/2017 08503 Arthroscopy,Shoulder Decompression Of Subacromial Space Completed W/Acromio 09/30/2017 98448 Arthroscopy,Shoulder Decompression Of Subacromial Space Completed W/Acromio 09/30/2017 58515 Arthroscopy,Shoulder,Distal Claviculectomy Incl Dist Completed Articular SR 09/30/2017 07629 Arthroscopy,Shoulder,Distal Claviculectomy Incl Dist Completed Articular SR 09/30/2017 15969 Arthroscopy Shoulder Debridement Extensive Completed 09/30/2017 21474 Arthroscopy Shoulder Debridement Extensive Completed 07/04/2017 56705 Inject/Drain Joint/Bursa Major W/O US Completed 12/03/2016 20453 Walking Cast Completed 11/22/2016 22892 Implant Nerve End Into Bone Or Muscle Completed 11/22/2016 37067 Excision Neuroma, Major Peripheral Nerve Completed 11/22/2016 80886 Excision Neuroma, Major Peripheral Nerve Completed 12/20/2013 35825 Neuroplasty &/Or Transposition; Ulnar Nerve AT Elbow Completed 12/20/2013 02157 Neuroplasty &/Or Transposition; Ulnar Nerve AT Elbow Completed 08/08/2013 62588 Xray Knee 3 Views Completed 05/04/2013 10646 Neuroplasty &/Or Transposition; Ulnar Nerve AT Elbow Completed 05/04/2013 32000 Neuroplasty &/Or Transposition; Ulnar Nerve AT Elbow Completed 05/04/2013 95261 Carpal Tunnel Release Completed 05/04/2013 79951 Carpal Tunnel Release Completed 11/30/2012 75586 Carpal Tunnel Release Completed 11/30/2012 85332 Neuroplasty &/Or Transposition; Ulnar Nerve AT Elbow Completed 11/30/2012 34656 Neuroplasty &/Or Transposition; Ulnar Nerve AT Elbow Completed 08/18/2012 72903 Excision Ganglion Wrist/ Dorsal Or Volar; Primary Completed 08/18/2012 97478 Excision Ganglion Wrist/ Dorsal Or Volar; Primary Completed 08/27/2011 82023 Rad Exam; Foot Comp Completed 08/04/2011 44122 Rad Exam; Foot Comp Completed 07/14/2011 64654 Rad Exam; Foot Comp Completed 02/27/2009 04794 ECHO Stress Test Incl Perf Contiuous ekg Monitoring W/Phys Completed Superv 12/23/2008 14843 ECHO Transthoracic, Real-Time 2D With Doppler And Color Completed Flow 10/30/2008 54674 EKG Tracing & Interpretation Completed 01/29/2007 66232 Stress ECHO Interpretation/Report Hospital Completed 01/29/2007 92134 Stress ECHO Interpretation/Report Hospital Completed 01/29/2007 27895 Treadmill Interp/Report Only Completed 01/29/2007 42078 Stress Test Supervsn W/Out I/R Completed 01/29/2007 41060 Stress Test Supervsn W/Out I/R Completed Encounters Type Date Location Provider Dx Diagnosis Office Visit 05/25/2018 Orthopedic Pete Duke S43.401D Unspecified sprain 11:30a Services Of Matt Ferrer MD of right shoulder joint, subs encntr M25.511 Pain in right shoulder Office Visit 02/23/2018 Orthopedic Pete Duke S43.401D Unspecified 10:45a Services Of MD Nabil sprain of right C.M.A. shoulder joint, subs encntr M25.511 Pain in right shoulder M75.81 Other shoulder lesions, right shoulder M75.21 Bicipital tendinitis, right shoulder S46.011D Strain of musc/tend the rotator cuff of right shoulder, subs Office Visit 01/10/2018 Orthopedic Pete Duke S43.401A Unspecified 10:00a Services Of MD [...] Duke S46.011D Strain of Services Of MD laendro Ferrer/tend the C.M.A. rotator cuff of right [...] foot 11:30a Services Of Jose D Galeas C.M.A. G57.91 Unspecified mononeuropathy of right lower limb Office Visit 08/10/2016 9:30a Orthopedic Andrew M54.31 Sciatica, right Services Of Jose D Galeas side C.M.A. M79.671 Pain in right foot Office Visit 11/07/2015 2:40p Orthopedic Andrew Cobos4.31 Sciatica, right Services Of Jose D Galeas side C.M.A. Office Visit 09/19/2015 3:00p Orthopedic Terry Palacios7.12 Unilateral Services Of Jose D primary C.M.A. osteoarthritis, left knee M25.562 Pain in left knee Office Visit 09/19/2015 Jing Morales G57.91 Unspecified 3:20p Services Of Jose D Galeas mononeuropathy of C.M.A. right lower limb Office Visit 09/03/2015 Orthopedic Torri Gonzalez M25.562 Pain in left knee 11:30a Services Of Jose D C.M.AAmee M17.12 Unilateral primary osteoarthritis, left knee M25.462 Effusion, left knee Office Visit 08/04/2015 2:45p Orthopedic Services Torri Gonzalez M25.562 Pain in left Of C.M.Sari. Jose D knee M17.12 Unilateral primary osteoarthritis, left knee M25.462 Effusion, left knee Office Visit 06/16/2015 Orthopedic Torri Stewart7.12 Unilateral primary 10:30a Services Of Jose D Gonzalez osteoarthritis, left C.M.A. knee S83.412A Sprain of medial collateral ligament of left knee, init Office Visit 04/16/2015 Orthopedic Taras Stark M75.02 Adhesive capsulitis 2:30p Services Of MD of left shoulder C.M.A. Office Visit 03/19/2015 Orthopedic Reynaldo Bah.02 Adhesive capsulitis 1:00p Services Of MD of left shoulder C.M.A. Office Visit 12/31/2014 Orthopedic Andrew G57.81 Other specified 4:10p Services Of Jose [...] 715.35 Osteoarthrosis Services Of Jose D Gonzalez Localzdonna Not Spec C.M.A. Prime Or 2Ndy Pelvic & Thigh 715.96 Osteoarthrosis Unspec Genlzd Or Localized Lower Leg Office Visit 04/25/2013 12:15p Orthopedic Torri 715.35 Osteoarthrosis Services Of Jose D Gonzalez Localzd Not Spec C.M.A. Prime Or 2Ndy Pelvic & Thigh 715.96 Osteoarthrosis Unspec Genlzd Or Localized Lower Leg 844.1 Sprains & Strains Knee Medial Collateral Ligament Office Visit 04/18/2013 10:45a Orthopedic Loren 354.0 Carpal Tunnel Services Of Jose D Cadena Syndrome C.M.A. Office Visit 03/06/2013 10:30a Orthopedic Nevaeh Velásquez, 354.2 Lesion Ulnar Services Of [facility] Nerve C.M.A. 354.0 Carpal Tunnel Syndrome 727.43 [...] & Services Of Jose D Galeas Foot C.M.AAmee 729.81 Swelling Of Limb Office Visit 07/14/2011 1:30p Orthopedic Andrew Galeas 719.47 Pain Joint Services Of [facility] Office Visit 10/30/2008 10:20a [facility] Jose Stevens 786.50 Pain Chest Jose D Malcolm Unspec 401.1 Hypertension Benign 278.00 Obesity Unspec 794.31 Electrocardiogram (ECG) (EKG) Abnormal Plan of Treatment Future Appointment(s):11/08/2018 1:15 pm - Pete Ferrer MD at Orthopedic Services Of C.M.AAmee09/07/2018 - Pete Ferrer, MDS43.401D Unspecified sprain of right shoulder joint, subsequent encouNew Therapy: Physical TherapyFollow up:Follow up: 2 months prnM75.81 Other shoulder lesions , right uceuvwsvB20.21 Bicipital tendinitis, right ovcckhvnD32.011D Strain of muscle(s) and tendon(s) of the rotator cuff of rig
--- NOTE | 2018-09-16 15:45 | UC ---
Neck Pain HPI - HPI Summary HPI Summary: 58-year-old female presents with left neck and shoulder pain. States she traveled home yesterday from [place] after visiting her daughter and last night developed sharp pain in the left side of her neck that radiates into her left shoulder and upper arm. States pain is worse with any movement of the shoulder. States she took a dose of her cyclobenzaprine last evening with no relief the pain. She has taken ibuprofen 800 mg 2 doses today. Last dose was at 1:30 this afternoon. Reports no relief in the pain. Denies fever, chills, rash, injury, chest pain, palpitations, diaphoresis, shortness of breath, abdominal pain, nausea, vomiting, numbness, tingling, or weakness of the extremity. - History of Current Complaint Chief Complaint: UCGeneralIllness Stated Complaint: NECK, ARM PAIN Time Seen by Provider: 09/16/18 15:37 Hx Obtained From: Patient Hx Last Menstrual Period: hysterectomy Pain Intensity: 10 - Allergies/Home Medications Allergies/Adverse Reactions: Allergies Allergy/AdvReac Type Severity Reaction Status Date / Time Sulfa (Sulfonamide Allergy Severe Hives Verified 09/16/18 15:16 Antibiotics) PMH/Surg Hx/FS Hx/Imm Hx Endocrine History: Diabetes, Dyslipidemia Cardiovascular History: Cardiac Disease, Hypertension Respiratory History: COPD GI/ History: Gastroesophageal Reflux Other History Of: Negative For: HIV, Hepatitis B, Hepatitis C, Anticoagulant Therapy - She took one baby aspirin today. - Surgical History Surgical History: Yes Surgery Procedure, Year, and Place: 1991 CHOLECYSTECTOMY. 2003 HYSTERECTOMY [facility]. BILATERAL CARPAL TUNNEL - Family History Known Family History: Positive: Cardiac Disease, Hypertension, Diabetes - Social History Occupation: Works From/At Home Lives: With Family Alcohol Use: None Substance Use Type: None Smoking Status (MU): Former Smoker Type: Cigarettes Amount Used/How Often: LESS THEN 1PPD, only smoked 1/2 year Length of Time of Smoking/Using Tobacco: 1.5 YRS Have You Smoked in the Last Year: No When Did the Patient Quit Smoking/Using Tobacco: 40 yrs ago - Immunization History Most Recent Influenza Vaccination: 10/2014 Most Recent Tetanus Shot: up to date Most Recent Pneumonia Vaccination: never had this Review of Systems All Other Systems Reviewed And Are Negative: Yes Constitutional: Negative: Fever, Chills Skin: Negative: Rash Respiratory: Negative: Shortness Of Breath Cardiovascular: Negative: Palpitations, Chest Pain Gastrointestinal: Negative: Abdominal Pain, Vomiting, Nausea Genitourinary: Positive: Negative Musculoskeletal: Positive: Other: - See HPI Neurological: Positive: Negative Is Patient Immunocompromised?: No Physical Exam - Summary Physical Exam Summary: GENERAL APPEARANCE: Alert and cooperative chronically ill appearing female who appears to be in no acute distress. NECK: Tenderness with spasm noted over the left trapezius. No midline cervical tenderness. Full ROM. Pain with flexion and rotation to the right. CARDIAC: Normal S1 and S2. No S3, S4 or murmurs. Rhythm is regular. There is no peripheral edema, cyanosis or pallor. Extremities are warm and well perfused. Capillary refill is less than 2 seconds. Peripheral pulses intact. LUNGS: Clear to auscultation without rales, rhonchi, wheezing or diminished breath sounds. ABDOMEN: Positive bowel sounds. Soft, nondistended, nontender. No guarding or rebound. No masses or hepatosplenomegally. MUSKULOSKELETAL: No joint erythema or tenderness. Reduced ROM to left shoulder due to pain. Normal muscular development. Normal gait. SKIN: Skin normal color, texture and turgor with no lesions or eruptions. Triage Information Reviewed: Yes Vital Signs: Initial Vital Signs Temp 98 F 09/16/18 15:11 Pulse 86 09/16/18 15:11 Resp 18 09/16/18 15:11 BP 155/82 09/16/18 15:11 Pulse Ox 99 09/16/18 15:11 Vital Signs Reviewed: Yes Diagnostics - EKG Cardiac Rate: NL Cardiac Rhythm: Sinus: Normal Ectopy: None ST Segment: Normal EKG Comparison: No Significant Change - NSR rate of 81. Prolonged OR interval. No DIMITRI, T-wave abnormalities, or ectopy. Unchanged from previous EKG 10/27/2017 Neck Pain Course/Dx - Course Course Of Treatment: 58-year-old female presents with left neck and shoulder pain. States she traveled home yesterday from [place] after visiting her daughter and last night developed sharp pain in the left side of her neck that radiates into her left shoulder and upper arm. States pain is worse with any movement of the shoulder. States she took a dose of her cyclobenzaprine last evening with no relief the pain. She has taken ibuprofen 800 mg 2 doses today. Last dose was at 1:30 this afternoon. Reports no relief in the pain. Denies fever, chills, rash, injury, chest pain, palpitations, diaphoresis, shortness of breath, abdominal pain, nausea, vomiting, numbness, tingling, or weakness of the extremity. Afebrile. Hypertensive otherwise vital signs stable. Patient had tenderness with spasm noted over the left trapezius. No midline cervical tenderness. Full ROM. Pain with flexion and rotation to the right. There was some limited range of motion to the left shoulder to pain. Remainder of exam was unremarkable. Patient was given tramadol 50 mg PO and cyclobenzaprine 10 mg PO in the clinic. A short-term prescription for tramadol 50 mg every 8 hours as needed for severe pain was provided. She is to continue to use ibuprofen as directed for her pain. As well as her cyclobenzaprine 10 mg as directed to help with the spasming. Patient is to follow-up with her primary care provider in 2-3 days if symptoms do not improve. Anticipatory guidance and warning symptoms were provided to the patient. Verbalizes understanding and agrees with plan of care. - Differential Dx/Diagnosis Differential Dx/HQI/PQRI: Arthritis, Strain, Torticollis Provider Diagnosis: Strain of left trapezius muscle Discharge - Sign-Out/Discharge Documenting (check all that apply): Patient Departure All imaging exams completed and their final reports reviewed: No Studies - Discharge Plan Condition: Stable Disposition: HOME Prescriptions: Tramadol HCl 50 mg PO Q8HR PRN #9 tablet MDD 3 PRN Reason: Severe Pain Patient Education Materials: Acute Neck Pain (ED) Referrals: Alana Jones MD [Primary Care Provider] - 3 Days Additional Instructions: Your neck and shoulder pain appears to be musculoskeletal in origin. The 12- lead EKG that was performed in the clinic today was unchanged from her previous. Continue using ibuprofen according to directions as needed for pain. Take tramadol 50 mg 1 tablet every 8 hours as needed for severe pain. You were given a dose clinic today at 4:00 PM. This medicine causes drowsiness he should not take and drive or operate machinery. Continue to use your cyclobenzaprine (Flexeril) according to directions to help with the spasming. You were given a dose of this in the clinic at 4:00 PM. This medication can also cause drowsiness so do not take and drive or operate machinery. Apply a heating pad to the affected area for 15-20 minutes at least 4 times a day to help relax the muscles and increased the pain. Follow-up with your primary care provider in 2-3 days if symptoms do not improve. Seek immediate medical attention in the emergency room if you develop chest pain , palpitations, dizziness, shortness of breath, numbness, tingling, or weakness in the arm, worsening pain, or any worsening of symptoms. - Billing Disposition and Condition Condition: STABLE Disposition: Home - Attestation Statements Provider Attestation: I was available for consult. This patient was seen by the LEE. The patient was not presented to, seen by, or examined by me. -Aruna
[2018-09-16] MEDS ORDERED: traMADol TAB* 50 MG PO ONE (15:53)
[2018-09-16] MEDS ORDERED: Cyclobenzaprine TAB* 10 MG PO ONE (15:53)
== END 2018-09-16 16:05 | disposition home or self-care (01) ==
LOC: UCEAST 15:08
DX: S16.1XXA Strain of muscle, fascia and tendon at neck level, initial encounter (principal); X58.XXXA Exposure to other specified factors, initial encounter; Y92.9 Unspecified place or not applicable; E11.9 Type 2 diabetes mellitus without complications; E78.5 Hyperlipidemia, unspecified; I10 Essential (primary) hypertension; J44.9 Chronic obstructive pulmonary disease, unspecified; K21.9 Gastro-esophageal reflux disease without esophagitis; Z88.2 Allergy status to sulfonamides; Z87.891 Personal history of nicotine dependence
CPT/HCPCS: 99212; A9270-GY; G0463

== ENCOUNTER 2018-10-04 12:36 | Emergency (ER) | payer OTHER ==
[2018-10-04 13:25] VITALS: BP 125/78
[2018-10-04] MEDS ORDERED: Ibuprofen TAB* 600 MG PO ONE (13:57)
--- NOTE | 2018-10-04 14:02 | UC ---
Knee Pain HPI - HPI Summary HPI Summary: Patient is a 58-year-old female, history of diabetes, hypertension, obesity, here with left knee pain. Patient woke up this morning at 2:30 with left knee pain and swelling. Patient's had similar symptoms periodically in the past. Patient has no fever, chills, redness to her knee. Patient is able to walk but has a limp. Patient took 1 tramadol at home with little relief. Medications reviewed - History of Current Complaint Chief Complaint: UCLowerExtremity Stated Complaint: KNEE PAIN Time Seen by Provider: 10/04/18 13:48 Hx Obtained From: Patient Hx Last Menstrual Period: hysterectomy Onset/Duration: Sudden Onset Severity Initially: Moderate Severity Currently: Moderate Pain Intensity: 9 - Allergies/Home Medications Allergies/Adverse Reactions: Allergies Allergy/AdvReac Type Severity Reaction Status Date / Time Sulfa (Sulfonamide Allergy Severe Hives Verified 10/04/18 13:25 Antibiotics) PMH/Surg Hx/FS Hx/Imm Hx Endocrine History: Diabetes Cardiovascular History: Hypertension Other History Of: Negative For: HIV, Hepatitis B, Hepatitis C, Anticoagulant Therapy - She took one baby aspirin today. - Surgical History Surgical History: Yes Surgery Procedure, Year, and Place: 1991 CHOLECYSTECTOMY. 2003 HYSTERECTOMY [facility]. BILATERAL CARPAL TUNNEL - Family History Known Family History: Positive: Cardiac Disease, Hypertension, Diabetes, Non- Contributory - Social History Alcohol Use: None Substance Use Type: None Smoking Status (MU): Former Smoker Type: Cigarettes Amount Used/How Often: LESS THEN 1PPD, only smoked 1/2 year Length of Time of Smoking/Using Tobacco: 1.5 YRS Have You Smoked in the Last Year: No When Did the Patient Quit Smoking/Using Tobacco: 40 yrs ago - Immunization History Most Recent Influenza Vaccination: 10/2014 Most Recent Tetanus Shot: up to date Most Recent Pneumonia Vaccination: never had this Review of Systems All Other Systems Reviewed And Are Negative: Yes Constitutional: Negative: Fever, Chills Skin: Negative: Rash, Bruising ENT: Negative: Sore Throat, Nasal Discharge Physical Exam - Summary Physical Exam Summary: Vital Signs Reviewed: Yes A+Ox3, no distress Eyes: Conjunctiva Clear, PERRL. EOM intact and full ENT: Hearing grossly normal TM x 2 clear, moist, uvula midline, no exudate, no erythema Neck: Positive: Supple Respiratory: Positive: No respiratory distress, No accessory muscle use + CTA throughout no w/r Cardiovascular: RRR nl s1, s2 no m/r CBT <2 sec abd soft + BS nt/nd no guarding, no distension Musculoskeletal Exam: Left knee is swollen compared to the right. Full range of motion both active and passive modality in the knee. No overlying erythema or warmth. Crepitus with knee movement. Anterior/posterior drawer sign is negative. No medial or lateral joint laxity. Neurological: Positive: Alert, + sensation throughout Psychological: Positive: Normal Response To Family Skin: no rash, no ecchymosis Triage Information Reviewed: Yes Vital Signs: Initial Vital Signs Temp 96.9 F 10/04/18 13:21 Pulse 75 10/04/18 13:21 Resp 19 10/04/18 13:21 BP 125/78 10/04/18 13:21 Pulse Ox 98 10/04/18 13:21 Knee Pain Course/Dx - Course Course Of Treatment: Patient is here with symptoms consistent with osteoarthritis of the knee. Patient is evidence of septic arthritis. Patient had no preceding traumatic injury and does not need an x-ray here. Patient was educated on conservative management and was asked to follow-up with her orthopedic surgeon who she has no point with in 12 days. - Differential Dx/Diagnosis Differential Diagnosis/HQI/PQRI: Contusion, Fracture (Closed), Internal Derangement Of Knee, Sprain, Strain Provider Diagnosis: Osteoarthritis, knee Discharge - Sign-Out/Discharge Documenting (check all that apply): Patient Departure All imaging exams completed and their final reports reviewed: No Studies - Discharge Plan Condition: Stable Disposition: HOME Prescriptions: Ibuprofen TAB* [Motrin TAB* 600 MG] 600 mg PO Q6H PRN #30 tab PRN Reason: pain moderate Patient Education Materials: Osteoarthritis (ED) Referrals: Alana Jones MD [Primary Care Provider] - Additional Instructions: Please follow up with her primary care doctor and orthopedic doctor for further evaluation of arthritis of your knee. Please rest, ice, elevate your leg at the end of the day Please take your prescribed anti-inflammatory medicine - Billing Disposition and Condition Condition: STABLE Disposition: Home
== END 2018-10-04 14:07 | disposition home or self-care (01) ==
LOC: UCEAST 12:36
DX: M17.12 Unilateral primary osteoarthritis, left knee (principal); E11.9 Type 2 diabetes mellitus without complications; I10 Essential (primary) hypertension; Z88.2 Allergy status to sulfonamides; Z87.891 Personal history of nicotine dependence
CPT/HCPCS: 99212; A9270-GY; G0463

== ENCOUNTER 2018-11-06 12:53 | Emergency (ER) | payer OTHER ==
--- OUTSIDE RECORDS SUMMARY | 2018-11-06 13:28 | XMS REPORT | Continuity of Care Document ---
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 Onset: 08/04/2015 Complete tear of shoulder joint Pete Ferrer MD Onset: 05/25/2018 Shoulder joint pain Pete Ferrer MD Onset: 05/25/2018 Social History Type Date Description Comments Sex Unknown Tobacco Use Start: Unknown Never Smoked Cigarettes Smoking Status Reviewed: 10/16/18 Never Smoked Cigarettes ETOH Use Denies alcohol [...] Torri Gonzalez, 01/10/2018 500mg Tablets food prn M.DAmee Percocet 1 tabs by mouth 30tabs Pete Duke 09/30/2017 5-325mg Tablets every 4-6 hours MD Nabil as needed pain Aspirin Ec take 1 tab by 14tabs Pete Duke 09/30/[address] mouth once a MD Nabil day for 2 weeks post op Diazepam take 1-2 tabs 2tabs S46.011D Pete Duke 06/09/2017 5mg Tablets prn prior to MD Nabil mri Cyclobenzaprine HCL one by mouth 60tabs M54.31 Andrew Galeas, 11/07/2015 10mg three times a M.D. Tablets day as needed spasm Metoprolol Succinate 1 po bid Unknown 50mg Tablets ER 24HR Amlodipine Besylate 1 po qd 90tabs Unknown 10mg Tablets Medications Administered in Office Medication SIG Qnty Indications Ordering Provider Date Depomedrol 40MG Pete Ferrer MD 09/07/2018 Injection Depomedrol 40MG Pete Ferrer MD 07/04/2017 Injection Immunizations Description No Information Available Vital Signs Date Vital Result Comment 10/16/2018 1:41pm Height 65 inches 5'5" Weight 218.00 lb stated Heart Rate 78 /min BP Systolic 132 mmHg BP Diastolic 76 mmHg Respiratory Rate 14 /min Pain Level 8 BMI (Body Mass Index) 36.3 kg/m2 09/07/2018 2:49pm Height 65 inches 5'5" Weight 218.00 lb Heart Rate 78 /min BP Systolic 138 mmHg BP Diastolic 82 mmHg Respiratory Rate 14 /min Pain Level 8 BMI (Body Mass Index) 36.3 kg/m2 Results Description No Information Available Procedures Date Code Description Status 09/07/2018 00398 Inject/Drain Joint/Bursa Major W/O US Completed Medical Devices Description No Information Available Encounters Type Date Location Provider Dx Diagnosis Office Visit 09/07/2018 Orthopedic Pete Duke S43.401A Unspecified sprain 2:30p [facility] Of Matt Ferrer MD of right shoulder joint, init encntr M75.81 Other shoulder lesions, right shoulder M75.21 Bicipital tendinitis, right shoulder S46.011D Strain of musc/tend the rotator cuff of right shoulder, subs Office Visit 05/25/2018 Orthopedic Pete Duke S43.401D Unspecified 11:30a Services Of MD Nabil sprain of right C.M.A. shoulder joint, subs encntr M25.511 Pain in right shoulder Assessments Date Code Description Provider 10/16/2018 M25.562 Pain in left knee Pete Ferrer MD 10/16/2018 M17.12 Unilateral primary osteoarthritis, left Pete Ferrer MD knee 09/07/2018 S43.401A Unspecified sprain of right shoulder Pete Ferrer MD joint, initial encounte 09/07/2018 M75.81 Other shoulder lesions, right shoulder Pete Ferrer MD 09/07/2018 M75.21 Bicipital tendinitis, right shoulder Pete Ferrer MD 09/07/2018 S46.011D Strain of muscle(s) and tendon(s) of the Pete Ferrer MD rotator cuff of rig 05/25/2018 S43.401D Unspecified sprain of right shoulder Pete Ferrer MD joint, subsequent encou 05/25/2018 M25.511 Pain in right shoulder Pete Ferrer MD Plan of Treatment Future Appointment(s):11/16/2018 1:45 pm - Pete Ferrer MD at [facility]11/08/2018 1:15 pm - Pete Ferrer MD at [facility].10/16/2018 - Pete Ferrer MDM25.562 Pain in left kneeFollow up:Follow up: 4 weeks prnM17.12 Unilateral primary osteoarthritis, left knee Functional Status Description No Information Available Mental Status Description No Information Available Referrals Description No Information Available
--- NOTE | 2018-11-06 14:35 | ED ---
Lower Extremity - HPI Summary HPI Summary: 58-year-old female presents to knee pain for the past day. She states that she felt her right knee give out. She's never happened before. She denies any numbness tingling. It feels that her knee may still give out. She states did not fall. States she caught herself. Has been taking Tylenol ibuprofen for the pain without relief. Is diabetic. Has follow-up already on Tuesday. - History of Current Complaint Chief Complaint: EDExtremityLower Stated Complaint: LEG PAIN Time Seen by Provider: 11/06/18 13:58 Hx Last Menstrual Period: hysterectomy Pain Intensity: 10 - Allergies/Home Medications Allergies/Adverse Reactions: Allergies Allergy/AdvReac Type Severity Reaction Status Date / Time Sulfa (Sulfonamide Allergy Severe Hives Verified 10/04/18 13:25 Antibiotics) PMH/Surg Hx/FS Hx/Imm Hx Endocrine/Hematology History: Reports: Hx Diabetes - Type 2 Denies: Hx Anticoagulant Therapy - She took one baby aspirin today., Hx Thyroid Disease Cardiovascular History: Reports: Hx Hypertension - controlled with meds Denies: Hx Angina, Hx Pacemaker/ICD Respiratory History: Reports: Hx Asthma - on meds Denies: Hx Chronic Obstructive Pulmonary Disease (COPD), Hx Lung Cancer, Hx Pneumonia, Hx Pulmonary Embolism GI History: Reports: Hx Gastroesophageal Reflux Disease Denies: Hx Gall Bladder Disease, Hx Gastrointestinal Bleed, Hx Ulcer, Hx Urosepsis History: Reports: Hx Kidney Stones Denies: Hx Renal Disease Musculoskeletal History: Reports: Hx Arthritis - Bilat knees, shoulders, Hx Tendonitis - L Wrist Sensory History: Reports: Hx Contacts or Glasses - glasses Denies: Hx Hearing Aid Opthamlomology History: Reports: Hx Contacts or Glasses - glasses Neurological History: Reports: Hx Migraine Denies: Hx Dementia, Hx Seizures, Hx Transient Ischemic Attacks (TIA), Other Neuro Impairments/Disorders Psychiatric History: Reports: Hx Anxiety - prn Denies: Hx Depression, Hx Panic Disorder, Hx Schizophrenia, Hx Bipolar Disorder - Cancer History Hx Chemotherapy: No Hx Radiation Therapy: No - Surgical History Surgery Procedure, Year, and Place: 1991 CHOLECYSTECTOMY. 2003 HYSTERECTOMY [facility]. BILATERAL CARPAL TUNNEL Hx Anesthesia Reactions: No - Immunization History Date of Influenza Vaccine: 09/2018 Infectious Disease History: No Infectious Disease History: Denies: Hx Clostridium Difficile, Hx Human Immunodeficiency Virus (HIV), Hx of Known/Suspected MRSA, Hx Shingles, Hx Tuberculosis, Hx Known/Suspected VRE, Hx Known/Suspected VRSA, History Other Infectious Disease, Traveled Outside the [place] in Last 30 Days - Family History Known Family History: Positive: Cardiac Disease, Hypertension, Diabetes, Non- Contributory - Social History Alcohol Use: None Hx Substance Use: No Substance Use Type: Reports: None Hx Tobacco Use: Yes Smoking Status (MU): Former Smoker Type: Cigarettes Amount Used/How Often: LESS THEN 1PPD, only smoked 1/2 year Length of Time of Smoking/Using Tobacco: 1.5 YRS Have You Smoked in the Last Year: No Review of Systems Negative: Fever Negative: Chest Pain Negative: Shortness Of Breath Positive: Myalgia - right knee pain All Other Systems Reviewed And Are Negative: Yes Physical Exam Triage Information Reviewed: Yes Vital Signs On Initial Exam: Initial Vitals Temp Pulse Resp BP Pulse Ox 98.2 F 75 14 145/93 97 11/06/18 13:15 11/06/18 13:15 11/06/18 13:15 11/06/18 13:15 11/06/18 13:15 Vital Signs Reviewed: Yes Appearance: Positive: Well-Appearing Skin: Positive: Warm, Dry Head/Face: Positive: Normal Head/Face Inspection Eyes: Positive: Normal, Conjunctiva Clear ENT: Positive: Pharynx normal Respiratory/Lung Sounds: Positive: Clear to Auscultation, Breath Sounds Present Cardiovascular: Positive: Normal, RRR Musculoskeletal: Positive: Strength/ROM Intact - right knee with pain, Other - tenderness over medial aspect of right knee, good pulses, sensation grossly intact Neurological: Positive: Normal Psychiatric: Positive: Normal Diagnostics - Vital Signs Vital Signs Temp Pulse Resp BP Pulse Ox 11/06/18 13:15 98.2 F 75 14 145/93 97 - Laboratory Lab Statement: Any lab studies that have been ordered have been reviewed, and results considered in the medical decision making process. - Radiology knee Radiology Interpretation Completed By: Radiologist Summary of Radiographic Findings: IMPRESSION: Degenerative changes of the patellofemoral joint and medial compartment of the right knee. Lower Extremity Course/Dx - Course Course Of Treatment: 58-year-old female presents to knee pain for the past day. She states that she felt her right knee give out. She's never happened before. She denies any numbness tingling. It feels that her knee may still give out. She states did not fall. States she caught herself. Has been taking Tylenol ibuprofen for the pain without relief. Is diabetic. Has follow- up already on Tuesday. On exam tenderness over medial aspect of right knee. Neurovascular intact. X-ray shows degenerative changes. Told to ice and elevate. Gave knee immobilizer. Told to follow-up with orthopedic. Patient understands and agrees with plan. - Diagnoses Differential Diagnosis/HQI/PQRI: Positive: Fracture (Closed), Sprain, Strain Provider Diagnoses: Right knee pain Discharge ED - Sign-Out/Discharge Documenting (check all that apply): Patient Departure Patient Received Moderate/Deep Sedation with Procedure: No - Discharge Plan Condition: Good Disposition: HOME Patient Education Materials: Knee Pain (ED) Referrals: Alana Jones MD [Primary Care Provider] - Pete Ferrer MD [Medical Doctor] - Additional Instructions: Use immobilizer Stay off knee as much as possible Ice, elevate, Ibuprofen or Tylenol every 6 hours for pain Follow up with ortho Return to ED if develop or any new or worsening symptoms - Billing Disposition and Condition Condition: GOOD Disposition: Home
[2018-11-06 15:05] VITALS: BP 144/75
== END 2018-11-06 15:04 | disposition home or self-care (01) ==
LOC: ED 12:53
DX: M25.561 Pain in right knee (principal); M17.11 Unilateral primary osteoarthritis, right knee; E11.9 Type 2 diabetes mellitus without complications; I10 Essential (primary) hypertension; J45.909 Unspecified asthma, uncomplicated; K21.9 Gastro-esophageal reflux disease without esophagitis; F41.9 Anxiety disorder, unspecified; Z79.899 Other long term (current) drug therapy; Z90.49 Acquired absence of other specified parts of digestive tract; Z90.710 Acquired absence of both cervix and uterus; Z87.891 Personal history of nicotine dependence
CPT/HCPCS: 99281

== ENCOUNTER 2018-12-09 12:37 | Emergency (ER) | payer OTHER ==
--- OUTSIDE RECORDS SUMMARY | 2018-12-09 12:47 | XMS REPORT | Continuity of Care Document ---
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 Onset: 08/04/2015 Complete tear of shoulder joint Pete Ferrer MD Onset: 05/25/2018 Shoulder joint pain Pete Ferrer MD Onset: 05/25/2018 Social History Type Date Description Comments Sex Unknown Tobacco Use Start: Unknown Never Smoked Cigarettes Smoking Status Reviewed: 11/08/18 Never Smoked Cigarettes ETOH Use Denies alcohol [...] Available Vital Signs Date Vital Result Comment 11/08/2018 1:04pm Height 65 inches 5'5" Weight 218.00 lb stated Heart Rate 70 /min BP Systolic 140 mmHg BP Diastolic 82 mmHg Respiratory Rate 14 /min Pain Level 2 BMI (Body Mass Index) 36.3 kg/m2 10/16/2018 1:41pm Height 65 inches 5'5" Weight 218.00 lb stated Heart Rate 78 /min BP Systolic 132 mmHg BP Diastolic 76 mmHg Respiratory Rate 14 /min Pain Level 8 BMI (Body Mass Index) 36.3 kg/m2 Results Description No Information Available Procedures Date Code Description Status 09/07/2018 76869 Inject/Drain Joint/Bursa Major W/O US Completed Medical Devices Description No Information Available Encounters Type Date Location Provider Dx Diagnosis Office Visit 10/16/2018 Orthopedic Pete Duke M25.562 Pain in left knee 1:30p Services Of Matt Ferrer MD M17.12 Unilateral primary osteoarthritis, left knee Office Visit 09/07/2018 Orthopedic Pete Duke S43.401A Unspecified 2:30p Services Of MD Nabil sprain of right C.M.A. shoulder joint, init encntr M75.81 Other shoulder lesions, right shoulder M75.21 Bicipital tendinitis, right shoulder S46.011D Strain of musc/tend the rotator cuff of right shoulder, subs Office Visit 05/25/2018 Jing Duke S43.401D Unspecified 11:30a Services Of MD Nabil sprain of right C.M.A. shoulder joint, subs encntr M25.511 Pain in right shoulder Assessments Date Code Description Provider 11/08/2018 M25.561 Pain in right knee Pete Ferrer MD 11/08/2018 M17.11 Unilateral primary osteoarthritis, right Pete Ferrer MD knee 10/16/2018 M25.562 Pain in left knee Pete [...] Pete Ferrer MD Plan of Treatment Future Appointment(s):11/29/2018 1:30 pm - Pete Ferrer MD at [facility]11/08/2018 - Pete Ferrer, MDM25.561 Pain in right kneeNew Therapy:Physical TherapyFollow up:Follow up: 3 weeks for right knee and right rhlwtgydX06.11 Unilateral primary osteoarthritis, right knee Functional Status Description No Information Available Mental Status Description No Information Available Referrals Description No Information Available
--- NOTE | 2018-12-09 13:12 | ED ---
HPI Diabetic - HPI Summary HPI Summary: This patient is a 58 year old F with a history of DM presenting to ED with a chief complaint of elevated blood sugar since this morning. Patient took her own blood sugar with a finger stick and reports it was >300. Patient only takes insulin once a day. Patient feels weak and mildly nauseous, but she denies pain. Patient denies recent illness, trouble urinating, abnormal bowel movements , shortness of breath, chest pain, vomiting, or diarrhea. The patient rates the pain 0/10 in severity. Symptoms aggravated by nothing. Symptoms alleviated by nothing. - History Of Current Complaint Chief Complaint: EDDiabeticProb Time Seen by Provider: 12/09/18 13:06 Hx Obtained From: Patient Hx Last Menstrual Period: hysterectomy Onset/Duration: Gradual Onset, Lasting Days, Still Present Timing: Constant Severity Initially: Mild Severity Currently: Mild Character: Lethargic Aggravating: Nothing Alleviating: Nothing Associated Signs & Symptoms: Negative - Urinary/bowel symptoms, shortness of breath, chest pain, vomiting, diarrhea, Nausea - Allergies/Home Medications Allergies/Adverse Reactions: Allergies Allergy/AdvReac Type Severity Reaction Status Date / Time Sulfa (Sulfonamide Allergy Severe Hives Verified 12/09/18 12:42 Antibiotics) PMH/Surg Hx/FS Hx/Imm Hx Endocrine/Hematology History: Reports: Hx Diabetes - Type 2 Denies: Hx Anticoagulant Therapy - She took one baby aspirin today., Hx Thyroid Disease Cardiovascular History: Reports: Hx Hypertension - controlled with meds Denies: Hx Angina, Hx Pacemaker/ICD Respiratory History: Reports: Hx Asthma - on meds Denies: Hx Chronic Obstructive Pulmonary Disease (COPD), Hx Lung Cancer, Hx Pneumonia, Hx Pulmonary Embolism GI History: Reports: Hx Gastroesophageal Reflux Disease Denies: Hx Gall Bladder Disease, Hx Gastrointestinal Bleed, Hx Ulcer, Hx Urosepsis History: Reports: Hx Kidney Stones Denies: Hx Renal Disease Musculoskeletal History: Reports: Hx Arthritis - Bilat knees, shoulders, Hx Tendonitis - L Wrist Sensory History: Reports: Hx Contacts or Glasses - glasses Denies: Hx Hearing Aid Opthamlomology History: Reports: Hx Contacts or Glasses - glasses Neurological History: Reports: Hx Migraine Denies: Hx Dementia, Hx Seizures, Hx Transient Ischemic Attacks (TIA), Other Neuro Impairments/Disorders Psychiatric History: Reports: Hx Anxiety - prn Denies: Hx Depression, Hx Panic Disorder, Hx Schizophrenia, Hx Bipolar Disorder - Cancer History Hx Chemotherapy: No Hx Radiation Therapy: No - Surgical History Surgery Procedure, Year, and Place: 1991 CHOLECYSTECTOMY. 2004 HYSTERECTOMY [facility]. BILATERAL CARPAL TUNNEL Hx Anesthesia Reactions: No - Immunization History Date of Influenza Vaccine: 09/2018 Infectious Disease History: No Infectious Disease History: Denies: Hx Clostridium Difficile, Hx Human Immunodeficiency Virus (HIV), Hx of Known/Suspected MRSA, Hx Shingles, Hx Tuberculosis, Hx Known/Suspected VRE, Hx Known/Suspected VRSA, History Other Infectious Disease, Traveled Outside the [place] in Last 30 Days - Family History Known Family History: Positive: Cardiac Disease, Hypertension, Diabetes - Social History Alcohol Use: None Hx Substance Use: No Substance Use Type: Reports: None Hx Tobacco Use: Yes Smoking Status (MU): Former Smoker Type: Cigarettes Amount Used/How Often: LESS THEN 1PPD, only smoked 1/2 year Length of Time of Smoking/Using Tobacco: 1.5 YRS Have You Smoked in the Last Year: No Review of Systems Negative: Chest Pain Negative: Shortness Of Breath Gastrointestinal: Negative - Abnormal bowel movements Positive: Nausea. Negative: Vomiting, Diarrhea Positive: no symptoms reported Negative: Arthralgia, Myalgia Positive: Weakness All Other Systems Reviewed And Are Negative: Yes Physical Exam - Summary Physical Exam Summary: Appearance: The patient is well-nourished in no acute distress and in no acute pain. Skin: The skin is warm and dry, and skin color reflects adequate perfusion. HEENT: The head is normocephalic and atraumatic. The pupils are equal and reactive. The conjunctivae are clear and without drainage. Nares are patent and without drainage. Mouth reveals moist mucous membranes, and the throat is without erythema and exudate. The external ears are intact. The ear canals are patent and without drainage. The tympanic membranes are intact. Neck: The neck is supple with full range of motion and non-tender. There are no carotid bruits. There is no neck vein distension. Respiratory: Chest is non-tender. Lungs are clear to auscultation and breath sounds are symmetrical and equal. Cardiovascular: Heart is regular rate and rhythm. There is no murmur or rub auscultated. There is no peripheral edema and pulses are symmetrical and equal. Abdomen: The abdomen is soft and non-tender. There are normal bowel sounds heard in all four quadrants and there is no organomegaly palpated. Musculoskeletal: There is no back tenderness noted. Extremities are non-tender with full range of motion. There is good capillary refill. There is no peripheral edema or calf tenderness elicited. Neurological: Patient is alert and oriented to person, place and time. The patient has symmetrical motor strength in all four extremities. Cranial nerves are grossly intact. Deep tendon reflexes are symmetrical and equal in all four extremities. Psychiatric: The patient has an appropriate affect and does not exhibit any anxiety or depression. Triage Information Reviewed: Yes Vital Signs On Initial Exam: Initial Vitals Temp Pulse Resp BP Pulse Ox 97.2 F 85 18 130/74 96 12/09/18 12:39 12/09/18 12:39 12/09/18 12:39 12/09/18 12:39 12/09/18 12:39 Vital Signs Reviewed: Yes Diagnostics - Vital Signs Vital Signs Temp Pulse Resp BP Pulse Ox 12/09/18 12:39 97.2 F 85 18 130/74 96 - Laboratory Result Diagrams: 12/09/18 15:15 12/09/18 13:56 Lab Statement: Any lab studies that have been ordered have been reviewed, and results considered in the medical decision making process. - Radiology CXR Radiology Interpretation Completed By: Radiologist Summary of Radiographic Findings: NO EVIDENCE FOR ACTIVE CARDIOPULMONARY DISEASE. Dr. Hong has reviewed this radiology report. Re-Evaluation - Re-Evaluation First Eval Re-Evaluation Time: 16:26 Comment: Discussed results with patient. Patient will be discharged home with dx of fatigue. Patient understands and agrees with this plan. Diabetic Course/Dx - Course Course Of Treatment: Ms. Baum was nontoxic in appearance with stable vitals on presentation. IV was initiated and she was kept on the monitor while labs were obtained and she was given normal saline. Labs were unremarkable with only a mildly elevated blood sugar and she was discharged home to follow-up with her PCP. - Diagnoses Provider Diagnoses: Fatigue Discharge ED - Sign-Out/Discharge Documenting (check all that apply): Patient Departure - Discharge - Discharge Plan Condition: Stable Disposition: HOME Patient Education Materials: Fatigue (ED) Referrals: Alana Jones MD [Primary Care Provider] - 3 Days Additional Instructions: Follow up with your primary care physician within 2-3 days. PLEASE RETURN TO THE ER FOR WORSENING OR CHANGING SYMPTOMS. - Billing Disposition and Condition Condition: STABLE Disposition: Home - Attestation Statements Document Initiated by Scribe: Yes Documenting Scribe: Salomon Landers Provider For Whom Muriel is Documenting (Include Credential): Naif Hong MD Scribe Attestation: ISalomon, scribed for Naif Hong MD on 12/09/18 at 2047. Scribe Documentation Reviewed: Yes Provider Attestation: The documentation as recorded by the Salomon simpson accurately reflects the service I personally performed and the decisions made by me, Naif Hong MD Status of Scribe Document: Viewed Procedures - Sedation Patient Received Moderate/Deep Sedation with Procedure: No
[2018-12-09 13:23] VITALS: BP 133/79
[2018-12-09 14:04] LABS: Hematocrit 39 % (35-47); Hemoglobin 12.8 g/dL (12.0-16.0); Mean Corpuscular HGB Conc 33 g/dL (31-36); Mean Corpuscular Hemoglobin 29 pg (27-31); Mean Corpuscular Volume 88 fL (80-97); Red Blood Count 4.43 10^6 /uL (3.70-4.87); Red Cell Distribution Width 14 % (10-15); White Blood Count 7.2 10^3/uL (3.5-10.8)
[2018-12-09 14:05] LABS: ABS Eosinophils 0.1 10^3/ul (0-0.6); ABS Lymphocytes 2.3 10^3/ul (1.0-4.8); ABS Monocytes 0.6 10^3/ul (0-0.8); ABS Neutrophils 4.2 10^3/ul (1.5-7.7); Eosinophil % 1.2 %; Lymphocyte % 32.1 %
[2018-12-09 14:19] LABS: Albumin 4.2 g/dL (3.2-5.2); Albumin/Globulin Ratio 1.3 (1-3); BUN/Creatinine Ratio 18.7 (8-20); Calcium 9.6 mg/dL (8.6-10.3); EGFR African American 76.8 (>60); EGFR Non-African American 63.5 (>60); Globulin 3.3 g/dL (2-4); Potassium 3.6 mmol/L (3.5-5.0); Total Bilirubin 0.3 mg/dL (0.2-1.0); Total Protein 7.5 g/dL (6.4-8.9)
[2018-12-09 15:32] LABS: Platelet Count, Citrated 298 10^3/ul (150-450)
[2018-12-09 16:02] LABS: Urine Appearance Clear; Urine Bilirubin Negative (Negative); Urine Blood Negative (Negative); Urine Color Yellow; Urine Glucose 1+(50 mg/dL) (Negative); Urine Ketones Negative (Negative); Urine Nitrite Negative (Negative); Urine Protein Negative (Negative); Urine Specific Gravity 1.013 (1.010-1.030); Urine Urobilinogen Negative (Negative)
== END 2018-12-09 16:31 | disposition home or self-care (01) ==
LOC: ED 12:37
DX: R53.83 Other fatigue (principal); E11.9 Type 2 diabetes mellitus without complications; I10 Essential (primary) hypertension; J45.909 Unspecified asthma, uncomplicated; K21.9 Gastro-esophageal reflux disease without esophagitis; F41.9 Anxiety disorder, unspecified; Z90.49 Acquired absence of other specified parts of digestive tract; Z90.710 Acquired absence of both cervix and uterus; Z87.891 Personal history of nicotine dependence; Z88.2 Allergy status to sulfonamides; Z79.82 Long term (current) use of aspirin; Z79.4 Long term (current) use of insulin; Z79.899 Other long term (current) drug therapy
CPT/HCPCS: 36415; 71046; 80053; 81003; 85025; 85049; 99282

== ENCOUNTER 2019-01-20 12:02 | Emergency (ER) | payer OTHER ==
[2019-01-20 12:19] VITALS: BP 135/79
--- NOTE | 2019-01-20 14:16 | UC ---
Back Pain HPI - HPI Summary HPI Summary: 58-year-old woman comes in with a chief complaint of low back pain. Pain started 2 days ago it's in the mid lumbar area. It's worse with twisting turning bending. It does occasionally radiate down the right buttock and the right leg. Denies any weakness or numbness or difficulty controlling urine or bowels. Denies any fevers or chills or abdominal pain. She has similar episode a couple weeks ago which lasted a week and she did see her primary care doctor for that. Patient reports she was on an antibiotic with her primary care doctor and also a pain medicine that started with a letter T. - History of Current Complaint Chief Complaint: UCBackPain Stated Complaint: BACK PAIN Time Seen by Provider: 01/20/19 13:37 Hx Last Menstrual Period: hysterectomy Pain Intensity: 9 - Allergies/Home Medications Allergies/Adverse Reactions: Allergies Allergy/AdvReac Type Severity Reaction Status Date / Time Sulfa (Sulfonamide Allergy Severe Hives Verified 01/20/19 12:19 Antibiotics) Home Medications: Home Medications Ibuprofen TAB* [Advil TAB*] 400 mg PO ONCE PRN 01/20/19 [History Confirmed 01/20] PMH/Surg Hx/FS Hx/Imm Hx Previously Healthy: Yes Endocrine History: Diabetes, Dyslipidemia Cardiovascular History: Hypertension Respiratory History: Asthma GI/ History: Gastroesophageal Reflux Other History Of: Negative For: HIV, Hepatitis B, Hepatitis C, Anticoagulant Therapy - She took one baby aspirin today. - Surgical History Surgical History: Yes Surgery Procedure, Year, and Place: 1991 CHOLECYSTECTOMY. 2003 HYSTERECTOMY [facility]. BILATERAL CARPAL TUNNEL - Family History Known Family History: Positive: Cardiac Disease, Hypertension, Diabetes - Social History Alcohol Use: None Substance Use Type: None Smoking Status (MU): Former Smoker Type: Cigarettes Amount Used/How Often: LESS THEN 1PPD, only smoked 1/2 year Length of Time of Smoking/Using Tobacco: 1.5 YRS Have You Smoked in the Last Year: No When Did the Patient Quit Smoking/Using Tobacco: 40 yrs ago - Immunization History Most Recent Influenza Vaccination: 10/2014 Most Recent Tetanus Shot: up to date Most Recent Pneumonia Vaccination: never had this Review of Systems All Other Systems Reviewed And Are Negative: Yes Constitutional: Positive: Negative Skin: Positive: Negative Eyes: Positive: Negative ENT: Positive: Negative Respiratory: Positive: Negative Cardiovascular: Positive: Negative Gastrointestinal: Positive: Negative Genitourinary: Positive: Negative Motor: Positive: Negative Neurovascular: Positive: Negative Musculoskeletal: Positive: Other: - SEE HPI Neurological: Positive: Negative Psychological: Positive: Negative Is Patient Immunocompromised?: No Physical Exam Triage Information Reviewed: Yes Appearance: Well-Appearing, Well-Nourished, Pain Distress - Mild with movement of the back. Vital Signs: Initial Vital Signs Temp 97 F 01/20/19 12:14 Pulse 79 01/20/19 12:14 Resp 18 01/20/19 12:14 BP 135/79 01/20/19 12:14 Pulse Ox 97 01/20/19 12:14 Vital Signs Reviewed: Yes Eye Exam: Normal Eyes: Positive: Conjunctiva Clear Neck: Positive: Supple Respiratory: Positive: No respiratory distress Abdomen Description: Positive: Nontender, Soft Bowel Sounds: Positive: Present Musculoskeletal: Positive: Strength Intact, ROM Intact, Other: - Tender to palpation mid lumbar spine. Legs have full range of motion full-strength normal sensation. Pain is slightly worse with right hip flexion. Neurological: Positive: Alert Psychological: Positive: Age Appropriate Behavior Skin Exam: Normal Back Pain Course/Dx - Course Course Of Treatment: Urine does not indicate any signs of infection at this time. Patient has no abdominal pain. No neurologic symptoms. Will continue with ibuprofen and also recommended using lidocaine patches. With a prescription for Flexeril to be used as needed and follow-up with primary care doctor. Reevaluate sooner if worse or any questions or concerns. - Differential Dx/Diagnosis Provider Diagnosis: Low back pain Discharge ED - Sign-Out/Discharge Documenting (check all that apply): Patient Departure All imaging exams completed and their final reports reviewed: No Studies - Discharge Plan Condition: Stable Disposition: HOME Prescriptions: Cyclobenzaprine TAB* [Flexeril 10 MG TAB*] 10 mg PO TID PRN #15 tab MDD 3 PRN Reason: Pain - Moderate Patient Education Materials: Acute Low Back Pain (ED) Referrals: Alana Jones MD [Primary Care Provider] - Additional Instructions: FOLLOW UP WITH YOUR DOCTOR. GET REEVALUATED SOONER IF NOT IMPROVED OR WORSE; PAIN, WEAKNESS, NUMBNESS, FEVER , YOU FEEL ILL, ABDOMINAL PAIN OR ANY QUESTIONS OR CONCERNS. - Billing Disposition and Condition Condition: STABLE Disposition: Home
== END 2019-01-20 14:25 | disposition home or self-care (01) ==
LOC: UCEAST 12:02
DX: M54.5 Low back pain (principal); E11.9 Type 2 diabetes mellitus without complications; I10 Essential (primary) hypertension; J45.909 Unspecified asthma, uncomplicated; Z88.2 Allergy status to sulfonamides; Z87.891 Personal history of nicotine dependence
CPT/HCPCS: 81003; 99212; G0463

== ENCOUNTER 2019-01-26 12:31 | Emergency (ER) | payer OTHER ==
--- NOTE | 2019-01-26 16:50 | ED ---
Upper Extremity Pain - HPI Summary HPI Summary: Pt. is a 58 y.o female who presents to the ER for pain to left second digit that radiates into wrist since yesterday. Pt. denies any falls or injuries. She denies wounds, redness, swelling, or fever. Pt. notes hx of arthritis. Sxs are mild in severity. Using left hand makes sxs worse. Nothing makes sxs better. - History of Current Complaint Chief Complaint: EDExtremityUpper Stated Complaint: LEFT ARM PAIN PER PT Time Seen by Provider: 01/26/19 16:24 Hx Obtained From: Patient Hx Last Menstrual Period: hysterectomy - Allergies/Home Medications Allergies/Adverse Reactions: Allergies Allergy/AdvReac Type Severity Reaction Status Date / Time Sulfa (Sulfonamide Allergy Severe Hives Verified 01/20/19 12:19 Antibiotics) PMH/Surg Hx/FS Hx/Imm Hx Previously Healthy: Yes Endocrine/Hematology History: Reports: Hx Diabetes - Type 2 Denies: Hx Anticoagulant Therapy - She took one baby aspirin today., Hx Thyroid Disease Cardiovascular History: Reports: Hx Hypertension Denies: Hx Angina, Hx Pacemaker/ICD Respiratory History: Reports: Hx Asthma Denies: Hx Chronic Obstructive Pulmonary Disease (COPD), Hx Lung Cancer, Hx Pneumonia, Hx Pulmonary Embolism GI History: Reports: Hx Gastroesophageal Reflux Disease Denies: Hx Gall Bladder Disease, Hx Gastrointestinal Bleed, Hx Ulcer, Hx Urosepsis History: Reports: Hx Kidney Stones Denies: Hx Renal Disease Musculoskeletal History: Reports: Hx Arthritis - Bilat knees, shoulders, Hx Tendonitis - L Wrist Sensory History: Reports: Hx Contacts or Glasses - glasses Denies: Hx Hearing Aid Opthamlomology History: Reports: Hx Contacts or Glasses - glasses Neurological History: Reports: Hx Migraine Denies: Hx Dementia, Hx Seizures, Hx Transient Ischemic Attacks (TIA), Other Neuro Impairments/Disorders Psychiatric History: Reports: Hx Anxiety - prn Denies: Hx Depression, Hx Panic Disorder, Hx Schizophrenia, Hx Bipolar Disorder - Cancer History Hx Chemotherapy: No Hx Radiation Therapy: No - Surgical History Surgery Procedure, Year, and Place: 1991 CHOLECYSTECTOMY. 2004 HYSTERECTOMY [facility]. BILATERAL CARPAL TUNNEL Hx Anesthesia Reactions: No - Immunization History Date of Influenza Vaccine: 09/2018 Infectious Disease History: No Infectious Disease History: Denies: Hx Clostridium Difficile, Hx Human Immunodeficiency Virus (HIV), Hx of Known/Suspected MRSA, Hx Shingles, Hx Tuberculosis, Hx Known/Suspected VRE, Hx Known/Suspected VRSA, History Other Infectious Disease, Traveled Outside the [place] in Last 30 Days - Family History Known Family History: Positive: Cardiac Disease, Hypertension, Diabetes - Social History Occupation: Unemployed Lives: With Family Alcohol Use: None Hx Substance Use: No Substance Use Type: Reports: None Hx Tobacco Use: Yes Smoking Status (MU): Former Smoker Type: Cigarettes Amount Used/How Often: LESS THEN 1PPD, only smoked 1/2 year Length of Time of Smoking/Using Tobacco: 1.5 YRS Have You Smoked in the Last Year: No Review of Systems Constitutional: Negative Negative: Fever Positive: Other - pain to left second finger, hand and wrist Skin: Negative Negative: Rash, Bruising Neurological: Negative Negative: Weakness, Paresthesia, Numbness All Other Systems Reviewed And Are Negative: Yes Physical Exam Triage Information Reviewed: Yes Vital Signs On Initial Exam: Initial Vitals Temp Pulse Resp BP Pulse Ox 97.8 F 85 18 156/93 96 01/26/19 12:42 01/26/19 12:42 01/26/19 12:42 01/26/19 12:42 01/26/19 12:42 Vital Signs Reviewed: Yes Appearance: Positive: Well-Appearing Skin: Positive: Warm, Dry Head/Face: Positive: Normal Head/Face Inspection - Pt. sitting on bed in NAD. present. Eyes: Positive: Normal, EOMI, CATRACHITA Neck: Positive: Supple Musculoskeletal: Positive: Other - Diffuse tenderness noted to left second digit hand and wrist. Full ROM with pain. No erythema, wounds, or edema. Good radial pulse. Neurological: Positive: Normal, CN Intact II-III Psychiatric: Positive: Affect/Mood Appropriate Procedures - Sedation Patient Received Moderate/Deep Sedation with Procedure: No Diagnostics - Vital Signs Vital Signs Temp Pulse Resp BP Pulse Ox 01/26/19 14:26 98.0 F 81 16 145/89 97 01/26/19 12:42 97.8 F 85 18 156/93 96 - Laboratory Lab Statement: Any lab studies that have been ordered have been reviewed, and results considered in the medical decision making process. Course/Dx - Course Course Of Treatment: Patient with above complaints. X-ray as noted below. Suspect pain possibly from tendinitis versus arthritis. Cock-up splint placed for comfort. Advised ice and elevation and intermittently. Tylenol Motrin for pain as directed. To follow-up with PCP next week if symptoms persist. Patient understands and agrees with plan. REPORT AND IMPRESSION: #. Negative for fracture or articular malalignment. #. Polyarticular very mild osteoarthritis. #. Elongated bone island at the dorsal aspect of the first distal phalanx. Negative for. suspicious focal osseous lesions. #. Unremarkable soft tissue contours. No conspicuous foreign body evident. - Diagnoses Differential Diagnosis/HQI/PQRI: Positive: Arthritis, Contusion, Fracture ( Closed), Strain, Sprain Provider Diagnoses: Osteoarthritis, Finger pain Discharge ED - Sign-Out/Discharge Documenting (check all that apply): Patient Departure - Discharge Plan Condition: Good Disposition: HOME Patient Education Materials: Osteoarthritis (ED) Referrals: Alana Jones MD [Primary Care Provider] - Additional Instructions: Call PCP on Tuesday if symptoms persist Wear splint for comfort Ice and elevate Avoid overuse Ibuprofen for pain as directed Return to ER if symptoms change or worsen - Billing Disposition and Condition Condition: GOOD Disposition: Home
[2019-01-26] MEDS ORDERED: Acetaminophen TAB* 325 MG PO ONE (17:42)
[2019-01-26 17:55] VITALS: BP 156/88
== END 2019-01-26 17:53 | disposition home or self-care (01) ==
LOC: ED 12:31
DX: M19.042 Primary osteoarthritis, left hand (principal); E11.9 Type 2 diabetes mellitus without complications; I10 Essential (primary) hypertension; J45.909 Unspecified asthma, uncomplicated; K21.9 Gastro-esophageal reflux disease without esophagitis; Z87.891 Personal history of nicotine dependence; Z90.49 Acquired absence of other specified parts of digestive tract; Z90.710 Acquired absence of both cervix and uterus; Z88.2 Allergy status to sulfonamides
CPT/HCPCS: 99282; A9270-GY

== ENCOUNTER 2019-03-07 10:29 | Emergency (ER) | payer OTHER ==
[2019-03-07 10:42] VITALS: BP 148/87
--- NOTE | 2019-03-07 11:15 | UC ---
Lower Extremity/Ankle HPI - HPI Summary HPI Summary: 58 yo female presents with low back pain. She tells me that she has a history of low back issues for many years and it flares up from time to time. This morning around 0300 she noticed some lower back pain and stiffness with pain radiating down her b/l legs. Pain has been persistent since. Worse with movement , bending, lifting, and going from a seated to standing position. She has not taken anything OTC for her symptoms. She is unsure the last time she had imaging of the area. Denies recent injury, abdominal pain, - History of Current Complaint Chief Complaint: UCLowerExtremity Stated Complaint: LEG PAIN Time Seen by Provider: 03/07/19 11:15 Hx Last Menstrual Period: hysterectomy Severity Initially: Severe Severity Currently: Severe Pain Intensity: 9 - Allergies/Home Medications Allergies/Adverse Reactions: Allergies Allergy/AdvReac Type Severity Reaction Status Date / Time Sulfa (Sulfonamide Allergy Severe Hives Verified 03/07/19 10:43 Antibiotics) PMH/Surg Hx/FS Hx/Imm Hx Endocrine History: Diabetes Cardiovascular History: Hypertension Respiratory History: Asthma GI/ History: Gastroesophageal Reflux Other History Of: Negative For: HIV, Hepatitis B, Hepatitis C, Anticoagulant Therapy - She took one baby aspirin today. - Surgical History Surgical History: Yes Surgery Procedure, Year, and Place: 1991 CHOLECYSTECTOMY. 2003 HYSTERECTOMY [facility]. BILATERAL CARPAL TUNNEL - Family History Known Family History: Positive: Cardiac Disease, Hypertension, Diabetes - Social History Lives: With Family Alcohol Use: None Substance Use Type: None Smoking Status (MU): Former Smoker Type: Cigarettes Amount Used/How Often: LESS THEN 1PPD, only smoked 1/2 year Length of Time of Smoking/Using Tobacco: 1.5 YRS Have You Smoked in the Last Year: No When Did the Patient Quit Smoking/Using Tobacco: 40 yrs ago - Immunization History Most Recent Influenza Vaccination: 10/2014 Most Recent Tetanus Shot: up to date Most Recent Pneumonia Vaccination: never had this Review of Systems All Other Systems Reviewed And Are Negative: No Constitutional: Positive: Negative Skin: Positive: Negative Respiratory: Positive: Negative Cardiovascular: Positive: Negative Gastrointestinal: Positive: Negative Genitourinary: Positive: Negative Neurovascular: Positive: Negative Musculoskeletal: Positive: Other: - Back pain Neurological: Positive: Negative Psychological: Positive: Negative Physical Exam - Summary Physical Exam Summary: GENERAL: NAD. WDWN. No pain distress. SKIN: No rashes, sores, lesions, or open wounds. NECK: Supple. FROM. Nontender. No lymphadenopathy. CHEST: CTAB. No r/r/w. No accessory muscle use. Breathing comfortably and in no distress. CV: RRR. Pulses intact. Cap refill <2seconds MSK: TTP over lumbar paraspinal muscles. Pain with flexion and extension of spine. Positive SLR b/l for low back pain without radiation. Strength 5/5 B/L LEs including dorsiflexion and plantar flexion. FROM B/L LEs. No edema. NEURO: Alert. Sensations intact B/L LEs L3-S1. Reflexes intact PSYCH: Age appropriate behavior. Triage Information Reviewed: Yes Vital Signs: Initial Vital Signs Temp 98 F 03/07/19 10:39 Pulse 74 03/07/19 10:39 Resp 15 03/07/19 10:39 BP 148/87 03/07/19 10:39 Pulse Ox 99 03/07/19 10:39 Vital Signs Reviewed: Yes Diagnostics - Radiology Lumbar Spine XR Radiology Interpretation Completed By: Radiologist Summary of Radiographic Findings: IMPRESSION: No fracture of the lumbar spine is noted. Spinal canal is intact. Lower Extremity Course/Dx - Course Course Of Treatment: XR as above. Suspect acute on chronic low back pain. Will rx for flexeril and have her f/u with her PCP for recheck - Differential Dx/Diagnosis Provider Diagnosis: Low back pain Discharge ED - Sign-Out/Discharge Documenting (check all that apply): Patient Departure All imaging exams completed and their final reports reviewed: Yes - Discharge Plan Condition: Stable Disposition: HOME Prescriptions: Cyclobenzaprine TAB* [Flexeril 10 MG TAB*] 10 mg PO TID PRN #15 tab PRN Reason: Pain - Mild Patient Education Materials: Back Pain (ED) Referrals: Alana Jones MD [Primary Care Provider] - 2 Days Additional Instructions: If you develop a fever, shortness of breath, chest pain, new or worsening symptoms - please call your PCP or go to the ED immediately. Your blood pressure was high at todays visit. Please see your primary provider within 4 weeks for recheck and re-evaluation. 1) The X-rays of your lower back were normal today 2) Please rest and practice gentle stretching of your lower back 3) May continue taking tylenol for discomfort and may take the flexeril to help with the pain 4) I recommend that you call your primary doctor to schedule a recheck in 2-3 days - Billing Disposition and Condition Condition: STABLE Disposition: Home - Attestation Statements Provider Attestation: This patient was not seen by me. I was available for consult. Chart reviewed. ALEYDA
[2019-03-07] MEDS ORDERED: Acetaminophen TAB* 325 MG PO ONE (12:01)
== END 2019-03-07 12:10 | disposition home or self-care (01) ==
LOC: UCEAST 10:29
DX: M54.5 Low back pain (principal); E11.9 Type 2 diabetes mellitus without complications; I10 Essential (primary) hypertension; J45.909 Unspecified asthma, uncomplicated; Z87.891 Personal history of nicotine dependence; Z88.2 Allergy status to sulfonamides
CPT/HCPCS: 72110; 81003; 99212; A9270-GY; G0463

== ENCOUNTER 2019-03-07 18:17 | Emergency (ER) | payer OTHER ==
--- OUTSIDE RECORDS SUMMARY | 2019-03-07 18:29 | XMS REPORT | Continuity of Care Document ---
:1960 External Reference #:[id number] Author Name Mandy Edwards O.D. Address [address] [place] [address] Care Team Providers Name Role Phone Alana Jones M.D. 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 Onset: 01/03/2015 Hypermetropia Mandy Edwards O.D. Onset: 01/03/2015 Regular astigmatism Mandy Edwards O.D. Onset: 01/03/2015 Internal hordeolum Mandy Edwards O.D. Onset: 03/11/2016 Epidemic hemorrhagic conjunctivitis Mandy Edwards O.D. 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 Tablets SM Motion Sickness Unknown 25mg Tablets Pravastatin Sodium Blegen, 10mg Tablets Alana Jeffery Fluticasone Propionate Blegen, 50mcg/Act Alana Jeffery Suspension Amlodipine Besylate Blegen, 10mg Tablets Alana Jeffery Diazepam Unknown 5mg Tablets Albuterol Sulfate Unknown (2.5mg/3ML) 0.083% Nebulizer Basaglar Kwikpen Blegen, 100Unit/ML Alana Jeffery Solution Pen-Inject Metformin HCL ER Blegen, 500mg Tablets ER Alana Jeffery 24HR Montelukast Sodium Take 1 Tablet By Unknown 10mg Tablets Mouth Every Day as Needed For Asthma/Allergies Hydrochlorothiazide Blegen, 12.5mg Alana Jeffery Capsules Metoprolol Succinate ER Take 1 Tablet By Unknown 25mg Mouth Every Day Tablets ER 24HR For Hypertension And Palpitations Losartan Potassium Take 1 Tablet By Unknown 100mg Tablets Mouth Every Day For High Blood Pressure. 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 Plan of Treatment 03/07/2019 - Mandy Edwards O.D.E11.9 Type 2 diabetes [...] that you have your eyes examined.Follow up:1 YEAR You can expect to have your eyes dilated at your next visit. If Dr. Edwards orders any additional testing, it may require extra time. We recommend that you bring sunglasses, as dilation drops often make you light sensitive until they wear off. We always recommend you bring someone to drive you home if you are uncomfortable driving with your eyes dilated. If you have any questions before your next visit, feel free to call our office at . Functional Status Description No Information Available Mental Status Description No Information Available Referrals Description No Information Available
--- NOTE | 2019-03-07 18:42 | ED ---
Lower Extremity - HPI Summary HPI Summary: Patient complains of acute on chronic low back pain with radiation of pain down bilateral lower extremities. Pain started at 3:30 AM this morning while sleeping. Patient denies trauma, ambulating normally with some pain. [facility] with [facility] x-[facility]. Prescription for Flexeril from urgent care. Patient presents to the ED stating Flexeril did not think for pain. Denies fever, cough, sore throat, CP, SOB, N/3/D, abdominal pain, change in urine, change in BM. Medical history is DM, HTN, chronic low back pain. Patient had elevated blood pressure in triage, states she is compliant with medication. - History of Current Complaint Chief Complaint: EDExtremityLower Stated Complaint: PAIN BOTH LEGS PER PT Time Seen by Provider: 03/07/19 18:37 Hx Obtained From: Patient Hx Last Menstrual Period: hysterectomy Mechanism Of Injury: Unknown Onset of Pain: Hours Onset/Duration: Hours Severity Initially: Moderate Severity Currently: Severe Pain Intensity: 10 Pain Scale Used: 0-10 Numeric Timing: Constant Location: Is Discrete @ Character Of Pain: Dull, Aching, Throbbing Associated Signs And Symptoms: Positive: Negative Aggravating Factor(s): Standing, Ambulation, Movement Alleviating Factor(s): Rest, Elevation Able to Bear Weight: Yes - Allergies/Home Medications Allergies/Adverse Reactions: Allergies Allergy/AdvReac Type Severity Reaction Status Date / Time Sulfa (Sulfonamide Allergy Severe Hives Verified 03/07/19 18:22 Antibiotics) PMH/Surg Hx/FS Hx/Imm Hx Endocrine/Hematology History: Reports: Hx Diabetes - Type 2 Denies: Hx Anticoagulant Therapy - She took one baby aspirin today., Hx Thyroid Disease Cardiovascular History: Reports: Hx Hypertension Denies: Hx Angina, Hx Pacemaker/ICD Respiratory History: Reports: Hx Asthma Denies: Hx Chronic Obstructive Pulmonary Disease (COPD), Hx Lung Cancer, Hx Pneumonia, Hx Pulmonary Embolism GI History: Reports: Hx Gastroesophageal Reflux Disease Denies: Hx Gall Bladder Disease, Hx Gastrointestinal Bleed, Hx Ulcer, Hx Urosepsis History: Reports: Hx Kidney Stones Denies: Hx Renal Disease Musculoskeletal History: Reports: Hx Arthritis - Bilat knees, shoulders, Hx Tendonitis - L Wrist Sensory History: Reports: Hx Contacts or Glasses - glasses Denies: Hx Hearing Aid Opthamlomology History: Reports: Hx Contacts or Glasses - glasses Neurological History: Reports: Hx Migraine Denies: Hx Dementia, Hx Seizures, Hx Transient Ischemic Attacks (TIA), Other Neuro Impairments/Disorders Psychiatric History: Reports: Hx Anxiety - prn Denies: Hx Depression, Hx Panic Disorder, Hx Schizophrenia, Hx Bipolar Disorder - Cancer History Hx Chemotherapy: No Hx Radiation Therapy: No - Surgical History Surgery Procedure, Year, and Place: 1991 CHOLECYSTECTOMY. 2003 HYSTERECTOMY [facility]. BILATERAL CARPAL TUNNEL Hx Anesthesia Reactions: No - Immunization History Date of Influenza Vaccine: 09/2018 Infectious Disease History: No Infectious Disease History: Denies: Hx Clostridium Difficile, Hx Human Immunodeficiency Virus (HIV), Hx of Known/Suspected MRSA, Hx Shingles, Hx Tuberculosis, Hx Known/Suspected VRE, Hx Known/Suspected VRSA, History Other Infectious Disease, Traveled Outside the [place] in Last 30 Days - Family History Known Family History: Positive: Cardiac Disease, Hypertension, Diabetes - Social History Alcohol Use: None Hx Substance Use: No Substance Use Type: Reports: None Hx Tobacco Use: Yes Smoking Status (MU): Former Smoker Type: Cigarettes Amount Used/How Often: LESS THEN 1PPD, only smoked 1/2 year Length of Time of Smoking/Using Tobacco: 1.5 YRS Have You Smoked in the Last Year: No Review of Systems Constitutional: Negative Eyes: Negative ENT: Negative Cardiovascular: Negative Respiratory: Negative Gastrointestinal: Negative Genitourinary: Negative Musculoskeletal: Other Skin: Negative Neurological: Negative Psychological: Normal All Other Systems Reviewed And Are Negative: Yes Physical Exam - Summary Physical Exam Summary: Tenderness along bilateral paraspinal muscles of the lumbar spine. Exam of lower extremities. PMS intact bilaterally Triage Information Reviewed: Yes Vital Signs On Initial Exam: Initial Vitals Temp Pulse Resp BP Pulse Ox 97.5 F 85 16 179/99 98 03/07/19 18:19 03/07/19 18:19 03/07/19 18:19 03/07/19 18:19 03/07/19 18:19 Vital Signs Reviewed: Yes Appearance: Positive: Well-Appearing Skin: Positive: Warm Head/Face: Positive: Normal Head/Face Inspection Eyes: Positive: Normal Neck: Positive: Supple Respiratory/Lung Sounds: Positive: Clear to Auscultation Cardiovascular: Positive: Normal Abdomen Description: Positive: Nontender Musculoskeletal: Positive: Normal Neurological: Positive: Normal Psychiatric: Positive: Normal AVPU Assessment: Alert - [place] Coma Scale Best Eye Response: 4 - Spontaneous Best Motor Response: 6 - Obeys Commands Best Verbal Response: 5 - Oriented Coma Scale Total: 15 Procedures - Sedation Patient Received Moderate/Deep Sedation with Procedure: No Diagnostics - Vital Signs Vital Signs Temp Pulse Resp BP Pulse Ox 03/07/19 18:19 97.5 F 85 16 179/99 98 - Laboratory Lab Statement: Any lab studies that have been ordered have been reviewed, and results considered in the medical decision making process. Lower Extremity Course/Dx - Course Course Of Treatment: Patient complains of acute on chronic low back pain with radiation of pain down bilateral lower extremities. Pain started at 3:30 AM this morning while sleeping. Patient denies trauma, ambulating normally with some pain. [facility] with [facility] x-ray. Prescription for Flexeril from urgent care. Patient presents to the ED stating Flexeril did not think for pain. Denies fever, cough, sore throat, CP, SOB, N/3/D, abdominal pain, change in urine, change in BM. Medical history is DM, HTN, chronic low back pain. Patient had elevated blood pressure in triage, states she is compliant with medication. Vital signs within normal limits. Patient improved with oxycodone 5 mg by mouth and lidocaine patch. Rx for same. - Diagnoses Provider Diagnoses: Acute exacerbation of chronic low back pain Discharge ED - Sign-Out/Discharge Documenting (check all that apply): Patient Departure - Discharge Plan Condition: Stable Disposition: HOME Prescriptions: Lidocaine PATCH 5%* [Lidoderm 5% Patch*] 1 patch TRANSDERM DAILY 4 Days #4 patch Oxycodone HCl 5 mg PO BID 2 Days #4 tablet MDD 2 tabs Patient Education Materials: Acute Low Back Pain (ED), Chronic Back Pain (DC) Referrals: Alana Jones MD [Primary Care Provider] - Additional Instructions: Take Tylenol 650 mg every 6 hours for her back pain. Take Flexeril prescribed by urgent care as directed. Use lidocaine patch for 12 hours on, then 12 hours off. Follow-up with primary care. Return to the ED for any new or worsening symptoms. - Billing Disposition and Condition Condition: STABLE Disposition: Home
[2019-03-07] MEDS ORDERED: Lidocaine PATCH 5%* 1 PATCH TRANSDERM ONE (18:54)
[2019-03-07] MEDS ORDERED: oxyCODONE TAB* 5 MG TAB PO ONE (18:55)
[2019-03-07 19:45] VITALS: BP 170/89
[2019-03-07] MEDS ORDERED: Lidocaine Patch REMOVE* 1 NOTE MISC SCH (21:00)
== END 2019-03-07 19:40 | disposition home or self-care (01) ==
LOC: ED 18:17
DX: M54.5 Low back pain (principal); E11.9 Type 2 diabetes mellitus without complications; Z88.2 Allergy status to sulfonamides; Z90.49 Acquired absence of other specified parts of digestive tract; Z90.710 Acquired absence of both cervix and uterus
CPT/HCPCS: 99282; A9270-GY